=== PATIENT | male | born 1945 | race Asian ===

== ENCOUNTER 2020-03-22 05:52 | Emergency (ER) | payer OTHER ==
[~2020-03-22] VITALS: Ht 180.3 cm; Wt 88.5 kg
[2020-03-22 06:28] LABS: BASOPHILS % 0.4 % (0.0-1.0); EOSINOPHILS # (AUTO) 0.1 (0.0-0.4); EOSINOPHILS % 2.7 % (0.0-6.0); HEMATOCRIT 37.1 % (38.2-49.6); HEMOGLOBIN 12.1 g/dL (14.0-18.0); LYMPHOCYTES # (AUTO) 0.5 (1.0-3.2); LYMPHOCYTES % 9.8 % (18.0-39.1); MEAN CORPUSCULAR HEMOGLOBIN 32.5 pg (28-32); MEAN CORPUSCULAR HGB CONC 32.6 g/dL (31-35); MEAN CORPUSCULAR VOLUME 99.7 fL (81-99); MONOCYTES # (AUTO) 0.5 (0.2-0.8); MONOCYTES % 10.3 % (4.4-11.3); NEUTROPHILS % 76.6 % (38.7-80.0); PLATELET COUNT 114 x10e3/uL (140-360); RED BLOOD COUNT 3.72 x10e6/uL (4.3-5.7); RED CELL DISTRIBUTION WIDTH 14.1 % (11.7-14.4)
[2020-03-22 06:32] LABS: INR 0.85; PARTIAL THROMBOPLASTIN TIME 25.2 seconds (23.8-35.5)
[2020-03-22] MEDS ORDERED: MORPHINE SULFATE INJ 4 MG/ML INJ 1ML IV STA (06:37)
[2020-03-22] MEDS ORDERED: ONDANSETRON HCL INJ 2MG/ML 2ML 2 MG/ML VIAL IV STA (06:37)
[2020-03-22 06:42] LABS: ALANINE AMINOTRANSFERASE 38 IU/L (0-55); ALBUMIN 3.9 g/dL (3.5-5.0); ALBUMIN/GLOBULIN RATIO 1.1 (0.8-2.0); ALKALINE PHOSPHATASE 155 IU/L (40-150); AMYLASE 154 U/L (25-125); ANION GAP 13.2 mmol/L (8-16); BLOOD UREA NITROGEN 14 mg/dL (7-26); BUN/CREATININE RATIO 14 (6-25); CALCIUM 10.3 mg/dL (8.4-10.2); CARBON DIOXIDE 23 mmol/L (22-29); CHLORIDE 105 mmol/L (98-107); CREATINE KINASE 50 IU/L (30-200); CREATININE, SERUM 0.98 mg/dL (0.72-1.25); EST GLOMERULAR FILTRATION RATE > 60 ML/MIN (60-); GLUCOSE 120 mg/dL (74-118); LIPASE 77 U/L (8-78); MAGNESIUM 1.8 MG/DL (1.3-2.1); POTASSIUM 4.2 mmol/L (3.5-5.1); SODIUM 137 mmol/L (136-145)
--- NOTE | 2020-03-22 06:52 | NUR ---
BEDSIDE REPORT GIVEN TO ONCOMING NURSENina LVN.
[2020-03-22] MEDS ORDERED: IOPAMIDOL 370 MG/ML 200 ML INFUS..BTL INJ ONE (07:03)
[2020-03-22] MEDS ORDERED: SODIUM CHLORIDE 0.9% 50ML 50 ML ONE (07:03)
--- NOTE | 2020-03-22 07:12 | NUR ---
DR. RAMILA REID AT [facility] PAGED FOR ER ([phone]); SPOKE TO ANSWERING SERVICE
[2020-03-22] MEDS ORDERED: HYDROMORPHONE 1MG/1ML INJ IV STA (07:28)
--- NOTE | 2020-03-22 07:49 | Emergency Department Note ---
History of Present Illnes History of Present Illness Chief Complaint: Abdominal Complaints History of Present Illness This is a 75 year old male 75 Y/O MALE PT AAOX3 PRESENTS TO THE ER VIA EMS FROM HOME C/O RUQ ABD PAIN WITH NAUSEA AND DECREASED APPETITE ONSET AROUND 0300 THIS AM; PT ALSO REPORTS INTERMITTENT CHEST PRESSURE RADIATING TO BILATERAL SHOULDERS AND SOB; HX OF LIVER CA. 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 Arrival Mode: [id number] Sap Bw Consultant Required: No Onset (how long ago): hour(s) Location: RUQ ABDOMEN, SUBSTERNAL CHEST Quality: PAIN (RUQ ABD), PRESSURE (CHEST) Radiation: Reports non-radiation Severity: severe Onset quality: sudden Timing of current episode: constant Progression: waxing and waning Chronicity: recurrent Context: Denies recent illness Relieving factors: none Exacerbating factors: none Associated symptoms: Reports denies other symptoms, Reports chest pain; Denies shortness of breath Past Medical/Family History Physician Review I have reviewed the patient's past medical and family history. Any updates have been documented here. Past Medical History Recent Fever: No Clinical Suspicion of Infectio: No New/Unexplained Change in Ment: No Past Medical History: Hypertension, Diabetes, CHF, RI, Cancer Other Medical History: LIVER CA Past Surgical History: CABG, Pacer/AICD Other Surgery: UNKNOWN SX TO RT GROIN PER PT POOR HISTORIAN Social History Smoking Cessation: Never Smoker Counseling Performed: No Alcohol Use: None Any Illegal Drug Use: No TB Exposure/Symptoms: No Physically hurt or threatened: No Family History Family history of heart diseas: No Review of Systems Review of Systems Constitutional: Reports no symptoms EENTM: Reports no symptoms Cardiovascular: Reports as per HPI, Reports chest pain Respiratory: Reports no symptoms Gastrointestinal: Reports as per HPI, Reports abdominal pain Genitourinary: Reports no symptoms Musculoskeletal: Reports no symptoms Integumentary: Reports no symptoms Neurological: Reports no symptoms Psychological: Reports no symptoms Endocrine: Reports no symptoms Hematological/Lymphatic: Reports no symptoms Physical Exam Related Data Allergies: Coded Allergies: Penicillins (Verified Allergy, Unknown, 03/22/20) Triage Vital Signs Vital Signs Date Time Temp Pulse Resp B/P (MAP) Pulse Ox O2 Delivery O2 Flow Rate FiO2 03/22/20 05:52 99.2 88 25 107/67 98 Room Air Vital signs reviewed: Yes Physical Exam CONSTITUTIONAL Constitutional: Present well-developed, Present well-nourished HENT HENT: Present normocephalic, Present atraumatic, Present oropharynx clear/moist, Present nose normal HENT L/R: Present left ext ear normal, Present right ext ear normal EYES Eyes: Reports PERRL, Reports conjunctivae normal NECK Neck: Present ROM normal, Present supple PULMONARY Pulmonary: Present effort normal, Present breath sounds normal CARDIOVASCULAR Cardiovascular: Present regular rhythm, Present heart sounds normal, Present capillary refill normal, Present normal rate GASTROINTESTINAL Abdominal: Present soft, Present bowel sounds normal, Present tender (MOD TENDERNESS RUQ WITH GAURDING, NO REBOUND); Absent rebound GENITOURINARY Genitourinary: Present exam deferred SKIN Skin: Present warm, Present dry MUSCULOSKELETAL Musculoskeletal: Present ROM normal NEUROLOGICAL Neurological: Present alert, Present oriented x 3, Present no gross motor or sensory deficits PSYCHOLOGICAL Psychological: Present mood/affect normal, Present judgement normal Results Laboratory Result Diagram: 03/22/20 0608 03/22/20 0608 Laboratory Laboratory Tests Test 03/22/20 06:08 White Blood Count 5.23 x10e3/uL (4.8-10.8) Red Blood Count 3.72 x10e6/uL (4.3-5.7) Hemoglobin 12.1 g/dL (14.0-18.0) Hematocrit 37.1 % (38.2-49.6) Mean Corpuscular Volume 99.7 fL (81-99) Mean Corpuscular Hemoglobin 32.5 pg (28-32) Mean Corpuscular Hemoglobin Concent 32.6 g/dL (31-35) Red Cell Distribution Width 14.1 % (11.7-14.4) Platelet Count 114 x10e3/uL (140-360) Neutrophils (%) (Auto) 76.6 % (38.7-80.0) Lymphocytes (%) (Auto) 9.8 % (18.0-39.1) Monocytes (%) (Auto) 10.3 % (4.4-11.3) Eosinophils (%) (Auto) 2.7 % (0.0-6.0) Basophils (%) (Auto) 0.4 % (0.0-1.0) Neutrophils # (Auto) 4.0 (2.1-6.9) Lymphocytes # (Auto) 0.5 (1.0-3.2) Monocytes # (Auto) 0.5 (0.2-0.8) Eosinophils # (Auto) 0.1 (0.0-0.4) Basophils # (Auto) 0.0 (0.0-0.1) Absolute Immature Granulocyte (auto 0.01 x10e3/uL (0-0.1) Prothrombin Time 12.0 seconds (11.9-14.5) Prothromb Time International Ratio 0.85 Activated Partial Thromboplast Time 25.2 seconds (23.8-35.5) Sodium Level 137 mmol/L (136-145) Potassium Level 4.2 mmol/L (3.5-5.1) Chloride Level 105 mmol/L (98-107) Carbon Dioxide Level 23 mmol/L (22-29) Anion Gap 13.2 mmol/L (8-16) Blood Urea Nitrogen 14 mg/dL (7-26) Creatinine 0.98 mg/dL (0.72-1.25) Estimat Glomerular Filtration Rate > 60 ML/MIN (60-) BUN/Creatinine Ratio 14 (6-25) Glucose Level 120 mg/dL (74-118) Calcium Level 10.3 mg/dL (8.4-10.2) Magnesium Level 1.8 MG/DL (1.3-2.1) Total Bilirubin 0.6 mg/dL (0.2-1.2) Aspartate Amino Transf (AST/SGOT) 31 IU/L (5-34) Alanine Aminotransferase (ALT/SGPT) 38 IU/L (0-55) Alkaline Phosphatase 155 IU/L (40-150) Creatine Kinase 50 IU/L (30-200) Creatine Kinase MB 2.40 ng/mL (0-5.0) Troponin I 0.009 ng/mL (0-0.300) B-Type Natriuretic Peptide 54.7 pg/mL (0-100) Total Protein 7.3 g/dL (6.5-8.1) Albumin 3.9 g/dL (3.5-5.0) Globulin 3.4 g/dL (2.3-3.5) Albumin/Globulin Ratio 1.1 (0.8-2.0) Amylase Level 154 U/L (25-125) Lipase 77 U/L (8-78) Lab results reviewed: Yes Imaging Imaging results reviewed: Yes Procedures 12 Lead ECG Interpretation ECG Interpretation : ECG: ECG 1 Sap Bw Consultant: Interpreted by ED physician Date: Mar 22, 2020 Time: 06:05 Rhythm: sinus rhythm Rate: normal (87) QRS axis: normal Conduction: right bundle branch block ST segments normal: Yes T wave inversion: III, aVR, V1 T waves flattening: aVF Clinical Impression: abnormal ECG Assessment & Plan Medical Decision Making MDM PT WITH KNOWN H/O LIVER CA AND CAD PRESENTS WITH RUQ ABD PAIN AND CP - CHECK CBC, CHEM, AMYLASE/LIPASE, UA, ECG, CARDIACS, BNP, CXR, CT ABD/PELVIS - EVAL FOR WORSENING LIVER MASS, INTERNAL HEMORRHAGE, PANCREATITIS, STEMI/NSTEMI, CHF, PNEUMONIA Reassessment Reassessment PT ANGRY AT EMS FOR BRINGING HIM HERE INSTEAD OF [facility] WHERE ALL HIS DOCTORS ARE. ALSO OUR HOSPITAL IS FULL AND THE BEST WAY TO CARE FOR THIS PATIENT IS TO TRANSFER WHICH WAS INITIATED BY DIRECT OF REAL ESTATE. TRANSFER CENTER CALLED BACK WITH DR LOPEZ (HOSPITALIST) AND PT'S HIDE WORKER DR REID ON THE LINE - THEY ACCEPTED PT FOR TRANSFER @ 0805 Assessment & Plan Final Impression: (1) Abdominal pain (2) Chest pain Depart Disposition: TRANS TO OTHER [facility] FAC[facility] Last Vital Signs Date Time Temp Pulse Resp B/P (MAP) Pulse Ox O2 Delivery O2 Flow Rate FiO2 03/22/20 05:52 99.2 88 25 107/67 98 Room Air Medications in the ED Morphine Sulfate 4 mg ONCE STAT IV ; Start 03/22/20 at 06:37; Stop 03/22/20 at 07:30; Status DC Ondansetron HCl 4 mg ONCE STAT IV ; Start 03/22/20 at 06:37; Stop 03/22/20 at 06:43; Status DC Iopamidol 74,000 mg STK-MED ONCE INJ ; Start 03/22/20 at 07:03; Stop 03/22/20 at 06:56; Status DC Sodium Chloride 50 ml @ ud STK-MED ONCE .ROUTE ; Start 03/22/20 at 07:03; Stop 03/22/20 at 06:57; Status DC Hydromorphone HCl 1 mg NOW STAT IV ; Start 03/22/20 at 07:28; Stop 03/22/20 at 07:35; Status DC SHAHLA DUNLAP MD Mar 22, 2020 07:49
--- NOTE | 2020-03-22 07:51 | NUR ---
CALLED [facility] [place] PER PT REQUEST WANTING TRANSFER TO GO THERE FOR LIVER CANCER CARE AND "ALL" HIS DR'S THERE.
--- OUTSIDE RECORDS SUMMARY | 2020-03-22 07:55 | XMS REPORT | Continuity of Care Document ---
Author Author [facility] [place] [employer] [facility] [employer] Address Unknown Phone Unavailable Care Team Providers Care Waterfront Director Name Role Phone [employer] Information [employer] Unavailable Un available Problems Problem Status Onset Date Classification Date Reported Comments Source Escherichia coli (organism) Ac tive 05/11/2016 Problem 12/23/2018 05/11/2016 urine ESBL Problem added by Discern Expert. [facility] Acute urinary tract infection (disorder) Active Problem 12/23/2018 [facility] Chronic urinary tract infection (disorder) Resolved Problem 12/23/2018 [facility] Diabetes mellitus (disorder) R esolved Problem [facility] Heart disease (disorder) Resol alecia Problem [facility] Gastroesophageal reflux disease (disorder) Resolved Problem 12/23/2018 [facility] Disorder of liver (disorder) R esolved Problem [facility] Hypercholesterolemia (disorder) Resolved Problem [facility] Hypertensive disorder, systemic arterial (disorder) Resolved Problem 12/23/2018 [facility] Hypothyroidism (disorder) Reso lved Problem [facility] Dysuria (finding) Resolved Problem 12/23/2018 [facility] Disease of prostate (disorder) Resolved Problem [facility] Urinary incontinence (finding) Resolved Problem [facility] Viral hepatitis C (disorder) A ctive Problem [facility] Medications No Data Provided for This Section Allergies, Adverse Reactions, Alerts Substance Category Reaction Severity Reaction type Status Date Reported Comments Source penicillins Assertion Drug allergy Active [facility] Immunizations Immunization Date Given Site Status Last Updated Comments Source pneumococcal 13-valent vaccine 05/11/2016 Left deltoid completed Richi [facility] influenza virus vaccine, inactivated 05/11/2016 Left deltoid completed [facility] Results No Data Provided for This Section Pathology Reports No Data Provided for This Section Diagnostic Reports No Data Provided for This Section Consultation Notes No Data Provided for This Section Discharge Summaries No Data Provided for This Section History and Physicals No Data Provided for This Section Vital Signs No Data Provided for This Section Encounters Location Location Details Encounter Type Encounter Number Reason For Visit Attending Provider ADM Date DC Date Status Source Outpatient [id number] [facility] 07/30/2016 [facility] Outpatient [id number] [facility] 08/13/2016 [facility] PreReg [id number] Ovidio Rokcwell 06/03/2018 06/05/2018 [facility] Procedures Procedure Code Date Perfomer Comments Source CABG - Coronary artery bypass graft [id number] [facility] Gallbladder operation [id number] [facility] Assessment and Plan No Data Provided for This Section Plan of Care No Data Provided for This Section Social History Social History Date Source Social History TypeResponse Substance Abuse Use: None. Alcohol Never Smoking Status Unknown if ever smoked; Exposure to Tobacco Smoke Unable to obtain; Cigarette Smoking Last 365 Days No; Reg Smoking Cessation Counseling No entered on: 07/30/16 07/21/2016 [facility] Family History No Data Provided for This Section Advance Directives No Data Provided for This Section Functional Status No Data Provided for This Section
--- OUTSIDE RECORDS SUMMARY | 2020-03-22 07:55 | XMS REPORT | Clinical Summary ---
Author Author [employer] Address Unknown Phone Unavailable Care Team Providers Care Business Intelligence Developer Name Role Phone Asked, No Pcp PCP Unavailable Allergies Comments Active Allergy Reactions Severity Noted Date Patient states he cannot breathe Penicillins High 05/29/2018 Medications End Date Status Medication Sig Dispensed Refills Start Date Active clopidogrel (PLAVIX) 75 Take 75 mg by 9 mg tablet mouth every 8 morning. Active aspirin (ECOTRIN) 81 MG Take 81 mg by 0 enteric coated tablet mouth every 8 morning. Active finasteride (PROSCAR) 5 Take 5 mg by 8 mg tablet mouth 8 nightly. Active furosemide (LASIX) 20 mg Take 20 mg by 3 04/11 tablet mouth 2 (two) 8 times a day. Active glipiZIDE (GLUCOTROL) 10 Take 10 mg by 0 05/28 MG tablet mouth every 8 morning. Active glipiZIDE (GLUCOTROL) 5 Take 5 mg by 0 MG tablet mouth every 8 evening. Active levothyroxine (SYNTHROID, Take 50 mcg 3 04/07 LEVOXYL) 50 mcg tablet by mouth 8 daily with breakfast. Active magnesium oxide (MAG-OX) Take 400 mg 1 03/03 400 mg (241.3 mg by mouth 8 magnesium) tablet every morning. Active metFORMIN (GLUCOPHAGE) Take 1,000 mg 3 01 1,000 mg tablet by mouth 2 8 (two) times a day. Active pravastatin (PRAVACHOL) Take 40 mg by 9 40 MG tablet mouth 8 nightly. Active RANEXA 1,000 mg 12 hr Take 1,000 mg 3 04/16/20 1 tablet by mouth 2 8 (two) times a day. Active spironolactone Take 25 mg by 3 10/02/201 (ALDACTONE) 25 MG tablet mouth every 8 morning. Active tamsulosin (FLOMAX) 0.4 Take 0.8 mg 9 mg capsule by mouth 8 every evening. Active ranitidine (ZANTAC) 150 Take 150 mg 0 MG tablet by mouth 2 (two) times a day. Active ferrous sulfate 325 (65 Take 325 mg 0 FE) MG tablet by mouth 2 (two) times a day. Active Problems Problem Noted Date Chest pain 05/29/2018 Encounters Care Team Description Date Type Specialty Kailey Dumont MD Hyperparathyroidism, unspecified (HCC) ( Primary Dx) 06/18/2019 Transcribe Access Orders after 03/22/2019 Social History Date Tobacco Use Types Packs/Day Years Used Never Smoker Smokeless Tobacco: Never Used Drinks/Week oz/Week Comments Alcohol Use No Alcohol Habits Answer Date Recorded How often do you have a drink containing alcohol? Never 05/29/2018 How many drinks containing alcohol do you have on No t asked a typical day when you are drinking? How often do you have six or more drinks on one Not asked occasion? Sex Assigned at Date Recorded Not on file Industry Job Start Date Occupation Not on file Not on file Not on file Travel End Travel History Travel Start No recent travel history available. Last Filed Vital Signs Not on file Plan of Treatment Health Maintenance Due Date Last Done Comments DIABETIC RETINAL EYE EXAM 1945 DIABETIC FOOT EXAM 02/25/1956 COLONOSCOPY SCREENING 02/25/1996 SHINGLES VACCINES (#1) 02/25/1996 65+ PNEUMOCOCCAL VACCINE 2011 (1 of 2 - PCV13) INFLUENZA VACCINE 04/07/2020 Results Not on fileafter 03/22/2019 Insurance Type Payer Benefit Subscriber ID Effective Phone Address Plan / Dates Group 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
--- OUTSIDE RECORDS SUMMARY | 2020-03-22 07:55 | XMS REPORT | Clinical Summary ---
Author Author [facility] Organization [facility] Address Unknown Phone Unavailable Care Team Providers Care [employer] Dynamics Consultant Name Role Phone Sage Angel MD PCP [phone] Doug Bain 31 Unavailable Allergies Comments Active Allergy Reactions Severity Noted Date [employer] LEADLESS PACEMAKER DEVICE - Micra Transcatheter Pacemaker M# [id number] S# [id number] Other Other (See High 08/18/2019 Comments) STOPPED BREATHING Penicillins Anaphylaxis High 02/09/2017 Medications End Date Status Medication Sig Dispensed Refills Start Date Active nitroglycerin (NITROSTAT) Place 0.4 mg 0 10/06 0.4 MG SL tablet under the 7 tongue every 5 (five) minutes as needed for Chest pain. Active levothyroxine (SYNTHROID, Take 50 mcg 0 LEVOTHROID) 50 MCG tablet by mouth Every morning on an empty stomach. Active glipiZIDE (GLUCOTROL) 10 Take 5 mg by 0 MG tablet mouth 2 (two) times daily before meals . Active tamsulosin (FLOMAX) 0.4 Take 2 30 capsule 0 mg Cp24 24 hr capsule capsules (0.8 7 mg total) by mouth nightly. Active metFORMIN (GLUCOPHAGE) Take 1 tablet 0 11/09/2 01 1000 MG tablet (1,000 mg 8 total) by mouth 2 (two) times daily. Active ranolazine (RANEXA) 500 Take 1,000 mg 0 MG 12 hr tablet by mouth 2 (two) times daily . Active carvedilol (COREG) 3.125 Take 3.125 mg 0 MG tablet by mouth 2 (two) times daily with breakfast and dinner. Active ferrous sulfate 325 (65 Take 325 mg 0 FE) MG tablet by mouth daily with breakfast . Active sacubitril-valsartan Take 1 tablet 0 (ENTRESTO) 24-26 mg Tab by mouth daily. Active pravastatin (PRAVACHOL) Take 40 mg by 0 40 MG tablet mouth daily. Active spironolactone Take 25 mg by 0 (ALDACTONE) 25 MG tablet mouth daily. Active finasteride (PROSCAR) 5 Take 5 mg by 0 mg tablet mouth daily. Active clopidogrel (PLAVIX) 75 TK 1 T PO QD 0 mg tablet 9 Active cyclobenzaprine Take 10 mg by 0 (FLEXERIL) 10 MG tablet mouth 3 9 (three) times daily. Active gabapentin (NEURONTIN) Take 300 mg 0 01 300 MG capsule by mouth 3 9 (three) times daily. Active rifAXIMin 550 mg Tab Take 1 tablet 60 tablet 5 (550 mg 9 total) by mouth 2 (two) times daily. Active atorvastatin (LIPITOR) 40 Take 1 tablet 0 05/09 MG tablet by mouth 9 daily. 08/18/2020 Active aspirin 81 MG chewable Take 1 tablet 30 tablet 11 0 tablet (81 mg total) 0 by mouth daily. 09/07/2020 Active furosemide (LASIX) 20 MG Take 1 tablet 60 tablet 11 tablet (20 mg total) 0 by mouth 2 (two) times daily. Active ergocalciferol, vitamin Take 50 mcg 0 D2, (VITAMIN D2 ORAL) by mouth. Active RANITIDINE HCL ORAL Take by 0 mouth. Active HYDROcodone-acetaminophen Take 1 tablet 30 tablet 0 (NORCO 10-325) 10-325 mg by mouth 2 0 per tablet (two) times daily as needed for Pain. Max Daily Amount: 2 tablets Active ondansetron (ZOFRAN) 4 MG Take 1 tablet 60 tablet 3 tabletIndications: Nausea (4 mg total) 0 by mouth 2 (two) times daily as needed for Nausea. 09/08/2019 Discontinued ranitidine (ZANTAC) 150 Take 150 mg 0 MG tablet by mouth 2 (two) times daily. 08/03/2019 Discontinued aspirin 81 MG EC tablet Take 81 mg by 0 mouth daily. 02/04/2020 Discontinued magnesium oxide (MAG-OX) Take 400 mg 0 400 mg tablet by mouth daily. 09/08/2019 Discontinued furosemide (LASIX) 20 MG Take 1 tablet 30 tablet 1 tablet (20 mg total) 8 by mouth daily. 02/04/2020 Discontinued isosorbide dinitrate Take 15 mg by 0 (ISORDIL) 30 MG tablet mouth daily. 02/04/2020 Discontinued isoniazid (NYDRAZID) 300 TK 1 T PO D 3 10/26 MG tablet 9 05/27/2019 Discontinued HYDROcodone-acetaminophen Take 1 tablet 0 (NORCO 7.5-325) 7.5-325 by mouth mg per tablet every 6 (six) hours as needed for Pain. 08/03/2019 Discontinued HYDROcodone-acetaminophen Take 1 tablet 0 05/08 (NORCO 10-325) 10-325 mg by mouth 9 per tablet daily as needed. 09/08/2019 Discontinued losartan (COZAAR) 25 MG Take 1 tablet 0 tablet by mouth 9 daily. 09/08/2019 Discontinued morphine (MS CONTIN) 15 Take 1 tablet 28 tablet 0 MG 12 hr tablet (15 mg total) 0 by mouth every 12 (twelve) hours for 30 days. Max Daily Amount: 30 mg 08/28/2019 morphine (MSIR) 15 MG Take 1 tablet 30 tablet 0 tablet (15 mg total) 0 by mouth every 4 (four) hours as needed for up to 10 days. Max Daily Amount: 90 mg 08/21/2019 polyethylene glycol Take 17 g by 14 each 0 08/18 (GLYCOLAX) 17 gram packet mouth 3 0 (three) times daily for 3 days. 09/08/2019 Discontinued pantoprazole (PROTONIX) Take 1 tablet 30 tablet 0 40 MG tablet (40 mg total) 0 by mouth daily. 09/20/2019 tetracycline Take 1 48 capsule 0 (ACHROMYCIN,SUMYCIN) 500 capsule (500 0 MG capsule mg total) by mouth 4 (four) times daily for 12 days. 09/15/2019 ondansetron (ZOFRAN-ODT) Take 1 tablet 20 tablet 0 4 MG disintegrating (4 mg total) 0 tablet by mouth every 8 (eight) hours as needed for up to 7 days. 09/20/2019 metroNIDAZOLE (FLAGYL) Take 1 tablet 36 tablet 0 0 500 MG tablet (500 mg 0 total) by mouth every 8 (eight) hours for 12 days. 10/08/2019 lactulose (CHRONULAC) 20 Take 30 mLs 2700 mL 1 0 gram/30 mL solution (20 g total) 0 by mouth 3 (three) times daily for 30 days. 09/20/2019 bismuth subsalicylate Take 2 96 tablet 0 (PEPTO-BISMOL) 262 mg tablets (524 0 Chew chewable tablet mg total) by mouth 4 (four) times daily for 12 days. 10/08/2019 pantoprazole (PROTONIX) Take 1 tablet 60 tablet 1 40 MG tablet (40 mg total) 0 by mouth 2 (two) times daily before meals for 30 days. 10/08/2019 morphine (MS CONTIN) 15 Take 1 tablet 28 tablet 0 MG 12 hr tablet (15 mg total) 0 by mouth every 12 (twelve) hours for 30 days. Max Daily Amount: 30 mg 09/18/2019 morphine (MSIR) 15 MG Take 1 tablet 60 tablet 0 tablet (15 mg total) 0 by mouth every 4 (four) hours as needed for Pain for up to 10 days. Max Daily Amount: 90 mg 02/04/2020 Discontinued losartan (COZAAR) 25 MG Take 25 mg by 0 tablet mouth daily. 02/18/2020 Discontinued HYDROcodone-acetaminophen Take 1 tablet 0 (NORCO 10-325) 10-325 mg by mouth 2 per tablet (two) times daily as needed for Pain. 02/14/2020 traMADoL (ULTRAM) 50 mg Take 1 tablet 30 tablet 0 tablet (50 mg total) 0 by mouth every 6 (six) hours as needed for up to 10 days. Max Daily Amount: 200 mg Active Problems Problem Noted Date Nausea 02/17/2020 Abdominal pain 02/02/2020 Acute chest pain 09/02/2019 Other chest pain 08/13/2019 Hepatic encephalopathy 06/08/2019 Helicobacter pylori (H. pylori) infection 11/13/2018 Pain of left hip joint 11/13/2018 Colon polyps 11/13/2018 Metabolic syndrome 04/09/2018 History of hepatitis C 02/07/2018 Other cirrhosis of liver 02/07/2018 Hepatocellular carcinoma 11/22/2017 Complete heart block 11/09/2017 Overview: S/p MICRA NSTEMI (non-ST elevated myocardial infarction) 11/08 BPH (benign prostatic hyperplasia) 10/14/2017 Dyslipidemia 10/14/2017 Diabetes 10/14/2017 End stage liver disease 10/14/2017 Portal hypertension 08/29/2017 Secondary esophageal varices without bleeding 2017 Liver mass, right lobe 08/01/2017 Last Assessment & Plan: We recommend a liver resection. We will refer him to our hepatobiliary clinic to continue with his liver resec tion work up. 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 Encounters Care Team Description Date Type Specialty Michelle Valdez MA 03/04/2020 Abstract Hepatology Melara, Line Kastrup, MEDICAL INTERN 03/01/2020 Documentation Hepatology Melara, Line Kastrup, MEDICAL INTERN Nausea (Primary Dx) 2020 Orders Only Hepatology Dinh Acosta MD Goodnough, Robert Thomas, MD [place], Narendra, MD Athreya, Khannan Kameshvaran, MD Nausea (Primary Dx); Generalized weakness; Hypotension, unspecified hypotension type; Hepatocellular carcinoma (HCC); Ischemic cardiomyopathy 02/17/2020 Emergency Cardiology - 02/18/2020 02/17/2020 Travel Opal iFne MA confirm appt 02/16/2020 Telephone Hepatology Gennaro Toure PA Follow-up 02/11/2020 Telephone Hepatology Melara, Line Kastrup, MEDICAL INTERN 02/10/2020 Documentation Hepatology Melara, Line Kastrup, MEDICAL INTERN 02/08/2020 Documentation Hepatology Marc Jimenez MD Kemal, Nejmudin Reshad, MD Ibe, Caitlyn Gao MD Hepatocellular carcinoma (HCC) (Primary Dx); Hepatic encephalopathy (HCC); Liver mass, right lobe; Metabolic syndrome; Multi-vessel coronary artery stenosis; NSTEMI (non-ST elevated myocardial infarction) (HCC); Portal hypertension (HCC); Secondary esophageal varices without bleeding (HCC) 02/02/2020 Hospital Cardiology - Encounter 02/05/2020 Gennaro Toure PA Follow-up 02/02/2020 Telephone Hepatology Gennaro Toure PA Hepatocellular carcinoma (HCC) (Primary Dx) 01/29/2020 Orders Only Hepatology J Luis Dodson MD 01/27/2020 Office Visit Interventional Radi ology 01/27/2020 Travel Nallely Peacock Procedure (EGD/TIVA) 01/20/2020 Telephone Hepatology Elkin Chandler MD Hinojosa, Line Kastrup, FNP Hepatocellular carcinoma (HCC) (Primary Dx); Secondary esophageal varices without bleeding (HCC); Portal hypertension (HCC); Other cirrhosis of liver 01/13/2020 Office Visit Hepatology Opal Fine MA reschedule for next week for MRI results 01/12/2020 Telephone Hepatology Kenny Schafer NP 01/12/2020 Documentation Hepatology Marc Jiemnez MD Hepatocellular carcinoma (HCC) 01/06/2020 Hospital Radiology Encounter 01/06/2020 Travel Penyn Oliveira MA 12/22/2019 Abstract Hepatology Nallely Peacock Appointment (patient not ready) 12/18/2019 Telephone Hepatology Marc Jimenez MD Hepatocellular carcinoma (HCC) (Primary Dx); Other cirrhosis of liver; History of hepatitis C; Hepatic encephalopathy 12/16/2019 Office Visit Hepatology Isabel Morgan MA Appointment 12/01/2019 Telephone Hepatology Opal Fine MA plan of care 11/23/2019 Telephone Hepatology Nara Melara FNP 09/14/2019 Documentation Hepatology 09/08/2019 Orders Only General Internal Me dicine 09/07/2019 Orders Only General Internal Me dicine 09/06/2019 Orders Only General Internal Me dicine 09/05/2019 Orders Only General Internal Co dicine Nati Wolff MD L CATH & PCI 09/04/2019 Surgery Agustín Gannon MD Dixit, Santosh K., MD Henderson, MD Sukhi Downey Alok, MD Acute chest pain (Primary Dx); Acute abdominal pain in right upper quadrant; Non-intractable vomiting with nausea, unspecified vomiting type; Morbidly obese (HCC); Hepatic cirrhosis, unspecified hepatic cirrhosis type, unspecified whether ascites present (HCC); Essential hypertension; Chronic combined systolic (congestive) and diastolic (congestive) heart failure (HCC); Hepatocellular carcinoma (HCC); Type 2 diabetes mellitus with hyperglycemia, unspecified whether intermediate insulin use (HCC); NAFLD (nonalcoholic fatty liver disease); Other cirrhosis of liver (HCC); Dyslipidemia; Ischemic cardiomyopathy; Multi-vessel coronary artery stenosis; Unstable angina due to arteriosclerosis of coronary artery bypass graft (HCC); Helicobacter pylori gastritis; Polyp of colon, unspecified part of colon, unspecified type; Helicobacter pylori (H. pylori) infection; Hepatic encephalopathy (HCC); History of hepatitis C; Immunity status testing; Liver mass, right lobe; Metabolic syndrome; Other chest pain; Portal hypertension (HCC); Secondary esophageal varices without bleeding (HCC); Benign prostatic hyperplasia, unspecified whether lower urinary tract symptoms present; Complete heart block (HCC); Drug-induced long QT syndrome; Angina pectoris, unstable (HCC) 09/02/2019 Hospital Cardiology - Encounter 09/08/2019 Marc Jimenez MD Multi-vessel coronary artery stenosis (P rimary Dx); Essential hypertension; Hyperlipidemia, unspecified hyperlipidemia type; Type 2 diabetes mellitus with hyperglycemia, unspecified whether intermediate insulin use (HCC) 09/02/2019 Office Visit Hepatology 09/02/2019 Orders Only General Internal Co dicine 09/02/2019 Travel J Luis Sullivan II, MD 08/13/2019 Office Visit Interventional Radi J Luis Carty Jr., MD Adio, Titilola R., MD Athreya, Khannan Kameshvaran, MD Other chest pain (Primary Dx); Hepatocellular carcinoma (HCC); Other cirrhosis of liver; Type 2 diabetes mellitus without complication, without long-term current use of insulin (HCC); Essential hypertension; Chronic combined systolic (congestive) and diastolic (congestive) heart failure (HCC); End stage liver disease (HCC); Ischemic cardiomyopathy; Multi-vessel coronary artery stenosis; Portal hypertension (HCC); Liver mass, right lobe; RUQ pain; Constipation, unspecified constipation type; Hepatic encephalopathy (HCC); History of hepatitis C 08/13/2019 [facility] Internal Co dicine - Encounter 08/18/2019 08/13/2019 Orders Only General Internal Co dicine 08/13/2019 Travel Carmen Mi PA-C 08/11/2019 Telephone Radiology Gennaro Toure PA Abdominal Pain 08/11/2019 Telephone Hepatology Marc Jimenez MD Hepatocellular carcinoma (HCC) 08/03/2019 Hospital Encounter Turner Nicholas Hepatocellular carcinoma (HCC) 08/03/2019 Orders Only Radiology Phill Barajas NP Hepatocellular carcinoma (HCC) (Primary Dx) 08/03/2019 Orders Only Hepatology Alicia Jefferson FNP Hepatocellular carcinoma (HCC) (Primary Dx) 08/03/2019 Orders Only Hepatology Amina Mccoy PA Hepatocellular carcinoma (HCC) (Primary Dx) 08/03/2019 Orders Only Interventional Radi rachnay Phill Barajas NP Hepatocellular carcinoma (HCC) (Primary Dx) 07/24/2019 Orders Only Hepatology Marc Jimenez MD Liver cell carcinoma (HCC) 07/20/2019 Hospital Encounter Marc Jimenez MD Liver cell carcinoma (HCC) (Primary Dx) 07/04/2019 Outside Orders Central Scheduling Alicia Jefferson FNP Returning message 06/19/2019 Telephone HepatJanine Gamez RN 06/09/2019 Abstract Hepatology Phill Barajas NP Return call; Question about Y90 06/03/2019 Telephone Janine Salazar RN 06/03/2019 Documentation Hepatology Marc Jimenez MD Other cirrhosis of liver (Primary Dx); Portal hypertension (HCC); NAFLD (nonalcoholic fatty liver disease); History of hepatitis C; Polyp of colon, unspecified part of colon, unspecified type; Metabolic syndrome; Immunity status testing; Hepatocellular carcinoma (HCC); Multi-vessel coronary artery stenosis; Pain of left hip joint; Hepatic encephalopathy; Secondary esophageal varices without bleeding (HCC) 05/27/2019 Office Visit Hepatology Prashanth Azevedo DO 05/21/2019 Office Visit Interventional Radi Carmen Hou 05/13/2019 Abstract Hepatology Nallely Morrison PA-C 05/13/2019 Documentation Hepatology Alicia Jefferson FNP Returning pt's call 05/06/2019 Telephone Hepatology Nallely Morrison PA-C Follow-up 04/30/2019 Telephone Hepatology Nallely Morrison PA-C Hepatocellular carcinoma (HCC) (Primary Dx); Neoplasm of digestive system 04/30/2019 Orders Only Hepatology Nallely Morrison PA-C 04/27/2019 Documentation Hepatology Nallely Morrison PA-C Hepatocellular carcinoma (HCC) (Primary Dx); Prostate enlargement 04/27/2019 Orders Only Hepatology Nallely Morrison PA-C Follow-up 04/27/2019 Telephone Hepatology Marc Jimneez MD Portal hypertension (HCC); Hepatocellular carcinoma (HCC); Other cirrhosis of liver 04/16/2019 Hospital Radiology Encounter Marc Jimenez MD Portal hypertension (HCC); Hepatocellular carcinoma (HCC); Other cirrhosis of liver 04/16/2019 Hospital Radiology Encounter Marc Jimenez MD 04/16/2019 Hospital Radiology Encounter Marc Jimenez MD Portal hypertension (HCC); Hepatocellular carcinoma (HCC); Other cirrhosis of liver 04/16/2019 Hospital Radiology Encounter Marc Jimenez MD Portal hypertension (HCC); Hepatocellular carcinoma (HCC); Other cirrhosis of liver 04/16/2019 Hospital Radiology Encounter Sage Angel MD 04/15/2019 Outside Orders Nallely Morrison PA-C Follow-up 03/30/2019 Telephone Hepatology after 03/22/2019 Family History Medical History Relation Name Comments Diabetes Brother Heart disease Brother Diabetes Brother Heart disease Brother Diabetes Brother Relation Name Status Comments Brother Alive PROSTATE REMOVED Brother Alive Brother Social History Date Tobacco Use Types Packs/Day Years Used Quit: 2016 Former Smoker Smokeless Tobacco: Never Used Tobacco Cessation: Counseling Given: Yes Comments: heavy smoker Alcohol Use Drinks/Week oz/Week Comments No Sex Assigned at Date Recorded Not on file Industry Job Start Date Occupation Not on file Not on file Not on file Travel End Travel History Travel Start No recent travel history available. 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 Inhaled Oxygen 21% Concentration 02/18/2020 5:25 AM CDT Weight 86.6 kg (191 lb) 02/17/2020 9:00 PM CDT Height 180.3 cm (5' 11") 02/18/2020 5:25 AM CDT Body Mass Index 26.64 Plan of Treatment Care Team Description Date Type Specialty Nara Melara FNP [id number] [place] [address] [phone] 03/30/2020 Appointment Radiology Marc Jimenez MD [address] [address] [phone] 03/30/2020 Office Visit Hepatology Laci Puentes MD [address] [address] [phone] 03/31/2020 Hospital Gastroenterology Encounter Laci Puentes MD [address] [address] [phone] UPPER ENDOSCOPY 03/31/2020 Surgery Gastroenterology Health Maintenance Due Date Last Done Comments DIABETIC EYE EXAM 02/25/1955 DIABETIC FOOT EXAM 02/25/1955 URINE MICROALBUMIN 02/25/1956 PNEUMOCOCCAL 65+ 05/11/2017 05/11/2016 LOW/MEDIUM RISK (2 of 2 - PPSV23) INFLUENZA VACCINE (#1) 2020 HEMOGLOBIN A1C 08/20/2020 02/18/2020, 020, 08/14/2019, Additional history exists COLON CANCER SCREENING 12/28/2027 12/27/2017 COLONOSCOPY Implants Device Identifier Shelf Expiration Date Model / Serial / L ot Implanted Type Area Manufactur er 02/01/2019 [id number] / [id number] / Micra [id number] Pacemakers Heart [employer] Implanted: Qty: 1 on 11/09/2017 by Boy Felix MD 09/28/2018 [id number] / / [id number] Promus Premier Stents-Cor N/A: Coronary [place] Implanted: Qty: 1 on 11/06/2017 by Boy Phillips MD 01/26/2019 [id number] / / [id number] Promus Premier Stents-Cor N/A: Coronary [place] Implanted: Qty: 1 on 11/06/2017 by Boy Phillips MD Procedures Comments Procedure Name Priority Date/Time Associated Diag nosis REPORT OF PROCEDURE - 02/19/2020 ENDOSCOPY SCAN 4:42 PM CDT RHYTHM STRIP - SCAN 02/19/2020 10:50 AM CDT POCT-GLUCOSE METER Routine 02/18/2020 11:55 AM CDT POCT-GLUCOSE METER Routine 02/18/2020 7:23 AM CDT CBC W/PLT COUNT & AUTO Routine 02/18/2020 DIFFERENTIAL 4:33 AM CDT HEMOGLOBIN A1C Routine 02/18/2020 4:33 AM CDT COMPREHENSIVE METABOLIC Routine 02/18/2020 PANEL 4:33 AM CDT PTH, INTACT Routine 02/18/2020 4:33 AM CDT PHOSPHORUS Routine 02/18/2020 4:33 AM CDT MAGNESIUM Routine 02/18/2020 4:33 AM CDT HEPATIC FUNCTION PANEL Routine 02/18/2020 4:33 AM CDT CBC W/PLT COUNT & AUTO Routine 02/18/2020 DIFFERENTIAL 4:33 AM CDT ECG 12-LEAD STAT 02/17/2020 11:28 PM CDT POCT-GLUCOSE METER Routine 02/17/2020 9:57 PM CDT AMMONIA STAT 02/17/2020 6:[address] BRAIN WITHOUT IV STAT 02/17/2020 CONTRAST 5:02 PM CDT BLOOD GAS, VENOUS STAT 02/17/2020 4:[address] ABDOMEN/PELVIS WITH IV STAT 02/17/2020 CONTRAST 3:07 PM CDT URINALYSIS W/ REFLEX STAT 02/17/2020 URINE CULTURE 12:56 PM CDT PROCALCITONIN STAT 02/17/2020 11:57 AM CDT B-TYPE NATRIURETIC FACTOR STAT 02/17/2020 (BNP) 11:57 AM CDT TROPONIN I STAT 02/17/2020 11:57 AM CDT COMPREHENSIVE METABOLIC STAT 02/17/2020 PANEL 11:57 AM CDT LACTIC ACID, VENOUS STAT 02/17/2020 11:57 AM CDT TSH/FREE T4 IF INDICATED STAT 02/17/2020 11:57 AM CDT SARS-COV2/RT-PCR ([facility] & STAT 02/17/2020 REF LABS) 11:35 AM CDT BLOOD CULTURE STAT 02/17/2020 11:24 AM CDT ECG 12-LEAD Routine 02/17/2020 11:23 AM CDT CBC W/PLT COUNT & AUTO STAT 02/17/2020 DIFFERENTIAL 11:16 AM CDT APTT STAT 02/17/2020 11:16 AM CDT PROTHROMBIN TIME/INR STAT 02/17/2020 11:16 AM CDT CBC W/PLT COUNT & AUTO STAT 02/17/2020 DIFFERENTIAL 11:16 AM CDT BLOOD CULTURE STAT 02/17/2020 11:16 AM CDT XR CHEST 2 VIEWS STAT 02/17/2020 9:13 AM CDT ED ECG INTERPRETATION Routine 02/17/2020 8:30 AM CDT RHYTHM STRIP - SCAN 02/08/2020 3:10 PM CDT POCT-GLUCOSE METER Routine 02/05/2020 8:34 AM CDT MAGNESIUM Routine 02/05/2020 6:[address] BRAIN WITHOUT IV STAT 02/04/2020 CONTRAST 5:25 PM CDT POCT-GLUCOSE METER Routine 02/04/2020 5:02 PM CDT POCT-GLUCOSE METER Routine 02/04/2020 12:20 PM CDT POCT-GLUCOSE METER Routine 02/04/2020 7:46 AM CDT CBC W/PLT COUNT & AUTO Routine 02/04/2020 DIFFERENTIAL 5:05 AM CDT BASIC METABOLIC PANEL (7) Routine 02/04/2020 5:05 AM CDT CBC W/PLT COUNT & AUTO Routine 02/04/2020 DIFFERENTIAL 5:05 AM CDT MAGNESIUM Routine 02/04/2020 5:05 AM CDT HEPATIC FUNCTION PANEL Routine 02/04/2020 5:05 AM CDT POCT-GLUCOSE METER Routine 02/03/2020 9:45 PM CDT POCT-GLUCOSE METER Routine 02/03/2020 4:39 PM CDT POCT-GLUCOSE METER Routine 02/03/2020 11:39 AM CDT POCT-GLUCOSE METER Routine 02/03/2020 7:52 AM CDT CBC W/PLT COUNT & AUTO Routine 02/03/2020 DIFFERENTIAL 4:49 AM CDT BASIC METABOLIC PANEL (7) Routine 02/03/2020 4:49 AM CDT CBC W/PLT COUNT & AUTO Routine 02/03/2020 DIFFERENTIAL 4:49 AM CDT MAGNESIUM Routine 02/03/2020 4:49 AM CDT HEPATIC FUNCTION PANEL Routine 02/03/2020 4:49 AM CDT POCT-GLUCOSE METER Routine 02/02/2020 10:27 PM CDT ECG 12-LEAD Routine 02/02/2020 9:18 PM CDT Procedure Note - Interface, External Ris In - 02/02/2020 9:36 PM CDT Ventricula r Rate 62 BPM Atrial Rate 62 BPM P-R Interval 198 ms QRS Duration 166 ms Q-T Interval 504 ms QTC Calculatio n(Bazett) 511 ms P Sesser 24 degrees R Sesser 99 degrees T Sesser 96 degrees Normal sinus rhythm Right bundle branch block Inferior infarct (cited on or before 0) Abnormal ECG When compared with ECG of 0 05:27, Nonspecifi c T wave abnormalit y has replaced inverted T waves in Inferior leads Nonspecifi c T wave abnormalit y has replaced inverted T waves in Anterior leads Nonspecifi c T wave abnormalit y now evident in Lateral leads ECG 12-LEAD STAT 02/02/2020 9:18 PM CDT XR CHEST 1 VIEW EDDIE 02/02/2020 PORTABLE/BEDSIDE 6:50 PM CDT CBC W/PLT COUNT & AUTO Routine 02/02/2020 DIFFERENTIAL 6:32 PM CDT BASIC METABOLIC PANEL (7) Routine 02/02/2020 6:32 PM CDT CBC W/PLT COUNT & AUTO Routine 02/02/2020 DIFFERENTIAL 6:32 PM CDT HEPATIC FUNCTION PANEL Routine 02/02/2020 6:32 PM CDT IR EMBOLIZATION ARTERIAL Routine 02/02/2020 Hepat ocellular carcinoma 2:41 PM CDT (HCC) CBC W/PLT COUNT & AUTO Routine 02/02/2020 DIFFERENTIAL 10:13 AM CDT BILIRUBIN, DIRECT Routine 02/02/2020 10:13 AM CDT COMPREHENSIVE METABOLIC Routine 02/02/2020 PANEL 10:13 AM CDT CBC W/PLT COUNT & AUTO Routine 02/02/2020 DIFFERENTIAL 10:13 AM CDT APTT Routine 02/02/2020 10:13 AM CDT PROTHROMBIN TIME/INR Routine 02/02/2020 10:13 AM CDT ARRYTHMIA IMPLANT REPORT 01/11/2020 - SCAN 3:20 PM CDT CBC W/PLT COUNT & AUTO Routine 01/06/2020 Hepatoc ellular carcinoma DIFFERENTIAL 11:17 AM CDT (HCC) LIPID PANEL Routine 01/06/2020 11:17 AM CDT ALPHA FETOPROTEIN (AFP), Routine 01/06/2020 Hepat ocellular carcinoma TUMOR MARKER 11:17 AM CDT (HCC) PROTHROMBIN TIME/INR Routine 01/06/2020 Hepatocel lular carcinoma 11:17 AM CDT (HCC) CBC W/PLT COUNT & AUTO Routine 01/06/2020 Hepatoc ellular carcinoma DIFFERENTIAL 11:17 AM CDT (HCC) HEPATIC FUNCTION PANEL Routine 01/06/2020 Hepatoc ellular carcinoma 11:17 AM CDT (HCC) BASIC METABOLIC PANEL (7) Routine 01/06/2020 Hepa tocellular carcinoma 11:17 AM CDT (HCC) MR ABDOMEN WITH & WITHOUT Routine 01/06/2020 Hepa tocellular carcinoma IV CONTRAST 10:18 AM CDT (HCC) POCT-GLUCOSE METER Routine 01/06/2020 9:06 AM CDT POCT-CREATININE Routine 01/06/2020 8:59 AM CDT RHYTHM STRIP - SCAN 09/11/2019 2:40 PM IRRIGATING PUMP OPERATOR RHYTHM STRIP - SCAN 09/11/2019 2:40 PM IRRIGATING PUMP OPERATOR VASCULAR DIAGRAM -SCAN 09/11/2019 1:30 PM IRRIGATING PUMP OPERATOR RHYTHM STRIP - SCAN 09/10/2019 8:32 AM IRRIGATING PUMP OPERATOR REPORT OF PROCEDURE - 09/10/2019 ENDOSCOPY SCAN 8:32 AM IRRIGATING PUMP OPERATOR VASCULAR DIAGRAM -SCAN 09/10/2019 8:32 AM IRRIGATING PUMP OPERATOR CARDIAC CATH REPORT - 09/10/2019 SCAN 8:32 AM IRRIGATING PUMP OPERATOR POCT-GLUCOSE METER Routine 09/08/2019 8:08 AM IRRIGATING PUMP OPERATOR ECG 12-LEAD Routine 09/08/2019 5:27 AM IRRIGATING PUMP OPERATOR Procedure Note - Interface, External Ris In - 09/08/2019 5:34 AM IRRIGATING PUMP OPERATOR Ventricula r Rate 81 BPM Atrial Rate 81 BPM P-R Interval 216 ms QRS Duration 162 ms Q-T Interval 442 ms QTC Calculatio n(Bazett) 513 ms P Sesser 34 degrees R Sesser 137 degrees T Sesser 18 degrees Sinus rhythm with 1st degree A-V block Indetermin ate axis Right bundle branch block Inferior infarct (cited on or before 0) Abnormal ECG When compared with ECG of 0 06:12, Premature ventricula r complexes are no longer Present Inverted T waves have replaced nonspecifi c T wave abnormalit y in Anterior leads ECG 12-LEAD Routine 09/08/2019 5:27 AM IRRIGATING PUMP OPERATOR CBC W/PLT COUNT & AUTO Routine 09/08/2019 DIFFERENTIAL 4:09 AM IRRIGATING PUMP OPERATOR BASIC METABOLIC PANEL (7) Routine 09/08/2019 4:09 AM IRRIGATING PUMP OPERATOR CBC W/PLT COUNT & AUTO Routine 09/08/2019 DIFFERENTIAL 4:09 AM IRRIGATING PUMP OPERATOR POCT-GLUCOSE METER Routine 09/07/2019 9:06 PM IRRIGATING PUMP OPERATOR POCT-GLUCOSE METER Routine 09/07/2019 5:15 PM IRRIGATING PUMP OPERATOR POCT-GLUCOSE METER Routine 09/07/2019 11:20 AM IRRIGATING PUMP OPERATOR POCT-GLUCOSE METER Routine 09/07/2019 7:31 AM IRRIGATING PUMP OPERATOR ECG 12-LEAD Routine 09/07/2019 6:12 AM IRRIGATING PUMP OPERATOR Procedure Note - Interface, External Ris In - 09/07/2019 6:16 AM IRRIGATING PUMP OPERATOR Ventricula r Rate 64 BPM Atrial Rate 64 BPM P-R Interval 194 ms QRS Duration 162 ms Q-T Interval 492 ms QTC Calculatio n(Bazett) 507 ms P Sesser 32 degrees R Sesser 109 degrees T Sesser 67 degrees Sinus rhythm with occasional ventricula r-paced complexes and with occasional Premature ventricula r complexes Indetermin ate axis Right bundle branch block Inferior infarct , age undetermin ed Abnormal ECG When compared with ECG of 0 04:57, Electronic ventricula r pacemaker has replaced Sinus rhythm ECG 12-LEAD Routine 09/07/2019 6:12 AM IRRIGATING PUMP OPERATOR CBC W/PLT COUNT & AUTO Routine 09/07/2019 DIFFERENTIAL 12:51 AM IRRIGATING PUMP OPERATOR HEPATIC FUNCTION PANEL Add-On 09/07/2019 12:51 AM IRRIGATING PUMP OPERATOR BASIC METABOLIC PANEL (7) Routine 09/07/2019 12:51 AM IRRIGATING PUMP OPERATOR MAGNESIUM Routine 09/07/2019 12:51 AM IRRIGATING PUMP OPERATOR CBC W/PLT COUNT & AUTO Routine 09/07/2019 DIFFERENTIAL 12:51 AM IRRIGATING PUMP OPERATOR POCT-GLUCOSE METER Routine 09/06/2019 9:22 PM IRRIGATING PUMP OPERATOR POCT-GLUCOSE METER Routine 09/06/2019 6:18 PM IRRIGATING PUMP OPERATOR POCT-GLUCOSE METER Routine 09/06/2019 3:01 PM IRRIGATING PUMP OPERATOR POCT-GLUCOSE METER Routine 09/06/2019 11:49 AM IRRIGATING PUMP OPERATOR POCT-GLUCOSE METER Routine 09/06/2019 7:23 AM IRRIGATING PUMP OPERATOR ECG 12-LEAD Routine 09/06/2019 4:57 AM IRRIGATING PUMP OPERATOR Procedure Note - Interface, External Ris In - 09/06/2019 5:00 AM IRRIGATING PUMP OPERATOR Ventricula r Rate 65 BPM Atrial Rate 65 BPM P-R Interval 204 ms QRS Duration 168 ms Q-T Interval 504 ms QTC Calculatio n(Bazett) 524 ms P Sesser 32 degrees R Sesser 139 degrees T Sesser 33 degrees Normal sinus rhythm Right bundle branch block Abnormal ECG When compared with ECG of 0 10:58, QRS duration has increased ECG 12-LEAD Routine 09/06/2019 4:57 AM IRRIGATING PUMP OPERATOR CBC W/PLT COUNT & AUTO Routine 09/06/2019 DIFFERENTIAL 4:44 AM IRRIGATING PUMP OPERATOR COMPREHENSIVE METABOLIC Routine 09/06/2019 PANEL 4:44 AM IRRIGATING PUMP OPERATOR CBC W/PLT COUNT & AUTO Routine 09/06/2019 DIFFERENTIAL 4:44 AM IRRIGATING PUMP OPERATOR POCT-GLUCOSE METER Routine 09/05/2019 9:12 [address] PU[address]PER[address] CT ABDOMEN/PELVIS WITH & Routine 09/05/2019 WITHOUT IV CONTRAST 6:01 PM IRRIGATING PUMP OPERATOR POCT-GLUCOSE METER Routine 09/05/2019 1:00 PM IRRIGATING PUMP OPERATOR ECG 12-LEAD Routine 09/05/2019 10:58 AM IRRIGATING PUMP OPERATOR Procedure Note - Interface, External Ris In - 09/05/2019 11:00 AM IRRIGATING PUMP OPERATOR Ventricula r Rate 80 BPM Atrial Rate 80 BPM P-R Interval 200 ms QRS Duration 122 ms Q-T Interval 442 ms QTC Calculatio n(Bazett) 509 ms P Sesser 22 degrees R Sesser 198 degrees T Sesser 64 degrees Normal sinus rhythm Right bundle branch block Abnormal ECG When compared with ECG of 0 10:57, Fusion complexes are no longer Present ECG 12-LEAD STAT 09/05/2019 10:58 AM IRRIGATING PUMP OPERATOR ECG 12-LEAD Routine 09/05/2019 10:57 AM IRRIGATING PUMP OPERATOR Procedure Note - Interface, External Ris In - 09/05/2019 11:00 AM IRRIGATING PUMP OPERATOR Ventricula r Rate 78 BPM Atrial Rate 78 BPM P-R Interval 200 ms QRS Duration 124 ms Q-T Interval 448 ms QTC Calculatio n(Bazett) 510 ms P Sesser 36 degrees R Sesser 181 degrees T Sesser 68 degrees Sinus rhythm with Fusion complexes Right bundle branch block Inferior infarct , age undetermin ed Abnormal ECG When compared with ECG of 0 16:36, Fusion complexes are now Present QRS duration has decreased Inferior infarct is now Present T wave inversion now evident in Anterior leads Nonspecifi c T wave abnormalit y no longer evident in Lateral leads ECG 12-LEAD Routine 09/05/2019 10:57 AM IRRIGATING PUMP OPERATOR POCT-GLUCOSE METER Routine 09/05/2019 8:05 AM IRRIGATING PUMP OPERATOR CBC W/PLT COUNT & AUTO Routine 09/05/2019 DIFFERENTIAL 2:45 AM IRRIGATING PUMP OPERATOR CBC W/PLT COUNT & AUTO Routine 09/05/2019 DIFFERENTIAL 2:45 AM IRRIGATING PUMP OPERATOR MAGNESIUM Routine 09/05/2019 2:45 AM IRRIGATING PUMP OPERATOR PROTHROMBIN TIME/INR Routine 09/05/2019 2:45 AM IRRIGATING PUMP OPERATOR HEPATIC FUNCTION PANEL Routine 09/05/2019 2:45 AM IRRIGATING PUMP OPERATOR BASIC METABOLIC PANEL (7) Routine 09/05/2019 2:45 AM IRRIGATING PUMP OPERATOR ECHOCARDIOGRAM REPORT - 09/04/2019 SCAN 9:10 PM IRRIGATING PUMP OPERATOR POCT-GLUCOSE METER Routine 09/04/2019 9:01 PM IRRIGATING PUMP OPERATOR L CATH & PCI 09/04/2019 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, unspecified vessel or lesion type, unspecified whether ewiiaapaayp or transplanted heart (HCC) POCT-GLUCOSE METER Routine 09/04/2019 3:02 PM IRRIGATING PUMP OPERATOR POCT-GLUCOSE METER Routine 09/04/2019 11:15 AM IRRIGATING PUMP OPERATOR POCT-GLUCOSE METER Routine 09/04/2019 8:33 AM IRRIGATING PUMP OPERATOR CBC W/PLT COUNT & AUTO Routine 09/04/2019 DIFFERENTIAL 5:19 AM IRRIGATING PUMP OPERATOR CBC W/PLT COUNT & AUTO Routine 09/04/2019 DIFFERENTIAL 5:19 AM IRRIGATING PUMP OPERATOR MAGNESIUM Routine 09/04/2019 5:19 AM IRRIGATING PUMP OPERATOR PROTHROMBIN TIME/INR Routine 09/04/2019 5:19 AM IRRIGATING PUMP OPERATOR HEPATIC FUNCTION PANEL Routine 09/04/2019 5:19 AM IRRIGATING PUMP OPERATOR BASIC METABOLIC PANEL (7) Routine 09/04/2019 5:19 AM IRRIGATING PUMP OPERATOR POCT-GLUCOSE METER Routine 09/03/2019 8:49 PM IRRIGATING PUMP OPERATOR POCT-GLUCOSE METER Routine 09/03/2019 5:38 PM IRRIGATING PUMP OPERATOR 2D ECHO W/ DOPPLER Routine 09/03/2019 (CW/PW/COLOR) 4:52 PM IRRIGATING PUMP OPERATOR POCT-GLUCOSE METER Routine 09/03/2019 3:12 PM IRRIGATING PUMP OPERATOR POCT-GLUCOSE METER Routine 09/03/2019 8:08 AM IRRIGATING PUMP OPERATOR TROPONIN I Routine 09/03/2019 5:39 AM IRRIGATING PUMP OPERATOR CBC W/PLT COUNT & AUTO Routine 09/03/2019 DIFFERENTIAL 12:45 AM IRRIGATING PUMP OPERATOR CBC W/PLT COUNT & AUTO Routine 09/03/2019 DIFFERENTIAL 12:45 AM IRRIGATING PUMP OPERATOR MAGNESIUM Routine 09/03/2019 12:45 AM IRRIGATING PUMP OPERATOR PROTHROMBIN TIME/INR Routine 09/03/2019 12:45 AM IRRIGATING PUMP OPERATOR HEPATIC FUNCTION PANEL Routine 09/03/2019 12:45 AM IRRIGATING PUMP OPERATOR BASIC METABOLIC PANEL (7) Routine 09/03/2019 12:45 AM IRRIGATING PUMP OPERATOR TROPONIN I Routine 09/03/2019 12:45 AM IRRIGATING PUMP OPERATOR URINALYSIS W/ MICROSCOPIC STAT 09/02/2019 8:25 PM IRRIGATING PUMP OPERATOR XR CHEST 1 VIEW STAT 09/02/2019 PORTABLE/BEDSIDE 5:08 PM IRRIGATING PUMP OPERATOR CBC W/PLT COUNT & AUTO STAT 09/02/2019 DIFFERENTIAL 5:03 PM IRRIGATING PUMP OPERATOR HEPATIC FUNCTION PANEL STAT 09/02/2019 5:03 PM IRRIGATING PUMP OPERATOR TROPONIN I STAT 09/02/2019 5:03 PM IRRIGATING PUMP OPERATOR CBC W/PLT COUNT & AUTO STAT 09/02/2019 DIFFERENTIAL 5:03 PM IRRIGATING PUMP OPERATOR BASIC METABOLIC PANEL (7) STAT 09/02/2019 5:03 PM IRRIGATING PUMP OPERATOR ED ECG INTERPRETATION Routine 09/02/2019 4:39 PM IRRIGATING PUMP OPERATOR ECG 12-LEAD Routine 09/02/2019 4:36 PM IRRIGATING PUMP OPERATOR Procedure Note - Interface, External Ris In - 09/02/2019 9:53 PM IRRIGATING PUMP OPERATOR Ventricula r Rate 66 BPM Atrial Rate 66 BPM P-R Interval 188 ms QRS Duration 160 ms Q-T Interval 484 ms QTC Calculatio n(Bazett) 507 ms P Sesser 63 degrees R Sesser 134 degrees T Sesser 73 degrees Normal sinus rhythm Right bundle branch block Abnormal ECG When compared with ECG of 0 12:52, QRS duration has increased ECG 12-LEAD STAT 09/02/2019 4:36 PM IRRIGATING PUMP OPERATOR RHYTHM STRIP - SCAN 08/21/2019 1:11 PM IRRIGATING PUMP OPERATOR RHYTHM STRIP - SCAN 08/19/2019 1:30 PM IRRIGATING PUMP OPERATOR REPORT OF PROCEDURE - 08/18/2019 ENDOSCOPY SCAN 4:35 PM IRRIGATING PUMP OPERATOR POCT-GLUCOSE METER Routine 08/18/2019 12:24 PM IRRIGATING PUMP OPERATOR POCT-GLUCOSE METER Routine 08/18/2019 7:28 AM IRRIGATING PUMP OPERATOR MAGNESIUM Routine 08/18/2019 4:32 AM IRRIGATING PUMP OPERATOR BASIC METABOLIC PANEL (7) Routine 08/18/2019 4:32 AM IRRIGATING PUMP OPERATOR POCT-GLUCOSE METER Routine 08/17/2019 8:46 PM IRRIGATING PUMP OPERATOR POCT-GLUCOSE METER Routine 08/17/2019 6:02 PM IRRIGATING PUMP OPERATOR NM BONE SCAN WHOLE BODY Routine 08/17/2019 2:18 PM IRRIGATING PUMP OPERATOR POCT-GLUCOSE METER Routine 08/17/2019 1:00 PM IRRIGATING PUMP OPERATOR XR CHEST 1 VIEW Routine 08/17/2019 PORTABLE/BEDSIDE 11:12 AM IRRIGATING PUMP OPERATOR POCT-GLUCOSE METER Routine 08/17/2019 10:34 AM IRRIGATING PUMP OPERATOR POCT-GLUCOSE METER Routine 08/17/2019 8:34 AM IRRIGATING PUMP OPERATOR MAGNESIUM Routine 08/17/2019 4:42 AM IRRIGATING PUMP OPERATOR BASIC METABOLIC PANEL (7) Routine 08/17/2019 4:42 AM IRRIGATING PUMP OPERATOR POCT-GLUCOSE METER Routine 08/16/2019 11:36 PM IRRIGATING PUMP OPERATOR POCT-GLUCOSE METER Routine 08/16/2019 11:22 PM IRRIGATING PUMP OPERATOR POCT-GLUCOSE METER Routine 08/16/2019 5:21 PM IRRIGATING PUMP OPERATOR POCT-GLUCOSE METER Routine 08/16/2019 11:12 AM IRRIGATING PUMP OPERATOR POCT-GLUCOSE METER Routine 08/16/2019 8:39 AM IRRIGATING PUMP OPERATOR HEPATIC FUNCTION PANEL Routine 08/16/2019 3:11 AM IRRIGATING PUMP OPERATOR PROTHROMBIN TIME/INR Routine 08/16/2019 3:11 AM IRRIGATING PUMP OPERATOR PHOSPHORUS Routine 08/16/2019 3:11 AM IRRIGATING PUMP OPERATOR MAGNESIUM Routine 08/16/2019 3:11 AM IRRIGATING PUMP OPERATOR BASIC METABOLIC PANEL (7) Routine 08/16/2019 3:11 AM IRRIGATING PUMP OPERATOR POCT-GLUCOSE METER Routine 08/15/2019 10:38 PM IRRIGATING PUMP OPERATOR POCT-GLUCOSE METER Routine 08/15/2019 8:01 PM IRRIGATING PUMP OPERATOR POCT-GLUCOSE METER Routine 08/15/2019 5:53 PM IRRIGATING PUMP OPERATOR NM MYOCARDIAL PERFUSION STAT 08/15/2019 SPECT, PHARM(LEXISCAN) 4:21 PM IRRIGATING PUMP OPERATOR TREADMILL Routine 08/15/2019 TOLERANCE(NON-NUCLEAR 3:08 PM IRRIGATING PUMP OPERATOR TREADMILL) POCT-GLUCOSE METER Routine 08/15/2019 12:38 PM IRRIGATING PUMP OPERATOR POCT-GLUCOSE METER Routine 08/15/2019 7:22 AM IRRIGATING PUMP OPERATOR POCT-GLUCOSE METER Routine 08/15/2019 6:29 AM IRRIGATING PUMP OPERATOR HEPATIC FUNCTION PANEL Routine 08/15/2019 4:04 AM IRRIGATING PUMP OPERATOR PROTHROMBIN TIME/INR Routine 08/15/2019 4:04 AM IRRIGATING PUMP OPERATOR HEMOGLOBIN A1C Routine 08/15/2019 4:04 AM IRRIGATING PUMP OPERATOR PHOSPHORUS Routine 08/15/2019 4:04 AM IRRIGATING PUMP OPERATOR MAGNESIUM Routine 08/15/2019 4:04 AM IRRIGATING PUMP OPERATOR BASIC METABOLIC PANEL (7) Routine 08/15/2019 4:04 AM IRRIGATING PUMP OPERATOR POCT-GLUCOSE METER Routine 08/15/2019 12:19 AM IRRIGATING PUMP OPERATOR ECHOCARDIOGRAM REPORT - 08/14/2019 SCAN 9:12 PM IRRIGATING PUMP OPERATOR POCT-GLUCOSE METER Routine 08/14/2019 6:00 PM IRRIGATING PUMP OPERATOR POCT-GLUCOSE METER Routine 08/14/2019 11:21 AM IRRIGATING PUMP OPERATOR 2D ECHO W/ DOPPLER Routine 08/14/2019 (CW/PW/COLOR) 10:09 AM IRRIGATING PUMP OPERATOR POCT-GLUCOSE METER Routine 08/14/2019 8:08 AM IRRIGATING PUMP OPERATOR CBC W/PLT COUNT & AUTO Routine 08/14/2019 DIFFERENTIAL 3:55 AM IRRIGATING PUMP OPERATOR TROPONIN I Routine 08/14/2019 3:55 AM IRRIGATING PUMP OPERATOR CBC W/PLT COUNT & AUTO Routine 08/14/2019 DIFFERENTIAL 3:55 AM IRRIGATING PUMP OPERATOR HEPATIC FUNCTION PANEL Routine 08/14/2019 3:55 AM IRRIGATING PUMP OPERATOR PROTHROMBIN TIME/INR Routine 08/14/2019 3:55 AM IRRIGATING PUMP OPERATOR HEMOGLOBIN A1C Routine 08/14/2019 3:55 AM IRRIGATING PUMP OPERATOR PHOSPHORUS Routine 08/14/2019 3:55 AM IRRIGATING PUMP OPERATOR MAGNESIUM Routine 08/14/2019 3:55 AM IRRIGATING PUMP OPERATOR BASIC METABOLIC PANEL (7) Routine 08/14/2019 3:55 AM IRRIGATING PUMP OPERATOR TROPONIN I Routine 08/13/2019 11:23 PM IRRIGATING PUMP OPERATOR POCT-GLUCOSE METER Routine 08/13/2019 10:49 PM IRRIGATING PUMP OPERATOR TROPONIN I Routine 08/13/2019 4:26 PM IRRIGATING PUMP OPERATOR B-TYPE NATRIURETIC FACTOR Routine 08/13/2019 (BNP) 4:26 PM IRRIGATING PUMP OPERATOR TSH/FREE T4 IF INDICATED Routine 08/13/2019 4:26 PM IRRIGATING PUMP OPERATOR CT ABDOMEN/PELVIS WITH IV STAT 08/13/2019 CONTRAST 3:17 PM IRRIGATING PUMP OPERATOR ECG 12-LEAD Routine 08/13/2019 1:24 PM IRRIGATING PUMP OPERATOR Procedure Note - Interface, External Ris In - 08/13/2019 2:42 PM IRRIGATING PUMP OPERATOR Ventricula r Rate 0 BPM Atrial Rate 0 BPM QRS Duration 0 ms Q-T Interval 0 ms QTC Calculatio n(Bazett) 0 ms R Sesser 0 degrees T Sesser 0 degrees No QRS complexes found, no ECG analysis possible When compared with ECG of 0 12:52, Current undetermin ed rhythm precludes rhythm comparison , needs review XR CHEST 1 VIEW STAT 08/13/2019 PORTABLE/BEDSIDE 12:58 PM IRRIGATING PUMP OPERATOR ECG 12-LEAD Routine 08/13/2019 12:52 PM IRRIGATING PUMP OPERATOR Procedure Note - Interface, External Ris In - 08/13/2019 2:41 PM IRRIGATING PUMP OPERATOR Ventricula r Rate 62 BPM Atrial Rate 62 BPM P-R Interval 208 ms QRS Duration 128 ms Q-T Interval 496 ms QTC Calculatio n(Bazett) 503 ms P Sesser 41 degrees R Sesser 99 degrees T Sesser 97 degrees Normal sinus rhythm Indetermin ate axis Right bundle branch block Abnormal ECG When compared with ECG of 8 15:31, QRS duration has decreased Nonspecifi c T wave abnormalit y now evident in Lateral leads ECG 12-LEAD STAT 08/13/2019 12:52 PM IRRIGATING PUMP OPERATOR CBC W/PLT COUNT & AUTO STAT 08/13/2019 DIFFERENTIAL 10:29 AM IRRIGATING PUMP OPERATOR TROPONIN I STAT 08/13/2019 10:29 AM IRRIGATING PUMP OPERATOR URINALYSIS W/ REFLEX STAT 08/13/2019 URINE CULTURE 10:29 AM IRRIGATING PUMP OPERATOR PT/APTT STAT 08/13/2019 10:29 AM IRRIGATING PUMP OPERATOR LIPASE STAT 08/13/2019 10:29 AM IRRIGATING PUMP OPERATOR HEPATIC FUNCTION PANEL STAT 08/13/2019 10:29 AM IRRIGATING PUMP OPERATOR BASIC METABOLIC PANEL (7) STAT 08/13/2019 10:29 AM IRRIGATING PUMP OPERATOR CBC W/PLT COUNT & AUTO STAT 08/13/2019 DIFFERENTIAL 10:29 AM IRRIGATING PUMP OPERATOR NM TUMOR LOCALIZATION Routine 08/03/2019 SPECT 3:16 PM IRRIGATING PUMP OPERATOR NM Y90 MICROSPHERES Routine 08/03/2019 THERAPY 3:12 PM IRRIGATING PUMP OPERATOR IR VISCERAL ARTERIOGRAM Routine 08/03/2019 Hepato cellular carcinoma 1:00 PM IRRIGATING PUMP OPERATOR (HCC) CBC W/PLT COUNT & AUTO Routine 08/03/2019 DIFFERENTIAL 8:47 AM IRRIGATING PUMP OPERATOR BILIRUBIN, DIRECT Routine 08/03/2019 8:47 AM IRRIGATING PUMP OPERATOR COMPREHENSIVE METABOLIC Routine 08/03/2019 PANEL 8:47 AM IRRIGATING PUMP OPERATOR APTT Routine 08/03/2019 8:47 AM IRRIGATING PUMP OPERATOR PROTHROMBIN TIME/INR Routine 08/03/2019 8:47 AM IRRIGATING PUMP OPERATOR CBC W/PLT COUNT & AUTO Routine 08/03/2019 DIFFERENTIAL 8:47 AM IRRIGATING PUMP OPERATOR NM TUMOR LOCALIZATION Routine 07/20/2019 SPECT 3:59 PM IRRIGATING PUMP OPERATOR IR VISCERAL ARTERIOGRAM Routine 07/20/2019 1:10 PM IRRIGATING PUMP OPERATOR CBC W/PLT COUNT & AUTO Routine 07/20/2019 DIFFERENTIAL 9:25 AM IRRIGATING PUMP OPERATOR COMPREHENSIVE METABOLIC Routine 07/20/2019 PANEL 9:25 AM IRRIGATING PUMP OPERATOR CBC W/PLT COUNT & AUTO Routine 07/20/2019 DIFFERENTIAL 9:25 AM IRRIGATING PUMP OPERATOR APTT Routine 07/20/2019 9:25 AM IRRIGATING PUMP OPERATOR PROTHROMBIN TIME/INR Routine 07/20/2019 9:25 AM IRRIGATING PUMP OPERATOR ARRYTHMIA IMPLANT REPORT 06/23/2019 - SCAN 3:20 PM IRRIGATING PUMP OPERATOR ARRYTHMIA IMPLANT REPORT 06/23/2019 - SCAN 3:20 PM IRRIGATING PUMP OPERATOR ARRYTHMIA IMPLANT REPORT 06/07/2019 - SCAN 7:50 PM IRRIGATING PUMP OPERATOR CBC W/PLT COUNT & AUTO Routine 05/27/2019 Other c irrhosis of liver DIFFERENTIAL 1:27 PM IRRIGATING PUMP OPERATOR ALPHA FETOPROTEIN (AFP), Routine 05/27/2019 Other cirrhosis of liver TUMOR MARKER 1:27 PM IRRIGATING PUMP OPERATOR PROTHROMBIN TIME/INR Routine 05/27/2019 Other cir rhosis of liver 1:27 PM IRRIGATING PUMP OPERATOR CBC W/PLT COUNT & AUTO Routine 05/27/2019 Other c irrhosis of liver DIFFERENTIAL 1:27 PM IRRIGATING PUMP OPERATOR HEPATIC FUNCTION PANEL Routine 05/27/2019 Other c irrhosis of liver 1:27 PM IRRIGATING PUMP OPERATOR BASIC METABOLIC PANEL (7) Routine 05/27/2019 Othe r cirrhosis of liver 1:27 PM IRRIGATING PUMP OPERATOR ARRYTHMIA IMPLANT REPORT 04/27/2019 - SCAN 4:10 PM CDT US PROSTATE Routine 04/16/2019 4:[address] CHEST WITHOUT IV Routine 04/16/2019 Portal hyp ertension (HCC) CONTRAST 3:31 PM CDT Hepatocellular carc inoma (HCC) Other cirrhosis of liver NM BONE SCAN WHOLE BODY Routine 04/16/2019 Portal hypertension (HCC) 3:26 PM CDT Hepatocellular carcinoma (HCC) Other cirrhosis of liver MR ABDOMEN WITH & WITHOUT Routine 04/16/2019 Port al hypertension (HCC) IV CONTRAST 10:00 AM CDT Hepatocellular carc inoma (HCC) Other cirrhosis of liver POCT-CREATININE Routine 04/16/2019 8:09 AM CDT XR CHEST 2 VIEWS Routine 04/16/2019 7:57 AM CDT after 03/22/2019 Results * EKG-SCANNED (02/19/2020 4:42 PM CDT) Only the most recent of 3 results within the time period is included. Narrative Performed At This result has an attachment that is n ot available. * RHYTHM STRIP - SCAN (02/19/2020 10:50 AM CDT) Only the most recent of 7 results within the time period is included. Narrative Performed At This result has an attachment that is n ot available. * POC-Glucose meter (02/18/2020 11:55 AM CDT) Only the most recent of 57 results within the time period is included. POC-Glucose Meter 253 (H)Comment: : TESTED AT 70 - 110 mg/dL [facility] [address] [facility] [id number]: Supervisor Labor Gang/Fixed Income Trading Vice President ID = [id number] for GILBERT WALL Specimen Blood Performing Organization Address City/State/Zipcode Ph one Number [facility] [address] [place], [place] [address] [facility] * CBC with platelet count + automated diff (02/18/2020 4:33 AM CDT) Only the most recent of 19 results within the time period is included. WBC 6.5 3.5 - 10.5 K/L [facility] RBC 3.79 (L) 4.63 - 6.08 M/L [facility] Hemoglobin 12.3 (L) 13.7 - 17.5 GM/DL [facility] Hematocrit 37.2 (L) 40.1 - 51.0 % [facility] MCV 98.2 (H) 79.0 - 92.2 fL [facility] MCH 32.5 (H) 25.7 - 32.2 pg [facility] MCHC 33.1 32.3 - 36.5 GM/DL [facility] RDW 12.9 11.6 - 14.4 % [facility] Platelets 193 150 - 450 K/CU MM [facility] MPV 9.9 9.4 - 12.4 fL [facility] nRBC 0 0 - 0 /100 WBC [facility] % Neutros 80 % [facility] % Lymphs 8 % [facility] % Monos 8 % [facility] % Eos 3 % [facility] % Baso 1 % [facility] # Neutros 5.23 1.78 - 5.38 K/L [facility] # Lymphs 0.54 (L) 1.32 - 3.57 K/L [facility] # Monos 0.52 0.30 - 0.82 K/L [facility] # Eos 0.18 0.04 - 0.54 K/L [facility] # Baso 0.03 0.01 - 0.08 K/L [facility] Immature 0 0 - 1 % [facility] Granulocytes-Relative [facility] Specimen Blood Performing Organization Address City/[facility] Ph one Number [address] [facility] * Phosphorus (02/18/2020 4:33 AM CDT) Only the most recent of 4 results within the time period is included. Phosphorus 2.4 2.3 - 4.7 mg/dL [facility] Specimen Blood Narrative Performed At Supervisor Labor Gang ID - [facility] Performing Organization Address [facility] Ph one Number [address] [facility] * PTH, intact (02/18/2020 4:33 AM CDT) PTH 101.5 (H) 8.5 - 72.5 pg/mL [facility] Specimen Blood Narrative Performed At Supervisor Labor Gang ID - [facility] Performing Organization Address [facility] Ph one Number [address] [facility] * Magnesium (02/18/2020 4:33 AM CDT) Only the most recent of 13 results within the time period is included. Magnesium 1.6 1.6 - 2.6 mg/dL [facility] Specimen Blood Narrative Performed At Supervisor Labor Gang ID - [facility] Performing Organization Address City/[facility] Ph one Number [address] [facility] * Hemoglobin A1c (02/18/2020 4:33 AM CDT) Only the most recent of 3 results within the time period is included. Hemoglobin A1C 6.4 (H) 4.3 - 6.1 % [facility] Specimen Blood Performing Organization Address [facility] one Number [place] [phone] [facility] * Hepatic function panel (02/18/2020 4:33 AM CDT) Only the most recent of 15 results within the time period is included. Protein, Total 7.5 6.0 - 8.3 gm/dL [facility] Albumin 3.6 3.5 - 5.0 g/dL [facility] Total Bilirubin 0.7 0.2 - 1.2 mg/dL [facility] Bilirubin, Direct 0.4 0.1 - 0.5 mg/dL [facility] Alkaline Phosphatase 184 (H) 40 - 150 U/L [facility] AST 23 5 - 34 U/L [facility] ALT 33 6 - 55 U/L [facility] Specimen Blood Narrative Performed At Supervisor Labor Gang ID - [facility] Performing Organization Address City/[facility] one Number [address] [facility] * Comprehensive metabolic panel (02/18/2020 4:33 AM CDT) Only the most recent of 6 results within the time period is included. Protein, Total 7.5 6.0 - 8.3 gm/dL [facility] Albumin 3.6 3.5 - 5.0 g/dL [facility] Alkaline Phosphatase 184 (H) 40 - 150 U/L [facility] Total Bilirubin 0.7 0.2 - 1.2 mg/dL [facility] Sodium 134 (L) 136 - 145 meq/L [facility] Potassium 4.3 3.5 - 5.1 meq/L [facility] Chloride 105 98 - 107 meq/L [facility] CO2 23 22 - 29 meq/L [facility] BUN 13 7 - 21 mg/dL [facility] Creatinine 0.85 0.57 - 1.25 mg/dL [facility] Glucose 144 (H) 70 - 105 mg/dL [facility] Calcium 10.8 (H) 8.4 - 10.2 mg/dL [facility] AST 23 5 - 34 U/L [facility] ALT 33 6 - 55 U/L [facility] EGFR 88Comment: ESTIMATED GFR IS mL/min/1.73 sq m [facility] NOT ACCURATE CREATININE [facility] CLEARANCE IN PREDICTING GLOMERULAR FILTRATION RATE. ESTIMATED GFR IS NOT APPLICABLE FOR DIALYSIS PATIENTS. Specimen Blood Narrative Performed At [employer] - [facility] Performing Organization Address City/State/Zipcode Ph one Number [place] [phone] [place], [place] [facility] [facility] * ECG 12 lead (02/17/2020 11:28 PM CDT) Only the most recent of 10 results within the time period is included. Specimen Narrative Performed At Ventricular Rate 73 BPM GE MUSE Atrial Rate 73 BPM P-R Interval 196 ms QRS Duration 154 ms Q-T Interval 454 ms QTC Calculation(Bazett) 500 ms P Sesser 37 degrees R Sesser 144 degrees T Sesser 55 degrees Normal sinus rhythm Right bundle branch block Abnormal ECG When compared with ECG of 17-FEB-2020 1 1:23, No significant change was found Confirmed by MD Pryor Roberto ([id number]) on 02/18/2020 2:17:45 PM Procedure Note Interface, External Ris In - 02/18/2020 2:17 PM CDT Ventricular Rate 73 BPM Atrial Rate 73 BPM P-R Interval 196 ms QRS Duration 154 ms Q-T Interval 454 ms QTC Calculation(Bazett) 500 ms P Sesser 37 degrees R Sesser 144 degrees T Sesser 55 degrees Normal sinus rhythm Right bundle branch block Abnormal ECG When compared with ECG of 17-FEB-2020 11:23, No significant change was found Confirmed by MD Pryor Roberto ([id number]) on 02/18/2020 2:17:45 PM Performing Organization Address City/State/Zipcode Ph one Number GE MUSE * Ammonia (02/17/2020 6:54 PM CDT) Ammonia <5 (L)Comment: Specimen 18 - 72 mol/L [facility] moderately hemolyzed [facility] Specimen Blood Narrative Performed At Supervisor Labor Gang ID - SMITA Meyer [facility] Performing Organization Address City/[facility] Ph one Number [place] [address] [facility] * CT brain without IV contrast (02/17/2020 5:02 PM CDT) Only the most recent of 2 results within the time period is included. Specimen Narrative Performed At FINAL REPORT [facility] CT, BRAIN, WITHOUT CONTRAST INDICATION: Altered mental status hepatic encephalopathy/confusion, rule out edema/hemorrhage TECHNIQUE: Noncontrast axial imaging wa s obtained from the vertex to the skull base. Axial images were recon structed using a bone algorithm. DOSE REDUCTION: Dose modulation, iterat danny reconstruction, and/or weight-based adjustment of the mA/kV wa s utilized to reduce the radiation dose to as low as reasonably achievable. COMPARISON: CT 02/04/2020 FINDINGS: Intracranial: No intracranial hemorrhag e or abnormal extra-axial collection. No evidence of acute territ orial infarct. No mass effect. No hydrocephalus. Generalized cerebral atrophy with ex va cuo dilatation of the ventricular system proportionate to sul ci. Scattered foci of hypoattenuation within the periventricu lar and subcortical white matter are a nonspecific finding common ly attributed to chronic small vessel ischemic disease. Intracranial v ascular calcifications are present. Osseous structures: No fracture. No annie picious lesion. Paranasal sinuses and mastoid air cells : No evidence of sinusitis. Mastoids are clear. Orbital contents: Globes are intact. IMPRESSION: No acute intracranial hemorrhage or CT evidence of territorial infarct. If there is persistent clinical concern for intracranial pathology, MR examination is recommended for furth er characterization. Signed: Trisha Gonsalez MD Report Verified Date/Time: 0 17:06:58 Procedure Note Interface, External Ris In - 02/17/2020 5:09 PM CDT FINAL REPORT CT, BRAIN, WITHOUT CONTRAST INDICATION: Altered mental status hepatic encephalopathy/confusion, rule out edema/hemorrhage TECHNIQUE: Noncontrast axial imaging was obtained from the vertex to the skull base. Axial images were reconstructed using a bone algorithm. DOSE REDUCTION: Dose modulation, iterative reconstruction, and/or weight-based adjustment of the mA/kV was utilized to reduce the radiation dose to as low as reasonably achievable. COMPARISON: CT 02/04/2020 FINDINGS: Intracranial: No intracranial hemorrhage or abnormal extra-axial collection. No evidence of acute territorial infarct. No mass effect. No hydrocephalus. Generalized cerebral atrophy with ex vacuo dilatation of the ventricular system proportionate to sulci. Scattered foci of hypoattenuation within the periventricular and subcortical white matter are a nonspecific finding commonly attributed to chronic small vessel ischemic disease. Intracranial vascular calcifications are present. Osseous structures: No fracture. No suspicious lesion. Paranasal sinuses and mastoid air cells: No evidence of sinusitis. Mastoids are clear. Orbital contents: Globes are intact. IMPRESSION: No acute intracranial hemorrhage or CT evidence of territorial infarct. If there is persistent clinical concern for intracranial pathology, MR examination is recommended for further characterization. Signed: Trisha Gonsalez MD Report Verified Date/Time: 02/17/2020 17:06:58 Performing Organization Address City/State/Zipcode Ph one Number GE RIS * Blood gas, venous (02/17/2020 4:09 PM CDT) pH, Oliver 7.36 7.32 - 7.42 [facility] pCO2, Oliver 51 41 - 51 mmHg [facility] pO2, Oliver 19 (L) 25 - 40 mmHg [facility] O2 Sat, Oliver 28.0 (L) 40.0 - 70.0 % [facility] HCO3, Oliver 28 21 - 29 mmol/L [facility] Base Excess, Oliver 1.8 -2.0 - 3.0 mmol/L [facility] Patient Temperature 37.0 C [facility] FIO2 21.0 % [facility] Specimen Blood Performing Organization Address City/State/Zipcode Ph one Number [place] [phone] [place], [place] [address] [facility] * CT abdomen pelvis with IV contrast (02/17/2020 3:07 PM CDT) Only the most recent of 2 results within the time period is included. Specimen Narrative Performed At FINAL REPORT [facility] TECHNIQUE: CT of the abdomen and pelvis WITH intravenous contrast and WITHOUT oral contrast. Dose modulation, iterative reconstruction, and/or weight-based adjustment of the m A/kV was utilized to reduce the radiation dose to as low as reasona jose de jesus achievable. INDICATION: Abdominal pain nausea. COMPARISON: 09/05/2019., MRI 01/06/2020 FINDINGS: LOWER THORAX: Unremarkable. HEPATOBILIARY: Liver demonstrates mildl y nodular contour. Segment seven mass now demonstrates decreased d ensity and contains few foci of gas. The lesion measures 5 x 3.8 x 6cm.. There is a stable wedge-shaped focus of decreased enhance ment in the dome of the liver in segment eight, unchanged since 2019, may represent infarct from prior embolization procedu re.. No additional hepatic lesions. Status post cholecystectomy.. No biliary ductal dilatation. SPLEEN: No splenomegaly. PANCREAS: No focal masses or ductal dil atation. ADRENALS: No adrenal nodules. KIDNEYS/URETERS: Lobulated contour of t he bilateral kidneys consistent multifocal cortical scarring . Two nonobstructing calculi in the mid and lower pole of the right kidney are unchanged.. 3.2 cm exophytic cyst arising from the posteri or interpolar region of the right kidney. PELVIC ORGANS/BLADDER: Prostate is enla rged with hypertrophy of the median lobe indenting the base of the b ladder. PERITONEUM/RETROPERITONEUM: No free air or fluid. LYMPH NODES: No lymphadenopathy. VESSELS: Atherosclerotic calcifications of the abdominal aorta and branch vessels. No evidence of aneurysm al dilation.. GI TRACT: No distention or wall thicken ing. Appendix is normal. BONES AND SOFT TISSUES: Fat-containing. Local ventral hernia.. IMPRESSION: Interval decreased density and foci of gas within the segment seven mass suggesting necrosis related to rec ent chemoembolization.. Nonobstructing calculi in the right kid franc. No hydronephrosis. Signed: Zoltan Cordova MD Report Verified Date/Time: 0 16:01:07 Reading Location: [address] Body Reading Room Procedure Note Interface, External Ris In - 02/17/2020 4:03 PM CDT FINAL REPORT TECHNIQUE: CT of the abdomen and pelvis WITH intravenous contrast and WITHOUT oral contrast. Dose modulation, iterative reconstruction, and/or weight-based adjustment of the mA/kV was utilized to reduce the radiation dose to as low as reasonably achievable. INDICATION: Abdominal pain nausea. COMPARISON: 09/05/2019., MRI 01/06/2020 FINDINGS: LOWER THORAX: Unremarkable. HEPATOBILIARY: Liver demonstrates mildly nodular contour. Segment seven mass now demonstrates decreased density and contains few foci of gas. The lesion measures 5 x 3.8 x 6cm.. There is a stable wedge-shaped focus of decreased enhancement in the dome of the liver in segment eight, unchanged since August 2019, may represent infarct from prior embolization procedure.. No additional hepatic lesions. Status post cholecystectomy.. No biliary ductal dilatation. SPLEEN: No splenomegaly. PANCREAS: No focal masses or ductal dilatation. ADRENALS: No adrenal nodules. KIDNEYS/URETERS: Lobulated contour of the bilateral kidneys consistent multifocal cortical scarring. Two nonobstructing calculi in the mid and lower pole of the right kidney are unchanged.. 3.2 cm exophytic cyst arising from the posterior interpolar region of the right kidney. PELVIC ORGANS/BLADDER: Prostate is enlarged with hypertrophy of the median lobe indenting the base of the bladder. PERITONEUM/RETROPERITONEUM: No free air or fluid. LYMPH NODES: No lymphadenopathy. VESSELS: Atherosclerotic calcifications of the abdominal aorta and branch vessels. No evidence of aneurysmal dilation.. GI TRACT: No distention or wall thickening. Appendix is normal. BONES AND SOFT TISSUES: Fat-containing. Local ventral hernia.. IMPRESSION: Interval decreased density and foci of gas within the segment seven mass suggesting necrosis related to recent chemoembolization.. Nonobstructing calculi in the right kidney. No hydronephrosis. Signed: Zoltan Cordova MD Report Verified Date/Time: 02/17/2020 16:01:07 Reading Location: [facility] [id number] CT Body Reading Room Performing Organization Address City/State/Zipcode Ph one Number GE RIS * Urinalysis w/Microscopic + Reflex to Culture (02/17/2020 12:56 PM CDT) Only the most recent of 2 results within the time period is included. Color, UA Yellow [facility] Clarity, UA Clear [facility] Specific [place], UA 1.016 1.001 - 1.035 [facility] pH, UA 6.0 5.0 - 8.0 [facility] Protein, UA Negative Negative [facility] Glucose, UA Negative Negative [facility] Ketones, UA Negative Negative [facility] Bilirubin, UA Negative Negative [facility] Blood, UA Negative Negative [facility] Nitrite, UA Negative Negative [facility] Leukocytes, UA Negative Negative [facility] Urobilinogen, UA 0.2 0.2 - 1.0 mg/dL [facility] RBC, UA 3 /HPF [facility] WBC, UA 2 /HPF [facility] Bacteria, UA Few [facility] Squam Epithel, UA <1 /HPF [facility] Hyaline Casts, UA 4 /LPF [facility] Ca Oxalate [place], UA Occasional [facility] Specimen Source [facility] Specimen Urine Narrative Performed At Supervisor Labor Gang ID - [auto] [facility] Supervisor Labor Gang ID - [facility] Performing Organization Address City/[facility] Ph one Number [place] [address] [facility] * Procalcitonin (02/17/2020 11:57 AM CDT) Procalcitonin <0.05 <0.05 ng/mL [facility] Specimen Blood Narrative Performed At SEPSIS RISK (ng/mL) [facility] Low:0.05-0.50 [facility] Intermediate: 0.51-2.00 High: >=2.01 Performing Organization Address City/[facility] Ph one Number [place] [address] [facility] * TSH/Free T4 If Indicated (02/17/2020 11:57 AM CDT) Only the most recent of 2 results within the time period is included. TSH 1.199 0.350 - 4.940 uIU/mL [facility] Specimen Blood Narrative Performed At Supervisor Labor Gang ID - SMITA C [facility] Performing Organization Address City/[facility] Ph one Number [place] [address] [facility] * Troponin I (not available at [facility] [place]) (02/17/2020 11:57 AM CDT) Only the most recent of 8 results within the time period is included. Troponin I <0.01 0.00 - 0.03 ng/mL [facility] Specimen Blood Narrative Performed At Troponin I (TnI) levels must be interpreted in the co ntext of the presenting [facility] symptoms and the clinical findings. Elevated TnI leve ls indicate myocardial [facility] damage, but are not specific for ischem ic heart disease. Elevated TnI levels are seen in patients with other cardiac con ditions (including myocarditis and congestive heart failure), and slight T nI elevations occur in patients with other conditions, including sepsis, amarjit al failure, acidosis, acute neurological disease, and persistent tachyarrhythmia . Supervisor Labor Gang ID - SMITA Meyer Performing Organization Address [facility] one [place] [address] [phone] [place] [address] * Lactic acid, venous STAT (02/17/2020 11:57 AM CDT) Lactate, Venous 0.91 0.50 - 2.20 mmol/L [facility] Specimen Blood Narrative Performed At Supervisor Labor Gang ID - SMITA Meyer [facility] Performing Organization Address [facility] one [address] [facility] * B-type natriuretic peptide (02/17/2020 11:57 AM CDT) Only the most recent of 2 results within the time period is included. BNP 52 0 - 100 pg/mL [facility] Specimen Blood Narrative Performed At Supervisor Labor Gang ID - SMITA Meyer [facility] Performing Organization Address [facility] one [address] [facility] * SARS-CoV2/RT-PCR (Asymptomatic ONLY) (02/17/2020 11:35 AM CDT) SARS-COV2/RT-PCR Negative Not Detected, Negative, [facility] See external report for [facility] linked test SARS-COV-2 PERFORMING LAB [facility] D[facility]IN [facility] Specimen Other Narrative Performed At Negative result for this test determine s that SARS-CoV-2 RNA was not present in [facility] the specimen above the Limit of Detecti on (LOD).However, Negative results do [facility] not preclude SARS-CoV-2 infection and s hould not be used as the sole basis for treatment or patient management decisio ns. Negative results must be combined with clinical observations, patient his tory, and epidemiological information. A false negative result may occur if a sp ecimen is improperly collected, transported or handled.A false nega tive result should be considered if patient's recent exposures or clinical presentation indicate that COVID-19 (SARS-CoV-2) is likely and diagnostic t ests for other causes of illness are negative.Re-testing should be consi dered in cases of suspected false negatives. The limit of detection for this assay i s 800 copies/mL. This SARS CoV-2 test is a real-time RT- PCR test intended for the qualitative detection of nucleic acid from SARS-CoV -2 in a nasopharyngeal swab specimen collected from individuals suspected of COVID-19 by their healthcare provider. This test has not been Food and Drug Ad ministration (FDA) cleared or approved.This is a modified version of an approved Emergency Use Authorization (EUA) and is in the proce ss of review by the FDA. Once authorized by the FDA, the issued EUA w ill be effective until the declaration that circumstances exist justifying the authorization of the emergency use of in vitro diagnostic tests for detection an d/or diagnosis of COVID-19 is terminated under Section 564(b)(2) of the Act or t he EUA is revoked under Section 564(g) of the Act. Fact Sheet for Healthcare Providers: https://www.Pathful/sites/default/files/product/documents/Fact_Sheet_HC_Provi avwn_Dzct_PIEA-HtB-5.pdf Fact Sheet for Healthcare Patients: https://www.[employer]x.com.[employer]/sites/default/files/product/documents/Fact_Sheet_Patients _Cwpo_AEBN-OaL-8.pdf Performing Laboratory: [address] [place] [address] [address] [facility] Ph one Number [address] [phone] [place] [address] * Blood Culture #2 (02/17/2020 11:24 AM CDT) Only the most recent of 2 results within the time period is included. Result No growth in 5 days [facility] Specimen Blood Performing Organization Address [facility] one Number [place] [address] [address] [phone] [place] [address] * aPTT (02/17/2020 11:16 AM CDT) Only the most recent of 4 results within the time period is included. PTT 28.6 22.5 - 36.0 seconds [facility] Specimen Blood Performing Organization Address [facility] one Number [place] [address] [address] [phone] [place] [address] * Prothrombin time/INR (02/17/2020 11:16 AM CDT) Only the most recent of 12 results within the time period is included. Protime 14.3 (H) 11.9 - 14.2 seconds [facility] INR 1.14 <=5.90 [facility] Specimen Blood Narrative Performed At Effective 12/03/2018: PT Reference Range Change [facility] New: 11.9-14.2Previous: 11.7-14.7 [facility] MEDICAL CE NTER RECOMMENDED COUMADIN/WARFARIN INR THERA PY RANGES STANDARD DOSE: 2.0-3.0Includes: PRO PHYLAXIS for venous thrombosis, systemic embolization; TREATMENT for venous thro mbosis and/or pulmonary embolus. HIGH RISK: Target INR is 2.5-3.5 for pa tients wiht mechanical heart valves. Performing Organization Address [facility]/State/[facility] Ph one Number [facility] [address] [place], [place] [address] [facility] * XR chest 2 views (02/17/2020 9:13 AM CDT) Only the most recent of 2 results within the time period is included. Specimen Narrative Performed At FINAL REPORT [facility] INDICATION: GENERAL ILLNESS COMPARISON: February 02, 2020 TECHNIQUE: Frontal and lateral views of the chest. FINDINGS: Lungs and pleura: Clear lungs. No effus ion. Heart and mediastinum: Normal heart siz e. Unremarkable mediastinal contours. Osseous structures: No acute abnormalit y. Additional findings: None. IMPRESSION: No acute intrathoracic abnormality. Signed: Alla Alvarez MD Report Verified Date/Time: 0 09:48:35 Reading Location: [facility] Radiolo gy Reading Room Procedure Note Interface, External Ris In - 02/17/2020 9:50 AM CDT FINAL REPORT INDICATION: GENERAL ILLNESS COMPARISON: February 02, 2020 TECHNIQUE: Frontal and lateral views of the chest. FINDINGS: Lungs and pleura: Clear lungs. No effusion. Heart and mediastinum: Normal heart size. Unremarkable mediastinal contours. Osseous structures: No acute abnormality. Additional findings: None. IMPRESSION: No acute intrathoracic abnormality. Signed: Alla Alvarez MD Report Verified Date/Time: 02/17/2020 09:48:35 Reading Location: [facility] Radiology Reading Room Performing Organization Address City/State/[facility] Ph one Number GE RIS * ECG/EKG Interpretation (02/17/2020 8:30 AM CDT) Only the most recent of 2 results within the time period is included. Narrative Performed At Dinh Acosta MD 02/17/2020 1 2:03 PM ECG/EKG Interpretation Date/Time: 02/17/2020 12:01 PM Performed by: Dinh Acosta MD Authorized by: Dinh Acosta MD The ECG was interpreted by ED physician . This ECG was compared with previous ECG(s).Comments: Normal sinus rhythm, rate 73, VA 188, QRS 166, QTc 511, right bundle branch block no s ignificant ST elevations, mild ST depression V2, no T wave inversions (si milar to prior) * Basic metabolic panel (02/04/2020 5:05 AM CDT) Only the most recent of 17 results within the time period is included. Sodium 131 (L) 136 - 145 meq/L [facility] Potassium 4.2 3.5 - 5.1 meq/L [facility] Chloride 101 98 - 107 meq/L [facility] CO2 25 22 - 29 meq/L [facility] BUN 14 7 - 21 mg/dL [facility] Creatinine 0.83 0.57 - 1.25 mg/dL [facility] Glucose 228 (H) 70 - 105 mg/dL [facility] Calcium 10.6 (H) 8.4 - 10.2 mg/dL [facility] EGFR 91Comment: ESTIMATED GFR IS mL/min/1.73 sq m [facility] NOT ACCURATE CREATININE [facility] CLEARANCE IN PREDICTING GLOMERULAR FILTRATION RATE. ESTIMATED GFR IS NOT APPLICABLE FOR DIALYSIS PATIENTS. Specimen Blood Narrative Performed At Supervisor Labor Gang ID - EDASI [facility] Performing Organization Address City/State/Zipcode Ph one Number [address] [address] [facility] * XR chest 1 view portable / bedside (02/02/2020 6:50 PM CDT) Only the most recent of 4 results within the time period is included. Specimen Narrative Performed At FINAL REPORT [facility] TECHNIQUE: Frontal view of the chest. INDICATION: 74-year-old man with right shoulder pain. COMPARISON: Chest radiograph 09/02/2019. FINDINGS: LINES/TUBES/DEVICES: Unchanged implante d electronic device projects over the lower left chest. LUNGS: Lungs are well inflated. No cons olidation or pulmonary edema. PLEURA: No pneumothorax or significant pleural effusion. HEART AND MEDIASTINUM: Cardiomediastina l silhouette is within normal limits. Atherosclerotic calcifications in the thoracic aorta. BONES AND SOFT TISSUES: Unchanged media n sternotomy wires. Soft tissues are unremarkable. IMPRESSION: No acute cardiopulmonary abnormalities. Signed: Alban Grewal MD Report Verified Date/Time: 0 19:18:46 Reading Location: [address] Consult Reading Room Procedure Note Interface, External Ris In - 02/02/2020 7:21 PM CDT FINAL REPORT TECHNIQUE: Frontal view of the chest. INDICATION: 74-year-old man with right shoulder pain. COMPARISON: Chest radiograph 09/02/2019. FINDINGS: LINES/TUBES/DEVICES: Unchanged implanted electronic device projects over the lower left chest. LUNGS: Lungs are well inflated. No consolidation or pulmonary edema. PLEURA: No pneumothorax or significant pleural effusion. HEART AND MEDIASTINUM: Cardiomediastinal silhouette is within normal limits. Atherosclerotic calcifications in the thoracic aorta. BONES AND SOFT TISSUES: Unchanged median sternotomy wires. Soft tissues are unremarkable. IMPRESSION: No acute cardiopulmonary abnormalities. Signed: Alban Grewal MD Report Verified Date/Time: 02/02/2020 19:18:46 Reading Location: [address] Consult Reading Room Performing Organization Address City/State/Zipcode Ph one Number [facility] * IR Embolization (02/02/2020 2:41 PM CDT) Specimen Narrative Performed At FINAL REPORT [facility] History: Residual right-sided HCC. Modality: Ultrasound/fluoroscopy. Sedation: Moderate sedation was adminis tered. 2 mg of Versed [id number] mcg of fentanyl IV was used for moderat e sedation monitored under my direction. Total intra-service time of sedation [id number]. The patient's vital signs were monitored th roughout the procedure and recorded in the patient's medical recor d by the nurse. Anesthesia:Two percent Lidocaine wi thout epinephrine. Approach:Right common femoral arter y. Estimated blood loss:< 5 cc. Specimen: None. cmm operator: Mendoza Burger MD.. Store Planner: MD Lionel (Fellow). Fluoroscopy Time: 9.0 min. Reference Air Kerma (Ka, r): 744.6 mGy. Technique: Initial ultrasound images demonstrate p atent right common femoral artery. Using ultrasound guidance, foll owing acquisition of permanent images, the right common femoral artery was accessed using a 21-gauge micropuncture needle. A 0.018 inch wire was advanced into the abdominal aorta. The needle was exchang ed for a 4 Chilean micropuncture sheath. The micropuncture sheath was exchanged over a 0.035 Bentson wire for a 5 Chilean x 10 cm vascular sheath. A 5 Chilean Sos-2 reverse curve catheter was used to cannulate the right inferior phrenic artery arising o ff the aorta. A 2.8 Chilean microcatheter was advanced over 0.016 i nch microwire wire further into the right inferior phrenic artery. A DSA run was performed. The catheter was then manipulated into the branch arising off the right inferior phrenic artery supplying the h ypervascular lesion within the superior right hepatic lobe. From this location chemoembolization was performed using 75 mg of doxorubicin lo aded on LC beads. Given persistent flow on post chemotherapy em bolization angiography, additional embolization was performed u sing 100-300 um embospheres until there stagnant flow achieved. All catheters and wires were removed. C ontrast injected to the right femoral sheath demonstrating puncture a menable for closure device. The arteriotomy was closed using a 5 Fr ench Mynx closure device. A sterile dressing was applied. Findings: 1. Arteriography performed via the infe rior right phrenic artery demonstrates extrahepatic supply to the right liver with large hypervascular lesion noted within the s uperior right hepatic lobe compatible with the known residual HCC. 2. Successful chemoembolization an donovan tional bland embolization of the right hepatic lesion via the feedin g branch arising off the right inferior right artery until near stagna nt flow achieved. Postembolization angiography demonstrat es no further abnormal hypervascularity. 3. Right femoral sheath injection demon strate patent right common femoral artery puncture minimal for steff sure device. Impression: Technically successful transarterial ch emo/bland embolization of the residual right hepatic HCC via extrahep atic supply arising off the right inferior phrenic artery as detail ed above. Signed: Mendoza Burger MD Report Verified Date/Time: 0 17:29:39 Reading Location: [facility] B1 P048 Angio Bod y Reading Room Procedure Note Interface, External Ris In - 02/05/2020 5:31 PM CDT FINAL REPORT History: Residual right-sided HCC. Modality: Ultrasound/fluoroscopy. Sedation: Moderate sedation was administered. 2 mg of Versed and 100 mcg of fentanyl IV was used for moderate sedation monitored under my direction. Total intra-service time of sedation was 45 minutes. The patient's vital signs were monitored throughout the procedure and recorded in the patient's medical record by the nurse. Anesthesia: Two percent Lidocaine without epinephrine. Approach: Right common femoral artery. Estimated blood loss: < 5 cc. Specimen: None. cmm operator: Mendoza Burger MD.. Store Planner: MD Lionel (Fellow). Fluoroscopy Time: 9.0 min. Reference Air Kerma (Ka, r): 744.6 mGy. Technique: Initial ultrasound images demonstrate patent right common femoral artery. Using ultrasound guidance, following acquisition of permanent images, the right common femoral artery was accessed using a 21-gauge micropuncture needle. A 0.018 inch wire was advanced into the abdominal aorta. The needle was exchanged for a 4 Chilean micropuncture sheath. The micropuncture sheath was exchanged over a 0.035 Bentson wire for a 5 Chilean x 10 c m vascular sheath. A 5 Chilean Sos-2 reverse curve catheter was used to cannulate the right inferior phrenic artery arising off the aorta. A 2.8 Chilean microcatheter was advanced over 0.016 inch microwire wire further into the right inferior phrenic artery. A DSA run was performed. The catheter was then manipulated into the branch arising off the right inferior phrenic artery supplying the hypervascular lesion within the superior right hepatic lobe. From this location chemoembolization was performed using 75 mg of doxorubicin loaded on LC beads. Given persistent flow on post chemotherapy embolization angiography, additional embolization was performed using 100-300 um embospheres until there stagnant flow achieved. All catheters and wires were removed. Contrast injected to the right femoral sheath demonstrating puncture amenable for closure device. The arteriotomy was closed using a 5 Chilean Mynx closure device. A sterile dressing was applied. Findings: 1. Arteriography performed via the infer ior right phrenic artery demonstrates extrahepatic supply to the right liver with large hypervascular lesion noted within the superior right hepatic lobe compatible with the known residual HCC. 2. Successful chemoembolization an addit ional bland embolization of the right hepatic lesion via the feeding branch arising off the right inferior right artery until near stagnant flow achieved. Postembolization angiography demonstrates no further abnormal hypervascularity. 3. Right femoral sheath injection demons trate patent right common femoral artery puncture minimal for closure device. Impression: Technically successful transarterial chemo/bland embolization of the residual right hepatic HCC via extrahepatic supply arising off the right inferior phrenic artery as detailed above. Signed: Mendoza Burger MD Report Verified Date/Time: 02/05/2020 17:29:39 Reading Location: [place] [address] Angio Body Reading Room Performing Organization Address City/State[facility] Ph one Number [facility] * Bilirubin, direct (02/02/2020 10:13 AM CDT) Only the most recent of 2 results within the time period is included. Bilirubin, Direct 0.3 0.1 - 0.5 mg/dL [facility] Specimen Blood Narrative Performed At Supervisor Labor Gang ID - [facility] Performing Organization Address City/[facility] Ph one Number [place] [address] [facility] * ARRYTHMIA IMPLANT REPORT - SCAN (01/11/2020 3:20 PM CDT) Only the most recent of 5 results within the time period is included. Narrative Performed At This result has an attachment that is n ot available. * Alpha fetoprotein (AFP), tumor marker (01/06/2020 11:17 AM CDT) Only the most recent of 2 results within the time period is included. Alpha-Fetoprotein 18.4 (H) <10.0 ng/mL [facility] Specimen Blood Narrative Performed At Supervisor Labor Gang ID - [facility] Performing Organization Address City/[facility] Ph one Number [facility] [address] [place], [place] [address] [facility] * Lipid panel (01/06/2020 11:17 AM CDT) Triglycerides 123 mg/dL [facility] Cholesterol 181 mg/dL [facility] HDL 59 mg/dL [facility] LDL Calculated 97 mg/dL [facility] Specimen Blood Narrative Performed At Triglyceride Reference Range: [facility] Low Risk <150 [facility] [id number] High Risk 200-499 Very High Risk>=500 Cholesterol Reference Range: Low Risk <200 [id number] High Risk>240 HDL Cholesterol Reference Range: Low Risk >=60 High Risk <40 LDL Cholesterol Reference Range: Optimal<100 Near [id number] Very High >=190 Supervisor Labor Gang ID - BS Performing Organization Address City/State/[facility] one Number [facility] [address] [place], [place] [address] [facility] * MR abdomen with/without IV contrast (01/06/2020 10:18 AM CDT) Only the most recent of 2 results within the time period is included. Specimen Narrative Performed At FINAL REPORT [facility] TECHNIQUE: MRI of the abdomen WITHOUT a nd WITH intravenous contrast. INDICATION: HCC s/p Y90 07/2019 screen f or HCC. COMPARISON: MRIs dating back to 8 FINDINGS: LOWER THORAX: Unremarkable. LIVER: The liver is nodular and cirrhot ic. There are several scattered areas of arterial phase hyper enhancement throughout the right hepatic lobe, and some of these d o appear slightly nodular. However, there has been interval atroph y in these regions and this may be post radiation/post treatment ch sridhar in the right hepatic lobe. No washout or pseudocapsule forma tion. An area of arterial phase hyperenhancem ent with washout in segment VII measures 5.3 x 4.1 x 5 cm, previous ly 3.9 x 2.8 x 4.8 cm. BILIARY: Prior cholecystectomy. A branc natalia area of nonenhancement in segment VIII is most likely a dilated b iliary radical. Mild right intrahepatic ductal dilation. SPLEEN: 13.1 cm splenomegaly. PANCREAS: No focal masses or ductal dil atation. A pancreatic tail cystic lesion measures 1.1 cm and is un changed. ADRENALS: No adrenal nodules. KIDNEYS/URETERS: No hydronephrosis or s olid mass lesions. Simple renal cysts measure up to 3.4 cm in the right interpolar region. No routine follow-up imaging is recommende d. PERITONEUM/RETROPERITONEUM: No free flu id. LYMPH NODES: No lymphadenopathy. VESSELS: Conventional hepatic arterial anatomy. The main portal vein measures 1.4 cm in diameter and is rodrigez nt. GI TRACT: No distention or wall thicken ing. BONES AND SOFT TISSUES: An area of hype renhancement in the right chest wall measures 1 cm on axial venou s phase image 85. This is new from 10/20/2018. Bilateral gynecomastia. 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 2.An area of hyperenhancement in the ri ght chest wall measures 1 cm and is new from 10/20/2018. While this i s indeterminate, a bone metastasis is possible, and further richy luation with a chest CT is recommended. An intercostal peripheral nerve sheath tumor is in the differential. 3.The right intrahepatic ductal dilatio n and scattered areas of arterial phase hyperenhancement without washout are likely treatment related change. 4.Cirrhosis with mild splenomegaly. Signed: Leticia Cespedes MD Report Verified Date/Time: 0 13:21:41 Reading Location: [facility] B1 C013Y CT Body Reading Room Procedure Note Interface, External Ris In - 01/06/2020 1:23 PM CDT FINAL REPORT TECHNIQUE: MRI of the abdomen WITHOUT and WITH intravenous contrast. INDICATION: HCC s/p Y90 07/2019 screen for HCC. COMPARISON: MRIs dating back to 09/12/2017 FINDINGS: LOWER THORAX: Unremarkable. LIVER: The liver is nodular and cirrhotic. There are several scattered areas of arterial phase hyperenhancement throughout the right hepatic lobe, and some of these do appear slightly nodular. However, there has been interval atrophy in these regions and this may be post radiation/post treatment change in the right hepatic lobe. No washout or pseudocapsule formation. An area of arterial phase hyperenhancement with washout in segment VII measures 5.3 x 4.1 x 5 cm, previously 3.9 x 2.8 x 4.8 cm. BILIARY: Prior cholecystectomy. A branching area of nonenhancement in segment VIII is most likely a dilated biliary radical. Mild right intrahepatic ductal dilation. SPLEEN: 13.1 cm splenomegaly. PANCREAS: No focal masses or ductal dilatation. A pancreatic tail cystic lesion measures 1.1 cm and is unchanged. ADRENALS: No adrenal nodules. KIDNEYS/URETERS: No hydronephrosis or solid mass lesions. Simple renal cysts measure up to 3.4 cm in the right interpolar region. No routine follow-up imaging is recommended. PERITONEUM/RETROPERITONEUM: No free fluid. LYMPH NODES: No lymphadenopathy. VESSELS: Conventional hepatic arterial anatomy. The main portal vein measures 1.4 cm in diameter and is patent. GI TRACT: No distention or wall thickening. BONES AND SOFT TISSUES: An area of hyperenhancement in the right chest wall measures 1 cm on axial venous phase image 85. This is new from 10/20/2018. Bilateral gynecomastia. IMPRESSION: 1.The hepatocellular carcinoma in segmen t VII has increased in size and measures up to 5.3 cm. 2.An area of hyperenhancement in the rig ht chest wall measures 1 cm and is new from 10/20/2018. While this is indeterminate, a bone metastasis is possible, and further evaluation with a chest CT is recommended. An intercostal peripheral nerve sheath tumor is in the differential. 3.The right intrahepatic ductal dilation and scattered areas of arterial phase hyperenhancement without washout are likely treatment related change. 4.Cirrhosis with mild splenomegaly. Signed: Leticia Cespedes MD Report Verified Date/Time: 01/06/2020 13:21:41 Reading Location: [facility] B1 C013Y CT Body Reading Room Performing Organization Address City/State/Zipcode Ph one Number GE [facility] * POC-Creatinine (01/06/2020 8:59 AM CDT) Only the most recent of 2 results within the time period is included. POC-Creatinine 0.8Comment: : TESTED AT [facility] 0.6 - 1.3 mg/dL [address] [id number]: Supervisor Labor Gang/[employer] Vice President ID = [id number] for DWIGHT COOPER POC-EGFR 95 mL/min/1.73M2 [facility] Specimen Blood Performing Organization Address City/State/Zipcode Ph one Number [place] [phone] [place], [place] [address] [facility] * VASCULAR DIAGRAM -SCAN (09/11/2019 1:30 PM IRRIGATING PUMP OPERATOR) Only the most recent of 2 results within the time period is included. Narrative Performed At This result has an attachment that is n ot available. * CARDIAC CATH REPORT - SCAN (09/10/2019 8:32 AM IRRIGATING PUMP OPERATOR) Narrative Performed At This result has an attachment that is n ot available. * CT abdomen/pelvis without & with IV contrast (09/05/2019 6:01 PM IRRIGATING PUMP OPERATOR) Specimen Narrative Performed At FINAL REPORT [facility] CT, ABDOMEN \\T\\ PELVIS, WITHOUT \\T\\ WIT H IV CONTRAST INDICATION: Abdominal pain, acute, nonl ocalized COMPARISON: None TECHNIQUE: CT abdomen and pelvis without and with IV contrast Coronal and sagittal reformatted images obtained. DOSE REDUCTION: Dose modulation, iterat danny reconstruction, and/or weight-based adjustment of the mA/kV wa s utilized to reduce the radiation dose to as low as reasonably achievable. FINDINGS: Lower thorax: Bilateral lower lobe depe ndent atelectasis. No pleural effusion. The heart is globally enlarge d. No pericardial effusion. Dense atherosclerotic calcifications of the coronary arteries. Postsurgical changes of a median sterno morgan. Metallic device within the right ventricle, correlate clinical ly. Calcifications of the aortic valve. Liver: Unchanged heterogeneously hypode nse lesion in the posterior right hepatic lobe measuring approximat margaret 5.7 cm however incompletely characterized on this exam ination. Unchanged tubular hypodensity in the superior right hepat ic lobe may represent biliary ductal dilatation however incompletely evaluated on this examination. Unchanged. Nodular appearance of the li melonie suggests cirrhosis. Gallbladder and biliary tree: Postsurgi heber changes of a history of cholecystectomy. No intra or extrahepat ic biliary ductal dilatation. Pancreas: No acute findings. Spleen: No acute findings Adrenal Glands: No acute findings. Kidneys and ureters: Bilateral perineph geoff stranding. Scattered areas of cortical renal scarring, worse on th e right. 3.1 cm right interpole hypodensity is incompletely c haracterized on this examination remains indeterminate. Vasc ular calcifications. No hydronephrosis. Mild left hydroureter w ith a 1 mm nonobstructing calcification in the distal left ureter , possibly urolithiasis. Noncontrast phase demonstrates retained contrast material in the bilateral renal parenchyma correlate fo ur recent administration of contrast material as acute tubular necr osis can have this appearance. Bladder and reproductive organs: The bl adder is unremarkable. The prostate gland is enlarged. Stomach and Duodenum: No significant fi ndings. Small and large intestine: Normal calib ers. Appendix: Normal. Major vascular structures:Atheroscl erotic calcifications of the normal caliber abdominal aorta and bila teral iliac arteries. Peritoneum and retroperitoneum: No free air, fluid or adenopathy. Skeleton: No acute bony abnormality. Additional findings: Fat-containing umb ilical hernia. Post changes of the right inguinal subcutaneous soft ti ssues. IMPRESSION: No acute abnormality in the abdomen or pelvis. Grossly stable mass effect with posteri or right hepatic lobe however incompletely evaluated on this examinat ion. Nodular contour of the liver suggests c irrhosis. Postsurgical changes of cholecystectomy . Mild left hydroureter with a 1 mm nonob structing calcification in the distal left ureter, possibly urolithias is. Noncontrast phase demonstrates retained contrast material in the bilateral renal parenchyma correlate fo ur recent administration of contrast material as acute tubular necr osis can have this appearance. Prostatomegaly. Signed: Marleny Paul MD Report Verified Date/Time: 0 01:54:08 Procedure Note Interface, External Ris In - 09/06/2019 1:56 AM IRRIGATING PUMP OPERATOR FINAL REPORT CT, ABDOMEN \\T\\ PELVIS, WITHOUT \\T\\ WITH IV CONTRAST INDICATION: Abdominal pain, acute, nonlocalized COMPARISON: None TECHNIQUE: CT abdomen and pelvis without and with IV contrast Coronal and sagittal reformatted images obtained. DOSE REDUCTION: Dose modulation, iterative reconstruction, and/or weight-based adjustment of the mA/kV was utilized to reduce the radiation dose to as low as reasonably achievable. FINDINGS: Lower thorax: Bilateral lower lobe dependent atelectasis. No pleural effusion. The heart is globally enlarged. No pericardial effusion. Dense atherosclerotic calcifications of the coronary arteries. Postsurgical changes of a median sternotomy. Metallic device within the right ventricle, correlate clinically. Calcifications of the aortic valve. Liver: Unchanged heterogeneously hypodense lesion in the posterior right hepatic lobe measuring approximately 5.7 cm however incompletely characterized on this examination. Unchanged tubular hypodensity in the superior right hepatic lobe may represent biliary ductal dilatation however incompletely evaluated on this examination. Unchanged. Nodular appearance of the liver suggests cirrhosis. Gallbladder and biliary tree: Postsurgical changes of a history of cholecystectomy. No intra or extrahepatic biliary ductal dilatation. Pancreas: No acute findings. Spleen: No acute findings Adrenal Glands: No acute findings. Kidneys and ureters: Bilateral perinephric stranding. Scattered areas of cortical renal scarring, worse on the right. 3.1 cm right interpole hypodensity is incompletely characterized on this examination remains indeterminate. Vascular calcifications. No hydronephrosis. Mild left hydroureter with a 1 mm nonobstructing calcification in the distal left ureter, possibly urolithiasis. Noncontrast phase demonstrates retained contrast material in the bilateral renal parenchyma correlate four recent administration of contrast material as acute tubular necrosis can have this appearance. Bladder and reproductive organs: The bladder is unremarkable. The prostate gland is enlarged. Stomach and Duodenum: No significant findings. Small and large intestine: Normal calibers. Appendix: Normal. Major vascular structures: Atherosclerotic calcifications of the normal caliber abdominal aorta and bilateral iliac arteries. Peritoneum and retroperitoneum: No free air, fluid or adenopathy. Skeleton: No acute bony abnormality. Additional findings: Fat-containing umbilical hernia. Post changes of the right inguinal subcutaneous soft tissues. IMPRESSION: No acute abnormality in the abdomen or pelvis. Grossly stable mass effect with posterior right hepatic lobe however incompletely evaluated on this examination. Nodular contour of the liver suggests cirrhosis. Postsurgical changes of cholecystectomy. Mild left hydroureter with a 1 mm nonobstructing calcification in the distal left ureter, possibly urolithiasis. Noncontrast phase demonstrates retained contrast material in the bilateral renal parenchyma correlate four recent administration of contrast material as acute tubular necrosis can have this appearance. Prostatomegaly. Signed: Marleny Paul MD Report Verified Date/Time: 09/06/2019 01:54:08 Performing Organization Address City/State/Zipcode Ph one Number [facility] * ECHOCARDIOGRAM REPORT - SCAN (09/04/2019 9:10 PM IRRIGATING PUMP OPERATOR) Narrative Performed At This result has an attachment that is n ot available. * 2D Echo W/Doppler(CW/PW/Color) (09/03/2019 4:52 PM IRRIGATING PUMP OPERATOR) Ejection Fraction [facility] Specimen Narrative Performed At Transthoracic Echocardiography Report (TTE) [facility] Demographics [facility] Patient NameIVONE HARDY Date of Study09/03/2019 PATRICK Male Visit [id number] Race Unknown Room [id number] Number Date of 1945 [facility] Anne Fernandez MD Age 74 year(s)Dag Coater Shaylee Weber RDCS Interpreting Shakeel santana PhysicianMD FellowScot martel MD Procedure Type of Study TTE procedure:2DECHO W DO PPLER(CW/PW/COLOR) (Routine) Indications:Acute Chest Pain/ Suspected CAD. Clinical History Former smoker, ACB x4 1991, L cath , HLD, [place], Pacemaker 11/09/17, R/L cath 11/16/17, Liver cirrhosis, Hep C HT N, ICMP, Liver cancer HGB 11.8 HCT 36.0 % Contrast Medium: Definity. Height: 68 inches Weight: 92.08 kg (203 lbs) BSA: 2.06 m^2 BMI: 30.87 kg/m^2 HR: 54 bpm BP: 93/55 mmHg Summary LV endocardium is well visualized with IV ultrasound enhancing agent. The left ventricle is chamber size (by vol index) is mildly enlarged (male - LVED 75-89ml/m2). Normal LV wall thic kness. Discrete basal septal hypertrophy is present. There is modera te hypokinesis of the basal to mid inferoseptal, inferior, and infero-late ral segments of the LV. There is normal contractile function in the sarai ining LV segments. LVEF by Felix's method of disk assessment is mildly reduced (40-44%) . Grade 1 diastolic dysfunction (impaired relaxat ion and low-normal LA pressure). No significant valve disease detected. Signature Findings Technical Quality: Technically difficul t exam. Rhythm/BPRe gular sinus rhythm during the exam. Left Ventricle LV endoc ardium is well visualized with IV ultrasound enhancing agent. The left ventricle is chamber size (by vol index) is mildly enlarged (male - LVED 75-89ml/m2). Normal LV wall thickness. Discrete basal septal hypertrophy is present. There is moderate hypokinesis of the basal to mid inferoseptal, inferior, and infero-lateral segments of the LV. There is normal contractile function in the remaining LV segments. LVEF by Felix's method of disk assessment is mildly reduced (40-44%) . Grade 1 diastolic dysfunction (impaired relaxation and low-normal LA pressure). Left AtriumLA i s well visualized. LA size is normal (16-34 ml/m2) . Right VentricleThe righ t ventricular chamber size and systolic function are within normal limits. Pacemaker/AICD/catheter visualized in RV cavity. Right Atrium RA siz e is normal. Pacemaker/AICD/catheter was visualized in RA cavity. Atrial SeptumNormal interatrial septum by available views. Aortic Valve Mild A oV cusp thickening. There is mild aortic regurgitation. There is no aortic stenosis. Mitral Valve Mild M V leaflet thickening. Trace mitral regurgitation. Tricuspid ValveTV struc ture is normal. A trace of tricuspid regurgitation. Estimated peak systolic PA pressure is cannot be determined due to inadequate TR velocity signal . Pulmonic Valve Normal P V structure and function by limited views and Doppler. Aorta Aortic root size (Sinus of Valsalva diameter) is normal. 3.6 cm Proximal ascending aorta size is normal . 3.4 cm PericardiumNo s ignificant pericardial effusion is visualized. IVC/SVC/PA/PV/PleuralThe estimated RA pressure by IVC dynamics 0-5mmHg . Chambers/Structures Left Atrium LA Volume: 70.85 ml LA Area: 23.27 cm^2 LA Vol. Index: 34 ml/m^2 Left Ventricle LVIDd: 5.69 cmLVEDV:226. 82 ml LVIDs: 4.88 cm LV Septum Diastolic: 0.78 cm LV PW Diastolic: 0.79 cm LV FS: 14.2 % LVEDV Felix's:157.27 ml LVESV Felix's:90.82 ml LVEDVI: 76 ml/m^2 LVEF Felix's: 42.3 % LVESVI: 44 ml/m^2 LVOT Diameter: 2.48 cm Right Ventricle RV Diast Dim.: 4.01 cm TAPSE: 1.84 cm RVOT VTI: 16.22 cm Aorta Ao Root S of Devika.: 3.61 cm Ascending Aorta: 3.46 cm Doppler/Quantitative Measurements Mitral Valve MV Peak E-Wave: 0.57 m/s MV Peak A-Wave: 0.72 m/s E/A Ratio: 0.79 Peak Gradient: 1.3 mmHg Deceleration Time: 311.5 msec MV Rey. Peak: Tissue Doppler E' Lateral Velocity: 0.05 m/s E/E': 11.55 Aortic Valve Peak Velocity: 1.4 m/s Mean Velocity: 0.93 m/s Peak Gradient: 7.86 mmHg Mean Gradient: 3.92 mmHg AV Area (continuity): 3.21 cm^2 AV VTI: 26.9 cm AR P1/2t: 1563.2 msec AV DVI: 0.67 LVOT Peak Velocity: 0.8 m/s Peak Gradient: 2.54 mmHg Mean Velocity: 0.52 m/s Mean Gradient: 1.25 mmHg LVOT Diameter: 2.48 cm LVOT VTI: 17.9 cm LVOT Area: 4.83 cm^2 LVOT SV:86.42 ml LVOT CO: 4.67 l/min LVOT CI: 2.27 l/min/m^2 Tricuspid Valve TR Velocity: 1.45 m/s TR Gradient: 8.46 mmHg Procedure Note Interface, External Ris In - 09/04/2019 10:00 AM IRRIGATING PUMP OPERATOR Transthoracic Echocardiography Report (TTE) Demographics Patient Name IVONE HARDY Date of Study 09/03/2019 PATRICK Gender Male Visit Number [id number] Race Unknown Room Number 1009 Number Date of 1945 Referring Jamia Rodríguez Physician MD Van Age 74 year(s) Dag Coater Shaylee Weber [facility] Interpreting Shakeel Alanis, Physician Fellow Scot Saavedra MD Procedure Type of Study TTE procedure:2DECHO W DOPPLER(CW/PW/COLOR) (Routine) Indications:Acute Chest Pain/ Suspected CAD. Clinical History Former smoker, ACB x4 1991, L cath 02/09/17, HLD, AR, Pacemaker 11/09/17, R/L cath 11/16/17, Liver cirrhosis, Hep C HTN, ICMP, Liver cancer HGB 11.8 HCT 36.0 % Contrast Medium: Definity. Height: 68 inches Weight: 92.08 kg (203 lbs) BSA: 2.06 m^2 BMI: 30.87 kg/m^2 HR: 54 bpm BP: 93/55 mmHg Summary LV endocardium is well visualized with IV ultrasound enhancing agent. The left ventricle is chamber size (by vol index) is mildly enlarged (male - LVED 75-89ml/m2). Normal LV wall thickness. Discrete basal septal hypertrophy is present. There is moderate hypokinesis of the basal to mid inferoseptal, inferior, and infero-lateral segments of the LV. There is normal contractile function in the remaining LV segments. LVEF by Felix's method of disk assessment is mildly reduced (40-44%) . Grade 1 diastolic dysfunction (impaired relaxation and low-normal LA pressure). No significant valve disease detected. Signature Findings Technical Quality: Technically difficult exam. Rhythm/BP Regular sinus rhythm during the exam. Left Ventricle LV endocardium is well visualized with IV ultrasound enhancing agent. The left ventricle is chamber size (by vol index) is mildly enlarged (male - LVED 75-89ml/m2). Normal LV wall thickness. Discrete basal septal hypertrophy is present. There is moderate hypokinesis of the basal to mid inferoseptal, inferior, and infero-lateral segments of the LV. There is normal contractile function in the remaining LV segments. LVEF by Felix's method of disk assessment is mildly reduced (40-44%) . Grade 1 diastolic dysfunction (impaired relaxation and low-normal LA pressure). Left Atrium LA is well visualized. LA size is normal (16-34 ml/m2) . Right Ventricle The right ventricular chamber size and systolic function are within normal limits. Pacemaker/AICD/catheter visualized in RV cavity. Right Atrium RA size is normal. Pacemaker/AICD/catheter was visualized in RA cavity. Atrial Septum Normal interatrial septum by available views. Aortic Valve Mild AoV cusp thickening. There is mild aortic regurgitation. There is no aortic stenosis. Mitral Valve Mild MV leaflet thickening. Trace mitral regurgitation. Tricuspid Valve TV structure is normal. A trace of tricuspid regurgitation. Estimated peak systolic PA pressure is cannot be determined due to inadequate TR velocity signal . Pulmonic Valve Normal PV structure and function by limited views and Doppler. Aorta Aortic root size (Sinus of Valsalva diameter) is normal. 3.6 cm Proximal ascending aorta size is normal . 3.4 cm Pericardium No significant pericardial effusion is visualized. IVC/SVC/PA/PV/Pleural The estimated RA pressure by IVC dynamics 0-5mmHg . Chambers/Structures Left Atrium LA Volume: 70.85 ml LA Area: 23.27 cm^2 LA Vol. Index: 34 ml/m^2 Left Ventricle LVIDd: 5.69 cm LVEDV:226.82 ml LVIDs: 4.88 cm LV Septum Diastolic: 0.78 cm LV PW Diastolic: 0.79 cm LV FS: 14.2 % LVEDV Felix's:157.27 ml LVESV Felix's:90.82 ml LVEDVI: 76 ml/m^2 LVEF Felix's: 42.3 % LVESVI: 44 ml/m^2 LVOT Diameter: 2.48 cm Right Ventricle RV Diast Dim.: 4.01 cm TAPSE: 1.84 cm RVOT VTI: 16.22 cm Aorta Ao Root S of Devika.: 3.61 cm Ascending Aorta: 3.46 cm Doppler/Quantitative Measurements Mitral Valve MV Peak E-Wave: 0.57 m/s MV Peak A-Wave: 0.72 m/s E/A Ratio: 0.79 Peak Gradient: 1.3 mmHg Deceleration Time: 311.5 msec MV Rey. Peak: Tissue Doppler E' Lateral Velocity: 0.05 m/s E/E': 11.55 Aortic Valve Peak Velocity: 1.4 m/s Mean Velocity: 0.93 m/s Peak Gradient: 7.86 mmHg Mean Gradient: 3.92 mmHg AV Area (continuity): 3.21 cm^2 AV VTI: 26.9 cm AR P1/2t: 1563.2 msec AV DVI: 0.67 LVOT Peak Velocity: 0.8 m/s Peak Gradient: 2.54 mmHg Mean Velocity: 0.52 m/s Mean Gradient: 1.25 mmHg LVOT Diameter: 2.48 cm LVOT VTI: 17.9 cm LVOT Area: 4.83 cm^2 LVOT SV:86.42 ml LVOT CO: 4.67 l/min LVOT CI: 2.27 l/min/m^2 Tricuspid Valve TR Velocity: 1.45 m/s TR Gradient: 8.46 mmHg Performing Organization Address City/State/Zipcode Ph one Number [facility] * Urinalysis w/Microscopic (09/02/2019 8:25 PM IRRIGATING PUMP OPERATOR) Color, UA Yellow [facility] Clarity, UA Clear [facility] Specific [place], UA 1.007 1.001 - 1.035 [facility] pH, UA 7.5 5.0 - 8.0 [facility] Protein, UA Negative Negative [facility] Glucose, UA Negative Negative [facility] Ketones, UA Negative Negative [facility] Bilirubin, UA Negative Negative [facility] Blood, UA Negative Negative [facility] Nitrite, UA Negative Negative [facility] Leukocytes, UA Negative Negative [facility] Urobilinogen, UA 0.2 0.2 - 1.0 mg/dL [facility] RBC, UA 0 /HPF [facility] WBC, UA 1 /HPF [facility] Specimen Source Urine, Voided [facility] Specimen Urine Narrative Performed At Supervisor Labor Gang ID - [auto] [facility] Supervisor Labor Gang ID - [facility] Performing Organization Address City/State/[facility] Ph one Number [place] [phone] [place], [place] [facility] * NM bone scan whole body (08/17/2019 2:18 PM IRRIGATING PUMP OPERATOR) Only the most recent of 2 results within the time period is included. 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 Whole body and selected spot images were obta ined approximately 3 hours later. FINDINGS: There is mild ly increased activity in the maxilla and mandible, the shoulders and knees r ight ankle left midfoot and in the toes. IMPRESSION:Abnormal whole body bone scan. There is no typical metastatic pattern. The exam is suspicious for mild periodontal disease and degenerati ve changes. Images for comparison/correlation were compared to the study of April 16, 2019 there is no significan t interval change.. Signed: Harshil Gomez MD Report Verified Date/Time: 0 14:36:19 Reading Location: [address] Reading Room Procedure Note Interface, External Ris In - 08/17/2019 2:38 PM IRRIGATING PUMP OPERATOR FINAL REPORT PROCEDURE: BONE SCAN, WHOLE BODY CPT CODE: 70554 INDICATION: Musculoskeletal neoplasm, bone metastases suspected PROTOCOL: 20 mCi of Tc-99m MDP was injected intravenously. Whole body and selected spot images were obtained approximately 3 hours later. FINDINGS: There is mildly increased activity in the maxilla and mandible, the shoulders and knees right ankle left midfoot and in the toes. IMPRESSION: Abnormal whole body bone scan. There is no typical metastatic pattern. The exam is suspicious for mild periodontal disease and degenerative changes. Images for comparison/correlation were compared to the study of April 16, 2019 there is no significant interval change.. Signed: Harshil Gomez MD Report Verified Date/Time: 08/17/2019 14:36:19 Reading Location: [address] Reading Room Performing Organization Address City/State/[facility] Ph one Number [facility] * NM myocardial perfusion SPECT, pharm(Lexiscan) (08/15/2019 4:21 PM IRRIGATING PUMP OPERATOR) Specimen Narrative Performed At FINAL REPORT [facility] PROCEDURE: MYOCARDIAL PERFUSION SPECT I MAGING (Rest/Stress) CPT CODE: 36693 INDICATION: CAD CARDIOVASCULAR PROFILE: Symptoms: None CAD History: AR, cardiomyopathy, pacema ker Risk Factors: Lipid abnormality, smoker Medications: Atorvastatin, Coreg, Plavi x, Lasix STRESS PROTOCOL: Pharmacologic stress was achieved with a 10-second intravenous infusion of regadenoson 0.4 mg. IMAGING PROTOCOL: 10.7 mCi of Tc-99m sestamibi was inject ed intravenously at rest, and SPECT images were obtained. Then, 32.6 mCi of Tc-99m sestamibi was injected intravenously at peak stress, and SPECT images were obtained. REST FINDINGS: HR: 66 /min BP: 135/77 mmHg Prelim. EKG: Normal sinus rhythm. Perfusion: There is markedly decreased anterior, inferobasal and basal septal activity. LV Volume: Mildly increased. RV Volume: Normal. STRESS FINDINGS: HR: 86 /min (58% of MPHR) BP: 101/60 mmHg Prelim. EKG: No ischemic changes. Symptoms: Stomach discomfort (treatment not required). Perfusion: There is markedly decreased anterior, inferior and basal septal activity.. Wall Motion: Global hypokinesis (LVEF 2 3%). LV Volume: Unchanged from rest. IMPRESSION: 1. Normal study. 2. Abnormal myocardial perfusion there is a sufficient severe fixed defect involving the anterior, inferoba claudette and basal septum. There is reversibility of the mid and distal inf erior wall. 3. Abnormal global LV function. 4. Normal extracardiac tracer distribut ion. 5. Compared to the PET [facility], there is less reversibility now.. Signed: Harshil Gomez MD Report Verified Date/Time: 0 16:52:27 Procedure Note Interface, External Ris In - 08/15/2019 4:54 PM IRRIGATING PUMP OPERATOR FINAL REPORT PROCEDURE: MYOCARDIAL PERFUSION SPECT IMAGING (Rest/Stress) CPT CODE: [id number] INDICATION: CAD CARDIOVASCULAR PROFILE: Symptoms: None CAD History: AR, cardiomyopathy, pacemaker Risk Factors: Lipid abnormality, smoker Medications: Atorvastatin, Coreg, Plavix, Lasix STRESS PROTOCOL: Pharmacologic stress was achieved with a 10-second intravenous infusion of regadenoson 0.4 mg. IMAGING PROTOCOL: 10.7 mCi of Tc-99m sestamibi was injecte d intravenously at rest, and SPECT images were obtained. Then, 32.6 mCi of Tc-99m sestamibi was injected intravenously at peak stress, and SPECT images were obtained. REST FINDINGS: HR: 66 /min BP: 135/77 mmHg Prelim. EKG: Normal sinus rhythm. Perfusion: There is markedly decreased anterior, inferobasal and basal septal activity. LV Volume: Mildly increased. RV Volume: Normal. STRESS FINDINGS: HR: 86 /min (58% of MPHR) BP: 101/60 mmHg Prelim. EKG: No ischemic changes. Symptoms: Stomach discomfort (treatment not required). Perfusion: There is markedly decreased anterior, inferior and basal septal activity.. Wall Motion: Global hypokinesis (LVEF 23%). LV Volume: Unchanged from rest. IMPRESSION: 1. Normal study. 2. Abnormal myocardial perfusion there i s a sufficient severe fixed defect involving the anterior, inferobasal and basal septum. There is reversibility of the mid and distal inferior wall. 3. Abnormal global LV function. 4. Normal extracardiac tracer distributi on. 5. Compared to the PET scan of March 2018, there is less reversibility now.. Signed: Harshil Gomez MD Report Verified Date/Time: 08/15/2019 16:52:27 Performing Organization Address City/State/Zipcode Ph one Number [facility] * Treadmill tolerance(Non-Nuclear Treadmill) (08/15/2019 3:08 PM IRRIGATING PUMP OPERATOR) Specimen Narrative Performed At Protocol Name [employer] MUSE Time In Exercise Phase 00:01:00 Max. Systolic BP 101 mmHg Max Diastolic BP 60 mmHg Max Heart Rate 86 BPM Max Predicted Heart Rate 147 BPM Reason For Termination Predetermined en d point Reason for Test Screening for CAD Target HR Formula (220 - Age)*100% Arrhythmias none Resting ECG Normal sinus rhythm right bundle branch block ST Changes No Significant Changes Overall Impression Indeterminate due to pharmacological stress Chest Pain none HR Response To Exercise BP Response To Exercise ATORVASTATIN, COREG, PLAVIX, LASIX Confirmed by fellow Michelle Lopez ([id number]) on 08/17/2019 9:25:09 AM Confirmed by MD FREDY, [facility] ([id number] ) on 08/25/2019 4:39:16 PM Procedure Note Interface, External Ris In - 08/25/2019 4:39 PM IRRIGATING PUMP OPERATOR Protocol Name [facility]OSON Time In Exercise Phase 00:01:00 Max. Systolic BP 101 mmHg Max Diastolic BP 60 mmHg Max Heart Rate 86 BPM Max Predicted Heart Rate 147 BPM Reason For Termination Predetermined end point Reason for Test Screening for CAD Target HR Formula (220 - Age)*100% Arrhythmias none Resting ECG Normal sinus rhythm right bundle branch block ST Changes No Significant Changes Overall Impression Indeterminate due to pharmacological stress Chest Pain none HR Response To Exercise BP Response To Exercise ATORVASTATIN, COREG, PLAVIX, LASIX Confirmed by fellow Michelle Lopez ([id number]) on 08/17/2019 9:25:09 AM Confirmed by MD FREDY, NATALEE ([id number]) on 08/25/2019 4:39:16 PM Performing Organization Address City/State/Zipcode Ph one Number [facility] MUSE * ECHOCARDIOGRAM REPORT - SCAN (08/14/2019 9:12 PM IRRIGATING PUMP OPERATOR) Narrative Performed At This result has an attachment that is n ot available. * 2D Echo W/Doppler(CW/PW/Color) (08/14/2019 10:09 AM IRRIGATING PUMP OPERATOR) Ejection Fraction [facility] Specimen Narrative Performed At Transthoracic Echocardiography Report (TTE) [facility]ographics [facility] Patient Name IVONE HARDY Date of Study 08/14/2019 ANKUR CUENCA [id number] GenderMale Visit Number [id number] Dameon pate [id number] Room Number 714 Number Date of Birth1945 Referring Physician Age74 year(s) Dag Coater nAa alfaro RDCS AnalystAlex ZadeInterpretin Physician RADHA Fitzgerald Procedure Type of Study TTE procedure:2DECHO W DO PPLER(CW/PW/COLOR) (Routine) Indications:Acute Chest Pain/ Suspected CAD. Clinical History Pacemaker;cirrhosis;liver cancer;DM;HEP C;HLD;HTN;HYPOTHYROIDISM;AR;R&L CATH/PCI/CA 2017;LEADS(ATRIAL& VENT) Contrast Medium: Definity. Height: 71 inches Weight: 95.25 kg (210 lbs) BSA: 2.15 m^2 BMI: 29.29 kg/m^2 HR: 66 bpm BP: 117/68 mmHg Summary 1. Normal LV size. LV function is mildl y reduced. LVEF is 50-54% 2. Diastology: Grade 1 diastolic dysfun ction 3. Normal RV size and function 4. No significant valvular heart diseas e 5. Trace TR. Unable to estimate PASP 6. No pericardial effusion Signature Findings Left Ventricle LV endoc ardium is adequately visualized with IV ultrasound enhancing agent. The left ventricle is chamber size (by PSLAX dimension) is normal (male - LVIDd 4.2-5.8cm) . Normal LV wall thickness. The following segment(s) appear hypokinetic: basal to mid inferolateral, inferoseptal and inferior . Septal motion is abnormal, likely related to prior cardiac surgery .The other segments contract normally. Global LV systolic function lower limits of normal . Estimated LVEF by qualitative assessment is lower limits of normal (50-55%) . Grade 1 diastolic dysfunction (impaired relaxation and low-normal LA pressure). Left AtriumLA s ize is mildly enlarged . Right VentricleNormal r ight ventricle structure and function. Right Atrium Normal right atrium. Aortic Valve Mild A oV cusp thickening. Mild AoV cusp calcification. Mild aortic regurgitation. Mitral Valve Mild M V leaflet thickening. Mild mitral annular calcification. Tricuspid ValveA trace of tricuspid regurgitation. Unable to estimate peak systolic PA pressure; inadequate TR velocity signal. Pulmonic Valve Normal P V structure and function by limited views and Doppler. Aorta Aortic root size (SInus of Valsalva diameter) is normal . PericardiumNo e vidence of pericardial effusion. IVC/SVC/PA/PV/PleuralThe estimated RA pressure by IVC dynamics 5-10mmHg . Chambers/Structures Left Atrium LA Dimension: 4.28 cm LA Area: 23.63 cm^2 LA Volume: 78.85 ml LA Vol. Index: 37 ml/m^2 Left Ventricle LVIDd: 5.12 cm LVEDV:124.9 ml LVIDs: 4.53 cm LVESV:92.78 ml LV Septum Diastolic: 0.98 cm LVEF 2D Cube: 30.9 % LV PW Diastolic: 1.06 cm LVEDV Felix's:197.77 ml LV FS: 11.5 % LVESV Felix's:96.01 ml LVEF Felix's: 51.5 % LVEDVI: 92 ml/m^2 LVESVI: 45 ml/m^2 LVOT Diameter: 2.4 cm LVEF: 25.7 % Aorta Ao Root S of Devika.: 3.59 cm Doppler/Quantitative Measurements Mitral Valve MV Peak E-Wave: 0.36 m/s MV Peak A-Wave: 0.78 m/s E/A Ratio: 0.46 Peak Gradient: 0.52 mmHg Deceleration Time: 282.3 msec MV Rey. Peak: Tissue Doppler E' Lateral Velocity: 0.07 m/s A' Lateral Velocity: 0.1 m/s E/E': 5.09 Aortic Valve Peak Velocity: 1.36 m/s Mean Velocity: 0.96 m/s Peak Gradient: 7.41 mmHg Mean Gradient: 4.16 mmHg AV Area (continuity): 2.72 cm^2 AV VTI: 26.76 cm AV DVI: 0.6 LVOT Peak Velocity: 0.92 m/s Peak Gradient: 3.4 mmHg Mean Velocity: 0.57 m/s Mean Gradient: 1.6 mmHg LVOT Diameter: 2.4 cm LVOT VTI: 16.1 cm LVOT Area: 4.52 cm^2 LVOT SV:72.8 ml LVOT CO: 4.8 l/min LVOT CI: 2.23 l/min/m^2 Procedure Note Interface, External Ris In - 08/14/2019 3:10 PM IRRIGATING PUMP OPERATOR Transthoracic Echocardiography Report (TTE) Demographics Patient Name IVONE HARDY Date of Study 08/14/2019 PATRICK Gender Male Visit Number [id number] Race Unknown Room Number 714 Number Date of 1945 Referring Physician Age 74 year(s) Dag Coater Ana Amos RDCS Regulated Program Manager Manoj Pena Interpreting Nicholas Alvarenga Physician Procedure Type of Study TTE procedure:2DECHO W DOPPLER(CW/PW/COLOR) (Routine) Indications:Acute Chest Pain/ Suspected CAD. Clinical History Pacemaker;cirrhosis;liver cancer;DM;HEPC;HLD;HTN;HYPOTHYROIDISM;AR;R&L CATH/PCI/CA 2018;LEADS(ATRIAL& VENT) Contrast Medium: Definity. Height: 71 inches Weight: 95.25 kg (210 lbs) BSA: 2.15 m^2 BMI: 29.29 kg/m^2 HR: 66 bpm BP: 117/68 mmHg Summary 1. Normal LV size. LV function is mildly reduced. LVEF is 50-54% 2. Diastology: Grade 1 diastolic dysfunction 3. Normal RV size and function 4. No significant valvular heart disease 5. Trace TR. Unable to estimate PASP 6. No pericardial effusion Signature Findings Left Ventricle LV endocardium is adequately visualized with IV ultrasound enhancing agent. The left ventricle is chamber size (by PSLAX dimension) is normal (male - LVIDd 4.2-5.8cm) . Normal LV wall thickness. The following segment(s) appear hypokinetic: basal to mid inferolateral, inferoseptal and inferior . Septal motion is abnormal, likely related to prior cardiac surgery .The other segments contract normally. Global LV systolic function lower limits of normal . Estimated LVEF by qualitative assessment is lower limits of normal (50-55%) . Grade 1 diastolic dysfunction (impaired relaxation and low-normal LA pressure). Left Atrium LA size is mildly enlarged . Right Ventricle Normal right ventricle structure and function. Right Atrium Normal right atrium. Aortic Valve Mild AoV cusp thickening. Mild AoV cusp calcification. Mild aortic regurgitation. Mitral Valve Mild MV leaflet thickening. Mild mitral annular calcification. Tricuspid Valve A trace of tricuspid regurgitation. Unable to estimate peak systolic PA pressure; inadequate TR velocity signal. Pulmonic Valve Normal PV structure and function by limited views and Doppler. Aorta Aortic root size (SInus of Valsalva diameter) is normal . Pericardium No evidence of pericardial effusion. IVC/SVC/PA/PV/Pleural The estimated RA pressure by IVC dynamics 5-10mmHg . Chambers/Structures Left Atrium LA Dimension: 4.28 cm LA Area: 23.63 cm^2 LA Volume: 78.85 ml LA Vol. Index: 37 ml/m^2 Left Ventricle LVIDd: 5.12 cm LVEDV:124.9 ml LVIDs: 4.53 cm LVESV:92.78 ml LV Septum Diastolic: 0.98 cm LVEF 2D Cube: 30.9 % LV PW Diastolic: 1.06 cm LVEDV Felix's:197.77 ml LV FS: 11.5 % LVESV Felix's:96.01 ml LVEF Felix's: 51.5 % LVEDVI: 92 ml/m^2 LVESVI: 45 ml/m^2 LVOT Diameter: 2.4 cm LVEF: 25.7 % Aorta Ao Root S of Devika.: 3.59 cm Doppler/Quantitative Measurements Mitral Valve MV Peak E-Wave: 0.36 m/s MV Peak A-Wave: 0.78 m/s E/A Ratio: 0.46 Peak Gradient: 0.52 mmHg Deceleration Time: 282.3 msec MV Rey. Peak: Tissue Doppler E' Lateral Velocity: 0.07 m/s A' Lateral Velocity: 0.1 m/s E/E': 5.09 Aortic Valve Peak Velocity: 1.36 m/s Mean Velocity: 0.96 m/s Peak Gradient: 7.41 mmHg Mean Gradient: 4.16 mmHg AV Area (continuity): 2.72 cm^2 AV VTI: 26.76 cm AV DVI: 0.6 LVOT Peak Velocity: 0.92 m/s Peak Gradient: 3.4 mmHg Mean Velocity: 0.57 m/s Mean Gradient: 1.6 mmHg LVOT Diameter: 2.4 cm LVOT VTI: 16.1 cm LVOT Area: 4.52 cm^2 LVOT SV:72.8 ml LVOT CO: 4.8 l/min LVOT CI: 2.23 l/min/m^2 Performing Organization Address City/State/Zipcode Ph one Number [facility] * PT/aPTT (08/13/2019 10:29 AM IRRIGATING PUMP OPERATOR) Protime 12.7 11.9 - 14.2 seconds [facility] INR 1.0 <=5.9 [facility] PTT 27.7 22.5 - 36.0 seconds [facility] Specimen Blood Narrative Performed At Effective 12/03/2018: PT Reference Range Change [facility] New: 11.9-14.2Previous: 11.7-14.7 [facility] MEDICAL CE NTER RECOMMENDED COUMADIN/WARFARIN INR THERA PY RANGES STANDARD DOSE: 2.0-3.0Includes: PRO PHYLAXIS for venous thrombosis, systemic embolization; TREATMENT for venous thro mbosis and/or pulmonary embolus. HIGH RISK: Target INR is 2.5-3.5 for pa tients wiht mechanical heart valves. Performing Organization Address [facility] Ph one [place] [phone] [place] [address] * Lipase (08/13/2019 10:29 AM IRRIGATING PUMP OPERATOR) Lipase 48 8 - 78 U/L [facility] Specimen Blood Narrative Performed At Supervisor Labor Gang ID - [facility] Performing Organization Address [facility] Ph one [address] * NM tumor localization SPECT (08/03/2019 3:16 PM IRRIGATING PUMP OPERATOR) Only the most recent of 2 results within the time period is included. Specimen Narrative Performed At FINAL REPORT [facility] PROCEDURE: TRACER DISTRIBUTION STUDY - SPECT ([facility]) CPT CODE: [id number] CLINICAL INDICATION:Hepatoc ellular carcinoma PROTOCOL:32.9 mCi of Y-90 micro spheres (SIR-Spheres) had been previously administered. SPECT imaging of the liver and upper abdomen usingBremsstrahlung radiation was p erformed without additional injection of radiopharmaceutical. FINDINGS: Tracer distribution in the vi sualized portion of the liver is irregular. No significant activity i s noted outside of the liver. IMPRESSION:Appropriate tracer d istribution following right hepatic artery injection. Signed: Mook Cox MD Report Verified Date/Time: 0 15:56:53 Reading Location: [facility] 3rd Arr [id number] Nuc Med Reading Room Procedure Note Interface, External Ris In - 08/03/2019 3:59 PM IRRIGATING PUMP OPERATOR FINAL REPORT PROCEDURE: TRACER DISTRIBUTION STUDY - SPECT (Bremsstrahlung) CPT CODE: 99979 CLINICAL INDICATION: Hepatocellular carcinoma PROTOCOL: 32.9 mCi of Y-90 microspheres (SIR-Spheres) had been previously administered. SPECT imaging of the liver and upper abdomen using Bremsstrahlung radiation was performed without additional injection of radiopharmaceutical. FINDINGS: Tracer distribution in the visualized portion of the liver is irregular. No significant activity is noted outside of the liver. IMPRESSION: Appropriate tracer distribution following right hepatic artery injection. Signed: Mook Cox MD Report Verified Date/Time: 08/03/2019 15:56:53 Reading Location: [address] [facility] Nuc Med Reading Room Performing Organization Address City/State/[facility] one Number [facility] * NM Y90 MICROPSHERES THERAPY (08/03/2019 3:12 PM IRRIGATING PUMP OPERATOR) Specimen Narrative Performed At FINAL REPORT [facility] PROCEDURE: Y-90 microsphere therapy (SIR-Spheres) CPT CODE: 39531 CLINICAL INDICATION: Hepatocellular carcinoma PROTOCOL: 32.9 mCi of a planned 36 mCi dosage of Y-90 labeled microspheres (SIR-Spheres) was administ ered by the nuclear medicine physician to the right lobe of the live r via a hepatic artery catheter placed by the interventional r adiologist. IMPRESSION: Y-90 microsphere therap y Signed: Mook Cox MD Report Verified Date/Time: 0 15:55:37 Reading Location: [facility] 3rd Arr [id number] Nuc Med Reading Room Procedure Note Interface, External Ris In - 08/03/2019 3:57 PM IRRIGATING PUMP OPERATOR FINAL REPORT PROCEDURE: Y-90 microsphere therapy (SIR-Spheres) CPT CODE: 29641 CLINICAL INDICATION: Hepatocellular carcinoma PROTOCOL: 32.9 mCi of a planned 36 mCi dosage of Y-90 labeled microspheres (SIR-Spheres) was administered by the nuclear medicine physician to the right lobe of the liver via a hepatic artery catheter placed by the interventional radiologist. IMPRESSION: Y-90 microsphere therapy Signed: Mook Cox MD Report Verified Date/Time: 08/03/2019 15:55:37 Reading Location: [address] Reading Room Performing Organization Address City/State/Zipcode Ph one Number [place] RIS * IR Visceral Arteriogram (08/03/2019 1:00 PM IRRIGATING PUMP OPERATOR) Only the most recent of 2 results within the time period is included. Specimen Narrative Performed At FINAL REPORT [facility] Mesenteric angiogram, for hepatic radio embolization, 08/03/2019. History: Right hepatic HCC. Modality: Fluoroscopy. Sedation: Versed 1.5 mg and fentanyl 75 mcg was given intravenously for conscious sedation.Vital signs were monitored throughout the procedure by a nurse, and remained stab le. Physician intra-service time was 40 minutes. Anesthesia:Two percent Lidocaine wi thout epinephrine. Approach:Right common femoral arter y. Estimated blood loss:< 5 cc. Specimen: None. cmm operator: Bruna. Store Planner: Caitlin. Fluoroscopy Time: 5.7 min.Dose (Ka,r): 303.6 mGy. Technique: Informed written consent was obtained. Discussion of risks, benefits, and alternatives were made with the patient. The patient expressed understanding and agr eed to proceed.All elements maximal sterile barrier technique was u tilized for this procedure, including utilization of sterile scrub solution for skin prep, a large sterile sheet to cover the areas of the patient that were not prepped, and hand hygiene, mask, head c overing, and sterile gown for performing radiologist and scrub techno logist. The skin was anesthetized with lidocain e. The right common femoral artery was accessed using a stiffened m icropuncture set.A 0.035 inch Frances wire was placed through the needle into the distal aorta. The micropuncture sheath was removed an d a 5 Chilean sheath was placed. A 5 [place]an Barajas B catheter was used to select the celiac trunk for a DSA run. A microcatheter wa s advanced through the Barajas catheter for subselection of the distal righthepatic artery for a DSA run, with the catheter tip placed i n the same location as the previous diagnostic angiogram. Y 90 dalila rosphere (SIR spheres) administration was then performed by Dr Oskar Coxof the nuclear medicine department. The microcatheter was removed. Injection was performed through the she ath for a DSA run of the right femoral artery. The sheath was removed, the arteriotomy was closed, and hemostasis was obtained using a Myn x closure device. Vital signs were monitored throughout the procedure by a nurse, and remained stable.The patient tolerated the pr ocedure well and left the department in the same condition. FINDINGS: 1. Righthepatic injection: Ill-defi ann hypervascularity is noted throughout the rightlobe of the caitlin er. 2. Right femoral sheath injection: The right common femoral artery is patent with normal position of the rodolfo rial sheath. Impression: 1. Uncomplicated mesenteric angiogram. 2. Successful placement of righthep atic artery microcatheter for radioembolization of the righthepat ic lobe. 3. Arteriotomy hemostasis obtained with Mynx closure device. Signed: Montana Hart MD Report Verified Date/Time: 0 18:33:11 Reading Location: [facility] P048 Angio Bod y Reading Room Procedure Note Interface, External Ris In - 08/03/2019 6:35 PM IRRIGATING PUMP OPERATOR FINAL REPORT Mesenteric angiogram, for hepatic radioembolization, 08/03/2019. History: Right hepatic HCC. Modality: Fluoroscopy. Sedation: Versed 1.5 mg and fentanyl 75 mcg was given intravenously for conscious sedation. Vital signs were monitored throughout the procedure by a nurse, and remained stable. Physician intra-service time was 40 minutes. Anesthesia: Two percent Lidocaine without epinephrine. Approach: Right common femoral artery. Estimated blood loss: < 5 cc. Specimen: None. cmm operator: Bruna. Store Planner: Caitlin. Fluoroscopy Time: 5.7 min. Dose (Ka,r): 303.6 mGy. Technique: Informed written consent was obtained. Discussion of risks, benefits, and alternatives were made with the patient. The patient expressed understanding and agreed to proceed. All elements maximal sterile barrier technique was utilized for this procedure, including utilization of sterile scrub solution for skin prep, a large sterile sheet to cover the areas of the patient that were not prepped, and hand hygiene, mask, head covering, and sterile gown for performing radiologist and scrub technologist. The skin was anesthetized with lidocaine. The right common femoral artery was accessed using a stiffened micropuncture set. A 0.035 inch Frances wire was placed through the needle into the distal aorta. The micropuncture sheath was removed and a 5 Chilean sheath was placed. A 5 [place]an Barajas B catheter was used to select the celiac trunk for a DSA run. A microcatheter was advanced through the Barajas catheter for subselection of the distal right hepatic artery for a DSA run, with the catheter tip placed in the same location as the previous diagnostic angiogram. Y 90 microsphere (SIR Mobyko) administration was then performed by Dr. Cox of the nuclear medicine department. The microcatheter was removed. Injection was performed through the sheath for a DSA run of the right femoral artery. The sheath was removed, the arteriotomy was closed, and hemostasis was obtained using a Mynx closure device. Vital signs were monitored throughout the procedure by a nurse, and remained stable. The patient tolerated the procedure well and left the department in the same condition. FINDINGS: 1. Right hepatic injection: Ill-defined hypervascularity is noted throughout the right lobe of the liver. 2. Right femoral sheath injection: The r ight common femoral artery is patent with normal position of the arterial sheath. Impression: 1. Uncomplicated mesenteric angiogram. 2. Successful placement of right hepati c artery microcatheter for radioembolization of the right hepatic lobe. 3. Arteriotomy hemostasis obtained with Mynx closure device. Signed: Montana Hart MD Report Verified Date/Time: 08/03/2019 18:33:11 Reading Location: [facility] P048 Angio Body Reading Room Performing Organization Address City/State/Zipcode Ph one Number [facility] * US prostate (04/16/2019 4:11 PM CDT) Specimen Narrative Performed At FINAL REPORT [facility] TECHNIQUE: Grayscale ultrasound of the prostate INDICATION: enlarged prostate. COMPARISON: CT from 12/06/2018. FINDINGS: The prostate measures 5.6 x 3.3 x 5.1 c m, 49 mL in volume. Hypertrophy of the median lobe. There i s a focal calcification. Rounded areas of hyperechogenicity in t he transition zone measure 2.8 x 2.3 x 3.2 cm and 3 x 2.4 x 2 cm. Donovan tional at rounded area in the left peripheral zone measures 0.6 x 0.6 cm. The seminal vesicles appear normal. IMPRESSION: The prostate is enlarged at 49 mL with hypertrophy of the median lobe. There is a nodular area in the left per ipheral zone which measures 0.6 cm and is indeterminate. Consider a urology referral for further evaluation. The additional nodular areas in the pro state are nonspecific but likely in the transition zone. Signed: Leticia Cespedes MD Report Verified Date/Time: 9 16:35:28 Reading Location: [address] Radiolo gy Reading Room Procedure Note Interface, External Ris In - 04/18/2019 9:28 AM CDT FINAL REPORT TECHNIQUE: Grayscale ultrasound of the prostate INDICATION: enlarged prostate. COMPARISON: CT from 12/06/2018. FINDINGS: The prostate measures 5.6 x 3.3 x 5.1 cm, 49 mL in volume. Hypertrophy of the median lobe. There is a focal calcification. Rounded areas of hyperechogenicity in the transition zone measure 2.8 x 2.3 x 3.2 cm and 3 x 2.4 x 2 cm. Additional at rounded area in the left peripheral zone measures 0.6 x 0.6 cm. The seminal vesicles appear normal. IMPRESSION: The prostate is enlarged at 49 mL with hypertrophy of the median lobe. There is a nodular area in the left peripheral zone which measures 0.6 cm and is indeterminate. Consider a urology referral for further evaluation. The additional nodular areas in the prostate are nonspecific but likely in the transition zone. Signed: Leticia Cespedes MD Report Verified Date/Time: 04/16/2019 16:35:28 Reading Location: [address] Radiology Reading Room Performing Organization Address City/State/Zipcode Ph one Number [facility] * CT chest without IV contrast (04/16/2019 3:31 PM CDT) Specimen Narrative Performed At FINAL REPORT [facility] CT Chest without contrast History: Hepatocellular carcinoma Comparison: 11/09/2017 Technique: serial axial imaging was per formed without intravenous contrast as per departmental protocol. Multiplanar images are reconstructed and reviewed when indicat ed. This CT examination is performed using one or more of the following dose reduction techniques: Automated exposure control, adjustment of the mA and /or kV according to patient size, and/or use of iterativ e reconstruction technique. Findings: No mediastinal lymphadenopathy. No definite hilar enlargement. Normal size heart.No pericardial ef fusion.Postoperative changes of previous CABG surgery. No thoracic aortic aneurysm.Normal caliber of main pulmonary trunk. Patent central airways.No pleural e ffusion or pneumothorax.Clear lungs. There is an indeterminant solid mass in volving the posterior, superior aspect of the right hepatic lo be measuring 4.6 cm in size. This is incompletely characterized on t his study. The patient is status post cholecystectomy. No aggressive osseous lesion. Impression: 1. No evidence of metastatic disease in the chest. 2. 4.6 cm solid mass involving the post erior superior aspect of the right hepatic lobe. Please see report o f MRI abdomen from same date for further details. Signed: Franklin Vega MD Report Verified Date/Time: 9 16:19:26 Reading Location: [facility] Procedure Note Interface, External Ris In - 04/16/2019 4:21 PM CDT FINAL REPORT CT Chest without contrast History: Hepatocellular carcinoma Comparison: 11/09/2017 Technique: serial axial imaging was performed without intravenous contrast as per departmental protocol. Multiplanar images are reconstructed and reviewed when indicated. This CT examination is performed using one or more of the following dose reduction techniques: Automated exposure control, adjustment of the mA and /or kV according to patient size, and/or use of iterative reconstruction technique. Findings: No mediastinal lymphadenopathy. No definite hilar enlargement. Normal size heart. No pericardial effusion. Postoperative changes of previous CABG surgery. No thoracic aortic aneurysm. Normal caliber of main pulmonary trunk. Patent central airways. No pleural effusion or pneumothorax. Clear lungs. There is an indeterminant solid mass involving the posterior, superior aspect of the right hepatic lobe measuring 4.6 cm in size. This is incompletely characterized on this study. The patient is status post cholecystectomy. No aggressive osseous lesion. Impression: 1. No evidence of metastatic disease in the chest. 2. 4.6 cm solid mass involving the poste rior superior aspect of the right hepatic lobe. Please see report of MRI abdomen from same date for further details. Signed: Franklin Vega MD Report Verified Date/Time: 04/16/2019 16:19:26 Reading Location: [facility] Radiology Reading Room Performing Organization Address City/State/Zipcode Ph one Number [facility] RIS after 03/22/2019 Insurance Payer Benefit Subscriber ID Type Phone Address Plan / Group MEDICAID - MEDICAID [place] xxxxxxxxx Med[employer] id CARE COMM STAR Contracted PLAN MEDICAID - MEDICAID [place] xxxxxxxxx Medica id CARE COMM STAR Contracted PLAN CDC REVIEW CDC REVIEW xxxxxxxx [address] [place] [place] [address] Advance Directives For more information, please contact: [address] [address] Date Inactivated Comments Code Status Date Activated 02/18/2020 2:37 PM Full Code 02/17/2020 8:51 PM This code status was determined by: Patient 02/05/2020 12:06 PM Full Code 02/02/2020 1:55 PM This code status was determined by: Patient 09/08/2019 3:03 PM Full Code 09/02/2019 8:16 PM This code status was determined by: Patient 08/18/2019 4:51 PM Full Code 08/13/2019 6:41 PM This code status was determined by: Patient 08/03/2019 8:46 PM Full Code 08/03/2019 1:50 PM This code status was determined by: Patient
--- OUTSIDE RECORDS SUMMARY | 2020-03-22 07:58 | XMS REPORT | Continuity of Care Document ---
Author Author [facility] t Organization [facility] Address [address] [place] [address] Phone Unavailable Care Team Providers Care Vending Machine Refiller Name Role Phone Asked, Pcp No PCP Unavailable SYSTEM, NOT IN PROVIDER Attphys Unavailable Michelle Valdez MA Attphys Unavailable Kelton PEREZ, Herber Bains Attphys [phone] KYLAH ACOSTA Attphys Unavailable Dave GARCIA, Kylah Attphys Madie GARCIA, Graham Barrera Attphys Nicole GARCIA, Yvan Attphys [phone] Blane GARCIA, Jin Malik Attphys Babatunde WAGNER, Opal Attphys Unavailable Ramesh GARCIA, Elkin Attphys Mesfin JHAVERI, Cipriano Burdick Attphys Barbara GARCIA, Abby Tran Attphys Mat GARCIA, Nkechi Perry Attphys [phone] Patrice GARCIA, Sima Brady Attphys ABBY JIMENEZ Attphys Unavailable West GARCIA, Froylan Wall Attphys Judy Peacock Attphys Unavailable [place] , [facility] Attphys Tee WAGNER, Penny Attphys Unavailable Mariella GARCIA, Nati Attphys Shaikh JUHI, H Isabel Attphys Unavailable Bady DO, Amr Attphys Mina GARCIA, Alfonso Attphys SOLOMON HERNANDEZ Attphys Unavailable Teressa GARCIA, Solomon Agustín Attphys Jacinda GARCIA, Nina Valenzuela Attphys Van GARCIA, Anne Blandon Attphys [phone] Sukhi GACRIA, Sonya Attphys Mariella GARCIA, Nati Attphys KATHY GARDNER Attphys Unavailable Kendra GARCIA, Kathy Wall Attphys Herson GARCIA, Marianne Mchugh Attphys Nate GARCIA, Kilo Wall Attphys Hiwot BEVERLY, Kristen Morales Attphys [phone] Nicholas Turner Attphys Unavailable Karl HEAVY FORGING MACHINE OPERATOR, Jenniffer Pollock Attphys Karlene Kaye Attphys Nadine JHAVERI, Benji Huynh Attphys Tim GARCIA, Kailey Attphys Carmen ROCKWELL, Perla Mehta Attphys Unavailable Kelseawilfred , Kuldeep Alford Attphys [phone] Luis Irwin Attphys Unavailable Tamiko BEVERLY, Gian Browning Attphys [phone] Stanley GARCIA, Michael Cazares Attphys [phone] Doctor Unassigned, Name No Attphys Unavailable Rudolph SCHULZ Attphys Unavailable Ovidio Rockwell Attphys ALAMDOLLYBOOB Attphys Unavailable HOUSTON, J RISE Attphys Unavailable JOSE ROBLEDO Attphys Unavailable Nina RAYMOND Attphys Unavailable VERONIKA MEJIAS Attphys Unavailable MILTON CALVERT Attphys Unavailable ALEXANDRE PEÑA Attphys Unavailable SHEEBA ESTRADA Attphys Unavailable JIN GARCIA Admphys Unavailable ABBY JIMENEZ Admphys Unavailable Alfonso Enriquez MD Admphys SONYA ORDOÑEZ Admphys Unavailable Marianne ROLON Admphys Unavailable GADICHERLA, MURALINATH BRIDGER Admphys Unavailable NEHAL, MILTON Admphys Unavailable Nina ELY Admphys Unavailable Payers Payer Name Policy Type Policy Number Effective Date Expiration Date S [facility] [place] - [facility] dicaid Contracted xxxxxxxxx [facility] [place] [address] x xxxxxxx [facility] MEDICAIDUNITED COMM STAR+ [id number] xxxxxxxxx 2018 00:00:00 Tor Hernández Problems Condition Name Condition Details Condition Category Status Onset Date Resolution Date Last Treatment Date Treating Clinician Comments Source Nausea Nausea Disease Active 2020-02-17 00:00:00 [facility] Abdominal pain Abdominal pain Disease Active 2020-02-02 00:00:00 [facility] Acute chest pain Acute chest pain Disease Active 2019-09-02 00:00:00 [facility] Other chest pain Other chest pain Disease Active 2019-08-13 00:00:00 [facility] Hepatic encephalopathy Hepatic encephalopathy Disease Active 2019-06-08 00:00:00 [facility] Helicobacter pylori (H. pylori) infection Helicobacter pylori (H. pylori) infection Disease Active 2018-11-13 00:00:00 I [facility] Pain of left hip joint Pain of left hip joint Disease Active 2018-11-13 00:00:00 [facility] Colon polyps Colon polyps Disease Active 2018-11-13 00:00:00 [facility] Chest pain Chest pain Disease Active 2018-05-29 00:00:00 Tor Hernández Metabolic syndrome Metabolic syndrome Disease Active 2018-04-09 00:00:0 0 [facility] History of hepatitis C History of hepatitis C Disease Active 2018-02-07 00:00:00 [facility] Other cirrhosis of liver Other cirrhosis of liver Disease Acti ve 2018-02-07 00:00:00 [facility] Hepatocellular carcinoma Hepatocellular carcinoma Disease Acti ve 2017-11-22 00:00:00 [facility] Complete heart block Complete heart block Disease Active 00:00:00 Overview: S/p MICRA [facility] NSTEMI (non-ST elevated myocardial infarction) NSTEMI (non-ST elevated myocardial infarction) Disease Active 2017-11-08 00:00:00 [facility] BPH (benign prostatic hyperplasia) BPH (benign prostatic hyperpl shorty) Disease Active 2017-10-14 00:00:00 [facility] Dyslipidemia Dyslipidemia Disease Active 2017-10-14 00:00:00 [facility] Diabetes Diabetes Disease Active 2017-10-14 00:00:00 [facility] End stage liver disease End stage liver disease Disease Active 2017-10-14 00:00:00 [facility] Portal hypertension Portal hypertension Disease [facility] 2017-08-29 [facility] varices without bleeding Secondar y esophageal varices without bleeding Disease Active 2017-08-29 00:00:00 [facility] Liver mass, right lobe Liver mass, right lobe Disease Active 2017-08-01 00:00:00 Last Assessment & Plan: We recommend a liver resection. We will refer him to our hepatobiliary clinic to continue with his liver resection work up. [facility] NAFLD (nonalcoholic fatty liver disease) NAFLD (nonalc oholic fatty liver disease) Disease Active 2017-08-01 00:00:00 [facility] Immunity status testing Immunity status testing Disease Active 2017-08-01 00:00:00 [facility] Multi-vessel coronary artery stenosis Multi-vessel coronary artery stenosis Disease Active 2017-02-10 00:00:00 [facility] Hypertension Hypertension Disease Active 2017-02-10 00:00:00 [facility] Hyperlipidemia Hyperlipidemia Disease Active 2017-02-10 00:00:00 [facility] Hyperglycemia due to type 2 diabetes mellitus Hypergly cemia due to type 2 diabetes mellitus Disease Active 2017-02-10 00:00:00 [facility] Ischemic cardiomyopathy Ischemic cardiomyopathy Disease Active 2017-02-10 00:00:00 [facility] 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 [facility] Problem Active 2016-05-11 00:00:00 2018-12-23 13:56:4 [facility] Chronic urinary tract infection (disorder) Chronic urinary tract infection (disorder) Resolved Problem 12/23/2018 [facility] Problem Resolved 2018-12-23 13:56:45 [facility] Heart disease (disorder) Hear t disease (disorder) Resolved Problem 12/23/2018 [facility] Problem Resolved 2018-12-23 13: 56:45 [facility] Gastroesophageal reflux disease (disorder) Gastroesophageal reflux disease (disorder) Resolved Problem 12/23/2018 [facility] Problem Resolved 2018-12-23 13:56:45 M emoerontracy [place] Disorder of liver (disorder) D isorder of liver (disorder) Resolved Problem 12/23/2018 [facility] Problem Resolved 2018-12-23 13:56:45 [facility] Hypercholesterolemia (disorder) Hypercholesterolemia (disorder) Resolved Problem 12/23/2018 [facility] Problem Resolved 2018-12-23 13:56:45 [facility] Hypothyroidism (disorder) Hypo thyroidism (disorder) Resolved Problem 12/23/2018 [facility] Problem Resolved 2018-12-23 13:56:45 [facility] Dysuria (finding) Dysu topher (finding) Resolved Problem 12/23/2018 [facility] Problem Resolved 2018-12-23 13:56:45 [facility] Disease of prostate (disorder) Disease of prostate (disorder) Resolved Problem 12/23/2018 [facility] Problem Resolved 2018-12-23 13:56:45 [facility] Urinary incontinence (finding) Urinary incontinence (finding) Resolved Problem 12/23/2018 [facility] Problem Resolved 2018-12-23 13:56:45 [facility] Acute urinary tract infection (disorder) Acute urinary tract infection (disorder) Active Problem 12/23/2018 [facility] Problem Active 2018-12-23 13:56:45 [facility] Viral hepatitis C (disorder) V iral hepatitis C (disorder) Active Problem 12/23/2018 [facility] Problem Active 2018-12-23 13:56:45 [facility] Allergies, Adverse Reactions, Alerts Allergy Name Allergy Type Status Severity Reaction(s) Onset Date Inacti ve Date Treating Clinician Comments Source Other Propensity to adverse reactions Active Othe r (See Comments) 2019-08-18 00:00:00 [employer] LEADLESS P ACEMAKER DEVICE - Micra Transcatheter Pacemaker M# [id number] S# [id number] [facility] Penicillins DA Active 2018-12-19 00:00:00 [facility] Penicillins DA Active 2018-12-06 00:00:00 [facility] Penicillins Propensity to adverse reactions to drug Active Severe 2018-05-29 00:00:00 Patient states he cannot breathe Tor Hernández Penicillins DA Active SV 2017-10-27 00:00:00 [facility] Penicillins Drug Allergy Active Anaphylaxis 2017-02-09 00:00:00 STOPPED BREATHING [facility] penicillins penicillins Active [facility] Family History Family Member Diagnosis Comments Start Date Stop Date Source Natural brother Heart disease [facility] Natural brother Diabetes [facility] Social History Social Habit Start Date Stop Date Quantity Comments Source History SDOH Alcohol Std Drinks [place] [facility] History SDOH [facility] of tobacco use Current smoker [facility] Sex Assigned At [facility] Alcohol intake 2018-05-29 00:00:00 2018-05-29 00:00:00 Current non-drinker of alcohol (finding) [place] [facility] History SDOH Alcohol Frequency 2018-05-29 00:00:00 2018-05-29 00:00:0 0 1 [place] Tobacco Comment 2017-12-06 00:00:00 2017-12-06 00:00:00 heavy smoker [facility] Social History 2016-07-21 09:10:10 2016-07-21 09:10:10 [facility] Smoking Status Start Date Stop Date Source Former smoker 2020-02-17 00:00:00 2020-02-17 00:00:00 [facility] Never smoker [facility] Medications Ordered Medication Name Filled Medication Name Start Date Stop Da te Current Medication? Ordering Clinician Indication Dosage Frequency Signature (SIG) Comments Components Source ondansetron (ZOFRAN) 4 MG tablet 2020 00:00:00 Yes Nausea 4mg Take 1 tablet (4 mg total) by mouth 2 (two) times daily as needed for Nausea. [facility] HYDROcodone-acetaminophen (NORCO 10-325) 10-325 mg per table t 2020-02-18 09:47:26 2020-02-18 00:00:00 No 1{tbl} Take 1 tablet by mouth 2 (two) times daily as needed for Pain. [facility] HYDROcodone-acetaminophen (NORCO 10-325) 10-325 mg per table t 2020-02-18 00:00:00 Yes 1{tbl} Take 1 tab let by mouth 2 (two) times daily as needed for Pain. Max Daily Amount: 2 tablets [facility] magnesium oxide (MAG-OX) 400 mg tablet 2020-01-08 0 10:59:41 2020-02-04 00:00:00 No 400mg QD Take 400 mg by mouth daily. [facility] isosorbide dinitrate (ISORDIL) 30 MG tablet 2019 10:59:41 2020-02-04 00:00:00 No 15mg QD Take 15 mg by mouth daily. [facility] losartan (COZAAR) 25 MG tablet 2020-02-04 10:59:41 2020-02-04 00 :00:00 No 25mg QD Take 25 mg by mouth daily. [facility] traMADoL (ULTRAM) 50 mg tablet 2020-02-04 00:00:00 2020-02-14 23 :59:00 No 50mg Take 1 tablet (50 mg total) by mouth every 6 (six) hours as needed for up to 10 days. Max Daily Amount: 200 mg [facility] ergocalciferol, vitamin D2, (VITAMIN D2 ORAL) 2019-12-16 09:19:1 5 Yes 50ug Take 50 mcg by mouth. [facility] RANITIDINE HCL ORAL 2019-12-16 09:19:15 Yes Take by mouth. [facility] ranitidine (ZANTAC) 150 MG tablet 2019-09-08 10:12:54 2019 00:00:00 No 150mg Q.5D Take 150 mg by mouth 2 (two) times daily . [facility] furosemide (LASIX) 20 MG tablet 2019-09-08 00:00:00 23:59:00 No 20mg Q.5D Take 1 tablet (20 mg total) by mouth 2 (two) ti mes daily. [facility] lactulose (CHRONULAC) 20 gram/30 mL solution 00:00:00 2019-10-08 23:59:00 No 20g Q.[id number] Ta ke 30 mLs (20 g total) by mouth 3 (three) times daily for 30 days. [facility] pantoprazole (PROTONIX) 40 MG tablet 2019-09-08 00:00: 00 2019-10-08 23:59:00 No 40mg Take 1 tablet ( 40 mg total) by mouth 2 (two) times daily before meals for 30 days. [facility] morphine (MS CONTIN) 15 MG 12 hr tablet 00:00:00 2019-10-08 23:59:00 No 15mg Take 1 tablet (15 mg total) by mouth every 12 (twelve) hours for 30 days. Max Daily Amount: 30 mg [facility] tetracycline (ACHROMYCIN,SUMYCIN) 500 MG capsule 2019-09-08 00:00:00 2019-09-20 23:59:00 No 500mg Q.25D Take 1 capsule (500 mg total) by mouth 4 (four) times daily for 12 days. [facility] metroNIDAZOLE (FLAGYL) 500 MG tablet 2019-09-08 00:00: 00 2019-09-20 23:59:00 No 500mg Take 1 tablet ( 500 mg total) by mouth every 8 (eight) hours for 12 days. [facility] bismuth subsalicylate (PEPTO-BISMOL) 262 mg Chew chewable ta blet 2019-09-08 00:00:00 2019-09-20 23:59:00 No 524mg Q.25D Take 2 tablets (524 mg total) by mouth 4 (four) times daily for 12 days. [facility] morphine (MSIR) 15 MG tablet 2019-09-08 00:00:00 2019-09-18 23:5 9:00 No 15mg Take 1 tablet (15 mg total) by mouth every 4 (four) hours as needed for Pain for up to 10 days. Max Daily Amount: 90 mg [facility] ondansetron (ZOFRAN-ODT) 4 MG disintegrating tablet 2019-09-08 00:00:00 2019-09-15 23:59:00 No 4mg Take 1 tablet (4 mg total) by mouth every 8 (eight) hours as needed for up to 7 days. [facility] aspirin 81 MG chewable tablet 2019-08-19 00:00:00 2020-08-18 23: 59:00 No 81mg QD Take 1 tablet (81 mg total) by mouth daily. [facility] morphine (MS CONTIN) 15 MG 12 hr tablet 00:00:00 2019-09-08 00:00:00 No 15mg Take 1 tablet (15 mg total) by mouth every 12 (twelve) hours for 30 days. Max Daily Amount: 30 mg [facility] pantoprazole (PROTONIX) 40 MG tablet 2019-08-18 00:00: 00 2019-09-08 00:00:00 No 40mg QD Take 1 tablet (40 mg total) by mouth daryl ly. [facility] morphine (MSIR) 15 MG tablet 2019-08-18 00:00:00 2019-08-28 23:5 9:00 No 15mg Take 1 tablet (15 mg total) by mouth every 4 (four) hours as needed for up to 10 days. Max Daily Amount: 90 mg [facility] polyethylene glycol (GLYCOLAX) 17 gram packet 20 27-08-10 00:00:00 2019-08-21 23:59:00 No 17g Q.[id number] Ta ke 17 g by mouth 3 (three) times daily for 3 days. [facility] ferrous sulfate 325 (65 FE) MG tablet 2019-08-03 08:27:07 Y es 325mg Take 325 mg by mouth daily with breakfast . [facility] aspirin 81 MG EC tablet 2019-08-03 08:19:53 2019-08-03 00:00:00 No 81mg QD Take 81 mg by mouth daily. [facility] atorvastatin (LIPITOR) 40 MG tablet 2019-06-01 00:00:00 Yes 1{tbl} QD Take 1 tablet by mouth daily. [facility] losartan (COZAAR) 25 MG tablet 2019-06-01 00:00:00 2019-09-08 00 :00:00 No 1{tbl} QD Take 1 tablet by mouth daily. [facility] HYDROcodone-acetaminophen (NORCO 7.5-325) 7.5-325 mg per tab let 2019-05-27 12:54:54 2019-05-27 00:00:00 No 1{tbl} Take 1 tablet by mouth every 6 (six) hours as needed for Pain. [facility] rifAXIMin 550 mg Tab 2019-05-27 00:00:00 Yes 550mg Q.5D Take 1 tablet (550 mg total) by mouth 2 (two) times daily. [facility] HYDROcodone-acetaminophen (NORCO 10-325) 10-325 mg per table t 2019-05-19 00:00:00 2019-08-03 00:00:00 No 1{tbl} Take 1 tablet by mouth daily as needed. [facility] gabapentin (NEURONTIN) 300 MG capsule 2019-04-29 00:00:00 Yes 300mg Q.[id number] Take 300 mg by mouth 3 (three) times daily. [facility] cyclobenzaprine (FLEXERIL) 10 MG tablet 2018-11-27 00:00:00 Yes 10mg Q.[id number] Take 10 mg by mouth 3 (three) times daily. [facility] clopidogrel (PLAVIX) 75 mg tablet 2018-11-06 00:00:00 Yes TK 1 T PO QD [facility] isoniazid (NYDRAZID) 300 MG tablet 2018-10-26 00:00:00 202 00:00:00 No TK 1 T PO D [facility] glipiZIDE (GLUCOTROL) 10 MG tablet 2018-09-11 08:07:47 Yes 5mg Take 5 mg by mouth 2 (two) times daily before meals . [facility] ranolazine (RANEXA) 500 MG 12 hr tablet 2018-09-11 08:07:47 Yes 1000mg Q.5D Take 1,000 mg by mouth 2 (two) times daily . [facility] spironolactone (ALDACTONE) 25 MG tablet 2018-09-11 08:07:47 Yes 25mg QD Take 25 mg by mouth daily. [facility] finasteride (PROSCAR) 5 mg tablet 2018-09-11 08:07:47 Yes 5mg QD Take 5 mg by mouth daily. [facility] carvedilol (COREG) 3.125 MG tablet 2018-09-11 08:07:46 Yes 3.125mg Take 3.125 mg by mouth 2 (two) times daily with breakfast and dinner. [facility] sacubitril-valsartan (ENTRESTO) 24-26 mg Tab 2018-09-11 08:07:46 Yes 1{tbl} QD Take 1 tablet by mouth daily. [facility] pravastatin (PRAVACHOL) 40 MG tablet 2018-09-11 08:07:46 Ye s 40mg QD Take 40 mg by mouth daily. [facility] ranitidine (ZANTAC) 150 MG tablet 2018-06-01 12:45:45 Yes 150mg Q.5D Take 150 mg by mouth 2 (two) times a day. Tor Hernández ferrous sulfate 325 (65 FE) MG tablet 2018-06-01 12:45:45 Yes 325mg Q.5D Take 325 mg by mouth 2 (two) times a day. Tor Hernández glipiZIDE (GLUCOTROL) 10 MG tablet 2018-05-28 00:00:00 Yes 10mg QD Take 10 mg by mouth every morning. Tor lay clopidogrel (PLAVIX) 75 mg tablet 2018-05-25 00:00:00 Yes 75mg QD Take 75 mg by mouth every morning. Tor lay metFORMIN (GLUCOPHAGE) 1,000 mg tablet 2018-05-09 00:00:00 Yes 1000mg Q.5D Take 1,000 mg by mouth 2 (two) times a day. Tor Hernández pravastatin (PRAVACHOL) 40 MG tablet 2018-05-07 00:00:00 Ye s 40mg QD Take 40 mg by mouth nightly. Tor herbert tamsulosin (FLOMAX) 0.4 mg capsule 2018-05-07 00:00:00 Yes .8mg QD Take 0.8 mg by mouth every evening. Tor maria levothyroxine (SYNTHROID, LEVOXYL) 50 mcg tablet 2018-04-21 00:00:00 Yes 50ug QD Take 50 mcg by mouth daily with breakfast. Tor Hernández RANEXA 1,000 mg 12 hr tablet 2018-04-16 00:00:00 Yes 1000mg Q.5D Take 1,000 mg by mouth 2 (two) times a day. Gil Hernández finasteride (PROSCAR) 5 mg tablet 2018-04-11 00:00:00 Yes 5mg QD Take 5 mg by mouth nightly. [facility] furosemide (LASIX) 20 mg tablet 2018-04-11 00:00:00 Yes 20mg Q.5D Take 20 mg by mouth 2 (two) times a day. Clay [facility] spironolactone (ALDACTONE) 25 MG tablet 2018-04-08 00:00:00 Yes 25mg QD Take 25 mg by mouth every morning. Marcelo [facility] magnesium oxide (MAG-OX) 400 mg (241.3 mg magnesium) tablet 2018-03-03 00:00:00 Yes 400mg QD Take 400 mg by mouth every mo rning. [facility] glipiZIDE (GLUCOTROL) 5 MG tablet 2018-02-21 00:00:00 Yes 5mg QD Take 5 mg by mouth every evening. [facility] furosemide (LASIX) 20 MG tablet 2017-12-06 00:00:00 00:00:00 No 20mg QD Take 1 tablet (20 mg total) by mouth daily. [facility] metFORMIN (GLUCOPHAGE) 1000 MG tablet 2017-11-09 00:00:00 Yes 1000mg Q.5D Take 1 tablet (1,000 mg total) by mouth 2 (two) times daily. [facility] aspirin (ECOTRIN) 81 MG enteric coated tablet 2017-09-03 00:00:0 0 Yes 81mg QD Take 81 mg by mouth every morning. [place] [facility] tamsulosin (FLOMAX) 0.4 mg Cp24 24 hr capsule 2017-02-12 00:00:0 0 Yes .8mg QD Take 2 capsules (0.8 mg total) by mouth nightly. [facility] levothyroxine (SYNTHROID, LEVOTHROID) 50 MCG tablet 02-10 08:55:33 Yes 50ug Take 50 mcg by mouth Every morning on an empty stomach. [facility] nitroglycerin (NITROSTAT) 0.4 MG SL tablet 2016-10-20 00:00:[address] 0.4 mg under the tongue every 5 (five) minutes a s needed for Chest pain. [facility] Sylviae r Vital Signs Vital Name Observation Time Observation Value Comments Source Systolic blood pressure 2020-02-18 12:02:00 121 mm[Hg] [facility] Diastolic blood pressure 2020-02-18 12:02:00 71 mm[Hg] [facility] Heart rate 2020-02-18 12:02:00 80 /min [facility] Body temperature 2020-02-18 12:02:00 36.06 Yu [facility] Respiratory rate 2020-02-18 12:02:00 18 /min [facility] Oxygen saturation in Arterial blood by Pulse oximetry 02-17 12:02:00 98 /min [facility] r Body weight Measured 2020-02-18 05:25:00 86.637 kg [facility] BMI 2020-02-18 05:25:00 26.64 kg/m2 [facility] Body height 2020-02-17 21:00:00 180.3 cm [facility] Procedures Procedure Date / Time Performed Performing Clinician [facility] e REPORT OF PROCEDURE - ENDOSCOPY SCAN 2020-02-19 16:42:07 Pro vider, Default Scanning [facility] RHYTHM STRIP - SCAN 2020-02-19 10:50:43 Provider, Default Scanni ng [facility] POCT-GLUCOSE METER 2020-02-18 11:55:00 InderunYvan corea [facility] POCT-GLUCOSE METER 2020-02-18 07:23:00 [place] Yvan [facility] HEPATIC FUNCTION PANEL 2020-02-18 04:33:00 Carmen Sanderson [facility] MAGNESIUM 2020-02-18 04:33:00 Carmen Sanderson [facility] PHOSPHORUS 2020-02-18 04:33:00 Carmen Sanderson [facility] PTH, INTACT 2020-02-18 04:33:00 Sanderson, Carmen [facility] COMPREHENSIVE METABOLIC PANEL 2020-02-18 04:33:00 Carmen Sanderson [facility] HEMOGLOBIN A1C 2020-02-18 04:33:00 Kin [facility] CBC W/PLT COUNT & AUTO DIFFERENTIAL 2020-02-18 04:33:00 Kin [facility] ECG 12-LEAD 2020-02-17 23:28:54 Dave [facility] POCT-GLUCOSE METER 2020-02-17 21:57:00 Madie [facility] AMMONIA 2020-02-17 18:54:00 Madie [facility] CT BRAIN WITHOUT IV CONTRAST 2020-02-17 17:02:00 Stephen Ramachandran [facility] BLOOD GAS, VENOUS 2020-02-17 16:09:00 Trino Ramachandran [facility] CT ABDOMEN/PELVIS WITH IV CONTRAST 2020-02-17 15:07:00 Dave [facility] URINALYSIS W/ REFLEX URINE CULTURE 2020-02-17 12:56:00 Dave [facility] TSH/FREE T4 IF INDICATED 2020-02-17 11:57:00 Dave [facility] LACTIC ACID, VENOUS 2020-02-17 11:57:00 Dave [facility] COMPREHENSIVE METABOLIC PANEL 2020-02-17 11:57:00 Rk Acosta [facility] TROPONIN I 2020-02-17 11:57:00 Dave [facility] B-TYPE NATRIURETIC FACTOR (BNP) 2020-02-17 11:57:00 Dave [facility] PROCALCITONIN 2020-02-17 11:57:00 Dave [facility] SARS-COV2/RT-PCR ([facility] REF [facility]S) 2020-02-17 11:35:00 Dave [facility] BLOOD CULTURE 2020-02-17 11:24:00 Dave [facility] ECG 12-LEAD 2020-02-17 11:23:17 Carmen Sanderson [facility] BLOOD CULTURE 2020-02-17 11:16:00 Dave [facility] PROTHROMBIN TIME/INR 2020-02-17 11:16:00 Dave [facility] APTT 2020-02-17 11:16:00 Dave [facility] CBC W/PLT COUNT & AUTO DIFFERENTIAL 2020-02-17 11:16:00 Dave [facility] XR CHEST 2 VIEWS 2020-02-17 09:13:00 Dave [facility] ED ECG INTERPRETATION 2020-02-17 08:30:45 Dave [facility] RHYTHM STRIP - SCAN 2020-02-08 15:10:02 Provider, Colten Duvall [facility] POCT-GLUCOSE METER 2020-02-05 08:34:00 Patrice, [facility] MAGNESIUM 2020-02-05 06:02:00 Vicky Rivero [facility] CT BRAIN WITHOUT IV CONTRAST 2020-02-04 17:25:00 Patrice, Arishi Huyen beaver [facility] POCT-GLUCOSE METER 2020-02-04 17:02:00 Patrice, [facility] POCT-GLUCOSE METER 2020-02-04 12:20:00 Patrice, [facility] POCT-GLUCOSE METER 2020-02-04 07:46:00 Patrice, [facility] HEPATIC FUNCTION PANEL 2020-02-04 05:05:00 Vicky Rivero [facility] MAGNESIUM 2020-02-04 05:05:00 Vicky Rivero [facility] BASIC METABOLIC PANEL (7) 2020-02-04 05:05:00 Mat, Vicky kulkarni [facility] CBC W/PLT COUNT & AUTO DIFFERENTIAL 2020-02-04 05:05:00 Mat Huyen Arboleda [facility] POCT-GLUCOSE METER 2020-02-03 21:45:00 Patrice, [facility] POCT-GLUCOSE METER 2020-02-03 16:39:00 Patrice, [facility] POCT-GLUCOSE METER 2020-02-03 11:39:00 Patrice, [facility] POCT-GLUCOSE METER 2020-02-03 07:52:00 Patrice, [facility] HEPATIC FUNCTION PANEL 2020-02-03 04:49:00 MatVicky [facility] MAGNESIUM 2020-02-03 04:49:00 MatVicky [facility] BASIC METABOLIC PANEL (7) 2020-02-03 04:49:00 MatVicky [facility] CBC W/PLT COUNT & AUTO DIFFERENTIAL 2020-02-03 04:49:00 MatHuyen [facility] POCT-GLUCOSE METER 2020-02-02 22:27:00 MatVicky I [facility] ECG 12-LEAD 2020-02-02 21:18:42 Unknown, Hl7 Doctor [facility] XR CHEST 1 VIEW PORTABLE/BEDSIDE 2020-02-02 18:50:00 MatEmilee [facility] HEPATIC FUNCTION PANEL 2020-02-02 18:32:00 MatVicky [facility] BASIC METABOLIC PANEL (7) 2020-02-02 18:32:00 MatVicky [facility] CBC W/PLT COUNT & AUTO DIFFERENTIAL 2020-02-02 18:32:00 Huyen Rivero [facility] IR EMBOLIZATION ARTERIAL 2020-02-02 14:41:00 Marc Jimenez [facility] PROTHROMBIN TIME/INR 2020-02-02 10:13:00 Carmen Mi [facility] APTT 2020-02-02 10:13:00 Carmen Mi [facility] COMPREHENSIVE METABOLIC PANEL 2020-02-02 10:13:00 Connie Mi ra [facility] BILIRUBIN, DIRECT 2020-02-02 10:13:00 Carmen Mi CH, I [facility] CBC W/PLT COUNT & AUTO DIFFERENTIAL 2020-02-02 10:13:00 Carmen Monson i [facility] ARRYTHMIA IMPLANT REPORT - SCAN 2020-01-11 15:20:59 Provider, Mcdonald [facility] BASIC METABOLIC PANEL (7) 2020-01-06 11:17:00 Marc Jimenez [facility] HEPATIC FUNCTION PANEL 2020-01-06 11:17:00 Marc Jimenez [facility] PROTHROMBIN TIME/INR 2020-01-06 11:17:00 Marc Jimenez [facility] ALPHA FETOPROTEIN (AFP), TUMOR MARKER 2020-01-06 11:17:00 Marc Jimenez [facility] LIPID PANEL 2020-01-06 11:17:00 Nati Wolff [facility] CBC W/PLT COUNT & AUTO DIFFERENTIAL 2020-01-06 11:17:00 Fran Jimenez [facility] MR ABDOMEN WITH & WITHOUT IV CONTRAST 2020-01-06 10:18:00 Marc Jimenez [facility] POCT-GLUCOSE METER 2020-01-06 09:06:00 Marc Jimenez [facility] POCT-CREATININE 2020-01-06 08:59:00 Marc Jimenez [facility] RHYTHM STRIP - SCAN 2019-09-11 14:40:51 Provider, Colten pang [facility] RHYTHM STRIP - SCAN 2019-09-11 14:40:44 Provider, Default Scanni [facility] VASCULAR DIAGRAM -SCAN 2019-09-11 13:30:25 Provider, Default Sca [facility] RHYTHM STRIP - SCAN 2019-09-10 08:32:41 Provider, Default Scanni [facility] REPORT OF PROCEDURE - ENDOSCOPY SCAN 2019-09-10 08:32:39 Pro vider, Default Scanning [facility] VASCULAR DIAGRAM -SCAN 2019-09-10 08:32:34 Provider, Default Sca [facility] CARDIAC CATH REPORT - SCAN 2019-09-10 08:32:32 Provider, Default Scanning [facility] POCT-GLUCOSE METER 2019-09-08 08:08:00 Sukhi [facility] ECG 12-LEAD 2019-09-08 05:27:42 Unknown, Hl7 [facility] BASIC METABOLIC PANEL (7) 2019-09-08 04:09:00 Sukhi Sonya [facility] CBC W/PLT COUNT & AUTO DIFFERENTIAL 2019-09-08 04:09:00 Maurice osborn [facility] POCT-GLUCOSE METER 2019-09-07 21:06:00 Sukhi [facility] POCT-GLUCOSE METER 2019-09-07 17:15:00 Sukhi [facility] POCT-GLUCOSE METER 2019-09-07 11:20:00 Sukhi [facility] POCT-GLUCOSE METER 2019-09-07 07:31:00 Sukhi [facility] ECG 12-LEAD 2019-09-07 06:12:11 Unknown, Hl7 [facility] MAGNESIUM 2019-09-07 00:51:00 Sukhi [facility] BASIC METABOLIC PANEL (7) 2019-09-07 00:51:00 Sukhi [facility] HEPATIC FUNCTION PANEL 2019-09-07 00:51:00 Barb, [facility] CBC W/PLT COUNT & AUTO DIFFERENTIAL 2019-09-07 00:51:00 Maurice osborn [facility] POCT-GLUCOSE METER 2019-09-06 21:22:00 Sukhi [facility] POCT-GLUCOSE METER 2019-09-06 18:18:00 Sukhi [facility] POCT-GLUCOSE METER 2019-09-06 15:01:00 Sukhi [facility] POCT-GLUCOSE METER 2019-09-06 11:49:00 Sukhi [facility] POCT-GLUCOSE METER 2019-09-06 07:23:00 Sukhi [facility] ECG 12-LEAD 2019-09-06 04:57:50 Unknown, Hl7 [facility] COMPREHENSIVE METABOLIC PANEL 2019-09-06 04:44:00 Sukhi Alexis k [facility] CBC W/PLT COUNT & AUTO DIFFERENTIAL 2019-09-06 04:44:00 Maurice osborn [facility] POCT-GLUCOSE METER 2019-09-05 21:12:00 Sukhi [facility] CT ABDOMEN/PELVIS WITH & WITHOUT IV CONTRAST 2019-09-05 18:01:00 Maggi Duncan [facility] POCT-GLUCOSE METER 2019-09-05 13:00:00 Sukhi [facility] ECG 12-LEAD 2019-09-05 10:58:04 Unknown, Hl7 [facility] ECG 12-LEAD 2019-09-05 10:57:47 Unknown, Hl7 [facility] POCT-GLUCOSE METER 2019-09-05 08:05:00 Sukhi [facility] BASIC METABOLIC PANEL (7) 2019-09-05 02:45:00 Jamia Araujo [facility] HEPATIC FUNCTION PANEL 2019-09-05 02:45:00 Jamia Araujo ma [facility] PROTHROMBIN TIME/INR 2019-09-05 02:45:00 Van Jamia Rodríguez [facility] MAGNESIUM 2019-09-05 02:45:00 Van Jamia Rodríguez [facility] CBC W/PLT COUNT & AUTO DIFFERENTIAL 2019-09-05 02:45:00 Jamia Basurto Anne [facility] ECHOCARDIOGRAM REPORT - SCAN 2019-09-04 21:10:48 Martha Gordon lt [facility] POCT-GLUCOSE METER 2019-09-04 21:01:00 Sukhi [facility] L CATH & PCI 2019-09-04 18:05:00 Nati Wolff [facility] POCT-GLUCOSE METER 2019-09-04 15:02:00 Sukhi [facility] POCT-GLUCOSE METER 2019-09-04 11:15:00 Sukhi [facility] POCT-GLUCOSE METER 2019-09-04 08:33:00 Sukhi [facility] BASIC METABOLIC PANEL (7) 2019-09-04 05:19:00 Jamia Araujo Blane gonzales [facility] HEPATIC FUNCTION PANEL 2019-09-04 05:19:00 Jamia Araujo Kieran wagner [facility] PROTHROMBIN TIME/INR 2019-09-04 05:19:00 Jamia Araujo Anne [facility] MAGNESIUM 2019-09-04 05:19:00 Jamia Araujo Anne [facility] CBC W/PLT COUNT & AUTO DIFFERENTIAL 2019-09-04 05:19:00 Jamia Basurto Anne [facility] POCT-GLUCOSE METER 2019-09-03 20:49:00 Sukhi [facility] POCT-GLUCOSE METER 2019-09-03 17:38:00 Sukhi [facility] 2D ECHO W/ DOPPLER (CW/PW/COLOR) 2019-09-03 16:52:00 AraujoJamia [facility] POCT-GLUCOSE METER 2019-09-03 15:12:00 Sukhi [facility] POCT-GLUCOSE METER 2019-09-03 08:08:00 Sukhi [facility] TROPONIN I 2019-09-03 05:39:00 Van Jamia [facility] TROPONIN I 2019-09-03 00:45:00 [facility]OL[facility] (7) 2019-09-03 00:45:00 Van Jamia gonzales [facility] HEPATIC FUNCTION PANEL 2019-09-03 00:45:00 Carolina Araujojolly Alcaraz [facility] PROTHROMBIN TIME/INR 2019-09-03 00:45:00 Van Jamia [facility] MAGNESIUM 2019-09-03 00:45:00 Jamia Araujo [facility] CBC W/PLT COUNT & AUTO DIFFERENTIAL 2019-09-03 00:45:00 Brandt fernández Jamia [facility] URINALYSIS W/ MICROSCOPIC 2019-09-02 20:25:00 Jacinda Nicolas [facility] XR CHEST 1 VIEW PORTABLE/BEDSIDE 2019-09-02 17:08:00 Kassidy Raymond [facility] BASIC METABOLIC PANEL (7) 2019-09-02 17:03:00 Nicolas Raymond [facility] TROPONIN I 2019-09-02 17:03:00 Nicolas Raymond [facility] HEPATIC FUNCTION PANEL 2019-09-02 17:03:00 Jacinda [facility] CBC W/PLT COUNT & AUTO DIFFERENTIAL 2019-09-02 17:03:00 Linden Raymond Oskar [facility] ED ECG INTERPRETATION 2019-09-02 16:39:15 Jacinda Nicolas [facility] ECG 12-LEAD 2019-09-02 16:36:35 Unknown, Hl7 Doctor [facility] RHYTHM STRIP - SCAN 2019-08-21 13:11:18 Provider, Default Scanni ng [facility] RHYTHM STRIP - SCAN 2019-08-19 13:30:58 Provider, Default Scanni ng [facility] REPORT OF PROCEDURE - ENDOSCOPY SCAN 2019-08-18 16:35:32 Pro vider, Default Scanning [facility] POCT-GLUCOSE METER 2019-08-18 12:24:00 Helena Garcia ran [facility] POCT-GLUCOSE METER 2019-08-18 07:28:00 Helena Garcia [facility] BASIC METABOLIC PANEL (7) 2019-08-18 04:32:00 DzierzaaDni leal [facility] MAGNESIUM 2019-08-18 04:32:00 Mark Acharya [facility] POCT-GLUCOSE METER 2019-08-17 20:46:00 Helena Garcia ran [facility] POCT-GLUCOSE METER 2019-08-17 18:02:00 Helena Garcia [facility] NM BONE SCAN WHOLE BODY 2019-08-17 14:18:00 Maggi Duncan [facility] POCT-GLUCOSE METER 2019-08-17 13:00:00 Helena Garcia [facility] XR CHEST 1 VIEW PORTABLE/BEDSIDE 2019-08-17 11:12:00 Cristina Duncan [facility] POCT-GLUCOSE METER 2019-08-17 10:34:00 Helena Garcia [facility] POCT-GLUCOSE METER 2019-08-17 08:34:00 Helena Garcia [facility] BASIC METABOLIC PANEL (7) 2019-08-17 04:42:00 DzDani goldsmith [facility] MAGNESIUM 2019-08-17 04:42:00 Dzierzawiec, [facility] POCT-GLUCOSE METER 2019-08-16 23:36:00 Adio, Jeison Lopes [facility] POCT-GLUCOSE METER 2019-08-16 23:22:00 Adio, Jeison Lopes [facility] POCT-GLUCOSE METER 2019-08-16 17:21:00 Adio, Jeison Lopes [facility] POCT-GLUCOSE METER 2019-08-16 11:12:00 Adio, Jeison Lopes [facility] POCT-GLUCOSE METER 2019-08-16 08:39:00 Adio, Jeison Lopes [facility] BASIC METABOLIC PANEL (7) 2019-08-16 03:11:00 Dani Acharya [facility] MAGNESIUM 2019-08-16 03:11:00 Marck [facility] PHOSPHORUS 2019-08-16 03:11:00 Adio, Jeison Lopes [facility] PROTHROMBIN TIME/INR 2019-08-16 03:11:00 Adio, Jeison Lopes [facility] HEPATIC FUNCTION PANEL 2019-08-16 03:11:00 Adio, Jeison Lopes [facility] POCT-GLUCOSE METER 2019-08-15 22:38:00 Adio, Jeison Lopes [facility] POCT-GLUCOSE METER 2019-08-15 20:01:00 Adio, Jeison Lopes [facility] POCT-GLUCOSE METER 2019-08-15 17:53:00 Adio, Jeison Lopes [facility] NM MYOCARDIAL PERFUSION SPECT, PHARM(LEXISCAN) 2019-08-15 16 :21:00 Marck [facility] TREADMILL TOLERANCE(NON-NUCLEAR TREADMILL) 2019-08-15 15:08: 33 Unknown, Hl7 Doctor [facility] POCT-GLUCOSE METER 2019-08-15 12:38:00 Adio, Jeison Lopes [facility] POCT-GLUCOSE METER 2019-08-15 07:22:00 Adio, Jeison Lopes [facility] POCT-GLUCOSE METER 2019-08-15 06:29:00 Adio, Jeison Lopes [facility] BASIC METABOLIC PANEL (7) 2019-08-15 04:04:00 DzierzaDnai leal [facility] MAGNESIUM 2019-08-15 04:04:00 Dziertruong [facility] PHOSPHORUS 2019-08-15 04:04:00 Adio, Jeison Lopes [facility] HEMOGLOBIN A1C 2019-08-15 04:04:00 Adio, Jeison Lopes [facility] PROTHROMBIN TIME/INR 2019-08-15 04:04:00 Adio, Jeison Lopes [facility] HEPATIC FUNCTION PANEL 2019-08-15 04:04:00 Adio, Jeison Lopes [facility] POCT-GLUCOSE METER 2019-08-15 00:19:00 Adio, [facility] Marianne [facility] ECHOCARDIOGRAM REPORT - SCAN 2019-08-14 21:12:31 ProviderMartha lt [facility] POCT-GLUCOSE METER 2019-08-14 18:00:00 Adio, Jeison Lopes [facility] POCT-GLUCOSE METER 2019-08-14 11:21:00 [facility] W/ DOPPLER (CW/PW/COLOR) 2019-08-14 10:09:04 Marck [facility] POCT-GLUCOSE METER 2019-08-14 08:08:00 Adio, Jeison Lopes [facility] BASIC METABOLIC PANEL (7) 2019-08-14 03:55:00 DzierzaDani leal [facility] MAGNESIUM 2019-08-14 03:55:00 Dzierzaelvis [facility] PHOSPHORUS 2019-08-14 03:55:00 Adio, Jeison Lopes [facility] HEMOGLOBIN A1C 2019-08-14 03:55:00 [facility] 2019-08-14 03:55:00 Adio, [facility] HEPATIC FUNCTION PANEL 2019-08-14 03:55:00 Adio, [facility] TROPONIN I 2019-08-14 03:55:00 Adio, [facility] CBC W/PLT COUNT & AUTO DIFFERENTIAL 2019-08-14 03:55:00 [facility] 2019-08-13 23:23:00 [facility] POCT-[facility]SE [facility] 2019-08-13 22:49:00 Adio, [facility] TSH/FREE T4 IF INDICATED 2019-08-13 16:26:00 [facility] B-TYPE NATRIURETIC FACTOR (BNP) 2019-08-13 16:26:00 [facility] TROPONIN I 2019-08-13 16:26:[address] [facility] CT ABDOMEN/PELVIS WITH IV CONTRAST 2019-08-13 15:17:00 Jazmine Gardner [facility] ECG 12-LEAD 2019-08-13 13:24:04 Unknown, Hl7 [facility] XR CHEST 1 VIEW PORTABLE/BEDSIDE 2019-08-13 12:58:00 J Luis Gardner [facility] ECG 12-LEAD 2019-08-13 12:52:44 Unknown, Hl7 [facility] BASIC METABOLIC PANEL (7) 2019-08-13 10:29:00 J Luis Gardner [facility] HEPATIC FUNCTION PANEL 2019-08-13 10:29:00 J Luis Gardner [facility] LIPASE 2019-08-13 10:29:[address] [facility] PT/APTT 2019-08-13 10:29:[address] [facility] URINALYSIS W/ REFLEX URINE CULTURE 2019-08-13 10:29:00 Jazmine Gardner [facility] TROPONIN I 2019-08-13 10:29:[address] [facility] CBC W/PLT COUNT & AUTO DIFFERENTIAL 2019-08-13 10:29:00 Rg Gardner [facility] NM TUMOR LOCALIZATION SPECT 2019-08-03 15:16:00 Marc Jimenez [facility] NM Y90 MICROSPHERES THERAPY 2019-08-03 15:12:00 Marc Jimenez [facility] IR VISCERAL ARTERIOGRAM 2019-08-03 13:00:00 Amina Mccoy [facility] PROTHROMBIN TIME/INR 2019-08-03 08:47:00 Amina Mccoy [facility] APTT 2019-08-03 08:47:00 Amina Mccoy [facility] COMPREHENSIVE METABOLIC PANEL 2019-08-03 08:47:00 Chris Mccoy [facility] BILIRUBIN, DIRECT 2019-08-03 08:47:00 Amina Mccoy [facility] CBC W/PLT COUNT & AUTO DIFFERENTIAL 2019-08-03 08:47:00 Amina Mccoy [facility] NM TUMOR LOCALIZATION SPECT 2019-07-20 15:59:00 Marc Jimenez [facility] IR VISCERAL ARTERIOGRAM 2019-07-20 13:10:00 Gre Azevedo [facility] PROTHROMBIN TIME/INR 2019-07-20 09:25:00 Carmen Mi [facility] APTT 2019-07-20 09:25:00 Carmen Mi [facility] COMPREHENSIVE METABOLIC PANEL 2019-07-20 09:25:00 Connie Mi ra [facility] CBC W/PLT COUNT & AUTO DIFFERENTIAL 2019-07-20 09:25:00 Carmen Monson i [facility] ARRYTHMIA IMPLANT REPORT - SCAN 2019-06-23 15:20:04 Provider, De fault Scanning [facility] ARRYTHMIA IMPLANT REPORT - SCAN 2019-06-23 15:20:02 Provider, De fault Scanning [facility] IMPL[facility] REPORT - SCAN 2019-06-07 19:50:06 Provider, Fracisco fault Scanning [facility] BASIC METABOLIC PANEL (7) 2019-05-27 13:27:00 Marc Jimenez [facility] HEPATIC FUNCTION PANEL 2019-05-27 13:27:00 Marc Jimenez [facility] PROTHROMBIN TIME/INR 2019-05-27 13:27:00 Marc Jimenez [facility] ALPHA FETOPROTEIN (AFP), TUMOR MARKER 2019-05-27 13:27:00 Marc Jimenez [facility] CBC W/PLT COUNT & AUTO DIFFERENTIAL 2019-05-27 13:27:00 Fran Jimenez [facility] IMPLANT REPORT - SCAN 2019-04-27 16:10:10 Provider, Fracisco fault Scanning [facility] US PROSTATE 2019-04-16 16:11:00 Marc Jimenez [facility] CT CHEST WITHOUT IV CONTRAST 2019-04-16 15:31:00 Marc Jimenez [facility] NM BONE SCAN WHOLE BODY 2019-04-16 15:26:00 Marc Jimenez [facility] MR ABDOMEN WITH & WITHOUT IV CONTRAST 2019-04-16 10:00:00 Marc Jimenez [facility] POCT-CREATININE 2019-04-16 08:09:00 Marc Jimenez [facility] XR CHEST 2 VIEWS 2019-04-16 07:57:00 Kp Graf [facility] CABG - Coronary artery bypass graft [facility] Gallbladder operation [facility] Plan of Care Planned Activity Planned Date Details Comments Source Future Scheduled Test 2027-12-28 00:00:00 Screening for pricilla gnant neoplasm of colon (procedure) [code = 325432466] [facility] Future Scheduled Test 2020-08-20 00:00:00 Hemoglobin A1c carlos surement (procedure) [code = 84989944] [facility] r Future Scheduled Test 2020-04-07 00:00:00 INFLUENZA VACCINE [code = INFLUENZA VACCINE] [facility] Scheduled Test 2020-03-08 00:00:00 INFLUENZA VACCINE (#1) [code = INFLUENZA VACCINE (#1)] [facility] Future Scheduled Test 2017-05-11 00:00:00 PNEUMOCOCCAL 65+ L OW/MEDIUM RISK (2 of 2 - PPSV23) [code = PNEUMOCOCCAL 65+ LOW/MEDIUM RISK (2 of 2 - PPSV23)] [facility] Future Scheduled Test 2011 00:00:00 65+ PNEUMOCOCCAL V ACCINE (1 of 2 - PCV13) [code = 65+ PNEUMOCOCCAL VACCINE (1 of 2 - PCV13)] [facility] Scheduled Test 1996-02-25 00:00:00 COLONOSCOPY SCREEN ING [code = COLONOSCOPY SCREENING] [facility] Scheduled Test 1996-02-25 00:00:00 SHINGLES VACCINES (#1) [code = SHINGLES VACCINES (#1)] [facility] Scheduled Test 1956-02-25 00:00:00 DIABETIC FOOT EXAM [code = DIABETIC FOOT EXAM] [facility] Scheduled Test 1956-02-25 00:00:00 DIABETIC EYE EXAM [code = DIABETIC EYE EXAM] [facility] Future Scheduled Test 1956-02-25 00:00:00 Diabetic foot exam ination (regime/therapy) [code = 452754488] [facility] Future Scheduled Test 1956-02-25 00:00:00 Urine screening fo r protein (procedure) [code = 879164301] [facility] Future Scheduled Test 1946 00:00:00 DIABETIC RETINAL E YE EXAM [code = DIABETIC RETINAL EYE EXAM] [facility] Appointment 2020-03-31 09:30:00 Laci Puentes MD, [id number] [facility] [address], [place] [address] [facility] Encounters Start Date/Time End Date/Time Encounter Type Admission Type Attendi ng Clinicians Care Facility Care Department Encounter ID Source 2020-02-29 16:57:05 Outpatient SYSTEM, PROVIDER HIRAM GANDHI [id number] MD Kunz 2019-12-15 09:27:54 2019-12-15 13:50:59 Office Visit Nati Wolff [facility] [id number] 2019-09-12 14:50:08 2019-09-13 17:30:00 Emergency B Farzad dooley, [facility] ([facility]) [id number] 2019-03-17 00:00:00 2019-03-17 00:00:00 Orders Only D teaor Unassigned, [place] [facility] [id number] 2019-02-25 14:41:40 2019-02-25 16:02:24 Office Visit Nati Wolff [facility] [id number] 2018-06-03 08:25:00 2018-06-05 10:15:00 Outpatient Moiz Rickey is [facility] [id number] Results Test Description Test Time Test Comments Results Result Comments Source BLOOD CULTURE 2020-02-22 14:00:00 Test Item CULTURE (BEAKER) (test code = 1095) No growth in 5 days Blood Culture # 13:00:00* Test Item Value Reference Range Interpretation Comments Result (test code = 6463-4) No growth in 5 days [facility] [id number] 13:00:00* Test Item Value Reference Range Interpretation Comments CULTURE (BEAKER) (test code = 1095) No growth in 5 days ECG 12 [id number] 14:17:48Interface, External Ris In - 02/18/2020 2:17 PM CDTVentricular Rate 73 BPMAtrial Rate 73 BPMP-R Interval 196 msQRS Duration 154 msQ-T Interval 454 msQTC Calculation(Bazett) 500 msP [place] 37 degreesR [place] 144 degreesT [place] 55 degreesNormal sinus rhythmRight bundle branch blockAbnormal ECGWhen compared with ECG of 17-FEB-2020 11:23,No significant change was foundConfirmed by MD Pryor Roberto ([id number]) on 02/18/2020 2:17:45 [facility] [id number] 12:32:00* Test Item Value Reference Range Interpretation Comments POC-Glucose Meter (test code = 1538) 253 mg/dL 70-110 H : TESTED AT [address], [address]: [employer] ID = [id number] for GILBERT WALL Lab Interpretation (test code = 56942-9) Abnormal [facility] [id number] 12:32:00* Test Item Value Reference Range Interpretation Comments POC-GLUCOSE METER (BEAKER) (test code = 1538) 253 mg/dL 70-110 H : TESTED AT [address], [address]: [employer] ID = [id number] for GILBERT WALL Hemoglobin [id number] 09:52:00* Test Item Value Reference Range Interpretation Comments Hemoglobin A1C (test code = 4548-4) 6.4 % 4.3-6.1 H Lab Interpretation (test code = 08327-4) Abnormal [facility] [id number] 09:52:00* Test Item Value Reference Range Interpretation Comments HEMOGLOBIN A1C (BEAKER) (test code = 368) 6.4 % 4.3-6.1 H POCT-GLUCOSE [id number] 09:17:00* Test Item Value Reference Range Interpretation Comments POC-GLUCOSE METER (BEAKER) (test code = 1538) 160 mg/dL 70-110 H : TESTED AT [place] [id number] [facility], [address]: Commercial Mortgage Broker/Mounter Sousaphones ID = [id number] for GILBERT WALL PTH, [id number] 05:16:00* Test Item Value Reference Range Interpretation Comments PTH (test code = 2731-8) 101.5 pg/mL 8.5-72.5 H VY (test code = VY) Commercial Mortgage Broker ID - Lab Interpretation (test code = 75813-8) [facility] [id number] 05:16:00* Test Item Value Reference Range Interpretation Comments PARATHYROID HORMONE INTACT (BEAKER) (test code = 577) 101.5 pg/mL 8.5-72.5 H Commercial Mortgage Broker ID - ASComprehensive metabolic [id number] 05:08:00* Test Item Value Reference Range Interpretation Comments Protein, Total (test code = 2885-2) 7.5 6.0- 8.3 gm/dL Albumin (test code = 19205-9) 3.6 g/dL 3.5-5 Alkaline Phosphatase (test code = 6768-6) 184 U/L 40-150 H Total Bilirubin (test code = 1975-2) 0.7 mg/dL 0.2-1.2 Sodium (test code = 2951-2) 134 meq/L 136-145 L Potassium (test code = 2823-3) 4.3 meq/L 3.5-5.1 Chloride (test code = 2075-0) 105 meq/L 98-107 CO2 (test code = 2028-9) 23 meq/L 22-29 BUN (test code = 3094-0) 13 mg/dL 7-21 Creatinine (test code = 2160-0) 0.85 mg/dL 0.57-1.25 Glucose (test code = 2345-7) 144 mg/dL 70-105 H Calcium (test code = 03567-0) 10.8 mg/dL 8.4-10.2 H AST (test code = 1920-8) 23 U/L 5-34 ALT (test code = 1742-6) 33 U/L 6-55 EGFR (test code = 51979-0) 88 mL/min/1.73 sq m ESTIMATED GFR IS NOT ACCURATE CREATININE CLEARANCE IN PREDICTING GLOMERULAR FILTRATION RATE. ESTIMATED GFR IS NOT APPLICABLE FOR DIALYSIS PATIENTS. VY (test code = VY) Commercial Mortgage Broker ID - Lab Interpretation (test code = 31154-4) [facility]normal [facility] function [id number] 05:08:00* Test Item Value Reference Range Interpretation Comments Protein, Total (test code = 2885-2) 7.5 6.0- 8.3 gm/dL Albumin (test code = 36982-6) 3.6 g/dL 3.5-5 Total Bilirubin (test code = 1974-2) 0.7 mg/dL 0.2-1.2 Bilirubin, Direct (test code = 1967-7) 0.4 mg/dL 0.1-0.5 Alkaline Phosphatase (test code = 6768-6) 184 U/L 40-150 H AST (test code = 1920-8) 23 U/L 5-34 ALT (test code = 1742-6) 33 U/L 6-55 VY (test code = VY) Commercial Mortgage Broker ID - Lab Interpretation (test code = 33292-5) [facility]normal [facility]Magnesium2020-08-13 05:08:00* Test Item Value Reference Range Interpretation Comments Magnesium (test code = 76828-3) 1.6 mg/dL 1.6-2.6 VY (test code = VY) Commercial Mortgage Broker ID - Lab Interpretation (test code = 31951-2) Normal [facility]osphorus2020-08-13 05:08:00* Test Item Value Reference Range Interpretation Comments Phosphorus (test code = 2777-1) 2.4 mg/dL 2.3-4.7 VY (test code = VY) Commercial Mortgage Broker ID - Lab Interpretation (test code = 65186-1) Normal [facility] CenterPHOSPHORUS2020-08-13 05:08:00* Test Item Value Reference Range Interpretation Comments PHOSPHORUS (BEAKER) (test code = 604) 2.4 mg/dL 2.3-4.7 Commercial Mortgage Broker ID - [id number] 05:08:00* Test Item Value Reference Range Interpretation Comments MAGNESIUM (BEAKER) (test code = 627) 1.6 mg/dL 1.6-2.6 Commercial Mortgage Broker ID - ASHEPATIC FUNCTION [id number] 05:08:00* Test Item Value Reference Range Interpretation Comments TOTAL PROTEIN (BEAKER) (test code = 770) 7.5 gm/dL 6.0-8.3 ALBUMIN (BEAKER) (test code = 1145) 3.6 g/dL 3.5-5.0 BILIRUBIN TOTAL (BEAKER) (test code = 377) 0.7 mg/dL 0.2-1.2 BILIRUBIN DIRECT (BEAKER) (test code = 706) 0.4 mg/dL 0.1-0.5 ALKALINE PHOSPHATASE (BEAKER) (test code = 346) 184 U/L 40-150 H AST (SGOT) (BEAKER) (test code = 353) 23 U/L 5-34 ALT (SGPT) (BEAKER) (test code = 347) 33 U/L 6-55 Commercial Mortgage Broker ID - ASCOMPREHENSIVE METABOLIC [id number] 05:08:00* Test Item Value Reference Range Interpretation Comments TOTAL PROTEIN (BEAKER) (test code = 770) 7.5 gm/dL 6.0-8.3 ALBUMIN (BEAKER) (test code = 1145) 3.6 g/dL 3.5-5.0 ALKALINE PHOSPHATASE (BEAKER) (test code = 346) 184 U/L 40-150 H BILIRUBIN TOTAL (BEAKER) (test code = 377) 0.7 mg/dL 0.2-1.2 SODIUM (BEAKER) (test code = 381) 134 meq/L 136-145 L POTASSIUM (BEAKER) (test code = 379) 4.3 meq/L 3.5-5.1 CHLORIDE (BEAKER) (test code = 382) 105 meq/L 98-107 CO2 (BEAKER) (test code = 355) 23 meq/L 22-29 BLOOD UREA NITROGEN (BEAKER) (test code = 354) 13 mg/dL 7-21 CREATININE (BEAKER) (test code = 358) 0.85 mg/dL 0.57-1.25 GLUCOSE RANDOM (BEAKER) (test code = 652) 144 mg/dL 70-105 H CALCIUM (BEAKER) (test code = 697) 10.8 mg/dL 8.4-10.2 H AST (SGOT) (BEAKER) (test code = 353) 23 U/L 5-34 ALT (SGPT) (BEAKER) (test code = 347) 33 U/L 6-55 EGFR (BEAKER) (test code = 1092) 88 mL/min/1.73 sq m ESTIMATED GFR IS NOT ACCURATE CREATININE CLEARANCE IN PREDICTING GLOMERULAR FILTRATION RATE. ESTIMATED GFR IS NOT APPLICABLE FOR DIALYSIS PATIENTS. Commercial Mortgage Broker ID - ASCBC with platelet count + automated [id number] 04:51:00* Test Item Value Reference Range Interpretation Comments WBC (test code = 6690-2) 6.5 3.5- 10.5 K/L RBC (test code = 789-8) 3.79 4.63- 6.08 M/L L MCHC (test code = 786-4) 33.1 32.3- 36.5 GM/DL L Hematocrit (test code = 4544-3) 37.2 % 40.1-51 L MCV (test code = 787-2) 98.2 fL 79-92.2 H MCH (test code = 785-6) 32.5 pg 25.7-32.2 H RDW (test code = 788-0) 12.9 % 11.6-14.4 Platelets (test code = 777-3) 193 150- 450 K/CU MM MPV (test code = 21252-9) 9.9 fL 9.4-12.4 nRBC (test code = 413) 0 0- 0 /100 WBC % Neutros (test code = 429) 80 % % Lymphs (test code = 430) 8 % % Monos (test code = 431) 8 % % Eos (test code = 432) 3 % % Baso (test code = 437) 1 % # Neutros (test code = 670) 5.23 1.78- 5.38 K/L # Lymphs (test code = 414) 0.54 1.32- 3.57 K/L L # Monos (test code = 415) 0.52 0.30- 0.82 K/L # Eos (test code = 416) 0.18 0.04- 0.54 K/L # Baso (test code = 417) 0.03 0.01- 0.08 K/L Immature Granulocytes-Relative (test code = 2801) 0 % 0-1 Lab Interpretation (test code = 34722-8) Abnormal [facility]T [facility] & AUTO [id number] 04:51:00* Test Item Value Reference Range Interpretation Comments WHITE BLOOD CELL COUNT (BEAKER) (test code = 775) 6.5 K/ L 3.5- 10.5 RED BLOOD CELL COUNT (BEAKER) (test code = 761) 3.79 M/ L 4.63-6 .08 L HEMOGLOBIN (BEAKER) (test code = 410) 12.3 GM/DL 13.7-17.5 L HEMATOCRIT (BEAKER) (test code = 411) 37.2 % 40.1-51.0 L MEAN CORPUSCULAR VOLUME (BEAKER) (test code = 753) 98.2 fL 79. 0-92.2 H MEAN CORPUSCULAR HEMOGLOBIN (BEAKER) (test code = 751) 32.5 pg 25.7-32.2 H MEAN CORPUSCULAR HEMOGLOBIN CONC (BEAKER) (test code = 752) 33.1 GM/DL 32.3-36.5 RED CELL DISTRIBUTION WIDTH (BEAKER) (test code = 412) 12.9 % 11.6-14.4 PLATELET COUNT (BEAKER) (test code = 756) 193 K/CU MM 150-450 MEAN PLATELET VOLUME (BEAKER) (test code = 754) 9.9 fL 9.4-12 .4 NUCLEATED RED BLOOD CELLS (BEAKER) (test code = 413) 0 /100 WBC 0 -0 NEUTROPHILS RELATIVE PERCENT (BEAKER) (test code = 429) 80 % LYMPHOCYTES RELATIVE PERCENT (BEAKER) (test code = 430) 8 % MONOCYTES RELATIVE PERCENT (BEAKER) (test code = 431) 8 % EOSINOPHILS RELATIVE PERCENT (BEAKER) (test code = 432) 3 % BASOPHILS RELATIVE PERCENT (BEAKER) (test code = 437) 1 % NEUTROPHILS ABSOLUTE COUNT (BEAKER) (test code = 670) 5.23 K/ L 1.78-5.38 LYMPHOCYTES ABSOLUTE COUNT (BEAKER) (test code = 414) 0.54 K/ L 1.32-3.57 L MONOCYTES ABSOLUTE COUNT (BEAKER) (test code = 415) 0.52 K/ L 0. 30-0.82 EOSINOPHILS ABSOLUTE COUNT (BEAKER) (test code = 416) 0.18 K/ L 0.04-0.54 BASOPHILS ABSOLUTE COUNT (BEAKER) (test code = 417) 0.03 K/ L 0. 01-0.08 IMMATURE GRANULOCYTES-RELATIVE PERCENT (BEAKER) (test code = 2801) 0 % 0-1 POCT-GLUCOSE [id number] 22:08:00* Test Item Value Reference Range Interpretation Comments POC-GLUCOSE METER (BEAKER) (test code = 1538) 125 mg/dL 70-110 H : TESTED AT [facility] [address] [place], [address]: Commercial Mortgage Broker/Mounter Sousaphones ID = [id number] for ALBERTA COX [id number] 19:10:00* Test Item Value Reference Range Interpretation Comments Ammonia (test code = 12425-6) <5 18- 72 mol/L L Specimen moderately hemolyzed VY (test code = VY) Commercial Mortgage Broker ID - SMITA C Lab Interpretation (test code = 11643-8) Abnormal [facility]AMMON[facility]2020-08-12 19:10:00* Test Item Value Reference Range Interpretation Comments AMMONIA (BEAKER) (test code = 348) < mol/L 18-72 L Specimen moderately hemolyzed Commercial Mortgage Broker ID - SMITA CSARS-CoV2/RT-PCR (Asymptomatic ONLY)2020-02-17 17:58:00* Test Item Value Reference Range Interpretation Comments SARS-COV2/RT-PCR (test code = 12931-3) Negative N ot Detected, Negative, See external report for linked test SARS-COV-2 PERFORMING LAB (test code = 01710-5) [facility] DUSTIN VY (test code = VY) Negative result for this pattie t determines that SARS-CoV-2 RNA was not present in the specimen above the Limit of Detection (LOD). However, Negative results do not preclude SARS-CoV-2 infection and should not be used as the sole basis for treatment or patient management decisions. Negative results must be combined with clinical observations, patient history, and epidemiological information. A false negative result may occur if a specimen is improperly collected, transported or handled. A false negative result should be considered if patient's recent exposures or clinical presentation indicate that COVID-19 (SARS-CoV-2) is likely and diagnostic tests for other causes of illness are negative. Re-testing should be considered in cases of suspected false negatives. The limit of detection for this assay is 800 copies/mL. This SARS CoV-2 test is a real-time RT-PCR test intended for the qualitative detection of nucleic acid from SARS-CoV-2 in a nasopharyngeal swab specimen collected from individuals suspected of COVID-19 by their healthcare provider. This test has not been Food and Drug Administration (FDA) cleared or approved. This is a modified version of an approved Emergency Use Authorization (EUA) and is in the process of review by the FDA. Once authorized by the FDA, the issued EUA will be effective until the declaration that circumstances exist justifying the authorization of the emergency use of in vitro diagnostic tests for detection and/or diagnosis of COVID-19 is terminated under Section 564(b)(2) of the Act or the EUA is revoked under Section 564(g) of the Act. Fact Sheet for Healthcare Providers:https://www.[employer]/sites/default/files/product/documents/Fact_Shee b_WW_Teactqyhh_Ulgn_NDDE-RmB-1.pdf Fact Sheet for Healthcare Patients:https://www.[employer]/sites/default/files/pro duct/documents/Xmxp_Tkbul_Mppjuplh_Qndm_BVSZ-TeU-8.pdf Performing Laboratory:[facility], [place] [address] [place], [place] [address]ARS-COV2/RT-PCR ([facility])2020-02-17 17:58:00* Test Item Value Reference Range Interpretation Comments SARS-COV2/RT-PCR (test code = 5584132) Negative N ot Detected, Negative, See external report for linked test SARS-COV-2 PERFORMING LAB (test code = 4438728) [facility] DUST[facility] Negative result for this test determines that SARS-CoV-2 RNA was not present in the specimen above the Limit of Detection (LOD). However, Negative results do n ot preclude SARS-CoV-2 infection and should not be used as the sole basis for tr eatment or patient management decisions. Negative results must be combined with clinical observations, patient history, and epidemiological information. A false negative result may occur if a specimen is improperly collected, transported or handled. A false negative result should be considered if patient's recent expo sures or clinical presentation indicate that COVID-19 (SARS-CoV-2) is likely and diagnostic tests for other causes of illness are negative. Re-testing should be considered in cases of suspected false negatives.The limit of detection for this assay is 800 copies/mL.This SARS CoV-2 test is a real-time RT-PCR test intended for the qualitative detection of nucleic acid from SARS-CoV-2 in a nasopharyn geal swab specimen collected from individuals suspected of COVID-19 by their [facility] provider.This test has not been Food and Drug Administration (FDA) clear ed or approved. This is a modified version of an approved Emergency Use Authori zation (EUA) and is in the process of review by the FDA. Once authorized by [facility] FDA, the issued EUA will be effective until the declaration that circumstances exist justifying the authorization of the emergency use of in vitro diagnostic tests for detection and/or diagnosis of COVID-19 is terminated under Section 564 (b)(2) of the Act or the EUA is revoked under Section 564(g) of the Act.Fact She et for Healthcare Providers:https://www.[employer]/sites/default/files/product/d ocuments/Lffb_Lnuyv_PU_Wlqqtnbnh_Fctv_EJHK-HiR-6.pdfFact Sheet for Healthcare Pa pios:https://www.[employer]/sites/default/files/product/documents/Fact_Sheet_P osyeaek_Esyj_WUWL-QsC-7.pdfPerforming Laboratory:[facility] r[address] [facility], [place] [address]FN, BRAIN, WITHOUT [id number] 17:06:00Referring: Dr. Hugo Christopher / DR PAZTRONIC LEADLESS PACEMAKER DEVICE - Micra Transcatheter Pacemaker M# [id number] S# [id number] for exam:-> hepatic encephalopathy/confusion, rule out edema/hemorrhageWhat is the patient's sedation requirement?->No SedationFINAL REPORT CT, BRAIN, WITHOUT CONTRAST INDICATION: Altered mental statushepatic encephalopathy/confusion, rule out edema/hemorrhage TECHNIQUE: Noncontrast axial imaging was obtained from the vertex to the skull base. Axial images were reconstructed using a bone algorithm. DOSE REDUCTION: Dose modulation, iterative reconstruction, and/or weight-based adjustment of the mA/kV was utilized to reduce the radiation dose to as low as reasonably achievable. COMPARISON: CT 02/04/2020 FINDINGS: Intracranial: No intracranial hemorrhage or abnormal extra- axial collection. No evidence of acute territorial infarct. No mass effect. No hydrocephalus. Generalized cerebral atrophy with ex vacuo dilatation of the ventricular system proportionate to sulci. Scattered foci of hypoattenuation within the periventricular and subcortical white matter are a nonspecific finding commonly attributed to chronic small vessel ischemic disease. Intracrani al vascular calcifications are present. Osseous structures: No fracture. No susp icious lesion. Paranasal sinuses and mastoid air cells: No evidence of sinusitis . Mastoids are clear. Orbital contents: Globes are intact. IMPRESSION: No acute intracranial hemorrhage or CT evidence of territorial infarct. If there is persi stent clinical concern for intracranial pathology, MR examination is recommended for further characterization. Signed: Cipriano Gonsalez Verified Date/Brandon e: 02/17/2020 17:06:58 brain without IV [id number] 17:06:00Interface, External Ris In - 02/17/2020 5:[address], BRAIN, WITHOUT CONTRAST INDICATION: Altered mental statushepatic enc ephalopathy/confusion, rule out edema/hemorrhage TECHNIQUE: Noncontrast axial im aging was obtained from the vertex to the skull base. Axial images were reconstr ucted using a bone algorithm. DOSE REDUCTION: Dose modulation, iterative reconst ruction, and/or weight-based adjustment of the mA/kV was utilized to reduce the radiation dose to as low as reasonably achievable. COMPARISON: CT 02/04/2020 FIND INGS: Intracranial: No intracranial hemorrhage or abnormal extra-axial collectio n. No evidence of acute territorial infarct. No mass effect. No hydrocephalus. Generalized cerebral atrophy with ex vacuo dilatation of the ventricular system proportionate to sulci. Scattered foci of hypoattenuation within the periventric ular and subcortical white matter are a nonspecific finding commonly attributed to chronic small vessel ischemic disease. Intracranial vascular calcifications a re present. Osseous structures: No fracture. No suspicious lesion. Paranasal sin uses and mastoid air cells: No evidence of sinusitis. Mastoids are clear. Orbita l contents: Globes are intact. IMPRESSION: No acute intracranial hemorrhage or C T evidence of territorial infarct. If there is persistent clinical concern for i ntracranial pathology, MR examination is recommended for further characterizatio n. Signed: Cipriano Gonsalez Verified Date/Time: 02/17/2020 17:06:58 El ectronically signed by: CIPRIANO GONSALEZ MD on 02/17/2020 05:06 PM [facility]Blood [facility], [id number] 16:23:00* Test Item Value Reference Range Interpretation Comments pH, Oliver (test code = 2746-6) 7.36 7.32-7.42 pCO2, Oliver (test code = 755) 51 41- 51 mmHg pO2, Oliver (test code = 2705-2) 19 25- 40 mmHg L O2 Sat, Oliver (test code = 2711-0) 28.0 % 40-70 L HCO3, Oliver (test code = 89853-2) 28 mmol/L 21-29 Base Excess, Oliver (test code = 1927-3) 1.8 mmol/L -2-3 Patient Temperature (test code = 8310-5) 37.0 C FIO2 (test code = 1819) 21 % Lab Interpretation (test code = 08810-4) Abnormal [facility] CenterBLOOD GAS, [id number] 16:23:00* Test Item Value Reference Range Interpretation Comments PH VENOUS (BEAKER) (test code = 701) 7.36 7.32-7.42 PCO2 VENOUS (BEAKER) (test code = 755) 51 mmHg 41-51 PO2 VENOUS (BEAKER) (test code = 702) 19 mmHg 25-40 L O2 SATURATION VENOUS (BEAKER) (test code = 703) 28.0 % 40.0-7 0.0 L HCO3 VENOUS (BEAKER) (test code = 705) 28 mmol/L 21-29 BASE EXCESS VENOUS (BEAKER) (test code = 704) 1.8 mmol/L -2.0-3.0 PATIENT TEMPERATURE (BEAKER) (test code = 1818) 37.0 C FIO2 (BEAKER) (test code = 1819) 21.0 % CT, [id number] 16:01:00Referring: Dr. Hugo Christopher / DR DICKSON LEADLESS PACEMAKER DEVICE - Micra Transcatheter Pacemaker M# [id number] S# [id number] for exam:->abdominal pain, nausea, HCCWhat is the patient's sedation requirement?->No SedationFINAL REPORT TECHNIQUE: CT of the abdomen and [...] lesions. Status post cholecystectomy.. No biliary ductal dilatation.SPLEEN: No s plenomegaly.PANCREAS: No focal masses or ductal dilatation. ADRENALS: No adrenal nodules.KIDNEYS/URETERS: Lobulated contour of the bilateral kidneys consistent multifocal cortical scarring. Two nonobstructing calculi in the mid and lower po le of the right kidney are unchanged.. 3.2 cm exophytic cyst arising from the po sterior interpolar region of the right kidney.PELVIC ORGANS/BLADDER: Prostate is enlarged with hypertrophy of the median lobe indenting the base of the bladder. PERITONEUM/RETROPERITONEUM: No free air or fluid.LYMPH NODES: No lymphadenopath y.VESSELS: Atherosclerotic calcifications of the abdominal aorta and branch vess els. No evidence of aneurysmal dilation.. GI TRACT: No distention or wall thicke eliana. Appendix is normal. BONES AND SOFT TISSUES: Fat-containing. Local ventral hernia.. IMPRESSION:Interval decreased density and foci of gas within the segme nt seven mass suggesting necrosis related to recent chemoembolization.. Nonobstr ucting calculi in the right kidney. No hydronephrosis. Signed: Hemant Cordova Verified Date/Time: 02/17/2020 16:01:07 Reading Location: [facility] B1 C013Y CT Body Reading Room abdomen pelvis with IV [id number] 16:01:00 Interface, External Ris In - 02/17/2020 4:03 PM CDTFINAL REPORT PATIENT ID: [id number] TECHNIQUE: CT of the abdomen and pelvis WITH intravenous contrast and WI THOUT oral contrast. Dose modulation, iterative reconstruction, and/or weight-ba sed adjustment of the mA/kV was utilized to reduce the radiation dose to as low as reasonably achievable. INDICATION: Abdominal pain nausea. COMPARISON: 09/05/19 20., MRI 01/06/2020 FINDINGS: LOWER THORAX: Unremarkable. HEPATOBILIARY: Liver de monstrates mildly nodular contour. Segment seven mass now demonstrates decreased density and contains few foci of gas. The lesion measures 5 x 3.8 x 6cm.. There is a stable wedge-shaped focus of decreased enhancement in the dome of the liver in segment eight, unchanged since August 2019, may represent infarct from p rior embolization procedure.. No additional hepatic lesions. Status post cholecy stectomy.. No biliary ductal dilatation.SPLEEN: No splenomegaly.PANCREAS: No foc al masses or ductal dilatation. ADRENALS: No adrenal nodules.KIDNEYS/URETERS: Lo bulated contour of the bilateral kidneys consistent multifocal cortical scarring . Two nonobstructing calculi in the mid and lower pole of the right kidney are u nchanged.. 3.2 cm exophytic cyst arising from the posterior interpolar region of the right kidney.PELVIC ORGANS/BLADDER: Prostate is enlarged with hypertrophy of the median lobe indenting the base of the bladder. PERITONEUM/RETROPERITONEUM: No free air or fluid.LYMPH NODES: No lymphadenopathy.VESSELS: Atherosclerotic c alcifications of the abdominal aorta and branch vessels. No evidence of aneurysm al dilation.. GI TRACT: No distention or wall thickening. Appendix is normal. LYNN JENNY AND SOFT TISSUES: Fat-containing. Local ventral hernia.. IMPRESSION:Interva l decreased density and foci of gas within the segment seven mass suggesting nec rosis related to recent chemoembolization.. Nonobstructing calculi in the right kidney. No hydronephrosis. Signed: Zoltan Cordova Verified Date /Time: 02/17/2020 16:01:07 Reading Location: [facility] C013Y CT Body Reading Room [facility] CenterUrinalysis w/Microscopic + Reflex to [id number] 13:37:00* Test Item Value Reference Range Interpretation Comments Color, UA (test code = 5778-6) Yellow Clarity, UA (test code = 5767-9) Clear Specific Artie, UA (test code = 5811-5) 1.016 1.001-1.035 pH, UA (test code = 5803-2) 6.0 5.0-8.0 Protein, UA (test code = 90465-3) Negative Negative Glucose, UA (test code = 365) Negative Negative Ketones, UA (test code = 2514-8) Negative Negative Bilirubin, UA (test code = 31912-9) Negative Negative Blood, UA (test code = 12273-8) Negative Negative Nitrite, UA (test code = 5802-4) Negative Negative Leukocytes, UA (test code = 5799-2) Negative Negative Urobilinogen, UA (test code = 85876-9) 0.2 mg/dL 0.2-1 RBC, UA (test code = 13107-6) 3 /HPF WBC, UA (test code = 5821-4) 2 /HPF Bacteria, UA (test code = 17802-9) Few Squam Epithel, UA (test code = 78204-2) <1 /HPF Hyaline Casts, UA (test code = 83453-4) 4 /LPF Ca Oxalate Irma, UA (test code = 99315-7) Occasional Specimen Source (test code = 2795) VY (test code = VY) Commercial Mortgage Broker ID - [auto]Commercial Mortgage Broker ID - tech [facility]URIN[facility]IS [facility]/ REFLEX URINE [id number] 13:37:00* Test Item Value Reference Range Interpretation Comments COLOR (BEAKER) (test code = 470) Yellow CLARITY (BEAKER) (test code = 469) Clear SPECIFIC GRAVITY UA (BEAKER) (test code = 468) 1.016 1.001-1 .035 PH UA (BEAKER) (test code = 467) 6.0 5.0-8.0 PROTEIN UA (BEAKER) (test code = 464) Negative Negative GLUCOSE UA (BEAKER) (test code = 365) Negative Negative KETONES UA (BEAKER) (test code = 371) Negative Negative BILIRUBIN UA (BEAKER) (test code = 462) Negative Negative BLOOD UA (BEAKER) (test code = 461) Negative Negative NITRITE UA (BEAKER) (test code = 465) Negative Negative LEUKOCYTE ESTERASE UA (BEAKER) (test code = 466) Negative Negat danny UROBILINOGEN UA (BEAKER) (test code = 463) 0.2 mg/dL 0.2-1.0 RBC UA (BEAKER) (test code = 519) 3 /HPF WBC UA (BEAKER) (test code = 520) 2 /HPF BACTERIA (BEAKER) (test code = 517) Few SQUAMOUS EPITHELIAL (BEAKER) (test code = 516) < /HPF HYALINE CASTS (BEAKER) (test code = 514) 4 /LPF CALCIUM OXALATE CRYSTALS (BEAKER) (test code = 518) Occasional SOURCE(BEAKER) (test code = 2795) Commercial Mortgage Broker ID - [auto]Commercial Mortgage Broker ID - [id number] 12:54:00* Test Item Value Reference Range Interpretation Comments Procalcitonin (test code = 16785-1) <0.05 <0.05 ng/mL VY (test code = VY) SEPSIS RISK (ng/mL)Low: 0.05-0.50Intermediate: 0.51-2.00High: >=2.01 Lab Interpretation (test code = 22285-4) Normal [facility] CenterPROCALCITONIN2020-08-12 12:54:00* Test Item Value Reference Range Interpretation Comments PROCALCITONIN (BEAKER) (test code = 3036) < ng/mL <0.05 SEPSIS RISK (ng/mL)Low: 0.05-0.50Intermediate: 0.51-2.00High: > =2.01TSH/Free T4 If [id number] 12:48:00* Test Item Value Reference Range Interpretation Comments TSH (test code = 12543-4) 1.199 0.350- 4.940 uIU/mL VY (test code = VY) Commercial Mortgage Broker ID - SMITA C Lab Interpretation (test code = 48166-2) [facility] [id number] 12:48:00* Test Item Value Reference Range Interpretation Comments THYROID STIMULATING HORMONE (BEAKER) (test code = 772) 1.199 uIU /mL 0.350-4.940 Commercial Mortgage Broker ID - SMITA CCOMPREHENSIVE METABOLIC [id number] 12:42:00* Test Item Value Reference Range Interpretation Comments TOTAL PROTEIN (BEAKER) (test code = 770) 7.5 gm/dL 6.0-8.3 ALBUMIN (BEAKER) (test code = 1145) 3.6 g/dL 3.5-5.0 ALKALINE PHOSPHATASE (BEAKER) (test code = 346) 197 U/L 40-150 H BILIRUBIN TOTAL (BEAKER) (test code = 377) 0.6 mg/dL 0.2-1.2 SODIUM (BEAKER) (test code = 381) 133 meq/L 136-145 L POTASSIUM (BEAKER) (test code = 379) 4.9 meq/L 3.5-5.1 CHLORIDE (BEAKER) (test code = 382) 102 meq/L 98-107 CO2 (BEAKER) (test code = 355) 21 meq/L 22-29 L BLOOD UREA NITROGEN (BEAKER) (test code = 354) 16 mg/dL 7-21 CREATININE (BEAKER) (test code = 358) 1.01 mg/dL 0.57-1.25 GLUCOSE RANDOM (BEAKER) (test code = 652) 161 mg/dL 70-105 H CALCIUM (BEAKER) (test code = 697) 11.6 mg/dL 8.4-10.2 H AST (SGOT) (BEAKER) (test code = 353) 29 U/L 5-34 ALT (SGPT) (BEAKER) (test code = 347) 42 U/L 6-55 EGFR (BEAKER) (test code = 1092) 72 mL/min/1.73 sq m ESTIMATED GFR IS NOT ACCURATE CREATININE CLEARANCE IN PREDICTING GLOMERULAR FILTRATION RATE. ESTIMATED GFR IS NOT APPLICABLE FOR DIALYSIS PATIENTS. Commercial Mortgage Broker ID - SMITA CB-type natriuretic [id number] 12:33:00* Test Item Value Reference Range Interpretation Comments BNP (test code = 43100-1) 52 pg/mL 0-100 VY (test code = YV) Commercial Mortgage Broker ID - SMITA C Lab Interpretation (test code = 76386-7) [facility] (not available at [facility] [place]) 2020-02-17 12:33:00* Test Item Value Reference Range Interpretation Comments Troponin I (test code = 36830-2) <0.01 0-0.03 VY (test code = VY) Troponin I (TnI) levels must be interpreted in the context of the presenting symptoms and the clinical findings. Elevated TnI levels indicate myocardial damage, but are not specific for ischemic heart disease. Elevated TnI levels are seen in patients with other cardiac conditions (including myocarditis and congestive heart failure), and slight TnI elevations occur in patients with other conditions, including sepsis, renal failure, acidosis, acute neurological disease, and persistent tachyarrhythmia.Commercial Mortgage Broker ID - SMITA C Lab Interpretation (test code = 16786-9) Normal [facility] NATRIURETIC FACTOR (BNP)2020-02-17 12:33:00 * Test Item Value Reference Range Interpretation Comments B-TYPE NATRIURETIC PEPTIDE (BEAKER) (test code = 700) 52 pg/mL 0-100 Commercial Mortgage Broker ID - SMITA CTROPONIN [id number] 12:33:00* Test Item Value Reference Range Interpretation Comments TROPONIN I (BEAKER) (test code = 397) < ng/mL 0.00-0.03 Troponin I (TnI) levels must be interpreted in the context of the presenting sym ptoms and the clinical findings. Elevated TnI levels indicate myocardial damage, but are not specific for ischemic heart disease. Elevated TnI levels are seen i n patients with other cardiac conditions (including myocarditis and congestive h eart failure), and slight TnI elevations occur in patients with other conditions , including sepsis, renal failure, acidosis, acute neurological disease, and per sistent tachyarrhythmia.Commercial Mortgage Broker ID - SMITA CLactic acid, venous [id number] 12:21:00* Test Item Value Reference Range Interpretation Comments Lactate, Venous (test code = 2872) 0.91 mmol/L 0.5-2.2 VY (test code = VY) Commercial Mortgage Broker ID - SMITA C Lab Interpretation (test code = 79280-3) Normal [facility] CenterLACT[facility] ACID, [id number] 12:21:00* Test Item Value Reference Range Interpretation Comments LACTATE BLOOD VENOUS (2) (BEAKER) (test code = 2872) 0.91 mmol/L 0 .50-2.20 Commercial Mortgage Broker ID - SMITA CProthrombin time/[id number] 11:39:00* Test Item Value Reference Range Interpretation Comments Protime (test code = 5902-2) 14.3 11.9- 14.2 seconds H INR (test code = 6301-6) 1.14 <=5.90 VY (test code = VY) Effective 12/03/2018: PT Refe rence Range ChangeNew: 11.9- 14.2 Previous: 11.7-14.7 RECOMMENDED COUMADIN/WARFARIN INR THERAPY RANGESSTANDARD DOSE: 2.0-3.0 Includes: PROPHYLAXIS for venous thrombosis, sys temic embolization; TREATMENT for venous thrombosis and/or pulmonary embolus.HIGH RISK: Target INR is 2.5-3.5 for patients wiht mechanical heart valves. Lab Interpretation (test code = 70959-7) Abnormal [facility]eraPTT2020-[facility]-12 11:39:00* Test Item Value Reference Range Interpretation Comments PTT (test code = 58574-1) 28.6 22.5- 36.0 seconds Lab Interpretation (test code = 38245-0) Normal [facility] CenterPROTHROMBIN TIME/[id number] 11:39:00* Test Item Value Reference Range Interpretation Comments PROTIME (BEAKER) (test code = 759) 14.3 seconds 11.9-14.2 H INR (BEAKER) (test code = 370) 1.14 <=5.90 Effective 12/03/2018: PT Reference Range ChangeNew: 11.9-14.2 Previous: 11.7-14. 7RECOMMENDED COUMADIN/WARFARIN INR THERAPY RANGESSTANDARD DOSE: 2.0-3.0 Include s: PROPHYLAXIS for venous thrombosis, systemic embolization; TREATMENT for venou s thrombosis and/or pulmonary embolus.HIGH RISK: Target INR is 2.5-3.5 for patie nts wiht mechanical heart valves.[id number] 11:39:00* Test Item Value Reference Range Interpretation Comments PARTIAL THROMBOPLASTIN TIME (BEAKER) (test code = 760) 28.6 seconds 22.5-36.0 CBC W/PLT COUNT & AUTO [id number] 11:33:00* Test Item Value Reference Range Interpretation Comments WHITE BLOOD CELL COUNT (BEAKER) (test code = 775) 7.3 K/ L 3.5- 10.5 RED BLOOD CELL COUNT (BEAKER) (test code = 761) 4.05 M/ L 4.63-6 .08 L HEMOGLOBIN (BEAKER) (test code = 410) 13.2 GM/DL 13.7-17.5 L HEMATOCRIT (BEAKER) (test code = 411) 40.1 % 40.1-51.0 MEAN CORPUSCULAR VOLUME (BEAKER) (test code = 753) 99.0 fL 79. 0-92.2 H MEAN CORPUSCULAR HEMOGLOBIN (BEAKER) (test code = 751) 32.6 pg 25.7-32.2 H MEAN CORPUSCULAR HEMOGLOBIN CONC (BEAKER) (test code = 752) 32.9 GM/DL 32.3-36.5 RED CELL DISTRIBUTION WIDTH (BEAKER) (test code = 412) 12.9 % 11.6-14.4 PLATELET COUNT (BEAKER) (test code = 756) 234 K/CU MM 150-450 MEAN PLATELET VOLUME (BEAKER) (test code = 754) 10.3 fL 9.4-12 .4 NUCLEATED RED BLOOD CELLS (BEAKER) (test code = 413) 0 /100 WBC 0 -0 NEUTROPHILS RELATIVE PERCENT (BEAKER) (test code = 429) 81 % LYMPHOCYTES RELATIVE PERCENT (BEAKER) (test code = 430) 9 % MONOCYTES RELATIVE PERCENT (BEAKER) (test code = 431) 7 % EOSINOPHILS RELATIVE PERCENT (BEAKER) (test code = 432) 3 % BASOPHILS RELATIVE PERCENT (BEAKER) (test code = 437) 0 % NEUTROPHILS ABSOLUTE COUNT (BEAKER) (test code = 670) 5.92 K/ L 1.78-5.38 H LYMPHOCYTES ABSOLUTE COUNT (BEAKER) (test code = 414) 0.62 K/ L 1.32-3.57 L MONOCYTES ABSOLUTE COUNT (BEAKER) (test code = 415) 0.53 K/ L 0. 30-0.82 EOSINOPHILS ABSOLUTE COUNT (BEAKER) (test code = 416) 0.18 K/ L 0.04-0.54 BASOPHILS ABSOLUTE COUNT (BEAKER) (test code = 417) 0.03 K/ L 0. 01-0.08 IMMATURE GRANULOCYTES-RELATIVE PERCENT (BEAKER) (test code = 2801) 0 % 0-1 RAD, CHEST, 2 [id number] 09:48:00Referring: Dr. Hugo Christopher / DR DICKSON LEADLESS PACEMAKER DEVICE - Micra Transcatheter Pacemaker M# [id number] S# [id number] for exam:->GENERAL ILLNESSFINAL REPORT INDICATION: GENERAL ILLNESS COMPARISON: February 02, 2020 TECHNIQUE: Frontal and lateral views of the chest. FINDINGS: Lungs and pleura: Clear lungs. No effusion.Heart and mediastinum: Normal heart size. Unremarkable mediastinal contours.Osseous structures: No acute abnormality.Additional findings: None. IMPRESSION: No acute intrathoracic abnormality. Signed: Max Alvarez Verified Date/Time: 02/17/2020 09:48:35 Reading Location: [facility] Reading Room chest 2 [id number] 09:48:00Interface, External Ris In - 02/17/2020 9:50 AM CDTFINAL REPORT INDICATION: GENERAL ILLNESS COMPARISON: February 02, 2020 TECHNIQUE: Frontal and lateral views of the chest. FINDINGS: Lungs and pleura: Clear lungs. No effusion.Heart and mediastinum: Normal heart size. Unremarkable mediastinal contours.Osseous structures: No acute abnormality.Additional findings: None. IMPRESSION: No acute intrathoracic abnormality. Signed: Max Alvarez Verified Date/Time: 02/17/2020 09:48:35 Reading Location: [facility] Radiology Readi ng Room 09 :48 AM [facility]KG [id number] 08:30:45 Kylah Acosta MD 02/17/2020 12:03 PMECG/EKG InterpretationDate/Time: 2019 12:01 PMPerformed by: Kylah Acosta MDAuthorized by: Kylah Acosta MD The ECG was interpreted by ED physician. This ECG was compared with previous EC G(s).Comments: Normal sinus rhythm, rate 73, SD 188, QRS 166, QTc 511, right bun dle branch block no significant ST elevations, mild ST depression V2, no T wave inversions (similar to prior) [facility] CenterANG, EMBOLIZATION, EXTENSIVE - [id number] 17:29:00Referring: Dr. Hugo Christopher / DR DICKSON LEADLESS PACEMAKER DEVICE - Micra Transcatheter Pacemaker M# [id number] S# [id number] for Exam:->HCCFINAL REPORT History: Residual right-sided HCC. Modality: Ultrasound/fluoroscopy. [...] blood loss: < 5 cc. Specimen: None. tanning wheel operator: Mendoza Burger MD.. Commercial Property Manager: MD Lionel (Fellow). Fluoroscopy Time: 9.0 min.Reference Air Kerma (Ka, r): 744.6 mGy. Technique:Initial ultrasound images demonstrate patent right common femoral art [place]. Using ultrasound guidance, following acquisition of permanent images, the r ight common femoral artery was accessed using a 21-gauge micropuncture needle. A 0.018 inch wire was advanced into the abdominal aorta. The needle was exchanged for a 4 Cymraes micropuncture sheath. The micropuncture sheath was exchanged ove r a 0.035 Bentson wire for a 5 Cymraes x 10 cm vascular sheath. A 5 Cymraes Sos-2 reverse curve catheter was used to cannulate the right inferior phrenic artery a rising off the aorta. A 2.8 Cymraes microcatheter was advanced over 0.016 inch mi crowire wire further into the right inferior phrenic artery. A DSA run was perfo rmed. The catheter was then manipulated into the branch arising off the right in ferior phrenic artery supplying the hypervascular lesion within the superior rig ht hepatic lobe. From this location chemoembolization was performed using 75 mg of doxorubicin loaded on LC beads. Given persistent flow on post chemotherapy em bolization angiography, additional embolization was performed using 100-300 um e mbospheres until there stagnant flow achieved. All catheters and wires were kelechi alecia. Contrast injected to the right femoral sheath demonstrating puncture amenab le for closure device. The arteriotomy was closed using a 5 Cymraes Mynx closure device. A sterile dressing was applied. Findings: 1. Arteriography performed via the inferior right phrenic artery demonstrates extrahepatic supply to the right liver with large hypervascular lesion noted within the superior right hepatic l obe compatible with the known residual HCC. 2. Successful chemoembolization an a dditional bland embolization of the right hepatic lesion via the feeding branch arising off the right inferior right artery until near stagnant flow achieved. P ostembolization angiography demonstrates no further abnormal hypervascularity. 3 . Right femoral sheath injection demonstrate patent right common femoral artery puncture minimal for closure device. Impression: Technically successful transar terial chemo/bland embolization of the residual right hepatic HCC via extrahepat ic supply arising off the right inferior phrenic artery as detailed above. Norma d: Mendoza Burger MDReport Verified Date/Time: 02/05/2020 17:29:39 Reading Locat ion: [facility] B1 P048 Angio Body Reading Room [id number] 17:29:00Interface, External Ris In - 02/05/2020 5:31 PM CDTFINAL REPORT History: Residual right-sided HCC. Modality: Ultrasound/fluoroscopy. Sedation: Moderate sedation was administered. 2 mg of Versed and 100 mcg of fentanyl IV was used for moderate sedation monitore d under my direction. Total intra-service time of sedation was 45 minutes. The patient's vital signs were monitored throughout the procedure and recorded in t he patient's medical record by the nurse. Anesthesia: Two percent Lidocaine with out epinephrine. Approach: Righ t common femoral artery. Estimated blood loss: < 5 cc. Specimen: None. tanning wheel operator: Mendoza Burger MD.. Commercial Property Manager: MD Lionel (Fellow). Fluoroscopy Time: 9.0 min.Reference Air Kerma (Ka, r): 744.6 mGy. Technique:Initial ultrasound images demonstrate patent right common femoral art [place]. Using ultrasound guidance, following acquisition of permanent images, the r ight common femoral artery was accessed using a 21-gauge micropuncture needle. A 0.018 inch wire was advanced into the abdominal aorta. The needle was exchanged for a 4 Cymraes micropuncture sheath. The micropuncture sheath was exchanged ove r a 0.035 Bentson wire for a 5 Cymraes x 10 cm vascular sheath. A 5 Cymraes Sos-2 reverse curve catheter was used to cannulate the right inferior phrenic artery a rising off the aorta. A 2.8 Cymraes microcatheter was advanced over 0.016 inch mi crowire wire further into the right inferior phrenic artery. A DSA run was perfo rmed. The catheter was then manipulated into the branch arising off the right in ferior phrenic artery supplying the hypervascular lesion within the superior rig ht hepatic lobe. From this location chemoembolization was performed using 75 mg of doxorubicin loaded on LC beads. Given persistent flow on post chemotherapy em bolization angiography, additional embolization was performed using 100-300 um e mbospheres until there stagnant flow achieved. All catheters and wires were kelechi alecia. Contrast injected to the right femoral sheath demonstrating puncture amenab le for closure device. The arteriotomy was closed using a 5 Cymraes Mynx closure device. A sterile dressing was applied. Findings: 1. Arteriography performed via the inferior right phrenic artery demonstrates extrahepatic supply to the right liver with large hypervascular lesion noted within the superior right hepatic l obe compatible with the known residual HCC. 2. Successful chemoembolization an a dditional bland embolization of the right hepatic lesion via the feeding branch arising off the right inferior right artery until near stagnant flow achieved. P ostembolization angiography demonstrates no further abnormal hypervascularity. 3 . Right femoral sheath injection demonstrate patent right common femoral artery puncture minimal for closure device. Impression: Technically successful transar terial chemo/bland embolization of the residual right hepatic HCC via extrahepat ic supply arising off the right inferior phrenic artery as detailed above. Norma d: Mendoza Burger MDReport Verified Date/Time: 02/05/2020 17:29:39 Reading Locat ion: [facility] B1 P048 Angio Body Reading Room [facility] [id number] 08:46:00* Test Item Value Reference Range Interpretation Comments POC-GLUCOSE METER (BEAKER) (test code = 1538) 234 mg/dL 70-110 H : TESTED AT [address], [address]: Commercial Mortgage Broker/Mounter Sousaphones ID = [id number] for CHANTELLE PETER [id number] 07:13:00* Test Item Value Reference Range Interpretation Comments MAGNESIUM (BEAKER) (test code = 627) 1.6 mg/dL 1.6-2.6 Commercial Mortgage Broker ID - NTPCT, BRAIN, WITHOUT [id number] 17:28:00Referring: Dr. Hugo Christopher / DR PAZTRONIC LEADLESS PACEMAKER DEVICE - Micra Transcatheter Pacemaker M# [id number] S# [id number] REPORT CT, BRAIN, WITHOUT CONTRAST CLINICAL INDICATION: Head trauma, mod-severe COMPARISON: None TECHNIQUE: Noncontrast axial CT imaging of the brain and skull. DOSE REDUCTION: Dose modulation, iterative reconstruction, and/or weight-based adjustment of the mA/kV was utilized to reduce the radiation dose to as low as reasonably achievable. FINDINGS:No intracranial hemorrhage, midline shift or mass effect. Midline structures are normally developed. Mild chronic microvascular ischemic changes of the periventricular and subcortical white matter are present. No hydrocephalus. Orbits are within normal limits. No obstructive paranasal sinus disease. IMPRESSION: No acute intracranial findings If there is persistent clinical concern for intracranial pathology, MR e xamination is recommended for further characterization. Signed: Max Alvarez Verified Date/Time: 02/04/2020 17:28:39 Reading Location: [address] Neuro Reading Room Electronically signed by: MAX ALVAREZ MD on 0 02/04/2020 05:28 PM POCT-GLUCOSE [id number] 17:12:00* Test Item Value Reference Range Interpretation Comments POC-GLUCOSE METER (BEAKER) (test code = 1538) 156 mg/dL 70-110 H : TESTED AT [address], [address]: Commercial Mortgage Broker/Mounter Sousaphones ID = [id number] for GILBERT WALL POCT-GLUCOSE [id number] 12:32:00* Test Item Value Reference Range Interpretation Comments POC-GLUCOSE METER (BEAKER) (test code = 1538) 234 mg/dL 70-110 H : TESTED AT [address], [address]: Commercial Mortgage Broker/Mounter Sousaphones ID = [id number] for GILBERT WALL POCT-GLUCOSE [id number] 07:57:00* Test Item Value Reference Range Interpretation Comments POC-GLUCOSE METER (BEAKER) (test code = 1538) 132 mg/dL 70-110 H : TESTED AT [facility] [address] [facility], [address]: Commercial Mortgage Broker/Mounter Sousaphones ID = [id number] for GILBERT WALL CBC W/PLT COUNT & AUTO [id number] 06:21:00* Test Item Value Reference Range Interpretation Comments WHITE BLOOD CELL COUNT (BEAKER) (test code = 775) 7.3 K/ L 3.5- 10.5 RED BLOOD CELL COUNT (BEAKER) (test code = 761) 4.18 M/ L 4.63-6 .08 L HEMOGLOBIN (BEAKER) (test code = 410) 13.9 GM/DL 13.7-17.5 HEMATOCRIT (BEAKER) (test code = 411) 40.5 % 40.1-51.0 MEAN CORPUSCULAR VOLUME (BEAKER) (test code = 753) 96.9 fL 79. 0-92.2 H MEAN CORPUSCULAR HEMOGLOBIN (BEAKER) (test code = 751) 33.3 pg 25.7-32.2 H MEAN CORPUSCULAR HEMOGLOBIN CONC (BEAKER) (test code = 752) 34.3 GM/DL 32.3-36.5 RED CELL DISTRIBUTION WIDTH (BEAKER) (test code = 412) 13.2 % 11.6-14.4 PLATELET COUNT (BEAKER) (test code = 756) 89 K/CU MM 150-450 L MEAN PLATELET VOLUME (BEAKER) (test code = 754) 11.1 fL 9.4-12 .4 NUCLEATED RED BLOOD CELLS (BEAKER) (test code = 413) 0 /100 WBC 0 -0 NEUTROPHILS RELATIVE PERCENT (BEAKER) (test code = 429) 81 % LYMPHOCYTES RELATIVE PERCENT (BEAKER) (test code = 430) 9 % MONOCYTES RELATIVE PERCENT (BEAKER) (test code = 431) 9 % EOSINOPHILS RELATIVE PERCENT (BEAKER) (test code = 432) 1 % BASOPHILS RELATIVE PERCENT (BEAKER) (test code = 437) 0 % NEUTROPHILS ABSOLUTE COUNT (BEAKER) (test code = 670) 5.89 K/ L 1.78-5.38 H LYMPHOCYTES ABSOLUTE COUNT (BEAKER) (test code = 414) 0.66 K/ L 1.32-3.57 L MONOCYTES ABSOLUTE COUNT (BEAKER) (test code = 415) 0.62 K/ L 0. 30-0.82 EOSINOPHILS ABSOLUTE COUNT (BEAKER) (test code = 416) 0.07 K/ L 0.04-0.54 BASOPHILS ABSOLUTE COUNT (BEAKER) (test code = 417) 0.02 K/ L 0. 01-0.08 IMMATURE GRANULOCYTES-RELATIVE PERCENT (BEAKER) (test code = 2801) 0 % 0-1 Basic metabolic [id number] 06:06:00* Test Item Value Reference Range Interpretation Comments Sodium (test code = 2951-2) 131 meq/L 136-145 L Potassium (test code = 2823-3) 4.2 meq/L 3.5-5.1 Chloride (test code = 2075-0) 101 meq/L 98-107 CO2 (test code = 8-9) 25 meq/L 22-29 BUN (test code = 3094-0) 14 mg/dL 7-21 Creatinine (test code = 2160-0) 0.83 mg/dL 0.57-1.25 Glucose (test code = 2345-7) 228 mg/dL 70-105 H Calcium (test code = 37197-3) 10.6 mg/dL 8.4-10.2 H EGFR (test code = 92488-4) 91 mL/min/1.73 sq m ESTIMATED GFR IS NOT ACCURATE CREATININE CLEARANCE IN PREDICTING GLOMERULAR FILTRATION RATE. ESTIMATED GFR IS NOT APPLICABLE FOR DIALYSIS PATIENTS. VY (test code = VY) Commercial Mortgage Broker ID - EDASI Lab Interpretation (test code = 75333-3) Abnormal [facility] CampusMAGNESIUM2020-07-30 06:06:00* Test Item Value Reference Range Interpretation Comments MAGNESIUM (BEAKER) (test code = 627) 1.7 mg/dL 1.6-2.6 Commercial Mortgage Broker ID - EDASIBASIC METABOLIC [id number] 06:06:00* Test Item Value Reference Range Interpretation Comments SODIUM (BEAKER) (test code = 381) 131 meq/L 136-145 L POTASSIUM (BEAKER) (test code = 379) 4.2 meq/L 3.5-5.1 CHLORIDE (BEAKER) (test code = 382) 101 meq/L 98-107 CO2 (BEAKER) (test code = 355) 25 meq/L 22-29 BLOOD UREA NITROGEN (BEAKER) (test code = 354) 14 mg/dL 7-21 CREATININE (BEAKER) (test code = 358) 0.83 mg/dL 0.57-1.25 GLUCOSE RANDOM (BEAKER) (test code = 652) 228 mg/dL 70-105 H CALCIUM (BEAKER) (test code = 697) 10.6 mg/dL 8.4-10.2 H EGFR (BEAKER) (test code = 1092) 91 mL/min/1.73 sq m ESTIMATED GFR IS NOT ACCURATE CREATININE CLEARANCE IN PREDICTING GLOMERULAR FILTRATION RATE. ESTIMATED GFR IS NOT APPLICABLE FOR DIALYSIS PATIENTS. Commercial Mortgage Broker ID - EDASIHEPATIC FUNCTION [id number] 06:06:00* Test Item Value Reference Range Interpretation Comments TOTAL PROTEIN (BEAKER) (test code = 770) 7.1 gm/dL 6.0-8.3 ALBUMIN (BEAKER) (test code = 1145) 3.6 g/dL 3.5-5.0 BILIRUBIN TOTAL (BEAKER) (test code = 377) 1.2 mg/dL 0.2-1.2 BILIRUBIN DIRECT (BEAKER) (test code = 706) 0.7 mg/dL 0.1-0.5 H ALKALINE PHOSPHATASE (BEAKER) (test code = 346) 139 U/L 40-150 AST (SGOT) (BEAKER) (test code = 353) 201 U/L 5-34 H ALT (SGPT) (BEAKER) (test code = 347) 105 U/L 6-55 H Commercial Mortgage Broker ID - EDASIPOCT-GLUCOSE [id number] 21:56:00* Test Item Value Reference Range Interpretation Comments POC-GLUCOSE METER (BEAKER) (test code = 1538) 176 mg/dL 70-110 H : TESTED AT [address], [address]: Commercial Mortgage Broker/Mounter Sousaphones ID = [id number] for RAIN CLEMENS POCT-GLUCOSE [id number] 16:49:00* Test Item Value Reference Range Interpretation Comments POC-GLUCOSE METER (BEAKER) (test code = 1538) 187 mg/dL 70-110 H : TESTED AT [facility] [address] [facility], [address]: Commercial Mortgage Broker/Mounter Sousaphones ID = [id number] for NIKITA SIDDIQUI POCT-GLUCOSE [id number] 11:50:00* Test Item Value Reference Range Interpretation Comments POC-GLUCOSE METER (BEAKER) (test code = 1538) 200 mg/dL 70-110 H : TESTED AT [facility] [address] [facility], [address]: Commercial Mortgage Broker/Mounter Sousaphones ID = [id number] for NIKITA SIDDIQUI POCT-GLUCOSE [id number] 08:11:00* Test Item Value Reference Range Interpretation Comments POC-GLUCOSE METER (BEAKER) (test code = 1538) 174 mg/dL 70-110 H : TESTED AT [facility] [address] [facility], [address]: Commercial Mortgage Broker/Mounter Sousaphones ID = [id number] for NIKITA SIDDIQUI CBC W/PLT COUNT & AUTO [id number] 06:33:00* Test Item Value Reference Range Interpretation Comments WHITE BLOOD CELL COUNT (BEAKER) (test code = 775) 7.0 K/ L 3.5- 10.5 RED BLOOD CELL COUNT (BEAKER) (test code = 761) 4.76 M/ L 4.63-6 .08 HEMOGLOBIN (BEAKER) (test code = 410) 15.4 GM/DL 13.7-17.5 HEMATOCRIT (BEAKER) (test code = 411) 46.9 % 40.1-51.0 MEAN CORPUSCULAR VOLUME (BEAKER) (test code = 753) 98.5 fL 79. 0-92.2 H MEAN CORPUSCULAR HEMOGLOBIN (BEAKER) (test code = 751) 32.4 pg 25.7-32.2 H MEAN CORPUSCULAR HEMOGLOBIN CONC (BEAKER) (test code = 752) 32.8 GM/DL 32.3-36.5 RED CELL DISTRIBUTION WIDTH (BEAKER) (test code = 412) 13.2 % 11.6-14.4 PLATELET COUNT (BEAKER) (test code = 756) 98 K/CU MM 150-450 L MEAN PLATELET VOLUME (BEAKER) (test code = 754) 11.0 fL 9.4-12 .4 NUCLEATED RED BLOOD CELLS (BEAKER) (test code = 413) 0 /100 WBC 0 -0 NEUTROPHILS RELATIVE PERCENT (BEAKER) (test code = 429) 84 % LYMPHOCYTES RELATIVE PERCENT (BEAKER) (test code = 430) 7 % MONOCYTES RELATIVE PERCENT (BEAKER) (test code = 431) 7 % EOSINOPHILS RELATIVE PERCENT (BEAKER) (test code = 432) 1 % BASOPHILS RELATIVE PERCENT (BEAKER) (test code = 437) 0 % NEUTROPHILS ABSOLUTE COUNT (BEAKER) (test code = 670) 5.88 K/ L 1.78-5.38 H LYMPHOCYTES ABSOLUTE COUNT (BEAKER) (test code = 414) 0.52 K/ L 1.32-3.57 L MONOCYTES ABSOLUTE COUNT (BEAKER) (test code = 415) 0.51 K/ L 0. 30-0.82 EOSINOPHILS ABSOLUTE COUNT (BEAKER) (test code = 416) 0.04 K/ L 0.04-0.54 BASOPHILS ABSOLUTE COUNT (BEAKER) (test code = 417) 0.01 K/ L 0. 01-0.08 IMMATURE GRANULOCYTES-RELATIVE PERCENT (BEAKER) (test code = 2801) 0 % 0-1 [id number] 06:19:00* Test Item Value Reference Range Interpretation Comments MAGNESIUM (BEAKER) (test code = 627) 1.8 mg/dL 1.6-2.6 Specimen slightly hemolyzed Commercial Mortgage Broker ID - PIAYA LBASIC METABOLIC [id number] 06:19:00* Test Item Value Reference Range Interpretation Comments SODIUM (BEAKER) (test code = 381) 133 meq/L 136-145 L POTASSIUM (BEAKER) (test code = 379) 4.3 meq/L 3.5-5.1 Specimen slightly hemolyzed CHLORIDE (BEAKER) (test code = 382) 101 meq/L 98-107 CO2 (BEAKER) (test code = 355) 24 meq/L 22-29 BLOOD UREA NITROGEN (BEAKER) (test code = 354) 13 mg/dL 7-21 CREATININE (BEAKER) (test code = 358) 0.87 mg/dL 0.57-1.25 Specimen slightly hemolyzed GLUCOSE RANDOM (BEAKER) (test code = 652) 216 mg/dL 70-105 H CALCIUM (BEAKER) (test code = 697) 10.8 mg/dL 8.4-10.2 H EGFR (BEAKER) (test code = 1092) 86 mL/min/1.73 sq m ESTIMATED GFR IS NOT ACCURATE CREATININE CLEARANCE IN PREDICTING GLOMERULAR FILTRATION RATE. ESTIMATED GFR IS NOT APPLICABLE FOR DIALYSIS PATIENTS. Commercial Mortgage Broker ID - CHELLE LHEPATIC FUNCTION [id number] 06:19:00* Test Item Value Reference Range Interpretation Comments TOTAL PROTEIN (BEAKER) (test code = 770) 8.4 gm/dL 6.0-8.3 H Specimen slightly hemolyzed ALBUMIN (BEAKER) (test code = 1145) 4.3 g/dL 3.5-5.0 Specimen slightly hemolyzed BILIRUBIN TOTAL (BEAKER) (test code = 377) 0.6 mg/dL 0.2-1.2 Specimen slightly hemolyzed BILIRUBIN DIRECT (BEAKER) (test code = 706) 0.3 mg/dL 0.1-0.5 Specimen slightly hemolyzed ALKALINE PHOSPHATASE (BEAKER) (test code = 346) 146 U/L 40-150 AST (SGOT) (BEAKER) (test code = 353) 99 U/L 5-34 H Specimen slightly hemolyzed ALT (SGPT) (BEAKER) (test code = 347) 37 U/L 6-55 Specimen slightly hemolyzed Commercial Mortgage Broker ID - CHELLE LPOCT-GLUCOSE [id number] 22:39:00* Test Item Value Reference Range Interpretation Comments POC-GLUCOSE METER (BEAKER) (test code = 1538) 256 mg/dL 70-110 H : TESTED AT [facility] [address] [facility], [address]: Commercial Mortgage Broker/Mounter Sousaphones ID = [id number] for DARRIAN COOLEY, CHEST, 1 VIEW, NON [id number] 19:18:00Referring: Dr. Hugo Christopher / DR DICKSON LEADLESS PACEMAKER DEVICE - Micra Transcatheter Pacemaker M# [id number] S# [id number] for exam:->right shoulder painFINAL REPORT TECHNIQUE: Frontal view of the chest. INDICATION: 74-year-old man with right shoulder pain. COMPARISON: Chest radiograph 08/09. FINDINGS: LINES/TUBES/DEVICES: Unchanged implanted electronic device pr ojects over the lower left chest. LUNGS: Lungs are well inflated. No consolidati on or pulmonary edema. PLEURA: No pneumothorax or significant pleural effusion. HEART AND MEDIASTINUM: Cardiomediastinal silhouette is within normal limits. Ath erosclerotic calcifications in the thoracic aorta. BONES AND SOFT TISSUES: Uncha nged median sternotomy wires. Soft tissues are unremarkable. IMPRESSION:No acut e cardiopulmonary abnormalities. Signed: Alban Grewal MDReport Verified Date/ Time: 02/02/2020 19:18:46 Reading Location: [address] Consult Reading Room chest 1 view portable / [id number] 19:18:00Interface, External Ris In - 02/02/2020 7:21 PM CDTFINAL REPORT TECHNIQUE: Frontal view of the chest. INDICATION: 74-year-old man with right shoulder pain. COMPARISON: Chest radiograph 09/02/2019. FINDINGS: LINES/TUBES/DEVICES: Unchanged implanted electronic device projects over the lower left chest. LUNGS: Lungs are well inflated. No consolidation or pulmonary edema. PLEURA: No pneumothorax or significant pleural effusion. HEART AND MEDIASTINUM: Cardi omediastinal silhouette is within normal limits. Atherosclerotic calcifications in the thoracic aorta. BONES AND SOFT TISSUES: Unchanged median sternotomy wires . Soft tissues are unremarkable. IMPRESSION:No acute cardiopulmonary abnormalit ies. Signed: Alban Grewal MDReport Verified Date/Time: 02/02/2020 19:18:46 R eading Location: [address] Consult Reading Room [facility] HEPATIC FUNCTION [id number] 18:57:00* Test Item Value Reference Range Interpretation Comments TOTAL PROTEIN (BEAKER) (test code = 770) 7.4 gm/dL 6.0-8.3 ALBUMIN (BEAKER) (test code = 1145) 3.9 g/dL 3.5-5.0 BILIRUBIN TOTAL (BEAKER) (test code = 377) 0.5 mg/dL 0.2-1.2 BILIRUBIN DIRECT (BEAKER) (test code = 706) 0.3 mg/dL 0.1-0.5 ALKALINE PHOSPHATASE (BEAKER) (test code = 346) 131 U/L 40-150 AST (SGOT) (BEAKER) (test code = 353) 31 U/L 5-34 ALT (SGPT) (BEAKER) (test code = 347) 26 U/L 6-55 Commercial Mortgage Broker ID - BSBASIC METABOLIC [id number] 18:57:00* Test Item Value Reference Range Interpretation Comments SODIUM (BEAKER) (test code = 381) 135 meq/L 136-145 L POTASSIUM (BEAKER) (test code = 379) 3.9 meq/L 3.5-5.1 CHLORIDE (BEAKER) (test code = 382) 105 meq/L 98-107 CO2 (BEAKER) (test code = 355) 26 meq/L 22-29 BLOOD UREA NITROGEN (BEAKER) (test code = 354) 14 mg/dL 7-21 CREATININE (BEAKER) (test code = 358) 0.95 mg/dL 0.57-1.25 GLUCOSE RANDOM (BEAKER) (test code = 652) 276 mg/dL 70-105 H CALCIUM (BEAKER) (test code = 697) 10.2 mg/dL 8.4-10.2 EGFR (BEAKER) (test code = 1092) 78 mL/min/1.73 sq m ESTIMATED GFR IS NOT ACCURATE CREATININE CLEARANCE IN PREDICTING GLOMERULAR FILTRATION RATE. ESTIMATED GFR IS NOT APPLICABLE FOR DIALYSIS PATIENTS. Commercial Mortgage Broker ID - BSCBC W/PLT COUNT & AUTO [id number] 18:43:00* Test Item Value Reference Range Interpretation Comments WHITE BLOOD CELL COUNT (BEAKER) (test code = 775) 4.6 K/ L 3.5- 10.5 RED BLOOD CELL COUNT (BEAKER) (test code = 761) 4.00 M/ L 4.63-6 .08 L HEMOGLOBIN (BEAKER) (test code = 410) 13.3 GM/DL 13.7-17.5 L HEMATOCRIT (BEAKER) (test code = 411) 39.3 % 40.1-51.0 L MEAN CORPUSCULAR VOLUME (BEAKER) (test code = 753) 98.3 fL 79. 0-92.2 H MEAN CORPUSCULAR HEMOGLOBIN (BEAKER) (test code = 751) 33.3 pg 25.7-32.2 H MEAN CORPUSCULAR HEMOGLOBIN CONC (BEAKER) (test code = 752) 33.8 GM/DL 32.3-36.5 RED CELL DISTRIBUTION WIDTH (BEAKER) (test code = 412) 13.2 % 11.6-14.4 PLATELET COUNT (BEAKER) (test code = 756) 94 K/CU MM 150-450 L MEAN PLATELET VOLUME (BEAKER) (test code = 754) 10.9 fL 9.4-12 .4 NUCLEATED RED BLOOD CELLS (BEAKER) (test code = 413) 0 /100 WBC 0 -0 NEUTROPHILS RELATIVE PERCENT (BEAKER) (test code = 429) 79 % LYMPHOCYTES RELATIVE PERCENT (BEAKER) (test code = 430) 9 % MONOCYTES RELATIVE PERCENT (BEAKER) (test code = 431) 9 % EOSINOPHILS RELATIVE PERCENT (BEAKER) (test code = 432) 3 % BASOPHILS RELATIVE PERCENT (BEAKER) (test code = 437) 0 % NEUTROPHILS ABSOLUTE COUNT (BEAKER) (test code = 670) 3.64 K/ L 1.78-5.38 LYMPHOCYTES ABSOLUTE COUNT (BEAKER) (test code = 414) 0.39 K/ L 1.32-3.57 L MONOCYTES ABSOLUTE COUNT (BEAKER) (test code = 415) 0.41 K/ L 0. 30-0.82 EOSINOPHILS ABSOLUTE COUNT (BEAKER) (test code = 416) 0.14 K/ L 0.04-0.54 BASOPHILS ABSOLUTE COUNT (BEAKER) (test code = 417) 0.02 K/ L 0. 01-0.08 IMMATURE GRANULOCYTES-RELATIVE PERCENT (BEAKER) (test code = 2801) 0 % 0-1 COMPREHENSIVE METABOLIC [id number] 10:58:00* Test Item Value Reference Range Interpretation Comments TOTAL PROTEIN (BEAKER) (test code = 770) 8.4 gm/dL 6.0-8.3 H ALBUMIN (BEAKER) (test code = 1145) 4.5 g/dL 3.5-5.0 ALKALINE PHOSPHATASE (BEAKER) (test code = 346) 152 U/L 40-150 H BILIRUBIN TOTAL (BEAKER) (test code = 377) 0.6 mg/dL 0.2-1.2 SODIUM (BEAKER) (test code = 381) 137 meq/L 136-145 POTASSIUM (BEAKER) (test code = 379) 4.9 meq/L 3.5-5.1 CHLORIDE (BEAKER) (test code = 382) 107 meq/L 98-107 CO2 (BEAKER) (test code = 355) 25 meq/L 22-29 BLOOD UREA NITROGEN (BEAKER) (test code = 354) 17 mg/dL 7-21 CREATININE (BEAKER) (test code = 358) 1.04 mg/dL 0.57-1.25 GLUCOSE RANDOM (BEAKER) (test code = 652) 174 mg/dL 70-105 H CALCIUM (BEAKER) (test code = 697) 11.3 mg/dL 8.4-10.2 H AST (SGOT) (BEAKER) (test code = 353) 32 U/L 5-34 ALT (SGPT) (BEAKER) (test code = 347) 29 U/L 6-55 EGFR (BEAKER) (test code = 1092) 70 mL/min/1.73 sq m ESTIMATED GFR IS NOT ACCURATE CREATININE CLEARANCE IN PREDICTING GLOMERULAR FILTRATION RATE. ESTIMATED GFR IS NOT APPLICABLE FOR DIALYSIS PATIENTS. Commercial Mortgage Broker ID - HALIMAGBilirubin, [id number] 10:55:00* Test Item Value Reference Range Interpretation Comments Bilirubin, Direct (test code = 1968-7) 0.3 mg/dL 0.1-0.5 VY (test code = VY) Commercial Mortgage Broker ID - CHUCK Lab Interpretation (test code = 70811-7) [facility]IL[facility], [id number] 10:55:00* Test Item Value Reference Range Interpretation Comments BILIRUBIN DIRECT (BEAKER) (test code = 706) 0.3 mg/dL 0.1-0.5 Commercial Mortgage Broker ID - [id number] 10:30:00* Test Item Value Reference Range Interpretation Comments PARTIAL THROMBOPLASTIN TIME (BEAKER) (test code = 760) 25.3 seconds 22.5-36.0 PROTHROMBIN TIME/[id number] 10:29:00* Test Item Value Reference Range Interpretation Comments PROTIME (BEAKER) (test code = 759) 13.0 seconds 11.9-14.2 INR (BEAKER) (test code = 370) 1.0 <=5.9 Effective 12/03/2018: PT Reference Range ChangeNew: 11.9-14.2 Previous: 11.7-14. 7RECOMMENDED COUMADIN/WARFARIN INR THERAPY RANGESSTANDARD DOSE: 2.0-3.0 Include s: PROPHYLAXIS for venous thrombosis, systemic embolization; TREATMENT for venou s thrombosis and/or pulmonary embolus.HIGH RISK: Target INR is 2.5-3.5 for patie nts wiht mechanical heart valves.CBC W/PLT COUNT & AUTO [id number] 10:23:00* Test Item Value Reference Range Interpretation Comments WHITE BLOOD CELL COUNT (BEAKER) (test code = 775) 4.2 K/ L 3.5- 10.5 RED BLOOD CELL COUNT (BEAKER) (test code = 761) 4.26 M/ L 4.63-6 .08 L HEMOGLOBIN (BEAKER) (test code = 410) 14.1 GM/DL 13.7-17.5 HEMATOCRIT (BEAKER) (test code = 411) 42.8 % 40.1-51.0 MEAN CORPUSCULAR VOLUME (BEAKER) (test code = 753) 100.5 fL 79. 0-92.2 H MEAN CORPUSCULAR HEMOGLOBIN (BEAKER) (test code = 751) 33.1 pg 25.7-32.2 H MEAN CORPUSCULAR HEMOGLOBIN CONC (BEAKER) (test code = 752) 32.9 GM/DL 32.3-36.5 RED CELL DISTRIBUTION WIDTH (BEAKER) (test code = 412) 13.4 % 11.6-14.4 PLATELET COUNT (BEAKER) (test code = 756) 111 K/CU MM 150-450 L MEAN PLATELET VOLUME (BEAKER) (test code = 754) 10.3 fL 9.4-12 .4 NUCLEATED RED BLOOD CELLS (BEAKER) (test code = 413) 0 /100 WBC 0 -0 NEUTROPHILS RELATIVE PERCENT (BEAKER) (test code = 429) 69 % LYMPHOCYTES RELATIVE PERCENT (BEAKER) (test code = 430) 15 % MONOCYTES RELATIVE PERCENT (BEAKER) (test code = 431) 10 % EOSINOPHILS RELATIVE PERCENT (BEAKER) (test code = 432) 5 % BASOPHILS RELATIVE PERCENT (BEAKER) (test code = 437) 1 % NEUTROPHILS ABSOLUTE COUNT (BEAKER) (test code = 670) 2.88 K/ L 1.78-5.38 LYMPHOCYTES ABSOLUTE COUNT (BEAKER) (test code = 414) 0.64 K/ L 1.32-3.57 L MONOCYTES ABSOLUTE COUNT (BEAKER) (test code = 415) 0.40 K/ L 0. 30-0.82 EOSINOPHILS ABSOLUTE COUNT (BEAKER) (test code = 416) 0.19 K/ L 0.04-0.54 BASOPHILS ABSOLUTE COUNT (BEAKER) (test code = 417) 0.02 K/ L 0. 01-0.08 IMMATURE GRANULOCYTES-RELATIVE PERCENT (BEAKER) (test code = 2801) 1 % 0-1 Lipid [id number] 15:29:00* Test Item Value Reference Range Interpretation Comments Triglycerides (test code = 2571-8) 123 mg/dL Cholesterol (test code = 2093-3) 181 mg/dL HDL (test code = 2085-9) 59 mg/dL LDL Calculated (test code = 04865-4) 97 mg/dL VY (test code = VY) Triglyceride Reference Range : Low Risk <150 Borderline 150-199 High Risk 200-499 Very High Risk >=500 Cholesterol Reference Range: Low Risk <200 Borderline 200-239 High Risk >240 HDL Cholesterol Reference Range: Low Risk >=60 High Risk <40 LDL Cholesterol Reference Range: Optimal <100 Near Optimal 100-129 Borderline 130-159 High 160-189 Very High >=190 Commercial Mortgage Broker ID - BS [facility] [id number] 15:29:00* Test Item Value Reference Range Interpretation Comments TRIGLYCERIDES (BEAKER) (test code = 540) 123 mg/dL CHOLESTEROL (BEAKER) (test code = 631) 181 mg/dL HDL CHOLESTEROL (BEAKER) (test code = 976) 59 mg/dL LDL CHOLESTEROL CALCULATED (BEAKER) (test code = 633) 97 mg/dL Triglyceride Reference Range: Low Risk <150 Borderline 150-199 High Risk 200-499 Very High Risk >=500Cholesterol Reference Range: Low Risk <200 Borderline 200-239 High Risk >240HDL Cholesterol Reference Range: Low Risk >=60 High Risk <40LDL Cholesterol Reference Range: Optimal <100 Near Optimal 100-129 Borderline 130-159 High 160-189 Very High >=190 Commercial Mortgage Broker ID - BSMR, ABDOMEN, [id number] 13:21:00Referring: Dr. Hugo SimonsTurning Point Mature Adult Care UnitTRONIC LEADLESS PACEMAKER DEVICE - Micra Transcatheter Pacemaker M# [id number] S# [id number] REPORT TECHNIQUE: MRI of the abdomen WITHOUT [...] dilated biliary radical. Mild right intrahepatic ductal dilation.SPLEEN: 13.1 cm splenomegaly.PANCREAS: No focal masses or ductal dilatation. A pancreatic tail cystic lesion measures 1.1 cm and is unchanged. ADRENALS: No adrenal nodules.KIDNEYS/URETERS: No hydronephrosis or solid mass lesions. Simple renal cysts measure up to 3.4 cm in the right interpolar region. No routine follow-up imaging is recommended. PERITONEUM/RETROPERITONEUM: No free fluid.LYMPH NODES: No lymphadenopathy.VESSELS: Conventional hepatic arterial anatomy. The main portal vein measures 1.4 cm in diameter and is patent. GI TRACT: No distention or wall thickening. BONES AND SOFT TISSUES: An area of hyperenhancement in the right chest wall measures 1 cm on axial venous phase image 85. This is new from 10/20/2018. Bilateral gynecomastia. 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 2.An area of hyperenhancement in the right chest wall measures 1 cm and is new from . While this is indeterminate, a bone metastasis is possible, and furthe r evaluation with a chest CT is recommended. An intercostal peripheral nerve she ath tumor is in the differential. 3.The right intrahepatic ductal dilation and s cattered areas of arterial phase hyperenhancement without washout are likely tez atment related change. 4.Cirrhosis with mild splenomegaly. Signed: Matthew Cespedes MD Report Verified Date/Time: 01/06/2020 13:21:41 Reading Location: [facility] C013Y C T Body Reading Room Electronically signed by: MATTHEW CESPEDES MD on 2019 01:21 PM MR abdomen with/without IV [id number] 13:21:00Interface, External Ris In - 01/06/2020 1:23 PM CDTFINAL REPORT TECHNIQUE: MRI of the abdomen WITHOUT [...] these regions and this may be post radi ation/post treatment change in the right hepatic lobe. No washout or pseudocapsu le formation. An area of arterial phase hyperenhancement with washout in segment VII measures 5.3 x 4.1 x 5 cm, previously 3.9 x 2.8 x 4.8 cm. BILIARY: Prior ch olecystectomy. A branching area of nonenhancement in segment VIII is most likely a dilated biliary radical. Mild right intrahepatic ductal dilation.SPLEEN: 13.1 cm splenomegaly.PANCREAS: No focal masses or ductal dilatation. A pancreatic ta il cystic lesion measures 1.1 cm and is unchanged. ADRENALS: No adrenal nodules. KIDNEYS/URETERS: No hydronephrosis or solid mass lesions. Simple renal cysts carlos sure up to 3.4 cm in the right interpolar region. No routine follow-up imaging i s recommended. PERITONEUM/RETROPERITONEUM: No free fluid.LYMPH NODES: No lymphad enopathy.VESSELS: Conventional hepatic arterial anatomy. The main portal vein me asures 1.4 cm in diameter and is patent. GI TRACT: No distention or wall thicken ing. BONES AND SOFT TISSUES: An area of hyperenhancement in the right chest wall measures 1 cm on axial venous phase image 85. This is new from 10/20/2018. Bilat eral gynecomastia. IMPRESSION: 1.The hepatocellular carcinoma in segment VII sibley s increased in size and measures up to 5.3 cm. 2.An area of hyperenhancement in the right chest wall measures 1 cm and is new from 10/20/2018. While this is inde terminate, a bone metastasis is possible, and further evaluation with a chest CT is recommended. An intercostal peripheral nerve sheath tumor is in the differen tial. 3.The right intrahepatic ductal dilation and scattered areas of arterial p hase hyperenhancement without washout are likely treatment related change. 4.Cir rhosis with mild splenomegaly. Signed: Matthew Cespedes MDReport Verified Date/Time: 01/06/2020 13:21:41 Reading Location: [facility] B1 C013Y CT Body Reading Room Gianna ctronically signed by: MATTHEW CESPEDES MD on 01/06/2020 01:21 PM [facility] tumor [id number] 12:07:00* Test Item Value Reference Range Interpretation Comments Alpha-Fetoprotein (test code = 1834-1) 18.4 ng/mL <10.0 H VY (test code = VY) Commercial Mortgage Broker ID Shakira MARION F Lab Interpretation (test code = 94552-3) Abnormal [facility] CenterALPHA FETOPROTEIN (AFP), TUMOR [id number] 12:07:00* Test Item Value Reference Range Interpretation Comments ALPHA-FETOPROTEIN (BEAKER) (test code = 1094) 18.4 ng/mL <10.0 H Commercial Mortgage Broker LISET MARION FHEPATIC FUNCTION [id number] 11:52:00* Test Item Value Reference Range Interpretation Comments TOTAL PROTEIN (BEAKER) (test code = 770) 8.0 gm/dL 6.0-8.3 ALBUMIN (BEAKER) (test code = 1145) 4.2 g/dL 3.5-5.0 BILIRUBIN TOTAL (BEAKER) (test code = 377) 0.6 mg/dL 0.2-1.2 BILIRUBIN DIRECT (BEAKER) (test code = 706) 0.3 mg/dL 0.1-0.5 ALKALINE PHOSPHATASE (BEAKER) (test code = 346) 150 U/L 40-150 AST (SGOT) (BEAKER) (test code = 353) 31 U/L 5-34 ALT (SGPT) (BEAKER) (test code = 347) 27 U/L 6-55 Commercial Mortgage Broker ID Shakira MARION FBASIC METABOLIC [id number] 11:52:00* Test Item Value Reference Range Interpretation Comments SODIUM (BEAKER) (test code = 381) 137 meq/L 136-145 POTASSIUM (BEAKER) (test code = 379) 4.7 meq/L 3.5-5.1 CHLORIDE (BEAKER) (test code = 382) 106 meq/L 98-107 CO2 (BEAKER) (test code = 355) 26 meq/L 22-29 BLOOD UREA NITROGEN (BEAKER) (test code = 354) 12 mg/dL 7-21 CREATININE (BEAKER) (test code = 358) 0.84 mg/dL 0.57-1.25 GLUCOSE RANDOM (BEAKER) (test code = 652) 143 mg/dL 70-105 H CALCIUM (BEAKER) (test code = 697) 10.8 mg/dL 8.4-10.2 H EGFR (BEAKER) (test code = 1092) 90 mL/min/1.73 sq m ESTIMATED GFR IS NOT ACCURATE CREATININE CLEARANCE IN PREDICTING GLOMERULAR FILTRATION RATE. ESTIMATED GFR IS NOT APPLICABLE FOR DIALYSIS PATIENTS. Commercial Mortgage Broker LISET MARION FPROTHROMBIN TIME/[id number] 11:36:00* Test Item Value Reference Range Interpretation Comments PROTIME (BEAKER) (test code = 759) 12.9 seconds 11.9-14.2 INR (BEAKER) (test code = 370) 1.0 <=5.9 Effective 12/03/2018: PT Reference Range ChangeNew: 11.9-14.2 Previous: 11.7-14. 7RECOMMENDED COUMADIN/WARFARIN INR THERAPY RANGESSTANDARD DOSE: 2.0-3.0 Include s: PROPHYLAXIS for venous thrombosis, systemic embolization; TREATMENT for venou s thrombosis and/or pulmonary embolus.HIGH RISK: Target INR is 2.5-3.5 for patie nts wiht mechanical heart valves.CBC W/PLT COUNT & AUTO [id number] 11:30:00* Test Item Value Reference Range Interpretation Comments WHITE BLOOD CELL COUNT (BEAKER) (test code = 775) 3.8 K/ L 3.5- 10.5 RED BLOOD CELL COUNT (BEAKER) (test code = 761) 4.17 M/ L 4.63-6 .08 L HEMOGLOBIN (BEAKER) (test code = 410) 13.4 GM/DL 13.7-17.5 L HEMATOCRIT (BEAKER) (test code = 411) 41.8 % 40.1-51.0 MEAN CORPUSCULAR VOLUME (BEAKER) (test code = 753) 100.2 fL 79. 0-92.2 H MEAN CORPUSCULAR HEMOGLOBIN (BEAKER) (test code = 751) 32.1 pg 25.7-32.2 MEAN CORPUSCULAR HEMOGLOBIN CONC (BEAKER) (test code = 752) 32.1 GM/DL 32.3-36.5 L RED CELL DISTRIBUTION WIDTH (BEAKER) (test code = 412) 13.9 % 11.6-14.4 PLATELET COUNT (BEAKER) (test code = 756) 108 K/CU MM 150-450 L MEAN PLATELET VOLUME (BEAKER) (test code = 754) 9.8 fL 9.4-12 .4 NUCLEATED RED BLOOD CELLS (BEAKER) (test code = 413) 0 /100 WBC 0 -0 NEUTROPHILS RELATIVE PERCENT (BEAKER) (test code = 429) 69 % LYMPHOCYTES RELATIVE PERCENT (BEAKER) (test code = 430) 14 % MONOCYTES RELATIVE PERCENT (BEAKER) (test code = 431) 10 % EOSINOPHILS RELATIVE PERCENT (BEAKER) (test code = 432) 6 % BASOPHILS RELATIVE PERCENT (BEAKER) (test code = 437) 1 % NEUTROPHILS ABSOLUTE COUNT (BEAKER) (test code = 670) 2.65 K/ L 1.78-5.38 LYMPHOCYTES ABSOLUTE COUNT (BEAKER) (test code = 414) 0.53 K/ L 1.32-3.57 L MONOCYTES ABSOLUTE COUNT (BEAKER) (test code = 415) 0.37 K/ L 0. 30-0.82 EOSINOPHILS ABSOLUTE COUNT (BEAKER) (test code = 416) 0.24 K/ L 0.04-0.54 BASOPHILS ABSOLUTE COUNT (BEAKER) (test code = 417) 0.02 K/ L 0. 01-0.08 IMMATURE GRANULOCYTES-RELATIVE PERCENT (BEAKER) (test code = 2801) 1 % 0-1 [id number] 09:19:00* Test Item Value Reference Range Interpretation Comments POC-Creatinine (test code = 1859) 0.8 mg/dL 0.6-1.3 : TESTED AT [facility] [address], [address]: Commercial Mortgage Broker/Mounter Sousaphones ID = [id number] for YAMBA, GLYNA POC-EGFR (test code = 1860) 95 mL/min/1.73M2 [facility] CenterPOCT-[id number] 09:19:00* Test Item Value Reference Range Interpretation Comments POC-CREATININE (BEAKER) (test code = 1859) 0.8 mg/dL 0.6-1.3 : TESTED AT [address], [address]: Commercial Mortgage Broker/Mounter Sousaphones ID = [id number] for YAMBA, GLYNA POC-EGFR (BEAKER) (test code = 1860) 95 mL/min/1.73M2 POCT-GLUCOSE [id number] 09:17:00* Test Item Value Reference Range Interpretation Comments POC-GLUCOSE METER (BEAKER) (test code = 1538) 126 mg/dL 70-110 H : TESTED AT [facility] [id number] [place] [id number]: Commercial Mortgage Broker/Mounter Sousaphones ID = [id number] for YAMNOREEN, GLYNA POCT-GLUCOSE [id number] 13:55:00* Test Item Value Reference Range Interpretation Comments POC-GLUCOSE METER (BEAKER) (test code = 1538) 214 mg/dL 70-110 H : TESTED AT [address], [address]: Commercial Mortgage Broker/Mounter Sousaphones ID = [id number] for CIPRIANO DORANTES POCT-GLUCOSE [id number] 08:21:00* Test Item Value Reference Range Interpretation Comments POC-GLUCOSE METER (BEAKER) (test code = 1538) 227 mg/dL 70-110 H : TESTED AT [address], [address]: Commercial Mortgage Broker/Mounter Sousaphones ID = [id number] for BRIAN ZHAO BASIC METABOLIC [id number] 06:17:00* Test Item Value Reference Range Interpretation Comments SODIUM (BEAKER) (test code = 381) 139 meq/L 136-145 POTASSIUM (BEAKER) (test code = 379) 3.6 meq/L 3.5-5.1 CHLORIDE (BEAKER) (test code = 382) 108 meq/L 98-107 H CO2 (BEAKER) (test code = 355) 24 meq/L 22-29 BLOOD UREA NITROGEN (BEAKER) (test code = 354) 8 mg/dL 7-21 CREATININE (BEAKER) (test code = 358) 0.82 mg/dL 0.57-1.25 GLUCOSE RANDOM (BEAKER) (test code = 652) 187 mg/dL 70-105 H CALCIUM (BEAKER) (test code = 697) 9.8 mg/dL 8.4-10.2 EGFR (BEAKER) (test code = 1092) 92 mL/min/1.73 sq m ESTIMATED GFR IS NOT ACCURATE CREATININE CLEARANCE IN PREDICTING GLOMERULAR FILTRATION RATE. ESTIMATED GFR IS NOT APPLICABLE FOR DIALYSIS PATIENTS. Commercial Mortgage Broker ID - JESSY WCBC W/PLT COUNT & AUTO [id number] 05:14:00* Test Item Value Reference Range Interpretation Comments WHITE BLOOD CELL COUNT (BEAKER) (test code = 775) 4.2 K/ L 3.5- 10.5 RED BLOOD CELL COUNT (BEAKER) (test code = 761) 3.52 M/ L 4.63-6 .08 L HEMOGLOBIN (BEAKER) (test code = 410) 11.6 GM/DL 13.7-17.5 L HEMATOCRIT (BEAKER) (test code = 411) 34.2 % 40.1-51.0 L MEAN CORPUSCULAR VOLUME (BEAKER) (test code = 753) 97.2 fL 79. 0-92.2 H MEAN CORPUSCULAR HEMOGLOBIN (BEAKER) (test code = 751) 33.0 pg 25.7-32.2 H MEAN CORPUSCULAR HEMOGLOBIN CONC (BEAKER) (test code = 752) 33.9 GM/DL 32.3-36.5 RED CELL DISTRIBUTION WIDTH (BEAKER) (test code = 412) 15.0 % 11.6-14.4 H PLATELET COUNT (BEAKER) (test code = 756) 98 K/CU MM 150-450 L MEAN PLATELET VOLUME (BEAKER) (test code = 754) 10.8 fL 9.4-12 .4 NUCLEATED RED BLOOD CELLS (BEAKER) (test code = 413) 0 /100 WBC 0 -0 NEUTROPHILS RELATIVE PERCENT (BEAKER) (test code = 429) 67 % LYMPHOCYTES RELATIVE PERCENT (BEAKER) (test code = 430) 8 % MONOCYTES RELATIVE PERCENT (BEAKER) (test code = 431) 11 % EOSINOPHILS RELATIVE PERCENT (BEAKER) (test code = 432) 12 % BASOPHILS RELATIVE PERCENT (BEAKER) (test code = 437) 1 % NEUTROPHILS ABSOLUTE COUNT (BEAKER) (test code = 670) 2.83 K/ L 1.78-5.38 LYMPHOCYTES ABSOLUTE COUNT (BEAKER) (test code = 414) 0.35 K/ L 1.32-3.57 L MONOCYTES ABSOLUTE COUNT (BEAKER) (test code = 415) 0.47 K/ L 0. 30-0.82 EOSINOPHILS ABSOLUTE COUNT (BEAKER) (test code = 416) 0.51 K/ L 0.04-0.54 BASOPHILS ABSOLUTE COUNT (BEAKER) (test code = 417) 0.02 K/ L 0. 01-0.08 IMMATURE GRANULOCYTES-RELATIVE PERCENT (BEAKER) (test code = 2801) 1 % 0-1 POCT-GLUCOSE [id number] 21:18:00* Test Item Value Reference Range Interpretation Comments POC-GLUCOSE METER (BEAKER) (test code = 1538) 267 mg/dL 70-110 H : TESTED AT [place] [id number] [facility], [address]: Commercial Mortgage Broker/Mounter Sousaphones ID = [id number] for Eneida Alvarez POCT-GLUCOSE [id number] 17:28:00* Test Item Value Reference Range Interpretation Comments POC-GLUCOSE METER (BEAKER) (test code = 1538) 260 mg/dL 70-110 H : TESTED AT [place] [id number] [facility], [address]: Commercial Mortgage Broker/Mounter Sousaphones ID = [id number] for John Barron POCT-GLUCOSE [id number] 11:32:00* Test Item Value Reference Range Interpretation Comments POC-GLUCOSE METER (BEAKER) (test code = 1538) 314 mg/dL 70-110 H : TESTED AT [place] [id number] [facility], [address]: Commercial Mortgage Broker/Mounter Sousaphones ID = [id number] for Jhon Barron HEPATIC FUNCTION [id number] 08:40:00* Test Item Value Reference Range Interpretation Comments TOTAL PROTEIN (BEAKER) (test code = 770) 6.7 gm/dL 6.0-8.3 ALBUMIN (BEAKER) (test code = 1145) 3.6 g/dL 3.5-5.0 BILIRUBIN TOTAL (BEAKER) (test code = 377) 0.4 mg/dL 0.2-1.2 BILIRUBIN DIRECT (BEAKER) (test code = 706) 0.2 mg/dL 0.1-0.5 ALKALINE PHOSPHATASE (BEAKER) (test code = 346) 118 U/L 40-150 AST (SGOT) (BEAKER) (test code = 353) 27 U/L 5-34 ALT (SGPT) (BEAKER) (test code = 347) 24 U/L 6-55 Commercial Mortgage Broker ID - AMAYA MPOCT-GLUCOSE [id number] 07:43:00* Test Item Value Reference Range Interpretation Comments POC-GLUCOSE METER (BEAKER) (test code = 1538) 238 mg/dL 70-110 H : TESTED AT [address], [address]: Commercial Mortgage Broker/Mounter Sousaphones ID = [id number] for John Barron CBC W/PLT COUNT & AUTO [id number] 01:59:00* Test Item Value Reference Range Interpretation Comments WHITE BLOOD CELL COUNT (BEAKER) (test code = 775) 4.5 K/ L 3.5- 10.5 RED BLOOD CELL COUNT (BEAKER) (test code = 761) 3.60 M/ L 4.63-6 .08 L HEMOGLOBIN (BEAKER) (test code = 410) 11.6 GM/DL 13.7-17.5 L HEMATOCRIT (BEAKER) (test code = 411) 34.5 % 40.1-51.0 L MEAN CORPUSCULAR VOLUME (BEAKER) (test code = 753) 95.8 fL 79. 0-92.2 H MEAN CORPUSCULAR HEMOGLOBIN (BEAKER) (test code = 751) 32.2 pg 25.7-32.2 MEAN CORPUSCULAR HEMOGLOBIN CONC (BEAKER) (test code = 752) 33.6 GM/DL 32.3-36.5 RED CELL DISTRIBUTION WIDTH (BEAKER) (test code = 412) 14.9 % 11.6-14.4 H PLATELET COUNT (BEAKER) (test code = 756) 102 K/CU MM 150-450 L MEAN PLATELET VOLUME (BEAKER) (test code = 754) 10.4 fL 9.4-12 .4 NUCLEATED RED BLOOD CELLS (BEAKER) (test code = 413) 0 /100 WBC 0 -0 NEUTROPHILS RELATIVE PERCENT (BEAKER) (test code = 429) 72 % LYMPHOCYTES RELATIVE PERCENT (BEAKER) (test code = 430) 8 % MONOCYTES RELATIVE PERCENT (BEAKER) (test code = 431) 9 % EOSINOPHILS RELATIVE PERCENT (BEAKER) (test code = 432) 9 % BASOPHILS RELATIVE PERCENT (BEAKER) (test code = 437) 0 % NEUTROPHILS ABSOLUTE COUNT (BEAKER) (test code = 670) 3.23 K/ L 1.78-5.38 LYMPHOCYTES ABSOLUTE COUNT (BEAKER) (test code = 414) 0.35 K/ L 1.32-3.57 L MONOCYTES ABSOLUTE COUNT (BEAKER) (test code = 415) 0.42 K/ L 0. 30-0.82 EOSINOPHILS ABSOLUTE COUNT (BEAKER) (test code = 416) 0.42 K/ L 0.04-0.54 BASOPHILS ABSOLUTE COUNT (BEAKER) (test code = 417) 0.02 K/ L 0. 01-0.08 IMMATURE GRANULOCYTES-RELATIVE PERCENT (BEAKER) (test code = 2801) 1 % 0-1 [id number] 01:30:00* Test Item Value Reference Range Interpretation Comments MAGNESIUM (BEAKER) (test code = 627) 1.4 mg/dL 1.6-2.6 L Commercial Mortgage Broker ID - AMAYA MBASIC METABOLIC [id number] 01:30:00* Test Item Value Reference Range Interpretation Comments SODIUM (BEAKER) (test code = 381) 137 meq/L 136-145 POTASSIUM (BEAKER) (test code = 379) 3.7 meq/L 3.5-5.1 CHLORIDE (BEAKER) (test code = 382) 106 meq/L 98-107 CO2 (BEAKER) (test code = 355) 25 meq/L 22-29 BLOOD UREA NITROGEN (BEAKER) (test code = 354) 10 mg/dL 7-21 CREATININE (BEAKER) (test code = 358) 0.91 mg/dL 0.57-1.25 GLUCOSE RANDOM (BEAKER) (test code = 652) 260 mg/dL 70-105 H CALCIUM (BEAKER) (test code = 697) 10.0 mg/dL 8.4-10.2 EGFR (BEAKER) (test code = 1092) 82 mL/min/1.73 sq m ESTIMATED GFR IS NOT ACCURATE CREATININE CLEARANCE IN PREDICTING GLOMERULAR FILTRATION RATE. ESTIMATED GFR IS NOT APPLICABLE FOR DIALYSIS PATIENTS. Commercial Mortgage Broker ID - AMAYA MPOCT-GLUCOSE [id number] 21:34:00* Test Item Value Reference Range Interpretation Comments POC-GLUCOSE METER (BEAKER) (test code = 1538) 278 mg/dL 70-110 H : TESTED AT [place] [id number] [facility], [address]: Commercial Mortgage Broker/Mounter Sousaphones ID = [id number] for FRAN JULIEN POCT-GLUCOSE [id number] 15:25:00* Test Item Value Reference Range Interpretation Comments POC-GLUCOSE METER (BEAKER) (test code = 1538) 264 mg/dL 70-110 H : TESTED AT [address], [address]: Commercial Mortgage Broker/Mounter Sousaphones ID = [id number] for CIPRIANO DORANTES POCT-GLUCOSE [id number] 12:01:00* Test Item Value Reference Range Interpretation Comments POC-GLUCOSE METER (BEAKER) (test code = 1538) 301 mg/dL 70-110 H : TESTED AT [address], [address]: Commercial Mortgage Broker/Mounter Sousaphones ID = [id number] for JACINDA MCDERMOTT POCT-GLUCOSE [id number] 07:35:00* Test Item Value Reference Range Interpretation Comments POC-GLUCOSE METER (BEAKER) (test code = 1538) 213 mg/dL 70-110 H : TESTED AT [place] [id number] [facility], [address]: Commercial Mortgage Broker/Mounter Sousaphones ID = [id number] for FRANNIKUNJJULIEN COMPREHENSIVE METABOLIC [id number] 05:39:00* Test Item Value Reference Range Interpretation Comments TOTAL PROTEIN (BEAKER) (test code = 770) 6.7 gm/dL 6.0-8.3 ALBUMIN (BEAKER) (test code = 1145) 3.5 g/dL 3.5-5.0 ALKALINE PHOSPHATASE (BEAKER) (test code = 346) 102 U/L 40-150 BILIRUBIN TOTAL (BEAKER) (test code = 377) 0.6 mg/dL 0.2-1.2 SODIUM (BEAKER) (test code = 381) 137 meq/L 136-145 POTASSIUM (BEAKER) (test code = 379) 3.5 meq/L 3.5-5.1 CHLORIDE (BEAKER) (test code = 382) 107 meq/L 98-107 CO2 (BEAKER) (test code = 355) 23 meq/L 22-29 BLOOD UREA NITROGEN (BEAKER) (test code = 354) 7 mg/dL 7-21 CREATININE (BEAKER) (test code = 358) 0.87 mg/dL 0.57-1.25 GLUCOSE RANDOM (BEAKER) (test code = 652) 169 mg/dL 70-105 H CALCIUM (BEAKER) (test code = 697) 10.1 mg/dL 8.4-10.2 AST (SGOT) (BEAKER) (test code = 353) 21 U/L 5-34 ALT (SGPT) (BEAKER) (test code = 347) 22 U/L 6-55 EGFR (BEAKER) (test code = 1092) 86 mL/min/1.73 sq m ESTIMATED GFR IS NOT ACCURATE CREATININE CLEARANCE IN PREDICTING GLOMERULAR FILTRATION RATE. ESTIMATED GFR IS NOT APPLICABLE FOR DIALYSIS PATIENTS. Commercial Mortgage Broker ID - AMAYA MCBC W/PLT COUNT & AUTO [id number] 05:15:00* Test Item Value Reference Range Interpretation Comments WHITE BLOOD CELL COUNT (BEAKER) (test code = 775) 4.3 K/ L 3.5- 10.5 RED BLOOD CELL COUNT (BEAKER) (test code = 761) 3.76 M/ L 4.63-6 .08 L HEMOGLOBIN (BEAKER) (test code = 410) 12.2 GM/DL 13.7-17.5 L HEMATOCRIT (BEAKER) (test code = 411) 36.4 % 40.1-51.0 L MEAN CORPUSCULAR VOLUME (BEAKER) (test code = 753) 96.8 fL 79. 0-92.2 H MEAN CORPUSCULAR HEMOGLOBIN (BEAKER) (test code = 751) 32.4 pg 25.7-32.2 H MEAN CORPUSCULAR HEMOGLOBIN CONC (BEAKER) (test code = 752) 33.5 GM/DL 32.3-36.5 RED CELL DISTRIBUTION WIDTH (BEAKER) (test code = 412) 15.1 % 11.6-14.4 H PLATELET COUNT (BEAKER) (test code = 756) 113 K/CU MM 150-450 L MEAN PLATELET VOLUME (BEAKER) (test code = 754) 10.4 fL 9.4-12 .4 NUCLEATED RED BLOOD CELLS (BEAKER) (test code = 413) 0 /100 WBC 0 -0 NEUTROPHILS RELATIVE PERCENT (BEAKER) (test code = 429) 74 % LYMPHOCYTES RELATIVE PERCENT (BEAKER) (test code = 430) 8 % MONOCYTES RELATIVE PERCENT (BEAKER) (test code = 431) 10 % EOSINOPHILS RELATIVE PERCENT (BEAKER) (test code = 432) 8 % BASOPHILS RELATIVE PERCENT (BEAKER) (test code = 437) 1 % NEUTROPHILS ABSOLUTE COUNT (BEAKER) (test code = 670) 3.19 K/ L 1.78-5.38 LYMPHOCYTES ABSOLUTE COUNT (BEAKER) (test code = 414) 0.34 K/ L 1.32-3.57 L MONOCYTES ABSOLUTE COUNT (BEAKER) (test code = 415) 0.45 K/ L 0. 30-0.82 EOSINOPHILS ABSOLUTE COUNT (BEAKER) (test code = 416) 0.33 K/ L 0.04-0.54 BASOPHILS ABSOLUTE COUNT (BEAKER) (test code = 417) 0.02 K/ L 0. 01-0.08 IMMATURE GRANULOCYTES-RELATIVE PERCENT (BEAKER) (test code = 2801) 0 % 0-1 CT, [id number] 01:54:00Referring: Dr. Hugo Castillo oral contrastFINAL REPORT CT, ABDOMEN \\T\\ PELVIS, WITHOUT \\T\\ WITH IV CONTRAST INDICATION: Abdominal pain, acute, nonlocalized COMPARISON: None TECHNI QUE:CT abdomen and pelvis without and with IV contrast Coronal and sagittal refo rmatted images obtained. DOSE REDUCTION: Dose modulation, iterative reconstruct ion, and/or weight-based adjustment of the mA/kV was utilized to reduce the radi ation dose to as low as reasonably achievable. FINDINGS: Lower thorax: Bilateral lower lobe dependent atelectasis. No pleural effusion. The heart is globally en larged. No pericardial effusion. Dense atherosclerotic calcifications of the cor onary arteries. Postsurgical changes of a median sternotomy. Metallic device wit hin the right ventricle, correlate clinically. Calcifications of the aortic valv e. Liver: Unchanged heterogeneously hypodense lesion in the posterior right hepa tic lobe measuring approximately 5.7 cm however incompletely characterized on th is examination. Unchanged tubular hypodensity in the superior right hepatic lobe may represent biliary ductal dilatation however incompletely evaluated on this examination. Unchanged. Nodular appearance of the liver suggests cirrhosis.Gallb ladder and biliary tree: Postsurgical changes of a history of cholecystectomy. N o intra or extrahepatic biliary ductal dilatation.Pancreas: No acute findings.Sp eli: No acute findingsAdrenal Glands: No acute findings.Kidneys and ureters: Bi lateral perinephric stranding. Scattered areas of cortical renal scarring, worse on the right. 3.1 cm right interpole hypodensity is incompletely characterized on this examination remains indeterminate. Vascular calcifications. No hydroneph rosis. Mild left hydroureter with a 1 mm nonobstructing calcification in the dis mildred left ureter, possibly urolithiasis. Noncontrast phase demonstrates retained contrast material in the bilateral renal parenchyma correlate four recent admini stration of contrast material as acute tubular necrosis can have this appearance .Bladder and reproductive organs: The bladder is unremarkable. The prostate glan d is enlarged. Stomach and Duodenum: No significant findings.Small and large int estine: Normal calibers.Appendix: Normal. Major vascular structures: Atheroscle rotic calcifications of the normal caliber abdominal aorta and bilateral iliac a rteries.Peritoneum and retroperitoneum: No free air, fluid or adenopathy. [place]: No acute bony abnormality.Additional findings: Fat-containing umbilical hernia. Post changes of the right inguinal subcutaneous soft tissues. IMPRESSIO N: No acute abnormality in the abdomen or pelvis. Grossly stable mass effect wit h posterior right hepatic lobe however incompletely evaluated on this examinatio n. Nodular contour of the liver suggests cirrhosis. Postsurgical changes of cho lecystectomy. Mild left hydroureter with a 1 mm nonobstructing calcification in the distal left ureter, possibly urolithiasis. Noncontrast phase demonstrates re tained contrast material in the bilateral renal parenchyma correlate four recent administration of contrast material as acute tubular necrosis can have this kaylah earance. Prostatomegaly. Signed: Karen Paul MDReport Verified Date/Time : 09/06/2019 01:54:08 Electronically signed by: KAREN PAUL MD o n 09/06/2019 01:[address] abdomen/pelvis without & with IV [id number] 01:54:00Interface, External Ris In - 09/06/2019 1:[address], ABDOMEN \\T\\ PELVIS, WITHOUT \\T\\ WITH IV CONTRAST INDICATION: Abdominal pain, acute, nonlocalized COMPARISON: None TECHNIQUE:CT abdomen and pelvis without and with IV [...] Unchanged. Nodular appearance of the liver suggests cirrhosis.Gallbladder and biliary tree: Postsurgical changes of a history of cholecystectomy. No intra or extrahepatic biliary ductal dilatation.Pancreas: No acute findings.Spleen: No acute findingsAdrenal Glands: No acute findings.Kidneys and ureters: Bilateral perinephric stranding. Scattered areas of cortical renal scarring, worse on the right. 3.1 cm right interpole hypodensity is incompletely characterized on this examination remains indeterminate. Vascular calcifications. No hydronephrosis. Mild left hydroureter with a 1 mm nonobstructing calcification in the distal left ureter, possibly ur olithiasis. Noncontrast phase demonstrates retained contrast material in the dilcia ateral renal parenchyma correlate four recent administration of contrast materia l as acute tubular necrosis can have this appearance.Bladder and reproductive or pako: The bladder is unremarkable. The prostate gland is enlarged. Stomach and D uodenum: No significant findings.Small and large intestine: Normal calibers.Appe ndix: Normal. Major vascular structures: Atherosclerotic calcifications of the normal caliber abdominal aorta and bilateral iliac arteries.Peritoneum and retro peritoneum: No free air, fluid or adenopathy. Skeleton: No acute bony abnorm ality.Additional findings: Fat-containing umbilical hernia. Post changes of the right inguinal subcutaneous soft tissues. IMPRESSION: No acute abnormality in t he abdomen or pelvis. Grossly stable mass effect with posterior right hepatic lo be however incompletely evaluated on this examination. Nodular contour of the li melonie suggests cirrhosis. Postsurgical changes of cholecystectomy. Mild left hydr oureter with a 1 mm nonobstructing calcification in the distal left ureter, poss ibly urolithiasis. Noncontrast phase demonstrates retained contrast material in the bilateral renal parenchyma correlate four recent administration of contrast material as acute tubular necrosis can have this appearance. Prostatomegaly. Sig ann: Karen Paul MDReport Verified Date/Time: 09/06/2019 01:54:08 Gianna ctronically signed by: KAREN PAUL MD on 09/06/2019 01:54 [facility] [id number] 21:24:00* Test Item Value Reference Range Interpretation Comments POC-GLUCOSE METER (BEAKER) (test code = 1538) 256 mg/dL 70-110 H : TESTED AT [place] [id number] [facility], [address]: Commercial Mortgage Broker/Mounter Sousaphones ID = [id number] for JULIEN WEBER POCT-GLUCOSE [id number] 13:13:00* Test Item Value Reference Range Interpretation Comments POC-GLUCOSE METER (BEAKER) (test code = 1538) 250 mg/dL 70-110 H : TESTED AT [place] [address] [facility], [address]: Commercial Mortgage Broker/Mounter Sousaphones ID = [id number] for JACINDA MCDERMOTT POCT-GLUCOSE [id number] 08:17:00* Test Item Value Reference Range Interpretation Comments POC-GLUCOSE METER (BEAKER) (test code = 1538) 159 mg/dL 70-110 H : TESTED AT [address], [address]: Commercial Mortgage Broker/Mounter Sousaphones ID = [id number] for SARAH ALVAREZ [id number] 03:34:00* Test Item Value Reference Range Interpretation Comments MAGNESIUM (BEAKER) (test code = 627) 1.5 mg/dL 1.6-2.6 L Commercial Mortgage Broker ID - AMAYA MBASIC METABOLIC [id number] 03:34:00* Test Item Value Reference Range Interpretation Comments SODIUM (BEAKER) (test code = 381) 140 meq/L 136-145 POTASSIUM (BEAKER) (test code = 379) 3.5 meq/L 3.5-5.1 CHLORIDE (BEAKER) (test code = 382) 111 meq/L 98-107 H CO2 (BEAKER) (test code = 355) 21 meq/L 22-29 L BLOOD UREA NITROGEN (BEAKER) (test code = 354) 8 mg/dL 7-21 CREATININE (BEAKER) (test code = 358) 0.90 mg/dL 0.57-1.25 GLUCOSE RANDOM (BEAKER) (test code = 652) 193 mg/dL 70-105 H CALCIUM (BEAKER) (test code = 697) 10.3 mg/dL 8.4-10.2 H EGFR (BEAKER) (test code = 1092) 83 mL/min/1.73 sq m ESTIMATED GFR IS NOT ACCURATE CREATININE CLEARANCE IN PREDICTING GLOMERULAR FILTRATION RATE. ESTIMATED GFR IS NOT APPLICABLE FOR DIALYSIS PATIENTS. Commercial Mortgage Broker ID - AMAYA MHEPATIC FUNCTION [id number] 03:34:00* Test Item Value Reference Range Interpretation Comments TOTAL PROTEIN (BEAKER) (test code = 770) 7.2 gm/dL 6.0-8.3 ALBUMIN (BEAKER) (test code = 1145) 3.8 g/dL 3.5-5.0 BILIRUBIN TOTAL (BEAKER) (test code = 377) 0.6 mg/dL 0.2-1.2 BILIRUBIN DIRECT (BEAKER) (test code = 706) 0.3 mg/dL 0.1-0.5 ALKALINE PHOSPHATASE (BEAKER) (test code = 346) 104 U/L 40-150 AST (SGOT) (BEAKER) (test code = 353) 22 U/L 5-34 ALT (SGPT) (BEAKER) (test code = 347) 24 U/L 6-55 Commercial Mortgage Broker ID - AMAYA MPROTHROMBIN [id number] 03:16:00* Test Item Value Reference Range Interpretation Comments PROTIME (BEAKER) (test code = 759) 14.0 seconds 11.9-14.2 INR (BEAKER) (test code = 370) 1.1 <=5.9 Effective 12/03/2018: PT Reference Range ChangeNew: 11.9-14.2 Previous: 11.7-14. 7RECOMMENDED COUMADIN/WARFARIN INR THERAPY RANGESSTANDARD DOSE: 2.0-3.0 Include s: PROPHYLAXIS for venous thrombosis, systemic embolization; TREATMENT for venou s thrombosis and/or pulmonary embolus.HIGH RISK: Target INR is 2.5-3.5 for patie nts wiht mechanical heart valves.CBC W/PLT COUNT & AUTO [id number] 03:12:00* Test Item Value Reference Range Interpretation Comments WHITE BLOOD CELL COUNT (BEAKER) (test code = 775) 4.9 K/ L 3.5- 10.5 RED BLOOD CELL COUNT (BEAKER) (test code = 761) 3.98 M/ L 4.63-6 .08 L HEMOGLOBIN (BEAKER) (test code = 410) 12.5 GM/DL 13.7-17.5 L HEMATOCRIT (BEAKER) (test code = 411) 38.9 % 40.1-51.0 L MEAN CORPUSCULAR VOLUME (BEAKER) (test code = 753) 97.7 fL 79. 0-92.2 H MEAN CORPUSCULAR HEMOGLOBIN (BEAKER) (test code = 751) 31.4 pg 25.7-32.2 MEAN CORPUSCULAR HEMOGLOBIN CONC (BEAKER) (test code = 752) 32.1 GM/DL 32.3-36.5 L RED CELL DISTRIBUTION WIDTH (BEAKER) (test code = 412) 15.3 % 11.6-14.4 H PLATELET COUNT (BEAKER) (test code = 756) 122 K/CU MM 150-450 L MEAN PLATELET VOLUME (BEAKER) (test code = 754) 9.9 fL 9.4-12 .4 NUCLEATED RED BLOOD CELLS (BEAKER) (test code = 413) 0 /100 WBC 0 -0 NEUTROPHILS RELATIVE PERCENT (BEAKER) (test code = 429) 75 % LYMPHOCYTES RELATIVE PERCENT (BEAKER) (test code = 430) 8 % MONOCYTES RELATIVE PERCENT (BEAKER) (test code = 431) 11 % EOSINOPHILS RELATIVE PERCENT (BEAKER) (test code = 432) 7 % BASOPHILS RELATIVE PERCENT (BEAKER) (test code = 437) 0 % NEUTROPHILS ABSOLUTE COUNT (BEAKER) (test code = 670) 3.65 K/ L 1.78-5.38 LYMPHOCYTES ABSOLUTE COUNT (BEAKER) (test code = 414) 0.37 K/ L 1.32-3.57 L MONOCYTES ABSOLUTE COUNT (BEAKER) (test code = 415) 0.53 K/ L 0. 30-0.82 EOSINOPHILS ABSOLUTE COUNT (BEAKER) (test code = 416) 0.32 K/ L 0.04-0.54 BASOPHILS ABSOLUTE COUNT (BEAKER) (test code = 417) 0.02 K/ L 0. 01-0.08 IMMATURE GRANULOCYTES-RELATIVE PERCENT (BEAKER) (test code = 2801) 0 % 0-1 POCT-GLUCOSE [id number] 21:13:00* Test Item Value Reference Range Interpretation Comments POC-GLUCOSE METER (BEAKER) (test code = 1538) 150 mg/dL 70-110 H : TESTED AT [facility] [address] [facility], [address]: Commercial Mortgage Broker/Mounter Sousaphones ID = [id number] for BRIGETTE BARBER III POCT-GLUCOSE [id number] 15:14:00* Test Item Value Reference Range Interpretation Comments POC-GLUCOSE METER (BEAKER) (test code = 1538) 161 mg/dL 70-110 H : TESTED AT [place] [id number] [facility], [address]: Commercial Mortgage Broker/Mounter Sousaphones ID = [id number] for Barron, John POCT-GLUCOSE [id number] 11:27:00* Test Item Value Reference Range Interpretation Comments POC-GLUCOSE METER (BEAKER) (test code = 1538) 182 mg/dL 70-110 H : TESTED AT [place] [id number] [facility], [address]: Commercial Mortgage Broker/Mounter Sousaphones ID = [id number] for Anna Barronlon 2D Echo W/Doppler(CW/PW/Color)2019-09-04 09:59:55Ejection FractionSLE ECHO HEARTLAB MKCKESSON CPACSInterface, External Ris In - 09/04/2019 10:00 AM CSTTransthoracic Echocardiography Report (TTE) Demographics Patient Name IVONE HARDY Date of Study 09/03/2019 PATRICK Gender Male Visit Number [id number] Race Unknown Room Number 1009 Number Date of 1945 Referring Jamia Rodríguez Physician MD Van Age 74 year(s) Surfboard Maker Shaylee Weber SEAN Interpreting Shakeel Alanis, Physician Fellow Scot Saavedra MD Procedure Type of Study TTE procedure:2DECHO W DOPPLER(CW/PW/COLOR) (Routine) Indications:Acute Chest Pain/ Suspected CAD.Clin ical HistoryFormer smoker, ACB x4 1991, L cath 02/09/17, [place], [place], Pacemaker 11/09/17 , R/Lcath 11/16/17, Liver cirrhosis, Hep C HTN, ICMP, Liver cancerHGB 11.8HCT 36. 0 %Contrast Medium: Definity.Height: 68 inches Weight: 92.08 kg (203 lbs) BSA: 2 .06 m^2 BMI: 30.87 kg/m^2HR: 54 bpm BP: 93/55 mmHg Summary LV endocardium is wel l visualized with IV ultrasound enhancing agent. The left ventricle is chamber s ize (by vol index) is mildly enlarged (male - LVED 75-89ml/m2). Normal LV wall t hickness. Discrete basal septal hypertrophy is present. There is moderate hypoki nesis of the basal to mid inferoseptal, inferior, and infero-lateral segments of the LV. There is normal contractile function in the remaining LV segments. LVEF by Calvert's method of disk assessment is mildly reduced (40-44%) . Grade 1 eliane stolic dysfunction (impaired relaxation and low-normal LA pressure). No signific ant valve disease detected. Signature Findings Technical Quality: Technically difficult ex am. Rhythm/BP Regular sinus rhythm during the exam. Left Ventricle LV endocardium is well visualized with IV ultras ound enhancing agent. The left ventricle is chamber size (by vol index) is mildly enlarged (male - LVED 75-89ml/m2 ). Normal LV wall thickness. Discrete basal septal hypertrophy is present. There is moderate hypokinesis of the basal to mid inferoseptal, inferior, and infero-lateral segments of the LV. There is normal c ontractile function in the remaining LV segments. LVEF by Calvert's method of disk assessment is mildly reduced (4 0-44%) . Grade 1 diastolic dysfunction (impaired relaxati on and low-normal LA pressure). Left Atrium L A is well visualized. LA size is normal (16-34 ml/m2) . Right Ventricle The right ventricular chamber size and systolic function are within normal limits. Pacemake r/AICD/catheter visualized in RV cavity. Right Atrium RA size is norm al. Pacemaker/AICD/catheter was visualized in RA cavity. Atrial Septum Normal interatrial septum by available views. Aortic Va lve Mild AoV cusp thickening. There is mild aor tic regurgitation. There is no aortic stenosis. Mitral V alve Mild MV leaflet thickening. Trace mitral r egurgitation. Tricuspid Valve TV structure is normal. A trace of tricuspid regurgitation. Estimated peak s ystolic PA pressure is cannot be determined due to inadeq uate TR velocity signal . Pulmonic Valve Normal PV structure and functi on by limited views and Doppler. Aorta Aortic root size (Sinus of Valsalva diameter) is normal. 3.6 cm Proximal ascending aorta size is normal . 3.4 cm Pericardium No significant pericardial effusion is visualized. IVC/S VC/PA/PV/Pleural The estimated RA pressure by IVC dynamics 0-5mmHg . Chambers/S tructures Left Atrium LA Volume: 70.85 ml LA Area: 23.27 cm ^2 LA Vol. Index: 34 ml/m^2 Left Ventricle LVIDd: 5.69 cm LVEDV:226.82 ml LVIDs: 4.88 cm LV Septum Diastolic: 0.78 cm LV PW D iastolic: 0.79 cm LV FS: 14.2 % LVEDV Calvert's:157.27 ml LVESV Calvert's:90.82 ml LVEDVI: 76 ml/m^2 LVEF Calvert' s: 42.3 % LVESVI: 44 ml/m^2 LVOT Diameter: 2.48 cm Ri ght Ventricle RV Diast Dim.: 4.01 cm TAPSE: 1.84 cm RVOT VTI: 16.22 cm Aorta Ao Root S of Devika.: 3.61 cm Ascending Aorta: 3.46 cm Doppler/Quantitative Measurements Mitral Valve M V Peak E-Wave: 0.57 m/s MV Peak A-Wave: 0.72 m/s E/A Ratio: 0.79 Peak G radient: 1.3 mmHg Deceleration Time: 311.5 msec MV Rey. Peak: Tissue Doppler E' Lateral Velocity: 0.05 m/s E/E' : 11.55 Aortic Valve Peak Velocity: 1.4 m/s Mean Velocity: 0 .93 m/s Peak Gradient: 7.86 mmHg Mean Gradient: 3.92 mmHg AV Are a (continuity): 3.21 cm^2 AV VTI: 26.9 cm AR P1/2t: 1563.2 msec AV DVI: 0.67 L VOT Peak Velocity: 0.8 m/s Peak Gradient: 2.54 mmHg Mean Velocity: 0.52 m/s Mean Gradient: 1.25 mmHg LVOT Diameter: 2.48 cm LVOT VTI: 17.9 cm LVOT Area: 4.83 cm^2 LVOT SV:86.42 ml LVOT C O: 4.67 l/min LVOT CI: 2.27 l/min/m^2 Tricuspid Valve TR Veloc ity: 1.45 m/s TR Gradient: 8.46 [facility] [id number] 08:44:00* Test Item Value Reference Range Interpretation Comments POC-GLUCOSE METER (BEAKER) (test code = 1538) 188 mg/dL 70-110 H : TESTED AT [facility] [address] [facility], [address]: Commercial Mortgage Broker/Mounter Sousaphones ID = [id number] for John Barron [id number] 06:35:00* Test Item Value Reference Range Interpretation Comments MAGNESIUM (BEAKER) (test code = 627) 1.6 mg/dL 1.6-2.6 Commercial Mortgage Broker ID - PIAYA LBASIC METABOLIC [id number] 06:35:00* Test Item Value Reference Range Interpretation Comments SODIUM (BEAKER) (test code = 381) 140 meq/L 136-145 POTASSIUM (BEAKER) (test code = 379) 3.7 meq/L 3.5-5.1 CHLORIDE (BEAKER) (test code = 382) 109 meq/L 98-107 H CO2 (BEAKER) (test code = 355) 25 meq/L 22-29 BLOOD UREA NITROGEN (BEAKER) (test code = 354) 8 mg/dL 7-21 CREATININE (BEAKER) (test code = 358) 0.89 mg/dL 0.57-1.25 GLUCOSE RANDOM (BEAKER) (test code = 652) 215 mg/dL 70-105 H CALCIUM (BEAKER) (test code = 697) 10.4 mg/dL 8.4-10.2 H EGFR (BEAKER) (test code = 1092) 84 mL/min/1.73 sq m ESTIMATED GFR IS NOT ACCURATE CREATININE CLEARANCE IN PREDICTING GLOMERULAR FILTRATION RATE. ESTIMATED GFR IS NOT APPLICABLE FOR DIALYSIS PATIENTS. Commercial Mortgage Broker ID - PIAYA LHEPATIC FUNCTION [id number] 06:35:00* Test Item Value Reference Range Interpretation Comments TOTAL PROTEIN (BEAKER) (test code = 770) 6.9 gm/dL 6.0-8.3 ALBUMIN (BEAKER) (test code = 1145) 3.6 g/dL 3.5-5.0 BILIRUBIN TOTAL (BEAKER) (test code = 377) 0.4 mg/dL 0.2-1.2 BILIRUBIN DIRECT (BEAKER) (test code = 706) 0.2 mg/dL 0.1-0.5 ALKALINE PHOSPHATASE (BEAKER) (test code = 346) 98 U/L 40-150 AST (SGOT) (BEAKER) (test code = 353) 27 U/L 5-34 ALT (SGPT) (BEAKER) (test code = 347) 24 U/L 6-55 Commercial Mortgage Broker ID - PIAYA LPROTHROMBIN TIME/[id number] 06:22:00* Test Item Value Reference Range Interpretation Comments PROTIME (BEAKER) (test code = 759) 13.9 seconds 11.9-14.2 INR (BEAKER) (test code = 370) 1.1 <=5.9 Effective 12/03/2018: PT Reference Range ChangeNew: 11.9-14.2 Previous: 11.7-14. 7RECOMMENDED COUMADIN/WARFARIN INR THERAPY RANGESSTANDARD DOSE: 2.0-3.0 Include s: PROPHYLAXIS for venous thrombosis, systemic embolization; TREATMENT for venou s thrombosis and/or pulmonary embolus.HIGH RISK: Target INR is 2.5-3.5 for patie nts wiht mechanical heart valves.CBC W/PLT COUNT & AUTO [id number] 06:02:00* Test Item Value Reference Range Interpretation Comments WHITE BLOOD CELL COUNT (BEAKER) (test code = 775) 4.9 K/ L 3.5- 10.5 RED BLOOD CELL COUNT (BEAKER) (test code = 761) 3.77 M/ L 4.63-6 .08 L HEMOGLOBIN (BEAKER) (test code = 410) 12.4 GM/DL 13.7-17.5 L HEMATOCRIT (BEAKER) (test code = 411) 36.4 % 40.1-51.0 L MEAN CORPUSCULAR VOLUME (BEAKER) (test code = 753) 96.6 fL 79. 0-92.2 H MEAN CORPUSCULAR HEMOGLOBIN (BEAKER) (test code = 751) 32.9 pg 25.7-32.2 H MEAN CORPUSCULAR HEMOGLOBIN CONC (BEAKER) (test code = 752) 34.1 GM/DL 32.3-36.5 RED CELL DISTRIBUTION WIDTH (BEAKER) (test code = 412) 15.1 % 11.6-14.4 H PLATELET COUNT (BEAKER) (test code = 756) 120 K/CU MM 150-450 L MEAN PLATELET VOLUME (BEAKER) (test code = 754) 10.7 fL 9.4-12 .4 NUCLEATED RED BLOOD CELLS (BEAKER) (test code = 413) 0 /100 WBC 0 -0 NEUTROPHILS RELATIVE PERCENT (BEAKER) (test code = 429) 76 % LYMPHOCYTES RELATIVE PERCENT (BEAKER) (test code = 430) 7 % MONOCYTES RELATIVE PERCENT (BEAKER) (test code = 431) 10 % EOSINOPHILS RELATIVE PERCENT (BEAKER) (test code = 432) 7 % BASOPHILS RELATIVE PERCENT (BEAKER) (test code = 437) 0 % NEUTROPHILS ABSOLUTE COUNT (BEAKER) (test code = 670) 3.68 K/ L 1.78-5.38 LYMPHOCYTES ABSOLUTE COUNT (BEAKER) (test code = 414) 0.35 K/ L 1.32-3.57 L MONOCYTES ABSOLUTE COUNT (BEAKER) (test code = 415) 0.47 K/ L 0. 30-0.82 EOSINOPHILS ABSOLUTE COUNT (BEAKER) (test code = 416) 0.34 K/ L 0.04-0.54 BASOPHILS ABSOLUTE COUNT (BEAKER) (test code = 417) 0.02 K/ L 0. 01-0.08 IMMATURE GRANULOCYTES-RELATIVE PERCENT (BEAKER) (test code = 2801) 0 % 0-1 POCT-GLUCOSE [id number] 21:01:00* Test Item Value Reference Range Interpretation Comments POC-GLUCOSE METER (BEAKER) (test code = 1538) 227 mg/dL 70-110 H : TESTED AT [place] [id number] [facility], [address]: Commercial Mortgage Broker/Mounter Sousaphones ID = [id number] for BRIGETTE BARBER III POCT-GLUCOSE [id number] 17:50:00* Test Item Value Reference Range Interpretation Comments POC-GLUCOSE METER (BEAKER) (test code = 1538) 139 mg/dL 70-110 H : TESTED AT [address], [address]: Commercial Mortgage Broker/Mounter Sousaphones ID = [id number] for SARAH ALVAREZ POCT-GLUCOSE [id number] 15:24:00* Test Item Value Reference Range Interpretation Comments POC-GLUCOSE METER (BEAKER) (test code = 1538) 175 mg/dL 70-110 H : TESTED AT [address], [address]: Commercial Mortgage Broker/Mounter Sousaphones ID = [id number] for SARAH ALVAREZ POCT-GLUCOSE [id number] 09:34:00* Test Item Value Reference Range Interpretation Comments POC-GLUCOSE METER (BEAKER) (test code = 1538) 219 mg/dL 70-110 H : TESTED AT [address], [address]: Commercial Mortgage Broker/Mounter Sousaphones ID = [id number] for SARAH ALVAREZ TROPONIN [id number] 06:42:00* Test Item Value Reference Range Interpretation Comments TROPONIN I (BEAKER) (test code = 397) 0.01 ng/mL 0.00-0.03 Troponin I (TnI) levels must be interpreted in the context of the presenting sym ptoms and the clinical findings. Elevated TnI levels indicate myocardial damage, but are not specific for ischemic heart disease. Elevated TnI levels are seen i n patients with other cardiac conditions (including myocarditis and congestive h eart failure), and slight TnI elevations occur in patients with other conditions , including sepsis, renal failure, acidosis, acute neurological disease, and per sistent tachyarrhythmia.Commercial Mortgage Broker ID - PIAYA LCBC W/PLT COUNT & AUTO DIFFERENTIAL 2019-09-03 02:19:00* Test Item Value Reference Range Interpretation Comments WHITE BLOOD CELL COUNT (BEAKER) (test code = 775) 4.4 K/ L 3.5- 10.5 RED BLOOD CELL COUNT (BEAKER) (test code = 761) 3.76 M/ L 4.63-6 .08 L HEMOGLOBIN (BEAKER) (test code = 410) 11.8 GM/DL 13.7-17.5 L HEMATOCRIT (BEAKER) (test code = 411) 36.0 % 40.1-51.0 L MEAN CORPUSCULAR VOLUME (BEAKER) (test code = 753) 95.7 fL 79. 0-92.2 H MEAN CORPUSCULAR HEMOGLOBIN (BEAKER) (test code = 751) 31.4 pg 25.7-32.2 MEAN CORPUSCULAR HEMOGLOBIN CONC (BEAKER) (test code = 752) 32.8 GM/DL 32.3-36.5 RED CELL DISTRIBUTION WIDTH (BEAKER) (test code = 412) 14.9 % 11.6-14.4 H PLATELET COUNT (BEAKER) (test code = 756) 122 K/CU MM 150-450 L MEAN PLATELET VOLUME (BEAKER) (test code = 754) 11.3 fL 9.4-12 .4 NUCLEATED RED BLOOD CELLS (BEAKER) (test code = 413) 0 /100 WBC 0 -0 NEUTROPHILS RELATIVE PERCENT (BEAKER) (test code = 429) 69 % LYMPHOCYTES RELATIVE PERCENT (BEAKER) (test code = 430) 10 % MONOCYTES RELATIVE PERCENT (BEAKER) (test code = 431) 11 % EOSINOPHILS RELATIVE PERCENT (BEAKER) (test code = 432) 9 % BASOPHILS RELATIVE PERCENT (BEAKER) (test code = 437) 1 % NEUTROPHILS ABSOLUTE COUNT (BEAKER) (test code = 670) 3.05 K/ L 1.78-5.38 LYMPHOCYTES ABSOLUTE COUNT (BEAKER) (test code = 414) 0.43 K/ L 1.32-3.57 L MONOCYTES ABSOLUTE COUNT (BEAKER) (test code = 415) 0.47 K/ L 0. 30-0.82 EOSINOPHILS ABSOLUTE COUNT (BEAKER) (test code = 416) 0.40 K/ L 0.04-0.54 BASOPHILS ABSOLUTE COUNT (BEAKER) (test code = 417) 0.02 K/ L 0. 01-0.08 IMMATURE GRANULOCYTES-RELATIVE PERCENT (BEAKER) (test code = 2801) 1 % 0-1 TROPONIN [id number] 01:41:00* Test Item Value Reference Range Interpretation Comments TROPONIN I (BEAKER) (test code = 397) < ng/mL 0.00-0.03 Troponin I (TnI) levels must be interpreted in the context of the presenting sym ptoms and the clinical findings. Elevated TnI levels indicate myocardial damage, but are not specific for ischemic heart disease. Elevated TnI levels are seen i n patients with other cardiac conditions (including myocarditis and congestive h eart failure), and slight TnI elevations occur in patients with other conditions , including sepsis, renal failure, acidosis, acute neurological disease, and per sistent tachyarrhythmia.Commercial Mortgage Broker ID - PIAYA [id number] 01:34:00* Test Item Value Reference Range Interpretation Comments MAGNESIUM (BEAKER) (test code = 627) 1.3 mg/dL 1.6-2.6 L Commercial Mortgage Broker ID - PIAYA LBASIC METABOLIC [id number] 01:34:00* Test Item Value Reference Range Interpretation Comments SODIUM (BEAKER) (test code = 381) 133 meq/L 136-145 L POTASSIUM (BEAKER) (test code = 379) 3.9 meq/L 3.5-5.1 CHLORIDE (BEAKER) (test code = 382) 102 meq/L 98-107 CO2 (BEAKER) (test code = 355) 23 meq/L 22-29 BLOOD UREA NITROGEN (BEAKER) (test code = 354) 11 mg/dL 7-21 CREATININE (BEAKER) (test code = 358) 0.87 mg/dL 0.57-1.25 GLUCOSE RANDOM (BEAKER) (test code = 652) 194 mg/dL 70-105 H CALCIUM (BEAKER) (test code = 697) 10.2 mg/dL 8.4-10.2 EGFR (BEAKER) (test code = 1092) 86 mL/min/1.73 sq m ESTIMATED GFR IS NOT ACCURATE CREATININE CLEARANCE IN PREDICTING GLOMERULAR FILTRATION RATE. ESTIMATED GFR IS NOT APPLICABLE FOR DIALYSIS PATIENTS. Commercial Mortgage Broker ID - PIAYA LHEPATIC FUNCTION [id number] 01:34:00* Test Item Value Reference Range Interpretation Comments TOTAL PROTEIN (BEAKER) (test code = 770) 7.0 gm/dL 6.0-8.3 ALBUMIN (BEAKER) (test code = 1145) 3.8 g/dL 3.5-5.0 BILIRUBIN TOTAL (BEAKER) (test code = 377) 0.5 mg/dL 0.2-1.2 BILIRUBIN DIRECT (BEAKER) (test code = 706) 0.3 mg/dL 0.1-0.5 ALKALINE PHOSPHATASE (BEAKER) (test code = 346) 100 U/L 40-150 AST (SGOT) (BEAKER) (test code = 353) 24 U/L 5-34 ALT (SGPT) (BEAKER) (test code = 347) 26 U/L 6-55 Commercial Mortgage Broker LISET CORBETT LPROTHROMBIN TIME/[id number] 01:11:00* Test Item Value Reference Range Interpretation Comments PROTIME (BEAKER) (test code = 759) 13.3 seconds 11.9-14.2 INR (BEAKER) (test code = 370) 1.0 <=5.9 Effective 12/03/2018: PT Reference Range ChangeNew: 11.9-14.2 Previous: 11.7-14. 7RECOMMENDED COUMADIN/WARFARIN INR THERAPY RANGESSTANDARD DOSE: 2.0-3.0 Include s: PROPHYLAXIS for venous thrombosis, systemic embolization; TREATMENT for venou s thrombosis and/or pulmonary embolus.HIGH RISK: Target INR is 2.5-3.5 for patie nts wiht mechanical heart valves.Urinalysis w/[id number] 20:40:00* Test Item Value Reference Range Interpretation Comments Color, UA (test code = 5778-6) Yellow Clarity, UA (test code = 5767-9) Clear Specific Artie, UA (test code = 5811-5) 1.007 1.001-1.035 pH, UA (test code = 5803-2) 7.5 5.0-8.0 Protein, UA (test code = 86019-9) Negative Negative Glucose, UA (test code = 365) Negative Negative Ketones, UA (test code = 6894-8) Negative Negative Bilirubin, UA (test code = 12161-6) Negative Negative Blood, UA (test code = 24092-6) Negative Negative Nitrite, UA (test code = 5802-4) Negative Negative Leukocytes, UA (test code = 5799-2) Negative Negative Urobilinogen, UA (test code = 49220-1) 0.2 mg/dL 0.2-1 RBC, UA (test code = 45129-3) 0 /HPF WBC, UA (test code = 5821-4) 1 /HPF Specimen Source (test code = 2795) Urine, Voided VY (test code = VY) Commercial Mortgage Broker ID - [auto]Commercial Mortgage Broker ID - tech [facility]/ [id number] 20:40:00* Test Item Value Reference Range Interpretation Comments COLOR (BEAKER) (test code = 470) Yellow CLARITY (BEAKER) (test code = 469) Clear SPECIFIC GRAVITY UA (BEAKER) (test code = 468) 1.007 1.001-1 .035 PH UA (BEAKER) (test code = 467) 7.5 5.0-8.0 PROTEIN UA (BEAKER) (test code = 464) Negative Negative GLUCOSE UA (BEAKER) (test code = 365) Negative Negative KETONES UA (BEAKER) (test code = 371) Negative Negative BILIRUBIN UA (BEAKER) (test code = 462) Negative Negative BLOOD UA (BEAKER) (test code = 461) Negative Negative NITRITE UA (BEAKER) (test code = 465) Negative Negative LEUKOCYTE ESTERASE UA (BEAKER) (test code = 466) Negative Negat danny UROBILINOGEN UA (BEAKER) (test code = 463) 0.2 mg/dL 0.2-1.0 RBC UA (BEAKER) (test code = 519) 0 /HPF WBC UA (BEAKER) (test code = 520) 1 /HPF SOURCE(BEAKER) (test code = 2795) Urine, Voided Commercial Mortgage Broker ID - [auto]Commercial Mortgage Broker ID - techTROPOWILFREDN [id number] 18:21:00* Test Item Value Reference Range Interpretation Comments TROPONIN I (BEAKER) (test code = 397) < ng/mL 0.00-0.03 Troponin I (TnI) levels must be interpreted in the context of the presenting sym ptoms and the clinical findings. Elevated TnI levels indicate myocardial damage, but are not specific for ischemic heart disease. Elevated TnI levels are seen i n patients with other cardiac conditions (including myocarditis and congestive h eart failure), and slight TnI elevations occur in patients with other conditions , including sepsis, renal failure, acidosis, acute neurological disease, and per sistent tachyarrhythmia.Commercial Mortgage Broker ID - BSHEPATIC FUNCTION [id number] 18:14:00* Test Item Value Reference Range Interpretation Comments TOTAL PROTEIN (BEAKER) (test code = 770) 7.5 gm/dL 6.0-8.3 ALBUMIN (BEAKER) (test code = 1145) 4.0 g/dL 3.5-5.0 BILIRUBIN TOTAL (BEAKER) (test code = 377) 0.5 mg/dL 0.2-1.2 BILIRUBIN DIRECT (BEAKER) (test code = 706) 0.3 mg/dL 0.1-0.5 ALKALINE PHOSPHATASE (BEAKER) (test code = 346) 109 U/L 40-150 AST (SGOT) (BEAKER) (test code = 353) 28 U/L 5-34 ALT (SGPT) (BEAKER) (test code = 347) 28 U/L 6-55 Commercial Mortgage Broker ID - BSBASIC METABOLIC [id number] 18:14:00* Test Item Value Reference Range Interpretation Comments SODIUM (BEAKER) (test code = 381) 131 meq/L 136-145 L POTASSIUM (BEAKER) (test code = 379) 4.4 meq/L 3.5-5.1 CHLORIDE (BEAKER) (test code = 382) 99 meq/L 98-107 CO2 (BEAKER) (test code = 355) 23 meq/L 22-29 BLOOD UREA NITROGEN (BEAKER) (test code = 354) 15 mg/dL 7-21 CREATININE (BEAKER) (test code = 358) 0.92 mg/dL 0.57-1.25 GLUCOSE RANDOM (BEAKER) (test code = 652) 130 mg/dL 70-105 H CALCIUM (BEAKER) (test code = 697) 10.5 mg/dL 8.4-10.2 H EGFR (BEAKER) (test code = 1092) 81 mL/min/1.73 sq m ESTIMATED GFR IS NOT ACCURATE CREATININE CLEARANCE IN PREDICTING GLOMERULAR FILTRATION RATE. ESTIMATED GFR IS NOT APPLICABLE FOR DIALYSIS PATIENTS. Commercial Mortgage Broker ID - BSRAD, CHEST, 1 VIEW, NON [id number] 17:34:00Referring: Dr. Hugo Hall for exam:->CHEST PAINReason for exam:->ABDOMINAL PAINReason for exam:->EMESISShould this be performed at the bedside?->YesFINAL REPORT RAD, CHEST, 1 VIEW, NON DEPT INDICATION: CHEST PAINABDOMINAL PAINEMESIS COMPARISON: August 17, 2019 FINDINGS: Portable frontal view of the chest. IMPRESSION: Support Lines: Sternotomy wires Lungs and pleura: Trace left effusion and minimal basilar atelectasis No pneumothorax.Heart and mediastinum: Unremarkable contours. Additional findings: None. Signed: Max Alvarez MDReport Verified Date/Time: 09/02/2019 17:34:07 Reading Location: [address] Neuro Reading Room W/PLT COUNT & AUTO [id number] 17:13:00* Test Item Value Reference Range Interpretation Comments WHITE BLOOD CELL COUNT (BEAKER) (test code = 775) 6.8 K/ L 3.5- 10.5 RED BLOOD CELL COUNT (BEAKER) (test code = 761) 3.76 M/ L 4.63-6 .08 L HEMOGLOBIN (BEAKER) (test code = 410) 12.2 GM/DL 13.7-17.5 L HEMATOCRIT (BEAKER) (test code = 411) 36.3 % 40.1-51.0 L MEAN CORPUSCULAR VOLUME (BEAKER) (test code = 753) 96.5 fL 79. 0-92.2 H MEAN CORPUSCULAR HEMOGLOBIN (BEAKER) (test code = 751) 32.4 pg 25.7-32.2 H MEAN CORPUSCULAR HEMOGLOBIN CONC (BEAKER) (test code = 752) 33.6 GM/DL 32.3-36.5 RED CELL DISTRIBUTION WIDTH (BEAKER) (test code = 412) 15.0 % 11.6-14.4 H PLATELET COUNT (BEAKER) (test code = 756) 132 K/CU MM 150-450 L MEAN PLATELET VOLUME (BEAKER) (test code = 754) 10.3 fL 9.4-12 .4 NUCLEATED RED BLOOD CELLS (BEAKER) (test code = 413) 0 /100 WBC 0 -0 NEUTROPHILS RELATIVE PERCENT (BEAKER) (test code = 429) 75 % LYMPHOCYTES RELATIVE PERCENT (BEAKER) (test code = 430) 6 % MONOCYTES RELATIVE PERCENT (BEAKER) (test code = 431) 10 % EOSINOPHILS RELATIVE PERCENT (BEAKER) (test code = 432) 8 % BASOPHILS RELATIVE PERCENT (BEAKER) (test code = 437) 0 % NEUTROPHILS ABSOLUTE COUNT (BEAKER) (test code = 670) 5.12 K/ L 1.78-5.38 LYMPHOCYTES ABSOLUTE COUNT (BEAKER) (test code = 414) 0.43 K/ L 1.32-3.57 L MONOCYTES ABSOLUTE COUNT (BEAKER) (test code = 415) 0.67 K/ L 0. 30-0.82 EOSINOPHILS ABSOLUTE COUNT (BEAKER) (test code = 416) 0.52 K/ L 0.04-0.54 BASOPHILS ABSOLUTE COUNT (BEAKER) (test code = 417) 0.03 K/ L 0. 01-0.08 IMMATURE GRANULOCYTES-RELATIVE PERCENT (BEAKER) (test code = 2801) 0 % 0-1 Treadmill tolerance(Non-Nuclear Treadmill)2019-08-25 16:39:42Interface, External Ris In - 08/25/2019 4:39 PM CSTProtocol Name REGADENOSON Time In Exercise Phase 00:01:00 Max. Systolic BP 101 mmHgMax Diastolic BP 60 mmHgMax Heart Rate 86 BPMMax Predicted Heart Rate 147 BPMReason For Termination Predetermined end point Reason for Test Screening for CAD Target HR Formula (220 - Age)*100% Arrhythmias none Resting ECG Normal sinus rhythm right bundle branch blockST Changes No Significant Changes Overall Impression Indeterminate due to phar macological stress Chest Pain none HR Response To Exercise BP Response To Exerc ise ATORVASTATIN, COREG, PLAVIX, LASIXConfirmed by fellow Michelle Lopez ([id number]) on 08/17/2019 9:25:09 AMConfirmed by MD FREDY, NATALEE ([id number]) on 0 4:39:16 [facility]2020-02-12 14:02:00* Test Item Value Reference Range Interpretation Comments MAGNESIUM (BEAKER) (test code = 627) 2.0 mg/dL 1.6-2.6 Commercial Mortgage Broker ID - SMITA [facility] METABOLIC [id number] 14:02:00* Test Item Value Reference Range Interpretation Comments SODIUM (BEAKER) (test code = 381) 135 meq/L 136-145 L POTASSIUM (BEAKER) (test code = 379) 4.2 meq/L 3.5-5.1 CHLORIDE (BEAKER) (test code = 382) 102 meq/L 98-107 CO2 (BEAKER) (test code = 355) 22 meq/L 22-29 BLOOD UREA NITROGEN (BEAKER) (test code = 354) 10 mg/dL 7-21 CREATININE (BEAKER) (test code = 358) 0.88 mg/dL 0.57-1.25 GLUCOSE RANDOM (BEAKER) (test code = 652) 238 mg/dL 70-105 H CALCIUM (BEAKER) (test code = 697) 10.2 mg/dL 8.4-10.2 EGFR (BEAKER) (test code = 1092) 85 mL/min/1.73 sq m ESTIMATED GFR IS NOT ACCURATE CREATININE CLEARANCE IN PREDICTING GLOMERULAR FILTRATION RATE. ESTIMATED GFR IS NOT APPLICABLE FOR DIALYSIS PATIENTS. Commercial Mortgage Broker ID - SMITA CPOCT-GLUCOSE [id number] 12:44:00* Test Item Value Reference Range Interpretation Comments POC-GLUCOSE METER (BEAKER) (test code = 1538) 320 mg/dL 70-110 H : TESTED AT [place] [id number] [facility], [address]: Commercial Mortgage Broker/Mounter Sousaphones ID = [id number] for MICHELET YANEZ POCT-GLUCOSE [id number] 07:40:00* Test Item Value Reference Range Interpretation Comments POC-GLUCOSE METER (BEAKER) (test code = 1538) 304 mg/dL 70-110 H : TESTED AT [place] [id number] [facility], [address]: Commercial Mortgage Broker/Mounter Sousaphones ID = [id number] for PENNY SELBY POCT-GLUCOSE [id number] 20:57:00* Test Item Value Reference Range Interpretation Comments POC-GLUCOSE METER (BEAKER) (test code = 1538) 227 mg/dL 70-110 H : TESTED AT [address], [address]: Commercial Mortgage Broker/Mounter Sousaphones ID = [id number] for JEZ CROSS POCT-GLUCOSE [id number] 18:13:00* Test Item Value Reference Range Interpretation Comments POC-GLUCOSE METER (ELENA) (test code = 1538) 182 mg/dL 70-110 H : TESTED AT [facility] [address] [facility], [address]: Commercial Mortgage Broker/Mounter Sousaphones ID = [id number] for MICHELET YANEZ BONE AND/OR JOINT IMAGING, WHOLE [id number] 14:36:00Referring: Dr. 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 Signed: Harshil Gomez Verified Date/Time: 08/17/2019 14:36:19 Reading Location: [address] [address] Reading Room [facility] [id number] 13:12:00* Test Item Value Reference Range Interpretation Comments POC-GLUCOSE METER (BEAKER) (test code = 1538) 305 mg/dL 70-110 H : TESTED AT [address], [address]: Commercial Mortgage Broker/Mounter Sousaphones ID = [id number] for PENNY SELBY RAD, CHEST, 1 VIEW, NON [id number] 11:37:00Referring: Dr. Hugo James to view pacemaker for MRIReason for exam:->view pacemakerShould this be performed at the bedside?->YesFINAL REPORT RAD, CHEST, 1 VIEW, NON DEPT INDICATION: view pacemaker COMPARISON: August 13, 2019 FINDINGS: Portable frontal view of the chest. IMPRESSION: Support Lines: Stable positioning of the leadless cardiac device. Lungs and pleura: Unchanged appearance of the air spaces. No new consolidation. No pneumothorax.Heart and mediastinum: Stable contours. Stable surgical changes.Additional findings: None. Signed: JR Mancini Robert MDReport Verified Date/Time: 08/17/2019 11:37:23 Reading Location: [facility] Reading Room -GLUCOSE [id number] 10:47:00* Test Item Value Reference Range Interpretation Comments POC-GLUCOSE METER (BEAKER) (test code = 1538) 389 mg/dL 70-110 H : TESTED AT [address], [address]: [employer] ID = [id number] for BEAU MICHELET POCT-GLUCOSE [id number] 08:46:00* Test Item Value Reference Range Interpretation Comments POC-GLUCOSE METER (BEAKER) (test code = 1538) 318 mg/dL 70-110 H : TESTED AT [address], [address]: [employer] ID = [id number] for PENNY SELBY [id number] 06:03:00* Test Item Value Reference Range Interpretation Comments MAGNESIUM (BEAKER) (test code = 627) 1.6 mg/dL 1.6-2.6 [employer] ID Shakira JIMÉNEZ WBASIC METABOLIC [id number] 06:03:00* Test Item Value Reference Range Interpretation Comments SODIUM (BEAKER) (test code = 381) 133 meq/L 136-145 L POTASSIUM (BEAKER) (test code = 379) 4.0 meq/L 3.5-5.1 CHLORIDE (BEAKER) (test code = 382) 103 meq/L 98-107 CO2 (BEAKER) (test code = 355) 22 meq/L 22-29 BLOOD UREA NITROGEN (BEAKER) (test code = 354) 9 mg/dL 7-21 CREATININE (BEAKER) (test code = 358) 0.82 mg/dL 0.57-1.25 GLUCOSE RANDOM (BEAKER) (test code = 652) 259 mg/dL 70-105 H CALCIUM (BEAKER) (test code = 697) 10.1 mg/dL 8.4-10.2 EGFR (BEAKER) (test code = 1092) 92 mL/min/1.73 sq m ESTIMATED GFR IS NOT ACCURATE CREATININE CLEARANCE IN PREDICTING GLOMERULAR FILTRATION RATE. ESTIMATED GFR IS NOT APPLICABLE FOR DIALYSIS PATIENTS. [employer] ID Shakira JIMÉNEZ WPOCT-GLUCOSE [id number] 23:49:00* Test Item Value Reference Range Interpretation Comments POC-GLUCOSE METER (BEAKER) (test code = 1538) 304 mg/dL 70-110 H : TESTED AT [place] [id number] [facility], [address]: [employer] ID = [id number] for SISI MARTÍNEZ POCT-GLUCOSE [id number] 23:35:00* Test Item Value Reference Range Interpretation Comments POC-GLUCOSE METER (BEAKER) (test code = 1538) 283 mg/dL 70-110 H : TESTED AT [place] [id number] [facility], [address]: Commercial Mortgage Broker/Mounter Sousaphones ID = [id number] for ABDI MACARIO POCT-GLUCOSE [id number] 17:34:00* Test Item Value Reference Range Interpretation Comments POC-GLUCOSE METER (BEAKER) (test code = 1538) 295 mg/dL 70-110 H : TESTED AT [facility] [address] [facility], [address]: Commercial Mortgage Broker/Mounter Sousaphones ID = [id number] for PIPER SIMPSON POCT-GLUCOSE [id number] 11:27:00* Test Item Value Reference Range Interpretation Comments POC-GLUCOSE METER (BEAKER) (test code = 1538) 286 mg/dL 70-110 H : TESTED AT [place] [id number] [facility], [address]: Commercial Mortgage Broker/Mounter Sousaphones ID = [id number] for PIPER SIMPSON POCT-GLUCOSE [id number] 08:53:00* Test Item Value Reference Range Interpretation Comments POC-GLUCOSE METER (BEAKER) (test code = 1538) 232 mg/dL 70-110 H : TESTED AT [place] [id number] [facility], [address]: Commercial Mortgage Broker/Mounter Sousaphones ID = [id number] for PIPER SIMPSON [id number] 04:59:00* Test Item Value Reference Range Interpretation Comments PHOSPHORUS (BEAKER) (test code = 604) 2.6 mg/dL 2.3-4.7 Commercial Mortgage Broker ID - JESSY [id number] 04:59:00* Test Item Value Reference Range Interpretation Comments MAGNESIUM (BEAKER) (test code = 627) 1.7 mg/dL 1.6-2.6 Commercial Mortgage Broker ID - JESSY WBASIC METABOLIC [id number] 04:59:00* Test Item Value Reference Range Interpretation Comments SODIUM (BEAKER) (test code = 381) 134 meq/L 136-145 L POTASSIUM (BEAKER) (test code = 379) 4.1 meq/L 3.5-5.1 CHLORIDE (BEAKER) (test code = 382) 103 meq/L 98-107 CO2 (BEAKER) (test code = 355) 24 meq/L 22-29 BLOOD UREA NITROGEN (BEAKER) (test code = 354) 10 mg/dL 7-21 CREATININE (BEAKER) (test code = 358) 0.87 mg/dL 0.57-1.25 GLUCOSE RANDOM (BEAKER) (test code = 652) 268 mg/dL 70-105 H CALCIUM (BEAKER) (test code = 697) 10.6 mg/dL 8.4-10.2 H EGFR (BEAKER) (test code = 1092) 86 mL/min/1.73 sq m ESTIMATED GFR IS NOT ACCURATE CREATININE CLEARANCE IN PREDICTING GLOMERULAR FILTRATION RATE. ESTIMATED GFR IS NOT APPLICABLE FOR DIALYSIS PATIENTS. Commercial Mortgage Broker ID Shakira LAIC FUNCTION [id number] 04:59:00* Test Item Value Reference Range Interpretation Comments TOTAL PROTEIN (BEAKER) (test code = 770) 7.2 gm/dL 6.0-8.3 ALBUMIN (BEAKER) (test code = 1145) 3.7 g/dL 3.5-5.0 BILIRUBIN TOTAL (BEAKER) (test code = 377) 0.3 mg/dL 0.2-1.2 BILIRUBIN DIRECT (BEAKER) (test code = 706) 0.2 mg/dL 0.1-0.5 ALKALINE PHOSPHATASE (BEAKER) (test code = 346) 122 U/L 40-150 AST (SGOT) (BEAKER) (test code = 353) 20 U/L 5-34 ALT (SGPT) (BEAKER) (test code = 347) 31 U/L 6-55 Commercial Mortgage Broker ID Shakira JIMÉNEZ WPROTHROMBIN TIME/[id number] 04:32:00* Test Item Value Reference Range Interpretation Comments PROTIME (BEAKER) (test code = 759) 12.7 seconds 11.9-14.2 INR (BEAKER) (test code = 370) 1.0 <=5.9 Effective 12/03/2018: PT Reference Range ChangeNew: 11.9-14.2 Previous: 11.7-14. 7RECOMMENDED COUMADIN/WARFARIN INR THERAPY RANGESSTANDARD DOSE: 2.0-3.0 Include s: PROPHYLAXIS for venous thrombosis, systemic embolization; TREATMENT for venou s thrombosis and/or pulmonary embolus.HIGH RISK: Target INR is 2.5-3.5 for patie nts wiht mechanical heart valves.POCT-GLUCOSE [id number] 22:55:00* Test Item Value Reference Range Interpretation Comments POC-GLUCOSE METER (BEAKER) (test code = 1538) 281 mg/dL 70-110 H : TESTED AT [facility] [address] [facility], [address]: Commercial Mortgage Broker/Mounter Sousaphones ID = [id number] for RUBÉN ZHAO POCT-GLUCOSE [id number] 20:16:00* Test Item Value Reference Range Interpretation Comments POC-GLUCOSE METER (BEAKER) (test code = 1538) 323 mg/dL 70-110 H : TESTED AT [facility] [address] [facility], [address]: Commercial Mortgage Broker/Mounter Sousaphones ID = [id number] for SISI MARTÍNEZ POCT-GLUCOSE [id number] 18:04:00* Test Item Value Reference Range Interpretation Comments POC-GLUCOSE METER (BEAKER) (test code = 1538) 198 mg/dL 70-110 H : TESTED AT [facility] [address] [facility], [address]: Commercial Mortgage Broker/Mounter Sousaphones ID = [id number] for DOBBINS PIPER MYOCARD IMAGING, MULTI, PHARM, [id number] 16:52:00Referring: Dr. Hugo Christopher FINAL REPORT PROCEDURE: MYOCARDIAL PERFUSION SPECT IMAGIN G (Rest/Stress)CPT CODE: 51856 INDICATION: CAD CARDIOVASCULAR PROFILE:Symptoms: NoneCAD History: [place], cardiomyopathy, pacemakerRisk Factors: Lipid abnormality, s mokerMedications: Atorvastatin, Coreg, Plavix, Lasix STRESS PROTOCOL:Pharmacolog ic stress was achieved with a 10-second intravenous infusion of regadenoson 0.4 mg. IMAGING PROTOCOL:10.7 mCi of Tc-99m sestamibi was injected intravenously at rest, and SPECT images were obtained. Then, 32.6 mCi of Tc-99m sestamibi was inj ected intravenously at peak stress, and SPECT images were obtained. REST FINDING S:HR: 66 /minBP: 135/77 mmHgPrelim. EKG: Normal sinus rhythm.Perfusion: There is markedly decreased anterior, inferobasal and basal septal activity.LV Volume: M ildly increased.RV Volume: Normal. STRESS FINDINGS:HR: 86 /min (58% of MPHR)BP: 101/60 mmHgPrelim. EKG: No ischemic changes.Symptoms: Stomach discomfort (treatm ent not required).Perfusion: There is markedly decreased anterior, inferior and basal septal activity..Wall Motion: Global hypokinesis (LVEF 23%).LV Volume: Unc hanged from rest. IMPRESSION:1. Normal study.2. Abnormal myocardial perfusion th ere is a sufficient severe fixed defect involving the anterior, inferobasal and basal septum. There is reversibility of the mid and distal inferior wall.3. Abno rmal global LV function.4. Normal extracardiac tracer distribution.5. Compared t o the PET scan of March 2018, there is less reversibility now.. Signed: Harshil Gomez MDReport Verified Date/Time: 08/15/2019 16:52:27 Electronically s igned by: HARSHIL GOMEZ MD on 08/15/2019 04:52 PM NM myocardial perfusion SPECT, pharm(Lexiscan)2019-08-15 16:52:00Interface, External Ris In - 08/15/2019 4:54 PM CSTFINAL REPORT PROCEDURE: MYOCARDIAL PERFUSION SPECT IMAGING (Rest/Stress)CPT CODE: 61116 INDICATION: CAD CARDIOVASCULAR PROFILE:Symptoms: NoneCAD History: [place], cardiomyopathy, pacemakerRisk Factors: Lipid abnormality, smokerMedications: Atorvastatin, Coreg, Plavix, Lasix STRESS PROTOCOL:Pharmacologic stress was achieved with a 10-second intravenous infusion of regadenoson 0.4 mg. IMAGING PROTOCOL:10.7 mCi of Tc-99m sestamibi was injected intravenously at rest, and SPECT images were obtained. Then, 32.6 mCi of Tc-99m sestamibi was injected intravenously at peak stress, and SPECT images were obtained. REST FINDINGS:HR: 66 /minBP: 135/77 mmHg Prelim. EKG: Normal sinus rhythm.Perfusion: There is markedly decreased anterior , inferobasal and basal septal activity.LV Volume: Mildly increased.RV Volume: N ormal. STRESS FINDINGS:HR: 86 /min (58% of MPHR)BP: 101/60 mmHgPrelim. EKG: No i schemic changes.Symptoms: Stomach discomfort (treatment not required).Perfusion: There is markedly decreased anterior, inferior and basal septal activity..Wall Motion: Global hypokinesis (LVEF 23%).LV Volume: Unchanged from rest. IMPRESSION :1. Normal study.2. Abnormal myocardial perfusion there is a sufficient severe f ixed defect involving the anterior, inferobasal and basal septum. There is rever sibility of the mid and distal inferior wall.3. Abnormal global LV function.4. N ormal extracardiac tracer distribution.5. Compared to the PET scan of March 2018, there is less reversibility now.. Signed: Harshil Gomez MDReport Verified Date/Time: 08/15/2019 16:52:27 [facility] 2019-[facility] 12:53:00* Test Item Value Reference Range Interpretation Comments POC-GLUCOSE METER (BEAKER) (test code = 1538) 222 mg/dL 70-110 H : TESTED AT [place] [id number] [facility], [address]: Commercial Mortgage Broker/Mounter Sousaphones ID = [id number] for PIPER SIMPSON POCT-GLUCOSE [id number] 08:57:00* Test Item Value Reference Range Interpretation Comments POC-GLUCOSE METER (BEAKER) (test code = 1538) 240 mg/dL 70-110 H : TESTED AT [address], [address]: Commercial Mortgage Broker/Mounter Sousaphones ID = [id number] for PIPER SIMPSON HEMOGLOBIN [id number] 07:53:00* Test Item Value Reference Range Interpretation Comments HEMOGLOBIN A1C (BEAKER) (test code = 368) 6.3 % 4.3-6.1 H POCT-GLUCOSE [id number] 06:41:00* Test Item Value Reference Range Interpretation Comments POC-GLUCOSE METER (BEAKER) (test code = 1538) 252 mg/dL 70-110 H : TESTED AT [address], [address]: Commercial Mortgage Broker/Mounter Sousaphones ID = [id number] for RUBÉN ZHAO [id number] 06:36:00* Test Item Value Reference Range Interpretation Comments PHOSPHORUS (BEAKER) (test code = 604) 2.4 mg/dL 2.3-4.7 Commercial Mortgage Broker ID - AMAYA [id number] 06:36:00* Test Item Value Reference Range Interpretation Comments MAGNESIUM (BEAKER) (test code = 627) 1.6 mg/dL 1.6-2.6 Commercial Mortgage Broker ID - AMAYA MBASIC METABOLIC [id number] 06:36:00* Test Item Value Reference Range Interpretation Comments SODIUM (BEAKER) (test code = 381) 133 meq/L 136-145 L POTASSIUM (BEAKER) (test code = 379) 4.6 meq/L 3.5-5.1 CHLORIDE (BEAKER) (test code = 382) 102 meq/L 98-107 CO2 (BEAKER) (test code = 355) 24 meq/L 22-29 BLOOD UREA NITROGEN (BEAKER) (test code = 354) 13 mg/dL 7-21 CREATININE (BEAKER) (test code = 358) 1.04 mg/dL 0.57-1.25 GLUCOSE RANDOM (BEAKER) (test code = 652) 300 mg/dL 70-105 H CALCIUM (BEAKER) (test code = 697) 10.4 mg/dL 8.4-10.2 H EGFR (BEAKER) (test code = 1092) 70 mL/min/1.73 sq m ESTIMATED GFR IS NOT ACCURATE CREATININE CLEARANCE IN PREDICTING GLOMERULAR FILTRATION RATE. ESTIMATED GFR IS NOT APPLICABLE FOR DIALYSIS PATIENTS. Commercial Mortgage Broker ID - AMAYA EPATIC FUNCTION [id number] 06:36:00* Test Item Value Reference Range Interpretation Comments TOTAL PROTEIN (BEAKER) (test code = 770) 7.0 gm/dL 6.0-8.3 ALBUMIN (BEAKER) (test code = 1145) 3.6 g/dL 3.5-5.0 BILIRUBIN TOTAL (BEAKER) (test code = 377) 0.3 mg/dL 0.2-1.2 BILIRUBIN DIRECT (BEAKER) (test code = 706) 0.2 mg/dL 0.1-0.5 ALKALINE PHOSPHATASE (BEAKER) (test code = 346) 126 U/L 40-150 AST (SGOT) (BEAKER) (test code = 353) 23 U/L 5-34 ALT (SGPT) (BEAKER) (test code = 347) 33 U/L 6-55 Commercial Mortgage Broker LISET - AMAYA MPROTHROMBIN TIME/[id number] 05:22:00* Test Item Value Reference Range Interpretation Comments PROTIME (BEAKER) (test code = 759) 12.7 seconds 11.9-14.2 INR (BEAKER) (test code = 370) 1.0 <=5.9 Effective 12/03/2018: PT Reference Range ChangeNew: 11.9-14.2 Previous: 11.7-14. 7RECOMMENDED COUMADIN/WARFARIN INR THERAPY RANGESSTANDARD DOSE: 2.0-3.0 Include s: PROPHYLAXIS for venous thrombosis, systemic embolization; TREATMENT for venou s thrombosis and/or pulmonary embolus.HIGH RISK: Target INR is 2.5-3.5 for patie nts wiht mechanical heart valves.POCT-GLUCOSE [id number] 00:31:00* Test Item Value Reference Range Interpretation Comments POC-GLUCOSE METER (BEAKER) (test code = 1538) 303 mg/dL 70-110 H : TESTED AT [facility] [address] [facility], [address]: Commercial Mortgage Broker/Mounter Sousaphones ID = [id number] for RUBÉN ZHAO POCT-GLUCOSE [id number] 18:18:00* Test Item Value Reference Range Interpretation Comments POC-GLUCOSE METER (BEAKER) (test code = 1538) 197 mg/dL 70-110 H : TESTED AT [facility] [address] [facility], [address]: Commercial Mortgage Broker/Mounter Sousaphones ID = [id number] for KENY PUCKETT 2D Echo W/Doppler(CW/PW/Color)2019-08-14 15:09:52Ejection FractionSLEH ECHO HEARTLAB MKCKESSON CPACSInterface, External Ris In - 08/14/2019 3:10 PM CSTTransthoracic Echocardiography Report (TTE) Demographics Patient Name IVONE HARDY Date of Study 08/14/2019 PATRICK Gender Male Visit Number [id number] Race Unknown Room Number 714 Number Date of 1945 Referring Physician Age 74 year(s) Surfboard Maker Ana Amos RDCS Clerical Specialist Manoj Pena Interpreting Nicholas Alvarenga, Physician MD Opal ness Type of Study TTE procedure:2DECHO W DOPPLER(CW/PW/COLOR) (Routine) Ind ications:Acute Chest Pain/ Suspected CAD.Clinical HistoryPacemaker;cirrhosis;caitlin er cancer;DM;HEPC;HLD;HTN;HYPOTHYROIDISM;[place];R&LCATH/PCI/CA 2018;LEADS(ATRIAL& VENT)Contrast Medium: Definity.Height: 71 inches Weight: 95.25 kg (210 lbs) BSA: 2.15 m^2 BMI: 29.29 kg/m^2HR: 66 bpm BP: 117/68 mmHg Summary 1. Normal LV size. LV function is mildly reduced. LVEF is 50-54% 2. Diastology: Grade 1 diastolic dysfunction 3. Normal RV size and function 4. No significant valvular heart dis ease 5. Trace TR. Unable to estimate PASP 6. No pericardial effusion Signature - Findings Left Ventricle LV endocardium is adequately visualized with IV ultrasound enhancing agent. The left ventricle is chamber size (by PSLAX dimension) is normal (male - LVI Dd 4.2-5.8cm) . Normal LV wall thickness. The following s egment(s) appear hypokinetic: basal to mid inferolateral, inferoseptal and inferior . Septal motion is abnormal, l ikely related to prior cardiac surgery .The other segment s contract normally. Global LV systolic function lower li mits of normal . Estimated LVEF by qualitative assessment is lower limits of normal (50-55%) . Grade 1 diastolic dysfunction (impaired relaxation an d low-normal LA pressure). Left Atrium LA size is mildly enlarged . Right Ventricle Normal right ventricle structure and function. Right At rium Normal right atrium. Aortic Valve Mild AoV cusp thicke eliana. Mild AoV cusp calcification. Mild aortic regurgitation. Mitral Valve Mild MV leaflet thickening. Mild mitral annular calcification. Tricuspid Valve A trace of tricuspid regurgitation. Unable to estimate peak systolic PA pressure; inadequate TR velocity signal. Pulmonic Valve Normal PV structure and function by limited views and Doppler. Aorta Aortic root size (SInus o f Valsalva diameter) is normal . Pericardium No evidence of pericardial effusion. IVC/SVC/PA/PV/Pleural The estimated RA pr essure by IVC dynamics 5-10mmHg . Chambers/Structures Lef t Atrium LA Dimension: 4.28 cm LA Area: 23.63 cm^2 LA Volume: 78.85 ml LA Vol. Index: 37 ml/m^2 Left Ventricle LVIDd: 5.12 cm LVEDV:124.9 ml LVIDs: 4.53 cm LVESV:92 .78 ml LV Septum Diastolic: 0.98 cm LVEF 2D Cube: 30.9 % LV PW Eliane stolic: 1.06 cm LVEDV Calvert's:197.77 ml LV FS: 11.5 % LVESV S impson's:96.01 ml LVEF Calvert's: 51.5 % LVEDVI: 92 ml/m^2 LVESVI: 45 ml/m^2 LVOT Diameter: 2.4 c m LVEF: 25.7 % Aorta Ao Root S of Devika.: 3.59 cm Doppler/Quantitative Measureme nts Mitral Valve MV Peak E-Wave: 0.36 m/s MV Peak A-Wave: 0.78 m/s E/A Ratio: 0.46 Peak Gradient: 0.52 mmHg Dece leration Time: 282.3 msec MV Rey. Peak: Tissue Doppler E' Lateral Velocity: 0 .07 m/s A' Lateral Velocity: 0.1 m/s E/E': 5.09 Aortic Valve Peak Velocity: 1.36 m/s Mean Veloc ity: 0.96 m/s Peak Gradient: 7.41 mmHg Mean Gradient: 4.16 mmHg AV Area (continuity): 2.72 cm^2 AV VTI: 26.76 cm AV DVI: 0.6 LVOT Peak Veloci ty: 0.92 m/s Peak Gradient: 3.4 mmHg Mean Velocity: 0.57 m/s Mean Gradient: 1.6 mmHg LVOT Diameter: 2.4 cm LVOT VTI: 16 .1 cm LVOT Area: 4.52 cm^2 LVOT SV:72.8 ml LVOT CO: 4.8 l/min LVOT CI: 2.23 l/min/m^2 [facility] [id number] 11:42:00* Test Item Value Reference Range Interpretation Comments POC-GLUCOSE METER (ELENA) (test code = 1538) 354 mg/dL 70-110 H : TESTED AT [facility] [address] [facility], [address]: Commercial Mortgage Broker/Mounter Sousaphones ID = [id number] for PIPER SIMPSON HEMOGLOBIN [id number] 09:46:00* Test Item Value Reference Range Interpretation Comments HEMOGLOBIN A1C (BEAKER) (test code = 368) 6.4 % 4.3-6.1 H POCT-GLUCOSE [id number] 08:23:00* Test Item Value Reference Range Interpretation Comments POC-GLUCOSE METER (BEAKER) (test code = 1538) 207 mg/dL 70-110 H : TESTED AT [facility] [address] [facility], [address]: Commercial Mortgage Broker/Mounter Sousaphones ID = [id number] for PIPER SIMPSON CBC W/PLT COUNT & AUTO [id number] 06:23:00* Test Item Value Reference Range Interpretation Comments WHITE BLOOD CELL COUNT (BEAKER) (test code = 775) 4.3 K/ L 3.5- 10.5 RED BLOOD CELL COUNT (BEAKER) (test code = 761) 3.78 M/ L 4.63-6 .08 L HEMOGLOBIN (BEAKER) (test code = 410) 11.9 GM/DL 13.7-17.5 L HEMATOCRIT (BEAKER) (test code = 411) 36.2 % 40.1-51.0 L MEAN CORPUSCULAR VOLUME (BEAKER) (test code = 753) 95.8 fL 79. 0-92.2 H MEAN CORPUSCULAR HEMOGLOBIN (BEAKER) (test code = 751) 31.5 pg 25.7-32.2 MEAN CORPUSCULAR HEMOGLOBIN CONC (BEAKER) (test code = 752) 32.9 GM/DL 32.3-36.5 RED CELL DISTRIBUTION WIDTH (BEAKER) (test code = 412) 14.1 % 11.6-14.4 PLATELET COUNT (BEAKER) (test code = 756) 136 K/CU MM 150-450 L MEAN PLATELET VOLUME (BEAKER) (test code = 754) 11.1 fL 9.4-12 .4 NUCLEATED RED BLOOD CELLS (BEAKER) (test code = 413) 0 /100 WBC 0 -0 NEUTROPHILS RELATIVE PERCENT (BEAKER) (test code = 429) 77 % LYMPHOCYTES RELATIVE PERCENT (BEAKER) (test code = 430) 8 % MONOCYTES RELATIVE PERCENT (BEAKER) (test code = 431) 11 % EOSINOPHILS RELATIVE PERCENT (BEAKER) (test code = 432) 4 % BASOPHILS RELATIVE PERCENT (BEAKER) (test code = 437) 1 % NEUTROPHILS ABSOLUTE COUNT (BEAKER) (test code = 670) 3.25 K/ L 1.78-5.38 LYMPHOCYTES ABSOLUTE COUNT (BEAKER) (test code = 414) 0.32 K/ L 1.32-3.57 L MONOCYTES ABSOLUTE COUNT (BEAKER) (test code = 415) 0.46 K/ L 0. 30-0.82 EOSINOPHILS ABSOLUTE COUNT (BEAKER) (test code = 416) 0.17 K/ L 0.04-0.54 BASOPHILS ABSOLUTE COUNT (BEAKER) (test code = 417) 0.02 K/ L 0. 01-0.08 IMMATURE GRANULOCYTES-RELATIVE PERCENT (BEAKER) (test code = 2801) 1 % 0-1 TROPONIN [id number] 05:15:00* Test Item Value Reference Range Interpretation Comments TROPONIN I (BEAKER) (test code = 397) < ng/mL 0.00-0.03 Troponin I (TnI) levels must be interpreted in the context of the presenting sym ptoms and the clinical findings. Elevated TnI levels indicate myocardial damage, but are not specific for ischemic heart disease. Elevated TnI levels are seen i n patients with other cardiac conditions (including myocarditis and congestive h eart failure), and slight TnI elevations occur in patients with other conditions , including sepsis, renal failure, acidosis, acute neurological disease, and per sistent tachyarrhythmia.Commercial Mortgage Broker ID - AMAYA [id number] 05:06:00* Test Item Value Reference Range Interpretation Comments PHOSPHORUS (BEAKER) (test code = 604) 2.6 mg/dL 2.3-4.7 Commercial Mortgage Broker ID - AMAYA [id number] 05:06:00* Test Item Value Reference Range Interpretation Comments MAGNESIUM (BEAKER) (test code = 627) 1.7 mg/dL 1.6-2.6 Commercial Mortgage Broker ID - AMAYA MBASIC METABOLIC [id number] 05:06:00* Test Item Value Reference Range Interpretation Comments SODIUM (BEAKER) (test code = 381) 133 meq/L 136-145 L POTASSIUM (BEAKER) (test code = 379) 4.7 meq/L 3.5-5.1 CHLORIDE (BEAKER) (test code = 382) 105 meq/L 98-107 CO2 (BEAKER) (test code = 355) 23 meq/L 22-29 BLOOD UREA NITROGEN (BEAKER) (test code = 354) 13 mg/dL 7-21 CREATININE (BEAKER) (test code = 358) 0.90 mg/dL 0.57-1.25 GLUCOSE RANDOM (BEAKER) (test code = 652) 211 mg/dL 70-105 H CALCIUM (BEAKER) (test code = 697) 10.2 mg/dL 8.4-10.2 EGFR (BEAKER) (test code = 1092) 83 mL/min/1.73 sq m ESTIMATED GFR IS NOT ACCURATE CREATININE CLEARANCE IN PREDICTING GLOMERULAR FILTRATION RATE. ESTIMATED GFR IS NOT APPLICABLE FOR DIALYSIS PATIENTS. Commercial Mortgage Broker ID - AMAYA MHEPATIC FUNCTION [id number] 05:06:00* Test Item Value Reference Range Interpretation Comments TOTAL PROTEIN (BEAKER) (test code = 770) 6.9 gm/dL 6.0-8.3 ALBUMIN (BEAKER) (test code = 1145) 3.6 g/dL 3.5-5.0 BILIRUBIN TOTAL (BEAKER) (test code = 377) 0.5 mg/dL 0.2-1.2 BILIRUBIN DIRECT (BEAKER) (test code = 706) 0.2 mg/dL 0.1-0.5 ALKALINE PHOSPHATASE (BEAKER) (test code = 346) 112 U/L 40-150 AST (SGOT) (BEAKER) (test code = 353) 20 U/L 5-34 ALT (SGPT) (BEAKER) (test code = 347) 34 U/L 6-55 Commercial Mortgage Broker ID - AMAYA MPROTHROMBIN TIME/[id number] 04:47:00* Test Item Value Reference Range Interpretation Comments PROTIME (BEAKER) (test code = 759) 13.0 seconds 11.9-14.2 INR (BEAKER) (test code = 370) 1.0 <=5.9 Effective 12/03/2018: PT Reference Range ChangeNew: 11.9-14.2 Previous: 11.7-14. 7RECOMMENDED COUMADIN/WARFARIN INR THERAPY RANGESSTANDARD DOSE: 2.0-3.0 Include s: PROPHYLAXIS for venous thrombosis, systemic embolization; TREATMENT for venou s thrombosis and/or pulmonary embolus.HIGH RISK: Target INR is 2.5-3.5 for patie nts wiht mechanical heart valves.TROPONIN [id number] 00:11:00* Test Item Value Reference Range Interpretation Comments TROPONIN I (ELENA) (test code = 397) < ng/mL 0.00-0.03 Troponin I (TnI) levels must be interpreted in the context of the presenting sym ptoms and the clinical findings. Elevated TnI levels indicate myocardial damage, but are not specific for ischemic heart disease. Elevated TnI levels are seen i n patients with other cardiac conditions (including myocarditis and congestive h eart failure), and slight TnI elevations occur in patients with other conditions , including sepsis, renal failure, acidosis, acute neurological disease, and per sistent tachyarrhythmia.Commercial Mortgage Broker ID - KENIA EPOCT-GLUCOSE [id number] 23:52:00* Test Item Value Reference Range Interpretation Comments POC-GLUCOSE METER (ELENA) (test code = 1538) 294 mg/dL 70-110 H : TESTED AT [facility] [address] [facility], [address]: Commercial Mortgage Broker/Mounter Sousaphones ID = [id number] for CHARIS ARELLANO TSH/FREE T4 IF [id number] 17:20:00* Test Item Value Reference Range Interpretation Comments THYROID STIMULATING HORMONE (ELENA) (test code = 772) 3.22 uIU/mL 0.35-4.94 Commercial Mortgage Broker ID - BSB-TYPE NATRIURETIC FACTOR (BNP)2019-08-13 17:04:00* Test Item Value Reference Range Interpretation Comments B-TYPE NATRIURETIC PEPTIDE (ELENA) (test code = 700) 38 pg/mL 0-100 Commercial Mortgage Broker ID - BSTROPONIN [id number] 17:03:00* Test Item Value Reference Range Interpretation Comments TROPONIN I (ELENA) (test code = 397) < ng/mL 0.00-0.03 Troponin I (TnI) levels must be interpreted in the context of the presenting sym ptoms and the clinical findings. Elevated TnI levels indicate myocardial damage, but are not specific for ischemic heart disease. Elevated TnI levels are seen i n patients with other cardiac conditions (including myocarditis and congestive h eart failure), and slight TnI elevations occur in patients with other conditions , including sepsis, renal failure, acidosis, acute neurological disease, and per sistent tachyarrhythmia.Commercial Mortgage Broker ID - BSCT, [id number] 15:43:00Referring: Dr. Hugo Hall for exam:->ABDOMINAL PAINReason for exam:->HEPATIC CANCERWhat is the patient's sedation requirement?->No SedationFINAL REPORT CT of the abdomen and pelvis, with contrast Clinical History: ABDOMINAL PAINHEPATIC CANCER Technique: CT of the abdomen and pelvis is performed with intravenous contrast administration. This exam was performed according to our departmental dose optimization program which includes automated exposure control, adjustment of the mA and/or kV according to patient's size and/or use of iterative reconstructive technique. Comparison Film: MRI dated April 16, 2019 Discussion: Visualized lower thorax is unremarkable. In the posterior right hepatic lobe, there is a exophytic, slightly hypoenhancing mass measuring approximately 4.6 cm. Allowing for differences in imaging technique, it is likely not significantly changed in size. No biliary ductal dilatation. G allbladder is absent. The spleen, pancreas, adrenal glands are unremarkable. Kid neys demonstrate no hydronephrosis or radiopaque stone. There is a right renal c yst measuring 3.6 cm. No evidence of bowel obstruction, or abnormal bowel wall t hickening. No pericecal inflammatory change. In the pelvis, bladder is unremarka ble. Prostate gland is enlarged with hypertrophy of the median lobe. There is ad vanced vascular calcification. No ascites, or free air. A few marginally promine nt kari hepatis lymph nodes are unchanged. There is a fat-containing umbilical hernia is moderate sized, measuring 7.7 cm. Osseous structures demonstrate degen erative changes. No suspicious bony lesion is identified. Impression: No acute p rocess identified in the abdomen or pelvis Grossly stable mass in the posterior right hepatic lobe. Status post cholecystectomy. Enlarged prostate gland. Signed : Toma Mckeon MDReport Verified Date/Time: 08/13/2019 15:43:31 Reading Location: [place] [address] [id number] Ortho Consult Reading Room ONIN [id number] 14:05:00* Test Item Value Reference Range Interpretation Comments TROPONIN I (BEAKER) (test code = 397) 0.01 ng/mL 0.00-0.03 Troponin I (TnI) levels must be interpreted in the context of the presenting sym ptoms and the clinical findings. Elevated TnI levels indicate myocardial damage, but are not specific for ischemic heart disease. Elevated TnI levels are seen i n patients with other cardiac conditions (including myocarditis and congestive h eart failure), and slight TnI elevations occur in patients with other conditions , including sepsis, renal failure, acidosis, acute neurological disease, and per sistent tachyarrhythmia.Commercial Mortgage Broker ID - LMRAD, CHEST, 1 VIEW, NON [id number] 13:13:00Referring: Dr. Hugo Hall for exam:->chest painShould this be performed at the bedside?->YesFINAL REPORT INDICATION: chest pain COMPARISON: April 16, 2019 TECHNIQUE: Single frontal view of the chest. FINDINGS: Lungs and pleura: Clear lungs. No effusion.Heart and mediastinum: Normal heart size. Unremarkable mediastinal contours.Osseous structures: No acute abnormality.Other: Sternotomy wires. IMPRESSION: No acute intrathoracic abnormality. Signed: Max Alvarez MDReport Verified Date/Time: 08/13/2019 13:13:18 Reading Location: [facility] Radiology Reading Room ALYSIS W/ REFLEX URINE [id number] 11:29:00* Test Item Value Reference Range Interpretation Comments COLOR (BEAKER) (test code = 470) Yellow CLARITY (BEAKER) (test code = 469) Clear SPECIFIC GRAVITY UA (BEAKER) (test code = 468) 1.008 1.001-1 .035 PH UA (BEAKER) (test code = 467) 5.5 5.0-8.0 PROTEIN UA (BEAKER) (test code = 464) Negative Negative GLUCOSE UA (BEAKER) (test code = 365) Negative Negative KETONES UA (BEAKER) (test code = 371) Negative Negative BILIRUBIN UA (BEAKER) (test code = 462) Negative Negative BLOOD UA (BEAKER) (test code = 461) Negative Negative NITRITE UA (BEAKER) (test code = 465) Negative Negative LEUKOCYTE ESTERASE UA (BEAKER) (test code = 466) Negative Negat danny UROBILINOGEN UA (BEAKER) (test code = 463) 0.2 mg/dL 0.2-1.0 RBC UA (BEAKER) (test code = 519) < /HPF WBC UA (BEAKER) (test code = 520) 0 /HPF HYALINE CASTS (BEAKER) (test code = 514) 1 /LPF SOURCE(BEAKER) (test code = 2795) Commercial Mortgage Broker ID - [auto]Commercial Mortgage Broker ID - techBASIC METABOLIC [id number] 11:02:00* Test Item Value Reference Range Interpretation Comments SODIUM (BEAKER) (test code = 381) 133 meq/L 136-145 L POTASSIUM (BEAKER) (test code = 379) 4.7 meq/L 3.5-5.1 Specimen slightly hemolyzed CHLORIDE (BEAKER) (test code = 382) 101 meq/L 98-107 CO2 (BEAKER) (test code = 355) 22 meq/L 22-29 BLOOD UREA NITROGEN (BEAKER) (test code = 354) 13 mg/dL 7-21 CREATININE (BEAKER) (test code = 358) 0.97 mg/dL 0.57-1.25 Specimen slightly hemolyzed GLUCOSE RANDOM (BEAKER) (test code = 652) 145 mg/dL 70-105 H CALCIUM (BEAKER) (test code = 697) 11.2 mg/dL 8.4-10.2 H EGFR (BEAKER) (test code = 1092) 76 mL/min/1.73 sq m ESTIMATED GFR IS NOT ACCURATE CREATININE CLEARANCE IN PREDICTING GLOMERULAR FILTRATION RATE. ESTIMATED GFR IS NOT APPLICABLE FOR DIALYSIS PATIENTS. Commercial Mortgage Broker ID - [id number] 11:00:00* Test Item Value Reference Range Interpretation Comments Lipase (test code = 3040-3) 48 U/L 8-78 VY (test code = VY) Commercial Mortgage Broker ID - LM Lab Interpretation (test code = 39041-3) [id number] 11:00:00* Test Item Value Reference Range Interpretation Comments LIPASE (BEAKER) (test code = 749) 48 U/L 8-78 Commercial Mortgage Broker ID - LMHEPATIC FUNCTION [id number] 11:00:00* Test Item Value Reference Range Interpretation Comments TOTAL PROTEIN (BEAKER) (test code = 770) 8.0 gm/dL 6.0-8.3 Specimen slightly hemolyzed ALBUMIN (BEAKER) (test code = 1145) 4.1 g/dL 3.5-5.0 Specimen slightly hemolyzed BILIRUBIN TOTAL (BEAKER) (test code = 377) 0.4 mg/dL 0.2-1.2 Specimen slightly hemolyzed BILIRUBIN DIRECT (BEAKER) (test code = 706) 0.2 mg/dL 0.1-0.5 Specimen slightly hemolyzed ALKALINE PHOSPHATASE (BEAKER) (test code = 346) 133 U/L 40-150 AST (SGOT) (BEAKER) (test code = 353) 27 U/L 5-34 Specimen slightly hemolyzed ALT (SGPT) (BEAKER) (test code = 347) 45 U/L 6-55 Specimen slightly hemolyzed Commercial Mortgage Broker ID - LMPT/[id number] 10:46:00* Test Item Value Reference Range Interpretation Comments Protime (test code = 5902-2) 12.7 11.9- 14.2 seconds INR (test code = 6301-6) 1.0 <=5.9 PTT (test code = 19175-8) 27.7 22.5- 36.0 seconds VY (test code = VY) Effective 12/03/2018: PT Refe rence Range ChangeNew: 11.9- 14.2 Previous: 11.7-14.7 RECOMMENDED COUMADIN/WARFARIN INR THERAPY RANGESSTANDARD DOSE: 2.0-3.0 Includes: PROPHYLAXIS for venous thrombosis, sys temic embolization; TREATMENT for venous thrombosis and/or pulmonary embolus.HIGH RISK: Target INR is 2.5-3.5 for patients wiht mechanical heart valves. Lab Interpretation (test code = 87986-7) Normal [facility]PT/[id number] 10:46:00* Test Item Value Reference Range Interpretation Comments PROTIME (BEAKER) (test code = 759) 12.7 seconds 11.9-14.2 INR (BEAKER) (test code = 370) 1.0 <=5.9 PARTIAL THROMBOPLASTIN TIME (BEAKER) (test code = 760) 27.7 seconds 22.5-36.0 Effective 12/03/2018: PT Reference Range ChangeNew: 11.9-14.2 Previous: 11.7-14. 7RECOMMENDED COUMADIN/WARFARIN INR THERAPY RANGESSTANDARD DOSE: 2.0-3.0 Include s: PROPHYLAXIS for venous thrombosis, systemic embolization; TREATMENT for venou s thrombosis and/or pulmonary embolus.HIGH RISK: Target INR is 2.5-3.5 for patie nts wiht mechanical heart valves.CBC W/PLT COUNT & AUTO [id number] 10:46:00* Test Item Value Reference Range Interpretation Comments WHITE BLOOD CELL COUNT (BEAKER) (test code = 775) 5.7 K/ L 3.5- 10.5 RED BLOOD CELL COUNT (BEAKER) (test code = 761) 4.13 M/ L 4.63-6 .08 L HEMOGLOBIN (BEAKER) (test code = 410) 13.2 GM/DL 13.7-17.5 L HEMATOCRIT (BEAKER) (test code = 411) 39.8 % 40.1-51.0 L MEAN CORPUSCULAR VOLUME (BEAKER) (test code = 753) 96.4 fL 79. 0-92.2 H MEAN CORPUSCULAR HEMOGLOBIN (BEAKER) (test code = 751) 32.0 pg 25.7-32.2 MEAN CORPUSCULAR HEMOGLOBIN CONC (BEAKER) (test code = 752) 33.2 GM/DL 32.3-36.5 RED CELL DISTRIBUTION WIDTH (BEAKER) (test code = 412) 14.0 % 11.6-14.4 PLATELET COUNT (BEAKER) (test code = 756) 147 K/CU MM 150-450 L MEAN PLATELET VOLUME (BEAKER) (test code = 754) 10.6 fL 9.4-12 .4 NUCLEATED RED BLOOD CELLS (BEAKER) (test code = 413) 0 /100 WBC 0 -0 NEUTROPHILS RELATIVE PERCENT (BEAKER) (test code = 429) 82 % LYMPHOCYTES RELATIVE PERCENT (BEAKER) (test code = 430) 6 % MONOCYTES RELATIVE PERCENT (BEAKER) (test code = 431) 8 % EOSINOPHILS RELATIVE PERCENT (BEAKER) (test code = 432) 3 % BASOPHILS RELATIVE PERCENT (BEAKER) (test code = 437) 1 % NEUTROPHILS ABSOLUTE COUNT (BEAKER) (test code = 670) 4.65 K/ L 1.78-5.38 LYMPHOCYTES ABSOLUTE COUNT (BEAKER) (test code = 414) 0.34 K/ L 1.32-3.57 L MONOCYTES ABSOLUTE COUNT (BEAKER) (test code = 415) 0.45 K/ L 0. 30-0.82 EOSINOPHILS ABSOLUTE COUNT (BEAKER) (test code = 416) 0.18 K/ L 0.04-0.54 BASOPHILS ABSOLUTE COUNT (BEAKER) (test code = 417) 0.03 K/ L 0. 01-0.08 IMMATURE GRANULOCYTES-RELATIVE PERCENT (BEAKER) (test code = 2801) 0 % 0-1 ANG, VISCERAL [id number] 18:33:00Referring: Dr. Hugo Hall for Exam:->HCC FINAL REPORT Mesenteric angiogram, for hepatic radioembo lization, 08/03/2019. History: Right hepatic H CC. Modality: Fluoroscopy. Sedation: Versed 1 .5 mg and fentanyl 75 mcg was given intravenously for conscious sedation. Vital signs were monitored throughout the procedure by a nurse, and remained stable. Physician intra-service time was 40 minutes. Anesthesia: Two percent Lidocai ne without epinephrine. Approach : Right common femoral artery. Estimated blood loss: < 5 cc. Specimen: None. tanning wheel operator: Bruna. Commercial Property Manager: Caitlin. Fluoroscopy Time: 5.7 min. Dose (Ka,r): [...] micropuncture sheath was removed and a 5 Cymraes sheath was placed. A 5 Cymraes [place] B catheter was used to select the celiac trunk for a DSA run. A microcatheter was advanced through the [place] cat heter for subselection of the distal right hepatic artery for a DSA run, with t he catheter tip placed in the same location as the previous diagnostic angiogram . Y 90 microsphere (SIR Moneero) administration was then performed by Dr. Cox of the nuclear medicine department. The microcatheter was removed. Injection wa s performed through the sheath for a DSA run of the right femoral artery. The sh eath was removed, the arteriotomy was closed, and hemostasis was obtained using a Mynx closure device. Vital signs were monitored throughout the procedure by a nurse, and remained stable. The patient tolerated the procedure well and left t he department in the same condition. FINDINGS: 1. Right hepatic injection: Ill-defined hypervascularity is noted throughout the right lobe of the liver. 2. Right femoral sheath injection: The right common femoral artery is patent wi th normal position of the arterial sheath. Impression: 1. Uncomplicated mesenteric angiogram.2. Successful plac ement of right hepatic artery microcatheter for radioembolization of the right hepatic lobe.3. Arteriotomy hemostasis obtained with Mynx closure device. Norma d: Walter Hart MDReport Verified Date/Time: 08/03/2019 18:33:11 Reading Loca tion: [facility] B1 P048 Angio Body Reading Room Visceral [id number] 18:33:00 Interface, External Ris In - 08/03/2019 6:35 PM CSTFINAL REPORT PATIENT ID: [id number] Mesenteric angiogram, for hepatic radioembolization, 08/03/2019. History: Right hepatic HCC. Modality: Fluoroscopy. Sedation: Versed 1.5 mg and fentanyl 75 mcg wa s given intravenously for conscious sedation. Vital signs were monitored throug hout the procedure by a nurse, and remained stable. Physician intra-service time was 40 minutes. Anesthesia: Two percent Lidocaine without epinephrine. Approach: Right common femoral rodolfo ry. Estimated blood loss: < 5 cc. Specimen: None. tanning wheel operator: Bruna. Commercial Property Manager: Caitlin. Fluoroscopy Time: 5.7 min. Dose (Ka,r): [...] micropuncture sheath was removed and a 5 Cymraes sheath was placed. A 5 Cymraes [place] B catheter was used to select the celiac trunk for a DSA run. A microcatheter was advanced through the [place] cat heter for subselection of the distal right hepatic artery for a DSA run, with t he catheter tip placed in the same location as the previous diagnostic angiogram . Y 90 microsphere (SIR spheres) administration was then performed by Dr. Cox of the nuclear medicine department. The microcatheter was removed. Injection wa s performed through the sheath for a DSA run of the right femoral artery. The sh eath was removed, the arteriotomy was closed, and hemostasis was obtained using a Mynx closure device. Vital signs were monitored throughout the procedure by a nurse, and remained stable. The patient tolerated the procedure well and left t department in the same condition. FINDINGS: 1. Right hepatic injection: Ill-defined hypervascularity is noted throughout the right lobe of the liver. 2. Right femoral sheath injection: The right common femoral artery is patent wi th normal position of the arterial sheath. Impression: 1. Uncomplicated mesenteric angiogram.2. Successful plac ement of right hepatic artery microcatheter for radioembolization of the right hepatic lobe.3. Arteriotomy hemostasis obtained with Mynx closure device. Norma d: Walter Hart MDReport Verified Date/Time: 08/03/2019 18:33:11 Reading Loca tion: [facility] B1 P048 Angio Body Reading [facility], [id number] 15:56:00Referring: Dr. Hugo Christopher For [id number] REPORT PROCEDURE: TRACER DISTRIBUTION STUDY - SPECT (Bremsstrahlung) CPT CODE: 11528 C LINICAL INDICATION: Hepatocellular carcinoma PROTOCOL: 32.9 mCi of Y-90 microspheres (SIR-Spheres) had been previously administered. SPECT imaging of th e liver and upper abdomen using Bremsstrahlung radiation was performed without additional injection of radiopharmaceutical. FINDINGS: Tracer distribution in th e visualized portion of the liver is irregular. No significant activity is noted outside of the liver. IMPRESSION: Appropriate tracer distribution following right hepatic artery injection. Signed: Mook Cox Verified Date/Brandon e: 08/03/2019 15:56:53 Reading Location: [address] Nuc Med Reading Room tumor localization [id number] 15:56:00Interface, External Ris In - 08/03/2019 3:59 PM CSTFINAL REPORT PROCEDURE: TRACER DISTRIBUTION STUDY - SPECT (Bremsstrahlung) CPT CODE: 72635 CLINICAL INDICATION: Hepatocellular carcinoma PROTOCOL: 32.9 mCi [...] right hepatic artery injection. Signed: Mook Cox Verified Date/Time: 08/03/2019 15:56:53 Reading Location: [address] Nuc Med Reading Room [facility] RADIO'TX, INTRA-ARTERIAL PARTIC [id number] 15:55:00Referring: Dr. Hugo Christopher For [id number] REPORT PROCEDURE: Y-90 microsphere therapy (SIR-Spheres) CPT CODE: 52220 CLINICAL INDICATION: Hepatocellular carcinoma PROTOCOL: 32.9 mCi of a planned 36 mCi dosage of Y-90 labeled microspheres (SIR-Spheres) was administered by the nuclear medicine physician to the right lobe of the liver via a hepatic artery catheter placed by the interventional radiologist. IMPRESSION: Y-90 microsphere therapy Signed: Mook Cox Verified Date/Time: 08/03/2019 15:55:37 Reading Location: [address] P327B Nuc Med Reading Room Y90 MICROPSHERES [id number] 15:55:00Interface, External Ris In - 08/03/2019 3:57 PM CSTFINAL REPORT PROCEDURE: Y-90 microsphere therapy (SIR-Spheres) CPT CODE: 14212 CLINICAL INDICATION: Hepatocellular carcinoma PROTOCOL: 32.9 mCi of a planned 36 mCi dosage of Y-90 labeled microspheres (SIR-Spheres) was administered by the nuclear medicine physician to the right lobe of the liver via a hepatic artery catheter placed by the interventional radiologist. IMPRESSION: Y-90 microsphere therapy Signed: Mook Cox MDReport Verified Date/Time: 08/03/2019 15:55:37 Reading Location: [address] Reading Room [facility] 09:21:00* Test Item Value Reference Range Interpretation Comments PARTIAL THROMBOPLASTIN TIME (BEAKER) (test code = 760) 26.9 seconds 22.5-36.0 PROTHROMBIN TIME/[id number] 09:20:00* Test Item Value Reference Range Interpretation Comments PROTIME (BEAKER) (test code = 759) 13.4 seconds 11.9-14.2 INR (BEAKER) (test code = 370) 1.1 <=5.9 Effective 12/03/2018: PT Reference Range ChangeNew: 11.9-14.2 Previous: 11.7-14. 7RECOMMENDED COUMADIN/WARFARIN INR THERAPY RANGESSTANDARD DOSE: 2.0-3.0 Include s: PROPHYLAXIS for venous thrombosis, systemic embolization; TREATMENT for venou s thrombosis and/or pulmonary embolus.HIGH RISK: Target INR is 2.5-3.5 for patie nts wiht mechanical heart valves.COMPREHENSIVE METABOLIC [id number] 09:12:00* Test Item Value Reference Range Interpretation Comments TOTAL PROTEIN (BEAKER) (test code = 770) 7.5 gm/dL 6.0-8.3 ALBUMIN (BEAKER) (test code = 1145) 4.1 g/dL 3.5-5.0 ALKALINE PHOSPHATASE (BEAKER) (test code = 346) 85 U/L 40-150 BILIRUBIN TOTAL (BEAKER) (test code = 377) 0.4 mg/dL 0.2-1.2 SODIUM (BEAKER) (test code = 381) 139 meq/L 136-145 POTASSIUM (BEAKER) (test code = 379) 4.0 meq/L 3.5-5.1 CHLORIDE (BEAKER) (test code = 382) 108 meq/L 98-107 H CO2 (BEAKER) (test code = 355) 26 meq/L 22-29 BLOOD UREA NITROGEN (BEAKER) (test code = 354) 17 mg/dL 7-21 CREATININE (BEAKER) (test code = 358) 0.95 mg/dL 0.57-1.25 GLUCOSE RANDOM (BEAKER) (test code = 652) 86 mg/dL 70-105 CALCIUM (BEAKER) (test code = 697) 11.0 mg/dL 8.4-10.2 H AST (SGOT) (BEAKER) (test code = 353) 14 U/L 5-34 ALT (SGPT) (BEAKER) (test code = 347) 16 U/L 6-55 EGFR (BEAKER) (test code = 1092) 78 mL/min/1.73 sq m ESTIMATED GFR IS NOT ACCURATE CREATININE CLEARANCE IN PREDICTING GLOMERULAR FILTRATION RATE. ESTIMATED GFR IS NOT APPLICABLE FOR DIALYSIS PATIENTS. Commercial Mortgage Broker LISET MARION FBILIRUBIN, [id number] 09:12:00* Test Item Value Reference Range Interpretation Comments BILIRUBIN DIRECT (BEAKER) (test code = 706) 0.2 mg/dL 0.1-0.5 Commercial Mortgage Broker LISET MARION FCBC W/PLT COUNT & AUTO [id number] 08:57:00* Test Item Value Reference Range Interpretation Comments WHITE BLOOD CELL COUNT (BEAKER) (test code = 775) 6.2 K/ L 3.5- 10.5 RED BLOOD CELL COUNT (BEAKER) (test code = 761) 3.98 M/ L 4.63-6 .08 L HEMOGLOBIN (BEAKER) (test code = 410) 12.4 GM/DL 13.7-17.5 L HEMATOCRIT (BEAKER) (test code = 411) 39.0 % 40.1-51.0 L MEAN CORPUSCULAR VOLUME (BEAKER) (test code = 753) 98.0 fL 79. 0-92.2 H MEAN CORPUSCULAR HEMOGLOBIN (BEAKER) (test code = 751) 31.2 pg 25.7-32.2 MEAN CORPUSCULAR HEMOGLOBIN CONC (BEAKER) (test code = 752) 31.8 GM/DL 32.3-36.5 L RED CELL DISTRIBUTION WIDTH (BEAKER) (test code = 412) 13.7 % 11.6-14.4 PLATELET COUNT (BEAKER) (test code = 756) 157 K/CU MM 150-450 MEAN PLATELET VOLUME (BEAKER) (test code = 754) 9.5 fL 9.4-12 .4 NUCLEATED RED BLOOD CELLS (BEAKER) (test code = 413) 0 /100 WBC 0 -0 NEUTROPHILS RELATIVE PERCENT (BEAKER) (test code = 429) 62 % LYMPHOCYTES RELATIVE PERCENT (BEAKER) (test code = 430) 26 % MONOCYTES RELATIVE PERCENT (BEAKER) (test code = 431) 8 % EOSINOPHILS RELATIVE PERCENT (BEAKER) (test code = 432) 4 % BASOPHILS RELATIVE PERCENT (BEAKER) (test code = 437) 1 % NEUTROPHILS ABSOLUTE COUNT (BEAKER) (test code = 670) 3.84 K/ L 1.78-5.38 LYMPHOCYTES ABSOLUTE COUNT (BEAKER) (test code = 414) 1.59 K/ L 1.32-3.57 MONOCYTES ABSOLUTE COUNT (BEAKER) (test code = 415) 0.46 K/ L 0. 30-0.82 EOSINOPHILS ABSOLUTE COUNT (BEAKER) (test code = 416) 0.23 K/ L 0.04-0.54 BASOPHILS ABSOLUTE COUNT (BEAKER) (test code = 417) 0.03 K/ L 0. 01-0.08 IMMATURE GRANULOCYTES-RELATIVE PERCENT (BEAKER) (test code = 2801) 0 % 0-1 TUMOR LOCALIZATION, [id number] 08:49:00Referring: Dr. Hugo AlarconINAL REPORT PROCEDURE: TRACER DISTRIBUTION STUDY, Planar WHOLE BODY with SPECT/CT CLINICAL INDICATION: C22 hepatocellular carcinoma PROTOCOL: A total of 2.4 mCi of Tc-99m MAA was injected by the nuclear medic ine physician via an arterial catheter placed by the interventional radiologist in the right hepatic artery. Planar whole body and spot images of the chest and upper abdomen, as well as tomographic images of the liver and upper abdomen wit h limited CT correlation were obtained. Hepatopulmonary shunting was calculated by the geometric mean method. FINDINGS: There is irregular tracer distribution within the right lobe of the liver. There is mild tracer accumulation in the sa livary glands and the kidneys/urinary system, consistent with expected free pert echnetate activity. Otherwise, there is no tracer distribution outside of the li melonie in the abdomen. Quantitative analysis indicates 2.3% shunting of tracer to the lungs. IMPRESSION: 1. Tracer uptake in the liver is consistent with hepatic parenchymal disease and/or focal space occupying disease. 2. There is no abn ormal extrahepatic activity . The patient is an acceptable candidate for injecti on of therapeutic microspheres by this criterion. 3. Shunting to the lungs is i n an acceptable range for therapy. Signed: Mook Cox MDReport Verified Date/ Time: 07/21/2019 08:49:53 Reading Location: [address] Reading Room A M ANG, VISCERAL [id number] 13:55:00Referring: Dr. Hugo Hall for exam:-> Y90 MAPPINGFINAL REPORT PROCEDURE: Hepatic selective angiography and MAA embolization CLINICAL HISTORY: Y90 MAPPING MARSHMALLOW MACHINE OPERATOR: Ger Azevedo DO, JD HARVEST CREW SUPERVISOR: Portions of this procedure were assisted by the resident/fellow/PA under the direct supervision of Ger Azevedo DO, JD. ANESTHESIA: Conscious sedation was provided by radiology nursing using constant hemodynamic monitoring for 45 Minutes. Versed IV 1 mg, Fentanyl IV 50 mcg. DOSE INFORMATION - Ka,r: 514 mGy Estimated Blood Loss: < 5cc Samples: None. RADIATION THERAPY MATERIAL: Please see dedicated nuclear medicine note. PROCEDURE: The risks, benefits, and alternatives to the procedure were discussed with the patient. All questions were answered and written informed consent was obtained. A universal timeout was performed prior to starting the procedure. All elements of maximal sterile barrier technique, hand hygiene, skin preparation and sterile techniques were followed. Ultrasound of the right common femoral artery demonstrated a patent and compressible vessel. An ultrasound esther ge of the vessel was obtained. Lidocaine was used for cutaneous anesthesia. Unde r ultrasound and fluoroscopic guidance the vessel was accessed with a micropunct ure set upsized to a sheath in the usual fashion. A 5 Cymraes catheter was then u sed to select the celiac trunk, confirmed by angiography. A microcatheter was na vigated to the right hepatic artery. Selective hepatic arteriography was perform ed to confirm position of the microcatheter. In conjunction with the authorize d user, Dr. Cox/Jason, the radioactive particles were delivered via the microca theter. Following administration of the particles, the catheters were removed an d all contaminated material was safely discarded according to protocol. A fter angiographically confirming a right common femoral artery puncture, the she ath was removed over a wire and the arteriotomy was closed with a closure device . A sterile dressing was placed. The patient tolerated the procedure well withou t immediate complication and was transported to the recovery room in stable cond ition. The [facility] IMPRESSION: Successful Tc-99 MAA particle embolization of the ri ght hepatic artery. Signed: Ger Azevedo MDReport Verified Date/Time: 07/20/19 13:55:10 Reading Location: [facility] P048 Angio Body Reading Room Electronicall y signed by: GER AZEVEDO DO on 07/20/2019 01:55 PM COMPREHENSIVE METABOLIC [id number] 10:06:00* Test Item Value Reference Range Interpretation Comments TOTAL PROTEIN (BEAKER) (test code = 770) 8.0 gm/dL 6.0-8.3 ALBUMIN (BEAKER) (test code = 1145) 4.3 g/dL 3.5-5.0 ALKALINE PHOSPHATASE (BEAKER) (test code = 346) 91 U/L 40-150 BILIRUBIN TOTAL (BEAKER) (test code = 377) 0.4 mg/dL 0.2-1.2 SODIUM (BEAKER) (test code = 381) 135 meq/L 136-145 L POTASSIUM (BEAKER) (test code = 379) 4.1 meq/L 3.5-5.1 CHLORIDE (BEAKER) (test code = 382) 104 meq/L 98-107 CO2 (BEAKER) (test code = 355) 24 meq/L 22-29 BLOOD UREA NITROGEN (BEAKER) (test code = 354) 16 mg/dL 7-21 CREATININE (BEAKER) (test code = 358) 1.12 mg/dL 0.57-1.25 GLUCOSE RANDOM (BEAKER) (test code = 652) 178 mg/dL 70-105 H CALCIUM (BEAKER) (test code = 697) 11.1 mg/dL 8.4-10.2 H AST (SGOT) (BEAKER) (test code = 353) 19 U/L 5-34 ALT (SGPT) (BEAKER) (test code = 347) 24 U/L 6-55 EGFR (BEAKER) (test code = 1092) 64 mL/min/1.73 sq m ESTIMATED GFR IS NOT ACCURATE CREATININE CLEARANCE IN PREDICTING GLOMERULAR FILTRATION RATE. ESTIMATED GFR IS NOT APPLICABLE FOR DIALYSIS PATIENTS. Commercial Mortgage Broker ID - AMAYA MPROTHROMBIN TIME/[id number] 09:42:00* Test Item Value Reference Range Interpretation Comments PROTIME (BEAKER) (test code = 759) 12.8 seconds 11.9-14.2 INR (BEAKER) (test code = 370) 1.0 <=5.9 Effective 12/03/2018: PT Reference Range ChangeNew: 11.9-14.2 Previous: 11.7-14. 7RECOMMENDED COUMADIN/WARFARIN INR THERAPY RANGESSTANDARD DOSE: 2.0-3.0 Include s: PROPHYLAXIS for venous thrombosis, systemic embolization; TREATMENT for venou s thrombosis and/or pulmonary embolus.HIGH RISK: Target INR is 2.5-3.5 for patie nts wiht mechanical heart valves.[id number] 09:42:00* Test Item Value Reference Range Interpretation Comments PARTIAL THROMBOPLASTIN TIME (BEAKER) (test code = 760) 26.5 seconds 22.5-36.0 CBC W/PLT COUNT & AUTO [id number] 09:35:00* Test Item Value Reference Range Interpretation Comments WHITE BLOOD CELL COUNT (BEAKER) (test code = 775) 7.7 K/ L 3.5- 10.5 RED BLOOD CELL COUNT (BEAKER) (test code = 761) 4.00 M/ L 4.63-6 .08 L HEMOGLOBIN (BEAKER) (test code = 410) 12.9 GM/DL 13.7-17.5 L HEMATOCRIT (BEAKER) (test code = 411) 38.6 % 40.1-51.0 L MEAN CORPUSCULAR VOLUME (BEAKER) (test code = 753) 96.5 fL 79. 0-92.2 H MEAN CORPUSCULAR HEMOGLOBIN (BEAKER) (test code = 751) 32.3 pg 25.7-32.2 H MEAN CORPUSCULAR HEMOGLOBIN CONC (BEAKER) (test code = 752) 33.4 GM/DL 32.3-36.5 RED CELL DISTRIBUTION WIDTH (BEAKER) (test code = 412) 13.8 % 11.6-14.4 PLATELET COUNT (BEAKER) (test code = 756) 143 K/CU MM 150-450 L MEAN PLATELET VOLUME (BEAKER) (test code = 754) 10.5 fL 9.4-12 .4 NUCLEATED RED BLOOD CELLS (BEAKER) (test code = 413) 0 /100 WBC 0 -0 NEUTROPHILS RELATIVE PERCENT (BEAKER) (test code = 429) 68 % LYMPHOCYTES RELATIVE PERCENT (BEAKER) (test code = 430) 21 % MONOCYTES RELATIVE PERCENT (BEAKER) (test code = 431) 7 % EOSINOPHILS RELATIVE PERCENT (BEAKER) (test code = 432) 3 % BASOPHILS RELATIVE PERCENT (BEAKER) (test code = 437) 0 % NEUTROPHILS ABSOLUTE COUNT (BEAKER) (test code = 670) 5.21 K/ L 1.78-5.38 LYMPHOCYTES ABSOLUTE COUNT (BEAKER) (test code = 414) 1.60 K/ L 1.32-3.57 MONOCYTES ABSOLUTE COUNT (BEAKER) (test code = 415) 0.55 K/ L 0. 30-0.82 EOSINOPHILS ABSOLUTE COUNT (BEAKER) (test code = 416) 0.23 K/ L 0.04-0.54 BASOPHILS ABSOLUTE COUNT (BEAKER) (test code = 417) 0.03 K/ L 0. 01-0.08 IMMATURE GRANULOCYTES-RELATIVE PERCENT (BEAKER) (test code = 2801) 0 % 0-1 - CT ABD PELVIS [id number] 21:39:00 Name: IVONE HARDY [facility] : 1945 Age/S: 74 / M [address] [place] [address] Unit #: [id number] Loc: [place] [address] Phys: George Casper MD Acct: [id number] Dis Date: Status: REG ER PHONE #: [phone] Exam Date: 06/14/20192102 FAX #: [phone] Reason: abd. pain EXAMS: CPT CODE: [id number] CT ABD PELVIS W/CONT 28722 Study: - CT ABD PELVIS W/CONT 06/14/2019 6:43 PM Ordering Physician: George Casper MD Clinical Indication: Abdominal pain. Past medical history is significant for diabetes, cancer of liver, cholecystectomy and coronary arterial bypass surgery. Comparison: None TECHNIQUE: Helical imaging is performed from the diaphragm to the symphysis. Multiplanar reformations are obtained. IV CONTRAST: 100cc Isovue 300 GFR: 83 GI CONTRAST: None CT imaging performed at this location utilizes radiation dose optimization techniques which include one or more of the following: Auto mated exposure control Adjustment of the MAA and/or KUB according to patie nt size Use of iterative reconstruction technique CT Radiation Dose: DLP = 644 mGy-cm FINDINGS: There is mild right ba silar atelectasis or scar. Left lung base is clear. The heart size is nor mal. Median sternotomy wires are present. Heavy coronary arterial vascula r calcification and coronary stents are present. Moderate abdominal aorti c and heavy iliofemoral arterial vascular calcifications are seen. The gallbladder is surgically absent. The liver is normal i n size. An ill-defined low-attenuation mass is present in the posterior ri ght lobe of the liver measuring approximately 4.0 cm AP by 4.0 cm TR by 3. 0 cm CC. It is subcapsular in location and correlates with the patient's history of hepatic malignancy. No intrahepatic or extrahepatic biliary du ctal dilatation is seen. The spleen, pancreas and adrenal glands are unre markable. A pedunculated cyst projects from the posterior mid zone of the right kidney measuring approximately 3.2 x 2.6 x 2.9 cm. A tiny no nobstructing right upper pole renal calculus is present. Renal arterial v ascular calcification noted on the left. The distal esophagus, sto mach and small bowel are normal in appearance. The appendix is normal, wit h no evidence for acute appendicitis. No colonic abnormalities are seen. PAGE 1 Signed Report (RADHA NUCAROLINA) Name: IVONE HARDY [facility] : 1945 Age/S: 74 / M [address] [place] [address] Unit # : [id number] Loc: [place] [address] Phys: George Hernandez MD Acct: [id number] Dis Date: Status: REG ER PHON E #: [phone] Exam Date: 06/14/20192102 FAX #: Reason: abd. pain EXAMS : CPT CODE: [id number] CT ABD PELVIS W/CONT 72490 <Continued> There is no abdominal or pelvic adenopathy. There is no free fluid within the abdomen or pelvis. The prostate is mildly enlarged. Seminal vesicles and urinary bladder are unremarkable. The inguinal regions are unremarkable. A right paraumbilical hernia is present; the neck measures 3.1 cm in diameter; the sac measures 5.1 x 7.2 x 9.3 cm and contains only fat. No lytic or blastic osseous lesions are seen. IMPRESSION: There is a heterogeneous region of decreased attenuation in the posterior subcapsular right lobe of the liver measuring approximately 4 cm, compatible with history of hepatic malignancy. Prior cholecystectomy. 3 cm rig ht-sided renal cyst. Tiny nonobstructing right upper pole renal calculu s. Right-sided paraumbilical hernia noted with neck measuring 3 cm and fat containing sac measuring approximately 5 x 7 x 9 cm. Median sternotomy wires are present, with evidence for coronary arterial bypass graft. Heavy coronary, abdominal aortic and iliofem oral arterial vascular calcifications are seen. SL: LORETTA FOX-P at 2139 Reported and signed by: Susie Costa M.D. CC: Niranjan zambrano MD Technologist:Mikayla Doan, RT(R)(CT) C TDI: DLP: Trnscb Date/Time: 06/14/2019 (2138) t.JYA Orig Print D/T: S: 06/14/2019 (2141) PAGE 2 Signed Report COMPREHENSIVE METABOLIC PANEL 2019-06-14 20:19:00* Test Item Value Reference Range Interpretation Comments SODIUM (test code = NA) 136 mEq/L 134-147 N POTASSIUM (test code = K) 4.5 mEq/L 3.4-5.0 N CHLORIDE (test code = CL) 104 mEq/L 100-108 N CARBON DIOXIDE (test code = CO2) 26 mEq/L 21-33 N ANION GAP (test code = GAP) 11 0-20 N GLUCOSE (test code = GLU) 89 mg/dL 70-110 N BLOOD UREA NITROGEN (test code = BUN) 14 mg/dL 7-18 N GLOMERULAR FILTRATION RATE (test code = GFR) 82.7 70-80 H Units of measure = ml/min/1.73 m2 CREATININE (test code = CREAT) 0.9 mg/dL 0.6-1.3 N TOTAL PROTEIN (test code = PROT) 8.3 g/dL 6.4-8.2 H ALBUMIN (test code = ALB) 4.00 g/dL 3.4-5.0 N CALCIUM (test code = CA) 10.6 mg/dL 8.0-10.5 H BILIRUBIN TOTAL (test code = BILT) 0.4 MG/DL <1.5 N SGOT/AST (test code = AST) 16 IUnit/L 15-37 N SGPT/ALT (test code = ALT) 26 IUnit/L 15-65 N ALKALINE PHOSPHATASE TOTAL (test code = ALKP) 97 IUnit/L 20-125 N [id number] 20:19:00* Test Item Value Reference Range Interpretation Comments LIPASE (test code = LIP) 475 IUnit/L 73-393 H COMPREHENSIVE METABOLIC [id number] 20:14:00* Test Item Value Reference Range Interpretation Comments SODIUM (test code = NA) 136 mEq/L 134-147 N POTASSIUM (test code = K) 4.5 mEq/L 3.4-5.0 N CHLORIDE (test code = CL) 104 mEq/L 100-108 N CARBON DIOXIDE (test code = CO2) 26 mEq/L 21-33 N ANION GAP (test code = GAP) 11 0-20 N GLUCOSE (test code = GLU) 89 mg/dL 70-110 N BLOOD UREA NITROGEN (test code = BUN) 14 mg/dL 7-18 N GLOMERULAR FILTRATION RATE (test code = GFR) 70-80 CREATININE (test code = CREAT) mg/dL 0.6-1.3 TOTAL PROTEIN (test code = PROT) g/dL 6.4-8.2 ALBUMIN (test code = ALB) g/dL 3.4-5.0 CALCIUM (test code = CA) 10.6 mg/dL 8.0-10.5 H BILIRUBIN TOTAL (test code = BILT) MG/DL <1.5 SGOT/AST (test code = AST) IUnit/L 15-37 SGPT/ALT (test code = ALT) IUnit/L 15-65 ALKALINE PHOSPHATASE TOTAL (test code = ALKP) IUnit/L 20-125 [id number] 20:14:00* Test Item Value Reference Range Interpretation Comments LIPASE (test code = LIP) 475 IUnit/L 73-393 H PROTHROMBIN [id number] 20:12:00* Test Item Value Reference Range Interpretation Comments PROTHROMBIN TIME PATIENT (test code = PTP) 11.5 SECONDS 9.3-12.9 N INTERNATIONAL NORMAL RATIO (test code = INR) 1.1 0.8-1.2 N TARGET INR BY INDICATION Indication INR1. Prophylaxis of venous thrombosis 2.0 - 3.0 (orthopedic surgery), Prophylaxis of venous thrombosis (other than high-risk surgery), Treatment of Deep Vein Thrombosis/Pulmonary Embolism, Prevention of systemic embolism - Tissue heart valves, Acute Myocardial Infarction (to prevent systemic embolism), Valvular heart disease, Atrial Fibrillation, Bileaflet mechanical valve in aortic position.2. Mechanical prosthetic valves (high risk), 2.5 - 3.5 Presence of Lupus Anticoagulant or Antiphospholipid Antibodies, Prevention of systemic embolism - Acute Myocardial Infarction (to prevent recurrent infarct). URINALYSIS [id number] 20:12:00* Test Item Value Reference Range Interpretation Comments UA COLOR (test code = COLU) YELLOW YEL/STRAW UA APPEARANCE (test code = APPU) CLEAR CLEAR UA GLUCOSE DIPSTICK (test code = DGLUU) NEGATIVE NEGATIVE UA BILIRUBIN DIPSTICK (test code = BILU) NEGATIVE NEGATIVE UA KETONE DIPSTICK (test code = KETU) NEGATIVE NEGATIVE UA SPECIFIC GRAVITY (test code = SGU) 1.008 1.005-1.030 N UA BLOOD DIPSTICK (test code = RITA) NEGATIVE NEGATIVE UA PH DIPSTICK (test code = ANATOLY) 6.0 5.0-7.0 N UA PROTEIN DIPSTICK (test code = PROU) NEGATIVE NEGATIVE UA UROBILINIOGEN DIPSTICK (test code = URO) 0.2 mg/dL 0.2-1.0 UA NITRITE DIPSTICK (test code = SHARI) NEGATIVE NEGATIVE UA LEUKOCYTE ESTERASE DIPSTICK (test code = LEUU) NEGATIVE NEGA TIVE UA RBC (test code = RBCU) 0-3 RBC/HPF 0-3 UA WBC NO REFLEX (test code = WBCUCL) 0-3 WBC/HPF 0-3 UA BACTERIA (test code = BACU) TRACE /HPF NONE SEEN UA SQUAMOUS CELLS (test code = SQU) 0-5 /HPF NONE SEEN CBC W/AUTO [id number] 20:05:00* Test Item Value Reference Range Interpretation Comments WHITE BLOOD CELL (test code = WBC) 8.09 x10 3/uL 4.5-11.0 N RED BLOOD CELL (test code = RBC) 4.27 x10 6/uL 4.00-5.60 N HEMOGLOBIN (test code = HGB) 13.7 g/dL 12.5-16.9 N HEMATOCRIT (test code = HCT) 41.7 % 37.5-50.7 N MEAN CELL VOLUME (test code = MCV) 97.7 fL 81.0-99.0 N MEAN CELL HGB (test code = MCH) 32.1 pg 27.0-33.0 N MEAN CELL HGB CONCETRATION (test code = MCHC) 32.9 g/dL 33.0-37. 0 L RED CELL DISTRIBUTION WIDTH CV (test code = RDW) 14.3 % 11.5- 14.5 N RED CELL DISTRIBUTION WIDTH SD (test code = RDW-SD) 51.9 fL 37 .0-54.0 N PLATELET COUNT (test code = PLT) 156 x10 3/uL 150-400 N MEAN PLATELET VOLUME (test code = MPV) 10.0 fL 7.0-9.0 H NEUTROPHIL % (test code = NT%) 54.9 % 56.0-77.0 L IMMATURE GRANULOCYTE % (test code = IG%) 0.4 % 0.0-2.0 N LYMPHOCYTE % (test code = LY%) 31.8 % 14.0-32.0 N MONOCYTE % (test code = MO%) 8.7 % 4.8-9.0 N EOSINOPHIL % (test code = EO%) 3.7 % 0.3-3.7 N BASOPHIL % (test code = BA%) 0.5 % 0.0-2.0 N NUCLEATED RBC % (test code = NRBC%) 0.0 % 0-0 N NEUTROPHIL # (test code = NT#) 4.45 x10 3/uL 2.0-7.6 N IMMATURE GRANULOCYTE # (test code = IG#) 0.03 x10 3/uL 0.00-0.03 N LYMPHOCYTE # (test code = LY#) 2.57 x10 3/uL 1.0-3.8 N MONOCYTE # (test code = MO#) 0.70 x10 3/uL 0.1-0.8 N EOSINOPHIL # (test code = EO#) 0.30 x10 3/uL 0.0-0.2 H BASOPHIL # (test code = BA#) 0.04 x10 3/uL 0.0-0.2 N NUCLEATED RBC # (test code = NRBC#) 0.00 x10 3/uL 0.0-0.1 N MANUAL DIFF REQUIRED (test code = MDIFF) NO - NM PARATHYROID [id number] 12:47:00 FAX: Niranjan Foote DO [phone] [place]: St: REG FAX: Kailey Ingram MD [phone] Name: IVONE HARDY [facility] : 1945 Age/S: 74/M [address] [place] [address] Unit #: [id number] [facility] [place] [address] Phys: Kailey Hardy MD Acct: [id number] Dis Date: Status: REG CLI PHONE #: [phone] Exam Date: 06/03/2019 1240 FAX #: [phone] Reason: E21.3 HYPERPARATHYROI DISM EXAMS: CPT CODE: [id number] NM PARATHYROID SCAN 14099 Nuclear medicine parathyroid scan 06/03/2019 HISTO RY: Hyperparathyroidism PROCEDURE: After the intravenous injection of 25 mCi of technetium 99m sestamibi, immediate, 15 minute, and delayed 2 hour imaging of the neck was performed. Triplanar SPECT imaging was per formed at 2 hours with 3-D reconstructions. No prior exams a re available for comparison FINDINGS: There is physiologic uptake within the salivary glands and thyroid gland. There is physiologic uptake within the heart and liver. There is no area of abnormal uptake around t he thyroid gland. IMPRESSION: Negative study for parathy roid adenoma. SL: [id number] Electronic ally Signed by Pablito Da Silva on 06/03/2019 at 1247 Reported and signed by: Dieter Da Silva M.D. CC: Niranjan Foote DO; Kailey Hardy MD Technologist: RT Christiane(R)([facility]) Trnscrd Date/Time/By: 06/03/2019 (6649) : By: [email or web address] Orig Print D/T : S: 06/03/2019 (3172) PAGE 1 Sig ann Report ALPHA FETOPROTEIN (AFP), TUMOR MARKER 2019-05-27 14:55:00* Test Item Value Reference Range Interpretation Comments ALPHA-FETOPROTEIN (BEAKER) (test code = 1094) 9.2 ng/mL <10.0 BASIC METABOLIC [id number] 14:14:00* Test Item Value Reference Range Interpretation Comments SODIUM (BEAKER) (test code = 381) 139 meq/L 136-145 POTASSIUM (BEAKER) (test code = 379) 4.5 meq/L 3.5-5.1 CHLORIDE (BEAKER) (test code = 382) 106 meq/L 98-107 CO2 (BEAKER) (test code = 355) 26 meq/L 22-29 BLOOD UREA NITROGEN (BEAKER) (test code = 354) 18 mg/dL 7-21 CREATININE (BEAKER) (test code = 358) 1.06 mg/dL 0.57-1.25 GLUCOSE RANDOM (BEAKER) (test code = 652) 134 mg/dL 70-105 H CALCIUM (BEAKER) (test code = 697) 11.4 mg/dL 8.4-10.2 H EGFR (BEAKER) (test code = 1092) 68 mL/min/1.73 sq m ESTIMATED GFR IS NOT ACCURATE CREATININE CLEARANCE IN PREDICTING GLOMERULAR FILTRATION RATE. ESTIMATED GFR IS NOT APPLICABLE FOR DIALYSIS PATIENTS. HEPATIC FUNCTION [id number] 14:10:00* Test Item Value Reference Range Interpretation Comments TOTAL PROTEIN (BEAKER) (test code = 770) 8.5 gm/dL 6.0-8.3 H ALBUMIN (BEAKER) (test code = 1145) 4.5 g/dL 3.5-5.0 BILIRUBIN TOTAL (BEAKER) (test code = 377) 0.4 mg/dL 0.2-1.2 BILIRUBIN DIRECT (BEAKER) (test code = 706) 0.3 mg/dL 0.1-0.5 ALKALINE PHOSPHATASE (BEAKER) (test code = 346) 96 U/L 40-150 AST (SGOT) (BEAKER) (test code = 353) 17 U/L 5-34 ALT (SGPT) (BEAKER) (test code = 347) 22 U/L 6-55 PROTHROMBIN TIME/[id number] 14:07:00* Test Item Value Reference Range Interpretation Comments PROTIME (BEAKER) (test code = 759) 12.7 seconds 11.9-14.2 INR (BEAKER) (test code = 370) 1.0 <=5.9 Effective 12/03/2018: PT Reference Range ChangeNew: 11.9-14.2 Previous: 11.7-14. 7RECOMMENDED COUMADIN/WARFARIN INR THERAPY RANGESSTANDARD DOSE: 2.0-3.0 Include s: PROPHYLAXIS for venous thrombosis, systemic embolization; TREATMENT for venou s thrombosis and/or pulmonary embolus.HIGH RISK: Target INR is 2.5-3.5 for patie nts wiht mechanical heart valves.CBC W/PLT COUNT & AUTO [id number] 13:52:00* Test Item Value Reference Range Interpretation Comments WHITE BLOOD CELL COUNT (BEAKER) (test code = 775) 8.0 K/ L 3.5- 10.5 RED BLOOD CELL COUNT (BEAKER) (test code = 761) 4.29 M/ L 4.63-6 .08 L HEMOGLOBIN (BEAKER) (test code = 410) 13.5 GM/DL 13.7-17.5 L HEMATOCRIT (BEAKER) (test code = 411) 41.4 % 40.1-51.0 MEAN CORPUSCULAR VOLUME (BEAKER) (test code = 753) 96.5 fL 79. 0-92.2 H MEAN CORPUSCULAR HEMOGLOBIN (BEAKER) (test code = 751) 31.5 pg 25.7-32.2 MEAN CORPUSCULAR HEMOGLOBIN CONC (BEAKER) (test code = 752) 32.6 GM/DL 32.3-36.5 RED CELL DISTRIBUTION WIDTH (BEAKER) (test code = 412) 14.8 % 11.6-14.4 H PLATELET COUNT (BEAKER) (test code = 756) 170 K/CU MM 150-450 MEAN PLATELET VOLUME (BEAKER) (test code = 754) 9.9 fL 9.4-12 .4 NUCLEATED RED BLOOD CELLS (BEAKER) (test code = 413) 0 /100 WBC 0 -0 NEUTROPHILS RELATIVE PERCENT (BEAKER) (test code = 429) 58 % LYMPHOCYTES RELATIVE PERCENT (BEAKER) (test code = 430) 31 % MONOCYTES RELATIVE PERCENT (BEAKER) (test code = 431) 8 % EOSINOPHILS RELATIVE PERCENT (BEAKER) (test code = 432) 3 % BASOPHILS RELATIVE PERCENT (BEAKER) (test code = 437) 1 % NEUTROPHILS ABSOLUTE COUNT (BEAKER) (test code = 670) 4.62 K/ L 1.78-5.38 LYMPHOCYTES ABSOLUTE COUNT (BEAKER) (test code = 414) 2.45 K/ L 1.32-3.57 MONOCYTES ABSOLUTE COUNT (BEAKER) (test code = 415) 0.60 K/ L 0. 30-0.82 EOSINOPHILS ABSOLUTE COUNT (BEAKER) (test code = 416) 0.26 K/ L 0.04-0.54 BASOPHILS ABSOLUTE COUNT (BEAKER) (test code = 417) 0.04 K/ L 0. 01-0.08 IMMATURE GRANULOCYTES-RELATIVE PERCENT (BEAKER) (test code = 2801) 1 % 0-1 MR, ABDOMEN, [id number] 18:19:00Referring: Dr. Hugo AlarconINAL REPORT MRI of abdomen dated April 16, 2019 COMPARISON: October 20, 2018 Comment: Multiplanar T1 and T2-weighted images of the abdomen, postcontrast axial and coronal T1-weighted images of the abdomen were obtained. Liver and spleen are normal in size. Again noted posttreatment cavity in the segment 7 of the liver. This area measures approximately 3.5 x 4.2 cm, previous ly 3.5 x 4.6 cm. Nodular enhancement is seen within the treatment cavity with de layed washout suggestive of residual disease. No new lesion is seen in the liver . The splenic, spleen mesenteric, portal, and hepatic veins are patent. Main por mildred vein measures approximately 1.4 cm in size. No portal vein thrombosis is pre sent. Gallbladder is not visualized. No biliary dilatation is seen. Pancreas and adrenals are unremarkable. Both kidneys are normal in size and functioning. A 2 .3 x 2.7 cm cyst is seen in the midpole right kidney. No adenopathy or ascites i s seen in the abdomen. The visualized small and large bowel are unremarkable. IM PRESSION:1. 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 Right renal cyst.3. Status post cholecystectomy without biliary dilatat ion. Signed: Kathy Warren MDReport Verified Date/Time: 04/16/2019 18:19:43 Readi Location: [facility] B1 C013Y CT Body Reading Room U/S, [id number] 16:35:00enlarged prostateFINAL REPORT TECHNIQUE: Grayscale ultrasound of the prostate [...] but likely in the transition zone. Signed: Matthew Cespedes MDReport Verified Date/Time: 04/16/2019 16:35:28 Reading Location: [facility] Radiology Reading Room [id number] 16:35:00Interface, External Ris In - 04/18/2019 9:28 AM CDTFINAL REPORT TECHNIQUE: Grayscale ultrasound of the prostate [...] but likely in the transition zone. Signed: Matthew Cespedes MDReport Verified Date/Time: 04/16/2019 16:35:28 Reading Location: [address] [facility]iology [facility] 2019-04-16 16:19:00Referring: Dr. Hugo AlarconINAL REPORT CT Chest without contrast History: Hepatocellular [...] size, and/or use of iterative reconstruction technique. Findings:No mediastinal lymphadenopathy. No definite hilar enlargement. Normal [...] characterized on this study. The patient is s tatus post cholecystectomy. No aggressive osseous lesion. Impression: 1. No ev idence of metastatic disease in the chest.2. 4.6 cm solid mass involving the pos terior superior aspect of the right hepatic lobe. Please see report of MRI abdom en from same date for further details. Signed: Franklin Vega Verified Date/Time: 04/16/2019 16:19:26 Reading Location: [facility] Radiology Reading Room chest without IV [id number] 16:19:00Interface, External Ris In - 04/16/2019 4:[address] Chest without contrast History: Hepatocellular [...] size, and/or use of iterative reconstruction technique. Findings:No mediastinal lymphadenopathy. No definite hilar enlargement. Normal [...] No evidence of metastatic disease in the chest.2. 4.6 cm solid mass involving the posterior superior aspect of the right hepatic lobe. Please see report of MRI abdomen from same date for further details. Signed: Franklin Vega Verified Date/Time: 04/16/2019 16:1 9:26 Reading Location: [facility] Radiology Reading [facility]/OR [facility], WHOLE [id number] 16:07:00Referring: Dr. Hugo Christopher FINAL REPORT PROCEDURE: BONE SCAN, WHOLE BODY CPT CODE: [id number] INDICATION: HCC PROTOCOL: 20.4 mCi of Tc-99m MDP was injected intravenousl y. Whole body and selected spot images were obtained approximately 3 hours later . FINDINGS: There is mildly increased tracer activity within the shoulders, ster num and sternoclavicular joints, mandibular and maxillary dentition, the sacroil iac joints, and a single focus about the right ankle joint. IMPRESSION: 1.No pattern of osseous metastatic disease.2.Degenerative disease in the peripheral j oints.3.Periodontal abnormality. Images for comparison/correlation were MRI abdo men on 10/20/2018. Signed: Harshil Gomezeport Verified Date/Time: 04/16/2019 16:07:34 Reading Location: [address] Reading Room [facility] signed by: HARSHIL GOMEZ MD on 04/16/2019 04:07 PM RAD, CHEST, 2 [id number] 09:40:00Referring: Dr. Hugo Hall for exam:->pacemaker evalShould this be performed at the bedside?->NoFINAL REPORT TECHNIQUE: Frontal and lateral chest radiographs dated 04/16/2019. CLINICAL HISTORY: Pacemaker eval COMPARISON STUDY: Chest radiograph dated 11/14/2017 IMPRESSION: No focal consolidation. No pleural effusion or pneumothorax. Cardiomediastinal silhouette is normal in size. No pulmonary edema. Midline sternotomy wires are intact and well aligned. Bones are osteop enic. Degenerative changes are seen in the spine. Signed: Elizabeth Portillo eport Verified Date/Time: 04/16/2019 09:40:39 Reading Location: [facility] Read [facility] Room 0 9:40 AM [id number] 08:13:00* Test Item Value Reference Range Interpretation Comments POC-CREATININE (ELENA) (test code = 1859) 1.3 mg/dL 0.6-1.3 TESTED AT [facility] [address] [place] [address] POC-EGFR (BEAKER) (test code = 1860) 54 mL/min/1.73M2 [id number] 22:10:00* Test Item Value Reference Range Interpretation Comments GLUBED (test code = GLUBED) 145 MG/DL 70-110 H Performed by certified metal shaping machine operator at [facility] [id number] 22:10:00* Test Item Value Reference Range Interpretation Comments GLUBED (test code = GLUBED) 232 MG/DL 70-110 H Performed by certified metal shaping machine operator at [facility] [id number] 22:10:00* Test Item Value Reference Range Interpretation Comments GLUBED (test code = GLUBED) 203 MG/DL 70-110 H Performed by certified metal shaping machine operator at [facility] [id number] 22:10:00* Test Item Value Reference Range Interpretation Comments GLUBED (test code = GLUBED) 167 MG/DL 70-110 H Performed by certified metal shaping machine operator at [facility] [id number] 22:10:00* Test Item Value Reference Range Interpretation Comments GLUBED (test code = GLUBED) 245 MG/DL 70-110 H Performed by certified metal shaping machine operator at [facility] [id number] 22:09:00* Test Item Value Reference Range Interpretation Comments GLUBED (test code = GLUBED) 262 MG/DL 70-110 H Performed by certified metal shaping machine operator at [facility] [id number] 22:09:00* Test Item Value Reference Range Interpretation Comments GLUBED (test code = GLUBED) 196 MG/DL 70-110 H Performed by certified metal shaping machine operator at [facility] [id number] 22:09:00* Test Item Value Reference Range Interpretation Comments GLUBED (test code = GLUBED) 234 MG/DL 70-110 H Performed by certified metal shaping machine operator at [facility] [id number] 22:09:00* Test Item Value Reference Range Interpretation Comments GLUBED (test code = GLUBED) 209 MG/DL 70-110 H Performed by certified metal shaping machine operator at [facility] [id number] 22:09:00* Test Item Value Reference Range Interpretation Comments GLUBED (test code = GLUBED) 152 MG/DL 70-110 H Performed by certified metal shaping machine operator at [facility] [id number] 22:09:00* Test Item Value Reference Range Interpretation Comments GLUBED (test code = GLUBED) 221 MG/DL 70-110 H Performed by certified metal shaping machine operator at [facility] [id number] 22:09:00* Test Item Value Reference Range Interpretation Comments GLUBED (test code = GLUBED) 190 MG/DL 70-110 H Performed by certified metal shaping machine operator at [facility] [id number] 22:09:00* Test Item Value Reference Range Interpretation Comments GLUBED (test code = GLUBED) 134 MG/DL 70-110 H Performed by certified metal shaping machine operator at [facility] [id number] 22:08:00* Test Item Value Reference Range Interpretation Comments GLUBED (test code = GLUBED) 143 MG/DL 70-110 H Performed by certified metal shaping machine operator at [facility] [id number] 22:08:00* Test Item Value Reference Range Interpretation Comments GLUBED (test code = GLUBED) 179 MG/DL 70-110 H Performed by certified metal shaping machine operator at [facility] [id number] 22:08:00* Test Item Value Reference Range Interpretation Comments GLUBED (test code = GLUBED) 172 MG/DL 70-110 H Performed by certified metal shaping machine operator at [facility] [id number] 22:08:00* Test Item Value Reference Range Interpretation Comments GLUBED (test code = GLUBED) 159 MG/DL 70-110 H Performed by certified metal shaping machine operator at [facility] [id number] 22:08:00* Test Item Value Reference Range Interpretation Comments GLUBED (test code = GLUBED) 144 MG/DL 70-110 H Performed by certified metal shaping machine operator at [facility] [id number] 22:08:00* Test Item Value Reference Range Interpretation Comments GLUBED (test code = GLUBED) 159 MG/DL 70-110 H Performed by certified metal shaping machine operator at [facility] [id number] 22:08:00* Test Item Value Reference Range Interpretation Comments GLUBED (test code = GLUBED) 254 MG/DL 70-110 H Performed by certified metal shaping machine operator at [facility] [id number] 07:44:00* Test Item Value Reference Range Interpretation Comments GLUBED (test code = GLUBED) 166 MG/DL 70-110 H Performed by certified metal shaping machine operator at [facility] [id number] 07:43:00* Test Item Value Reference Range Interpretation Comments GLUBED (test code = GLUBED) 159 MG/DL 70-110 H Performed by certified metal shaping machine operator at [facility] [id number] 07:43:00* Test Item Value Reference Range Interpretation Comments GLUBED (test code = GLUBED) 210 MG/DL 70-110 H Performed by certified metal shaping machine operator at [facility] [id number] 07:43:00* Test Item Value Reference Range Interpretation Comments GLUBED (test code = GLUBED) 206 MG/DL 70-110 H Performed by certified metal shaping machine operator at [facility] [id number] 07:43:00* Test Item Value Reference Range Interpretation Comments GLUBED (test code = GLUBED) 320 MG/DL 70-110 H Performed by certified metal shaping machine operator at [facility] [id number] 07:43:00* Test Item Value Reference Range Interpretation Comments GLUBED (test code = GLUBED) 143 MG/DL 70-110 H Performed by certified metal shaping machine operator at [facility] [id number] 07:43:00* Test Item Value Reference Range Interpretation Comments GLUBED (test code = GLUBED) 152 MG/DL 70-110 H Performed by certified metal shaping machine operator at [facility] [id number] 07:43:00* Test Item Value Reference Range Interpretation Comments GLUBED (test code = GLUBED) 252 MG/DL 70-110 H Performed by certified metal shaping machine operator at [facility] [id number] 07:43:00* Test Item Value Reference Range Interpretation Comments GLUBED (test code = GLUBED) 291 MG/DL 70-110 H Performed by certified metal shaping machine operator at [facility] [id number] 07:42:00* Test Item Value Reference Range Interpretation Comments GLUBED (test code = GLUBED) 235 MG/DL 70-110 H Performed by certified metal shaping machine operator at [facility] B-TYPE NATRIURETIC [id number] 17:37:00* Test Item Value Reference Range Interpretation Comments B-TYPE NATRIURETIC PEPTIDE (test code = BNP) 187.1 PG/ML 0-100 H BASIC METABOLIC [id number] 17:01:00* Test Item Value Reference Range Interpretation Comments SODIUM (test code = NA) 137 mEq/L 134-147 N POTASSIUM (test code = K) 3.8 mEq/L 3.4-5.0 N CHLORIDE (test code = CL) 106 mEq/L 100-108 N CARBON DIOXIDE (test code = CO2) 26 mEq/L 21-33 ANION GAP (test code = GAP) 9 0-20 N GLUCOSE (test code = GLU) 224 mg/dL 70-110 H BLOOD UREA NITROGEN (test code = BUN) 14 mg/dL 7-18 N GLOMERULAR FILTRATION RATE (test code = GFR) 73.5 70-80 N Units of measure = ml/min/1.73 m2 CREATININE (test code = CREAT) 1.0 mg/dL 0.6-1.3 N CALCIUM (test code = CA) 10.6 mg/dL 8.0-10.5 H HEPATIC FUNCTION [id number] 17:01:00* Test Item Value Reference Range Interpretation Comments TOTAL PROTEIN (test code = PROT) 8.4 g/dL 6.4-8.2 H ALBUMIN (test code = ALB) 3.50 g/dL 3.4-5.0 N BILIRUBIN TOTAL (test code = BILT) 0.30 mg/dL 0.0-1.0 N BILIRUBIN DIRECT (test code = BILD) < 0.10 MG/DL 0.0-0.30 N BILIRUBIN INDIRECT (test code = BILIND) 0.20 MG/DL SGOT/AST (test code = AST) 22 IUnit/L 15-37 N SGPT/ALT (test code = ALT) 63 IUnit/L 15-65 N ALKALINE PHOSPHATASE TOTAL (test code = ALKP) 139 IUnit/L 20-125 H [id number] 17:01:00* Test Item Value Reference Range Interpretation Comments TROPONIN-I (test code = TROPI) < 0.015 ng/mL 0.000-0.045 N Negative: <= 0.045 Positive: >= 0.046 Correlation with serial results, other cardiac markers andclinical findings is necessary to determine the clinicalsignificance of this result. Results using different methodologies should not be comparedto one another as quantitative results may vary by method. CBC W/AUTO [id number] 16:56:00* Test Item Value Reference Range Interpretation Comments WHITE BLOOD CELL (test code = WBC) 7.09 x10 3/uL 4.5-11.0 N RED BLOOD CELL (test code = RBC) 4.27 x10 6/uL 4.00-5.60 N HEMOGLOBIN (test code = HGB) 13.3 g/dL 12.5-16.9 N HEMATOCRIT (test code = HCT) 40.9 % 37.5-50.7 N MEAN CELL VOLUME (test code = MCV) 95.8 fL 81.0-99.0 N MEAN CELL HGB (test code = MCH) 31.1 pg 27.0-33.0 N MEAN CELL HGB CONCETRATION (test code = MCHC) 32.5 g/dL 33.0-37. 0 L RED CELL DISTRIBUTION WIDTH CV (test code = RDW) 15.0 % 11.5- 14.5 H RED CELL DISTRIBUTION WIDTH SD (test code = RDW-SD) 52.7 fL 37 .0-54.0 N PLATELET COUNT (test code = PLT) 171 x10 3/uL 150-400 N MEAN PLATELET VOLUME (test code = MPV) 10.2 fL 7.0-9.0 H NEUTROPHIL % (test code = NT%) 66.9 % 56.0-77.0 N IMMATURE GRANULOCYTE % (test code = IG%) 0.1 % 0.0-2.0 N LYMPHOCYTE % (test code = LY%) 23.8 % 14.0-32.0 N MONOCYTE % (test code = MO%) 6.6 % 4.8-9.0 N EOSINOPHIL % (test code = EO%) 2.3 % 0.3-3.7 N BASOPHIL % (test code = BA%) 0.3 % 0.0-2.0 N NUCLEATED RBC % (test code = NRBC%) 0.0 % 0-0 N NEUTROPHIL # (test code = NT#) 4.74 x10 3/uL 2.0-7.6 N IMMATURE GRANULOCYTE # (test code = IG#) 0.01 x10 3/uL 0.00-0.03 N LYMPHOCYTE # (test code = LY#) 1.69 x10 3/uL 1.0-3.8 N MONOCYTE # (test code = MO#) 0.47 x10 3/uL 0.1-0.8 N EOSINOPHIL # (test code = EO#) 0.16 x10 3/uL 0.0-0.2 N BASOPHIL # (test code = BA#) 0.02 x10 3/uL 0.0-0.2 N NUCLEATED RBC # (test code = NRBC#) 0.00 x10 3/uL 0.0-0.1 N MANUAL DIFF REQUIRED (test code = MDIFF) NO URINALYSIS [id number] 16:48:00* Test Item Value Reference Range Interpretation Comments UA COLOR (test code = COLU) YELLOW YEL/STRAW UA APPEARANCE (test code = APPU) SL CLOUDY CLEAR UA GLUCOSE DIPSTICK (test code = DGLUU) 3+ NEGATIVE A UA BILIRUBIN DIPSTICK (test code = BILU) NEGATIVE NEGATIVE UA KETONE DIPSTICK (test code = KETU) NEGATIVE NEGATIVE UA SPECIFIC GRAVITY (test code = SGU) 1.010 1.005-1.030 N UA BLOOD DIPSTICK (test code = RITA) 2+ NEGATIVE A UA PH DIPSTICK (test code = ANATOLY) 5.0 5.0-7.0 N UA PROTEIN DIPSTICK (test code = PROU) NEGATIVE NEGATIVE UA UROBILINIOGEN DIPSTICK (test code = URO) 0.2 mg/dL 0.2-1.0 UA NITRITE DIPSTICK (test code = SHARI) NEGATIVE NEGATIVE UA LEUKOCYTE ESTERASE DIPSTICK (test code = LEUU) 2+ NEGA TIVE A UA WBC (test code = WBCU) >50 WBC/HPF 0-3 A UA RBC (test code = RBCU) 21-50 RBC/HPF 0-3 UA BACTERIA (test code = BACU) 2+ /HPF NONE SEEN A UA SQUAMOUS CELLS (test code = SQU) NONE SEEN /HPF NONE SEEN UA HYALINE CAST (test code = HYALU) 0-2 /LPF NONE SEEN UA MUCUS (test code = MUCU) TRACE /LPF NONE SEEN COMMENTS: Clean Catch- XR L-SPINE 08/10 [id number] 16:00:00 FAX: Jordana Ball DO [phone] [place]: St: DEP Name: IVONE TRAYLOR : [birth year] Age/S: 73/M [address] [place] [address] Unit #: [id number] Loc: [place] [address] Phys: Jordana Shields DO Acct: [id number] Dis Date: Status: DEP ER PHONE #: [phone] Exam Date: 12/19/2018 1550 FAX #: [phone] Reason: left lower back pain EXAMS: CPT CODE: [id number] XR L-SPINE 2/3 VIEWS 41332 Three-view lumbar spine INDICATION: Left lower lumbar back pain radiating down left leg. FINDINGS: No prior for comparison. Lumbar vertebral bodies are normal in height and alignment on the lateral view. Disc spaces are preserved in height. Moderate anterior spurring throughout the lumbar spine identifie d. IMPRESSION: Moderate lumbar spondylosis. SL: SG-H at 1600 Reported and signed by: Sage Alberto M.D. CC: Jordana Shields DO Technologist: Brooklynn Barr, RT(R); Michelle Yu RT(R) Trnutrd Date/Time/By: 9 (1600) : By: [email or web address] Orig Print D/T: S: 12/19/2018 (9898) PAGE 1 Signed Report - XR L-SPINE 2/3 [id number] 16:00:00 FAX: Jordana Ball DO [phone] [place]: St: REG Name: IVONE TRAYLOR : [birth year] Age/S: 73/M [address] [place] [address] Unit #: [id number] Loc: [place] [address] Phys: Casi Shieldscarolina BASSETT Acct: [id number] Dis Date: Status: REG ER PHONE #: [phone] Exam Date: 12/19/2018 1550 FAX #: [phone] Reason: left lower back pain EXAMS: CPT CODE: [id number] XR L-SPINE 2/3 VIEWS 34456 Three-view lumbar spine INDICATION: Left lower lumbar back pain radiating down left leg. FINDINGS: No prior for comparison. Lumbar vertebral bodies are normal in height and alignment on the lateral view. Disc spaces are preserved in height. Moderate anterior spurring throughout the lumbar spine identifie d. IMPRESSION: Moderate lumbar spondylosis. SL: SG-H at 1600 Reported and signed by: Sage Alberto M.D. CC: Jordana Shields DO Technologist: Brooklynn Barr, RT(R); Michelle Yu RT(R) Trnscrd Date/Time/By: 9 (1600) : By: [email or web address] Orig Print D/T: S: 12/19/2018 (7391) PAGE 1 Signed Report - XR CHEST 1 [id number] 15:58:00 FAX: Jordana Ball DO [phone] [place]: St: [facility] Name: IVONE TRAYLOR [facility] [place] : [birth year] Age/S: 73/M [address] [place] [address] Unit #: [id number] Loc: [place] [address] Phys: JonathanmaureenJordana DO Acct: [id number] Dis Date: Status: DEP ER PHONE #: [phone] Exam Date: 12/19/2018 1550 FAX #: [phone] Reason: SOB EXAMS: CPT CODE: [id number] XR CHEST 1 V 81665 Patient: IVONE HARDY. : 1945; Age: 73 years; Gender: Male. MR: [id number]. Orderin rudolph physician: Jordana Shields DO. PORTABLE CHEST AP: HISTORY: Shortness of breath. COMPARISON: None. FINDINGS: Portable frontal view of the chest was obtained. Evide nce of previous CABG. No infiltrate, pleural effusion or pneumothorax. Th e cardiomediastinal silhouette and pulmonary vasculature are unremarkable. The partially visualized upper abdomen is unremarkable. IMPRESSION: No acute disease in the chest. SL: [facility] [id number] at 6457 Reported and signed by: Hong Morrison M.D. CC : Jordana Shields DO Technologist: Brooklynn Nur, RT(R); Michelle Yu, RT(R) Trnscrd Date/Time/By: 12/19/2018 (4158) : By: [email or web address] Orig Print D/T: S: 12/19/2018 (6618) PAGE 1 Signed Report - XR CHEST 1 [id number] 15:58:00 FAX: Jordana Ball DO [phone] [place]: St: REG Name: IVONE TRAYLOR [facility] : [birth year] Age/S: 73/M [address] [place] [address] Unit #: [id number] Loc: [place] [address] Phys: Jordana Shields DO Acct: [id number] Dis Date: Status: REG ER PHONE #: [phone] Exam Date: 12/19/2018 1550 FAX #: [phone] Reason: SOB EXAMS: CPT CODE: [id number] XR CHEST 1 V 45091 Patient: IVONE HARDY. : 1945; Age: 73 years; Gender: Male. MR: [id number]. Johnin rudolph physician: Jordana Shields DO. PORTABLE CHEST AP: HISTORY: Shortness of breath. COMPARISON: None. FINDINGS: Portable frontal view of the chest was obtained. Evide nce of previous CABG. No infiltrate, pleural effusion or pneumothorax. Th e cardiomediastinal silhouette and pulmonary vasculature are unremarkable. The partially visualized upper abdomen is unremarkable. IMPRESSION: No acute disease in the chest. SL: [facility] [id number] at 8320 Reported and signed by: Hong Morrison M.D. CC : Jordana Shields DO Technologist: Brooklynn Nur, RT(R); Michelle Yu RT(R) Trnutrd Date/Time/By: 12/19/2018 (7320) : By: [email or web address] Orig Print D/T: S: 12/19/2018 (0403) PAGE 1 Signed Report [id number] 18:21:00* Test Item Value Reference Range Interpretation Comments GLUBED (test code = GLUBED) 200 MG/DL 70-110 H Performed by certified metal shaping machine operator at [facility] - MRI ABDOMEN W W/O [id number] 16:52:00 FAX: Mariah Sheridan [phone] [place]: St: DIS FAX: Richard Betancourt MD [phone] Name: IVONE HARDY [facility] : 1945 Age/S: 73/M [address] [place] [address] Blvd Unit #: [id number] Loc: G.[address] [place] [address] Phys: Richard Lowe MD Acct: [id number] Dis Date: 20181218 Status: DIS IN PHONE #: [phone] Exam Date: 12/18/2018 1602 FAX #: [phone] Reason: Liver protocol. HCC, s/p TACE. Need comp from S EXAMS: CPT CODE: [id number] MRI ABDOMEN W W/O CONT 13298 PROCEDURE: MRI ABDOMEN WITH AND WITHOUT CONTRAST I NDICATION: 73-year-old male with history of hepatocellular carcinoma post TACE. 5 cm liver lesion on CT. MRI requested for further evaluation. COMPARISON: CT of 12/06/2018. There are no earlier imaging studies available at this time. TECHNIQUE: Pre-and postcontrast dynamic T1-weighted gradient echo and T2-weighted sequences were acquired. IV CONTRAST: 21 mL Dotarem FINDINGS: LIVER: Subdiaphragmati c subcapsular lesion segment 7 right lobe of the liver corresponding to fi ndings at CT best demonstrated on T1-weighted gradient echo dynamic series 11 image 44 measuring 4.5 x 3.3 cm. The lesion demonstrates slight T2 hy perintensity at its periphery otherwise mildly T2 hypointense. Mild diffu se T1 signal loss out of phase. The postcontrast dynamic series is limite d by lack of arterial phase likely due to diminished cardiac output. Stanley y portal venous phase is of good diagnostic quality. The lesion demonstra pattie peripheral heterogeneous enhancement with components demonstrating washout on delayed phases notably along the margins of the lesion. The re is restricted diffusion within the lesion. There are scattered small n onmasslike foci of enhancement during early portal venous phase predominan tly subcapsular in location which fade to isointensity on delayed phases w ithout discrete mass or T2 signal alteration compatible with benign vascul ar etiology. The portal venous system is patent. No biliary dilatation. GALLBLADDER: Surgically absent SPLEEN: Normal. PANCREAS: Normal. ADRENAL GLANDS: Normal. K IDNEYS: Exophytic cyst posterior cortex mid right kidney 2.7 cm diameter. Additional subcentimeter nonenhancing lesions right renal cortex compatib le with benign cysts. RETROPERITONEUM: Normal. PAGE 1 Signed Report (CONTINUED) FAX: Mariah Kapoor [phone] [place]: St: DIS FAX: Richard Betancourt MD [phone] Name: IVONE HARDY [facility] : 1945 Age/S: 73/M [address] [place] [address] Unit #: [id number] Loc: [address] [address] Phys: Richard Lowe MD ct: [id number] Dis Date: 20181218 Status: DIS IN PHONE #: [phone] Exam Date: 12/18/2018 1602 FAX #: [phone] Reason: Liver protocol. HCC, s/p TACE. Need comp from S EXAMS: CPT CODE: [id number] MRI ABDOMEN W W/O CONT 75531 < Continued> LYMPH NODES: No adenopathy. MARROW SIGNAL INTENSITY: Normal. Additional comments: No free intraperitoneal fluid. IMPRESSION: 1. Right lobe liver mass with malignant enhancement characteristics compatible with history of hepatocellular carcinoma. Comparison with prior studies is recommended to assess stability. If prior studies are made available, an addendum report can be issued. SL: [id number] at 1652 Reported and signed by: Marco Key M.D. CC: Breanna Sheridan MD; Richard Lowe Technologist: RT Sal(R)(CT)(MR) Trnscrd Date/Time/By: 12/18/2018 (1651) : By: Jeremie Orig Print D/T: S: 12/18/2018 (3332) PAGE 2 Signed Report - MRI ABDOMEN W W/O [id number] 16:52:00 FAX: Mariah Sheridan [phone] [place]: St: ADM FAX: Richard Betancourt MD [phone] Name: HARDYIVONE RIVERA [facility] : 1945 Age/S: 73/M [address] [place] [address] Unit #: [id number] Loc: G.6635 [facility] [place] [address] Phys: Richard Lowe MD Acct: [id number] Dis Date: Status: ADM IN PHONE #: [phone] Exam Date: 12/18/2018 1602 FAX #: [phone] Reason: Liver protocol. HCC, s/p TACE. Need comp from S EXAMS: CPT CODE: [id number] MRI ABDOMEN W W/O CONT 07032 PROCEDURE: MRI ABDOMEN WITH AND WITHOUT CONTRAST I NDICATION: 73-year-old male with history of hepatocellular carcinoma post TACE. 5 cm liver lesion on CT. MRI requested for further evaluation. COMPARISON: CT of 12/06/2018. There are no earlier imaging studies available at this time. TECHNIQUE: Pre-and postcontrast dynamic T1-weighted gradient echo and T2-weighted sequences were acquired. IV CONTRAST: 21 mL Dotarem FINDINGS: LIVER: Subdiaphragmati c subcapsular lesion segment 7 right lobe of the liver corresponding to fi ndings at CT best demonstrated on T1-weighted gradient echo dynamic series 11 image 44 measuring 4.5 x 3.3 cm. The lesion demonstrates slight T2 hy perintensity at its periphery otherwise mildly T2 hypointense. Mild diffu se T1 signal loss out of phase. The postcontrast dynamic series is limite d by lack of arterial phase likely due to diminished cardiac output. Stanley y portal venous phase is of good diagnostic quality. The lesion demonstra pattie peripheral heterogeneous enhancement with components demonstrating washout on delayed phases notably along the margins of the lesion. The re is restricted diffusion within the lesion. There are scattered small n onmasslike foci of enhancement during early portal venous phase predominan tly subcapsular in location which fade to isointensity on delayed phases w ithout discrete mass or T2 signal alteration compatible with benign vascul ar etiology. The portal venous system is patent. No biliary dilatation. GALLBLADDER: Surgically absent SPLEEN: Normal. PANCREAS: Normal. ADRENAL GLANDS: Normal. K IDNEYS: Exophytic cyst posterior cortex mid right kidney 2.7 cm diameter. Additional subcentimeter nonenhancing lesions right renal cortex compatib le with benign cysts. RETROPERITONEUM: Normal. PAGE 1 Signed Report (CONTINUED) FAX: Mariah Kapoor [phone] [place]: St: ADM FAX: Richard Betancourt MD [phone] Name: IVONE HARDY [facility] : 1945 Age/S: 73/M [address] [place] [address] Unit #: [id number] Loc: G.6635 [place] [address] Phys: Richard Lowe MD ct: [id number] Dis Date: Status: ADM IN PHONE #: [phone] Exam Date: 12/18/2018 1602 FAX #: [phone] Reason: Liver protocol. HCC, s/p TACE. Need comp from S EXAMS: CPT CODE: [id number] MRI ABDOMEN W W/O CONT 94098 < Continued> LYMPH NODES: No adenopathy. MARROW SIGNAL INTENSITY: Normal. Additional comments: No free intraperitoneal fluid. IMPRESSION: 1. Right lobe liver mass with malignant enhancement characteristics compatible with history of hepatocellular carcinoma. Comparison with prior studies is recommended to assess stability. If prior studies are made available, an addendum report can be issued. SL: [id number] at 1652 Reported and signed by: Marco Key M.D. CC: Breanna Sheridan MD; Richard Lowe Technologist: Fausto Pettit RT(R)(CT)(MR) Trnscrd Date/Time/By: 12/18/2018 (6272) : By: AntolinL Orig Print D/T: S: 12/18/2018 (0472) PAGE 2 Signed Report CBC W/AUTO [id number] 08:36:00* Test Item Value Reference Range Interpretation Comments WHITE BLOOD CELL (test code = WBC) 5.31 x10 3/uL 4.5-11.0 N RED BLOOD CELL (test code = RBC) 3.69 x10 6/uL 4.00-5.60 L HEMOGLOBIN (test code = HGB) 11.5 g/dL 12.5-16.9 L HEMATOCRIT (test code = HCT) 35.5 % 37.5-50.7 L MEAN CELL VOLUME (test code = MCV) 96.2 fL 81.0-99.0 N MEAN CELL HGB (test code = MCH) 31.2 pg 27.0-33.0 N MEAN CELL HGB CONCETRATION (test code = MCHC) 32.4 g/dL 33.0-37. 0 L RED CELL DISTRIBUTION WIDTH CV (test code = RDW) 15.0 % 11.5- 14.5 H RED CELL DISTRIBUTION WIDTH SD (test code = RDW-SD) 52.8 fL 37 .0-54.0 N PLATELET COUNT (test code = PLT) 136 x10 3/uL 150-400 L MEAN PLATELET VOLUME (test code = MPV) 10.7 fL 7.0-9.0 H NEUTROPHIL % (test code = NT%) 49.6 % 56.0-77.0 L IMMATURE GRANULOCYTE % (test code = IG%) 0.4 % 0.0-2.0 N LYMPHOCYTE % (test code = LY%) 33.7 % 14.0-32.0 H MONOCYTE % (test code = MO%) 8.5 % 4.8-9.0 N EOSINOPHIL % (test code = EO%) 7.2 % 0.3-3.7 H BASOPHIL % (test code = BA%) 0.6 % 0.0-2.0 N NUCLEATED RBC % (test code = NRBC%) 0.0 % 0-0 N NEUTROPHIL # (test code = NT#) 2.64 x10 3/uL 2.0-7.6 N IMMATURE GRANULOCYTE # (test code = IG#) 0.02 x10 3/uL 0.00-0.03 N LYMPHOCYTE # (test code = LY#) 1.79 x10 3/uL 1.0-3.8 N MONOCYTE # (test code = MO#) 0.45 x10 3/uL 0.1-0.8 N EOSINOPHIL # (test code = EO#) 0.38 x10 3/uL 0.0-0.2 H BASOPHIL # (test code = BA#) 0.03 x10 3/uL 0.0-0.2 N NUCLEATED RBC # (test code = NRBC#) 0.00 x10 3/uL 0.0-0.1 N MANUAL DIFF REQUIRED (test code = MDIFF) NO BASIC METABOLIC [id number] 07:48:00* Test Item Value Reference Range Interpretation Comments SODIUM (test code = NA) 137 mEq/L 134-147 N POTASSIUM (test code = K) 4.0 mEq/L 3.4-5.0 N CHLORIDE (test code = CL) 109 mEq/L 100-108 H CARBON DIOXIDE (test code = CO2) 20 mEq/L 21-33 L ANION GAP (test code = GAP) 12 0-20 N GLUCOSE (test code = GLU) 153 mg/dL 70-110 H BLOOD UREA NITROGEN (test code = BUN) 13 mg/dL 7-18 N GLOMERULAR FILTRATION RATE (test code = GFR) 95.0 70-80 H Units of measure = ml/min/1.73 m2 CREATININE (test code = CREAT) 0.8 mg/dL 0.6-1.3 N CALCIUM (test code = CA) 10.2 mg/dL 8.0-10.5 N BASIC METABOLIC [id number] 08:37:00* Test Item Value Reference Range Interpretation Comments SODIUM (test code = NA) 137 mEq/L 134-147 N POTASSIUM (test code = K) 4.1 mEq/L 3.4-5.0 N CHLORIDE (test code = CL) 108 mEq/L 100-108 N CARBON DIOXIDE (test code = CO2) 22 mEq/L 21-33 N ANION GAP (test code = GAP) 11 0-20 N GLUCOSE (test code = GLU) 193 mg/dL 70-110 H BLOOD UREA NITROGEN (test code = BUN) 16 mg/dL 7-18 N GLOMERULAR FILTRATION RATE (test code = GFR) 110.9 70-80 H Units of measure = ml/min/1.73 m2 CREATININE (test code = CREAT) 0.7 mg/dL 0.6-1.3 N CALCIUM (test code = CA) 10.0 mg/dL 8.0-10.5 N CBC W/AUTO [id number] 08:31:00* Test Item Value Reference Range Interpretation Comments WHITE BLOOD CELL (test code = WBC) 4.96 x10 3/uL 4.5-11.0 N RED BLOOD CELL (test code = RBC) 3.56 x10 6/uL 4.00-5.60 L HEMOGLOBIN (test code = HGB) 11.2 g/dL 12.5-16.9 L HEMATOCRIT (test code = HCT) 34.8 % 37.5-50.7 L MEAN CELL VOLUME (test code = MCV) 97.8 fL 81.0-99.0 N MEAN CELL HGB (test code = MCH) 31.5 pg 27.0-33.0 N MEAN CELL HGB CONCETRATION (test code = MCHC) 32.2 g/dL 33.0-37. 0 L RED CELL DISTRIBUTION WIDTH CV (test code = RDW) 15.2 % 11.5- 14.5 H RED CELL DISTRIBUTION WIDTH SD (test code = RDW-SD) 54.9 fL 37 .0-54.0 H PLATELET COUNT (test code = PLT) 120 x10 3/uL 150-400 L MEAN PLATELET VOLUME (test code = MPV) 10.6 fL 7.0-9.0 H NEUTROPHIL % (test code = NT%) 51.8 % 56.0-77.0 L IMMATURE GRANULOCYTE % (test code = IG%) 0.2 % 0.0-2.0 N LYMPHOCYTE % (test code = LY%) 30.6 % 14.0-32.0 N MONOCYTE % (test code = MO%) 8.9 % 4.8-9.0 N EOSINOPHIL % (test code = EO%) 7.9 % 0.3-3.7 H BASOPHIL % (test code = BA%) 0.6 % 0.0-2.0 N NUCLEATED RBC % (test code = NRBC%) 0.0 % 0-0 N NEUTROPHIL # (test code = NT#) 2.57 x10 3/uL 2.0-7.6 N IMMATURE GRANULOCYTE # (test code = IG#) 0.01 x10 3/uL 0.00-0.03 N LYMPHOCYTE # (test code = LY#) 1.52 x10 3/uL 1.0-3.8 N MONOCYTE # (test code = MO#) 0.44 x10 3/uL 0.1-0.8 N EOSINOPHIL # (test code = EO#) 0.39 x10 3/uL 0.0-0.2 H BASOPHIL # (test code = BA#) 0.03 x10 3/uL 0.0-0.2 N NUCLEATED RBC # (test code = NRBC#) 0.00 x10 3/uL 0.0-0.1 N MANUAL DIFF REQUIRED (test code = MDIFF) NO [id number] 17:01:00* Test Item Value Reference Range Interpretation Comments GLUBED (test code = GLUBED) 202 MG/DL 70-110 H Performed by certified metal shaping machine operator at [facility] [id number] 17:01:00* Test Item Value Reference Range Interpretation Comments GLUBED (test code = GLUBED) 234 MG/DL 70-110 H Performed by certified metal shaping machine operator at [facility] [id number] 13:02:00* Test Item Value Reference Range Interpretation Comments GLUBED (test code = GLUBED) 194 MG/DL 70-110 H Performed by certified metal shaping machine operator at [facility] CBC W/AUTO [id number] 08:30:00* Test Item Value Reference Range Interpretation Comments WHITE BLOOD CELL (test code = WBC) 5.00 x10 3/uL 4.5-11.0 N RED BLOOD CELL (test code = RBC) 3.70 x10 6/uL 4.00-5.60 L HEMOGLOBIN (test code = HGB) 11.5 g/dL 12.5-16.9 L HEMATOCRIT (test code = HCT) 35.6 % 37.5-50.7 L MEAN CELL VOLUME (test code = MCV) 96.2 fL 81.0-99.0 N MEAN CELL HGB (test code = MCH) 31.1 pg 27.0-33.0 N MEAN CELL HGB CONCETRATION (test code = MCHC) 32.3 g/dL 33.0-37. 0 L RED CELL DISTRIBUTION WIDTH CV (test code = RDW) 15.0 % 11.5- 14.5 H RED CELL DISTRIBUTION WIDTH SD (test code = RDW-SD) 53.1 fL 37 .0-54.0 N PLATELET COUNT (test code = PLT) 131 x10 3/uL 150-400 L MEAN PLATELET VOLUME (test code = MPV) 10.8 fL 7.0-9.0 H NEUTROPHIL % (test code = NT%) 51.4 % 56.0-77.0 L IMMATURE GRANULOCYTE % (test code = IG%) 0.4 % 0.0-2.0 N LYMPHOCYTE % (test code = LY%) 29.6 % 14.0-32.0 N MONOCYTE % (test code = MO%) 10.0 % 4.8-9.0 H EOSINOPHIL % (test code = EO%) 8.2 % 0.3-3.7 H BASOPHIL % (test code = BA%) 0.4 % 0.0-2.0 N NUCLEATED RBC % (test code = NRBC%) 0.0 % 0-0 N NEUTROPHIL # (test code = NT#) 2.57 x10 3/uL 2.0-7.6 N IMMATURE GRANULOCYTE # (test code = IG#) 0.02 x10 3/uL 0.00-0.03 N LYMPHOCYTE # (test code = LY#) 1.48 x10 3/uL 1.0-3.8 N MONOCYTE # (test code = MO#) 0.50 x10 3/uL 0.1-0.8 N EOSINOPHIL # (test code = EO#) 0.41 x10 3/uL 0.0-0.2 H BASOPHIL # (test code = BA#) 0.02 x10 3/uL 0.0-0.2 N NUCLEATED RBC # (test code = NRBC#) 0.00 x10 3/uL 0.0-0.1 N MANUAL DIFF REQUIRED (test code = MDIFF) NO BASIC METABOLIC [id number] 07:42:00* Test Item Value Reference Range Interpretation Comments SODIUM (test code = NA) 136 mEq/L 134-147 N POTASSIUM (test code = K) 4.3 mEq/L 3.4-5.0 N CHLORIDE (test code = CL) 109 mEq/L 100-108 H CARBON DIOXIDE (test code = CO2) 22 mEq/L 21-33 N ANION GAP (test code = GAP) 9 0-20 N GLUCOSE (test code = GLU) 175 mg/dL 70-110 H BLOOD UREA NITROGEN (test code = BUN) 19 mg/dL 7-18 H GLOMERULAR FILTRATION RATE (test code = GFR) 82.9 70-80 H Units of measure = ml/min/1.73 m2 CREATININE (test code = CREAT) 0.9 mg/dL 0.6-1.3 N CALCIUM (test code = CA) 10.1 mg/dL 8.0-10.5 N BASIC METABOLIC [id number] 04:08:00* Test Item Value Reference Range Interpretation Comments SODIUM (test code = NA) 138 mEq/L 134-147 N POTASSIUM (test code = K) 4.1 mEq/L 3.4-5.0 N CHLORIDE (test code = CL) 109 mEq/L 100-108 H CARBON DIOXIDE (test code = CO2) 23 mEq/L 21-33 N ANION GAP (test code = GAP) 10 0-20 N GLUCOSE (test code = GLU) 168 mg/dL 70-110 H BLOOD UREA NITROGEN (test code = BUN) 13 mg/dL 7-18 N GLOMERULAR FILTRATION RATE (test code = GFR) 110.9 70-80 H Units of measure = ml/min/1.73 m2 CREATININE (test code = CREAT) 0.7 mg/dL 0.6-1.3 N CALCIUM (test code = CA) 9.8 mg/dL 8.0-10.5 N ALPHA FETOPROTEIN TUMOR [id number] 04:08:00* Test Item Value Reference Range Interpretation Comments ALPHA FETOPROTEIN TUMOR MARKER (test code = AFPTM) 7.3 ng/mL 0.0 -8.3 [facility] Electrochemiluminescence Immunoassay(ECLIA)Values obtained with different assay methods or kits cannotbe used interchangeably. Results cannot be interpreted asabsolute evidence of the presence or absence of malignantdisease.This test is not interpretable in females.Performed At: [facility] [id number] [place], [place] [id number] Saúl Kim MD Ph:[phone] [id number] 20:56:00* Test Item Value Reference Range Interpretation Comments GLUBED (test code = GLUBED) 189 MG/DL 70-110 H Performed by certified metal shaping machine operator at [facility] [id number] 20:16:00* Test Item Value Reference Range Interpretation Comments GLUBED (test code = GLUBED) 129 MG/DL 70-110 H Performed by certified metal shaping machine operator at [facility] BASIC METABOLIC [id number] 08:14:00* Test Item Value Reference Range Interpretation Comments SODIUM (test code = NA) 135 mEq/L 134-147 N POTASSIUM (test code = K) 4.7 mEq/L 3.4-5.0 N CHLORIDE (test code = CL) 105 mEq/L 100-108 N CARBON DIOXIDE (test code = CO2) 23 mEq/L 21-33 N ANION GAP (test code = GAP) 12 0-20 N GLUCOSE (test code = GLU) 158 mg/dL 70-110 H BLOOD UREA NITROGEN (test code = BUN) 19 mg/dL 7-18 H GLOMERULAR FILTRATION RATE (test code = GFR) 82.9 70-80 H Units of measure = ml/min/1.73 m2 CREATININE (test code = CREAT) 0.9 mg/dL 0.6-1.3 CALCIUM (test code = CA) 10.8 mg/dL 8.0-10.5 H CBC W/AUTO [id number] 07:14:00* Test Item Value Reference Range Interpretation Comments WHITE BLOOD CELL (test code = WBC) 5.94 x10 3/uL 4.5-11.0 N RED BLOOD CELL (test code = RBC) 3.75 x10 6/uL 4.00-5.60 L HEMOGLOBIN (test code = HGB) 11.6 g/dL 12.5-16.9 L HEMATOCRIT (test code = HCT) 35.3 % 37.5-50.7 L MEAN CELL VOLUME (test code = MCV) 94.1 fL 81.0-99.0 N MEAN CELL HGB (test code = MCH) 30.9 pg 27.0-33.0 N MEAN CELL HGB CONCETRATION (test code = MCHC) 32.9 g/dL 33.0-37. 0 L RED CELL DISTRIBUTION WIDTH CV (test code = RDW) 14.8 % 11.5- 14.5 H RED CELL DISTRIBUTION WIDTH SD (test code = RDW-SD) 51.4 fL 37 .0-54.0 N PLATELET COUNT (test code = PLT) 124 x10 3/uL 150-400 L MEAN PLATELET VOLUME (test code = MPV) 11.1 fL 7.0-9.0 H NEUTROPHIL % (test code = NT%) 58.3 % 56.0-77.0 N IMMATURE GRANULOCYTE % (test code = IG%) 0.2 % 0.0-2.0 N LYMPHOCYTE % (test code = LY%) 25.9 % 14.0-32.0 N MONOCYTE % (test code = MO%) 8.9 % 4.8-9.0 N EOSINOPHIL % (test code = EO%) 6.4 % 0.3-3.7 H BASOPHIL % (test code = BA%) 0.3 % 0.0-2.0 N NUCLEATED RBC % (test code = NRBC%) 0.0 % 0-0 N NEUTROPHIL # (test code = NT#) 3.46 x10 3/uL 2.0-7.6 N IMMATURE GRANULOCYTE # (test code = IG#) 0.01 x10 3/uL 0.00-0.03 N LYMPHOCYTE # (test code = LY#) 1.54 x10 3/uL 1.0-3.8 N MONOCYTE # (test code = MO#) 0.53 x10 3/uL 0.1-0.8 N EOSINOPHIL # (test code = EO#) 0.38 x10 3/uL 0.0-0.2 H BASOPHIL # (test code = BA#) 0.02 x10 3/uL 0.0-0.2 N NUCLEATED RBC # (test code = NRBC#) 0.00 x10 3/uL 0.0-0.1 N MANUAL DIFF REQUIRED (test code = MDIFF) NO [id number] 21:56:00* Test Item Value Reference Range Interpretation Comments GLUBED (test code = GLUBED) 142 MG/DL 70-110 H Performed by certified metal shaping machine operator at [facility] CBC W/AUTO [id number] 07:43:00* Test Item Value Reference Range Interpretation Comments WHITE BLOOD CELL (test code = WBC) 5.86 x10 3/uL 4.5-11.0 N RED BLOOD CELL (test code = RBC) 3.50 x10 6/uL 4.00-5.60 L HEMOGLOBIN (test code = HGB) 11.0 g/dL 12.5-16.9 L HEMATOCRIT (test code = HCT) 33.4 % 37.5-50.7 L MEAN CELL VOLUME (test code = MCV) 95.4 fL 81.0-99.0 N MEAN CELL HGB (test code = MCH) 31.4 pg 27.0-33.0 N MEAN CELL HGB CONCETRATION (test code = MCHC) 32.9 g/dL 33.0-37. 0 L RED CELL DISTRIBUTION WIDTH CV (test code = RDW) 15.2 % 11.5- 14.5 H RED CELL DISTRIBUTION WIDTH SD (test code = RDW-SD) 52.8 fL 37 .0-54.0 N PLATELET COUNT (test code = PLT) 117 x10 3/uL 150-400 L MEAN PLATELET VOLUME (test code = MPV) 10.8 fL 7.0-9.0 H NEUTROPHIL % (test code = NT%) 52.0 % 56.0-77.0 L IMMATURE GRANULOCYTE % (test code = IG%) 0.3 % 0.0-2.0 N LYMPHOCYTE % (test code = LY%) 30.7 % 14.0-32.0 N MONOCYTE % (test code = MO%) 10.2 % 4.8-9.0 H EOSINOPHIL % (test code = EO%) 6.5 % 0.3-3.7 H BASOPHIL % (test code = BA%) 0.3 % 0.0-2.0 N NUCLEATED RBC % (test code = NRBC%) 0.0 % 0-0 N NEUTROPHIL # (test code = NT#) 3.04 x10 3/uL 2.0-7.6 N IMMATURE GRANULOCYTE # (test code = IG#) 0.02 x10 3/uL 0.00-0.03 N LYMPHOCYTE # (test code = LY#) 1.80 x10 3/uL 1.0-3.8 N MONOCYTE # (test code = MO#) 0.60 x10 3/uL 0.1-0.8 N EOSINOPHIL # (test code = EO#) 0.38 x10 3/uL 0.0-0.2 H BASOPHIL # (test code = BA#) 0.02 x10 3/uL 0.0-0.2 N NUCLEATED RBC # (test code = NRBC#) 0.00 x10 3/uL 0.0-0.1 N MANUAL DIFF REQUIRED (test code = MDIFF) NO BASIC METABOLIC [id number] 07:26:00* Test Item Value Reference Range Interpretation Comments SODIUM (test code = NA) 138 mEq/L 134-147 N POTASSIUM (test code = K) 4.1 mEq/L 3.4-5.0 N CHLORIDE (test code = CL) 109 mEq/L 100-108 H CARBON DIOXIDE (test code = CO2) 23 mEq/L 21-33 N ANION GAP (test code = GAP) 10 0-20 N GLUCOSE (test code = GLU) 168 mg/dL 70-110 H BLOOD UREA NITROGEN (test code = BUN) 13 mg/dL 7-18 N GLOMERULAR FILTRATION RATE (test code = GFR) 110.9 70-80 H Units of measure = ml/min/1.73 m2 CREATININE (test code = CREAT) 0.7 mg/dL 0.6-1.3 N CALCIUM (test code = CA) 9.8 mg/dL 8.0-10.5 N ALPHA FETOPROTEIN TUMOR [id number] 07:26:00* Test Item Value Reference Range Interpretation Comments ALPHA FETOPROTEIN TUMOR MARKER (test code = AFPTM) [id number] 00:18:00* Test Item Value Reference Range Interpretation Comments GLUBED (test code = GLUBED) 282 MG/DL 70-110 H Performed by certified metal shaping machine operator at [facility] CBC W/AUTO [id number] 09:34:00* Test Item Value Reference Range Interpretation Comments WHITE BLOOD CELL (test code = WBC) 9.25 x10 3/uL 4.5-11.0 N RED BLOOD CELL (test code = RBC) 3.74 x10 6/uL 4.00-5.60 L HEMOGLOBIN (test code = HGB) 11.7 g/dL 12.5-16.9 L HEMATOCRIT (test code = HCT) 35.3 % 37.5-50.7 L MEAN CELL VOLUME (test code = MCV) 94.4 fL 81.0-99.0 N MEAN CELL HGB (test code = MCH) 31.3 pg 27.0-33.0 N MEAN CELL HGB CONCETRATION (test code = MCHC) 33.1 g/dL 33.0-37. 0 N RED CELL DISTRIBUTION WIDTH CV (test code = RDW) 15.0 % 11.5- 14.5 H RED CELL DISTRIBUTION WIDTH SD (test code = RDW-SD) 51.1 fL 37 .0-54.0 N PLATELET COUNT (test code = PLT) 127 x10 3/uL 150-400 L MEAN PLATELET VOLUME (test code = MPV) 10.9 fL 7.0-9.0 H NEUTROPHIL % (test code = NT%) 66.5 % 56.0-77.0 N IMMATURE GRANULOCYTE % (test code = IG%) 0.3 % 0.0-2.0 N LYMPHOCYTE % (test code = LY%) 20.2 % 14.0-32.0 N MONOCYTE % (test code = MO%) 9.8 % 4.8-9.0 H EOSINOPHIL % (test code = EO%) 2.8 % 0.3-3.7 N BASOPHIL % (test code = BA%) 0.4 % 0.0-2.0 N NUCLEATED RBC % (test code = NRBC%) 0.0 % 0-0 N NEUTROPHIL # (test code = NT#) 6.14 x10 3/uL 2.0-7.6 N IMMATURE GRANULOCYTE # (test code = IG#) 0.03 x10 3/uL 0.00-0.03 N LYMPHOCYTE # (test code = LY#) 1.87 x10 3/uL 1.0-3.8 N MONOCYTE # (test code = MO#) 0.91 x10 3/uL 0.1-0.8 H EOSINOPHIL # (test code = EO#) 0.26 x10 3/uL 0.0-0.2 H BASOPHIL # (test code = BA#) 0.04 x10 3/uL 0.0-0.2 N NUCLEATED RBC # (test code = NRBC#) 0.00 x10 3/uL 0.0-0.1 N MANUAL DIFF REQUIRED (test code = MDIFF) NO BASIC METABOLIC [id number] 08:22:00* Test Item Value Reference Range Interpretation Comments SODIUM (test code = NA) 136 mEq/L 134-147 N POTASSIUM (test code = K) 4.3 mEq/L 3.4-5.0 N CHLORIDE (test code = CL) 106 mEq/L 100-108 N CARBON DIOXIDE (test code = CO2) 23 mEq/L 21-33 ANION GAP (test code = GAP) 11 0-20 N GLUCOSE (test code = GLU) 230 mg/dL 70-110 H BLOOD UREA NITROGEN (test code = BUN) 13 mg/dL 7-18 N GLOMERULAR FILTRATION RATE (test code = GFR) 95.0 70-80 H Units of measure = ml/min/1.73 m2 CREATININE (test code = CREAT) 0.8 mg/dL 0.6-1.3 N CALCIUM (test code = CA) 10.2 mg/dL 8.0-10.5 N UA CULT [id number] 22:37:00* Test Item Value Reference Range Interpretation Comments UA WBC (test code = WBCU) 4-9 WBC/HPF 0-3 A UA SQUAMOUS CELLS (test code = SQU) NONE SEEN /HPF NONE SEEN UA CULTURE NEEDED? (test code = UACULT) NO, WBC<10 Criteria Culture Chk Criteria not met, Urine Culture cancelled. BASIC METABOLIC [id number] 08:08:00* Test Item Value Reference Range Interpretation Comments SODIUM (test code = NA) 136 mEq/L 134-147 N POTASSIUM (test code = K) 4.1 mEq/L 3.4-5.0 N CHLORIDE (test code = CL) 109 mEq/L 100-108 H CARBON DIOXIDE (test code = CO2) 17 mEq/L 21-33 L ANION GAP (test code = GAP) 14 0-20 N GLUCOSE (test code = GLU) 149 mg/dL 70-110 H BLOOD UREA NITROGEN (test code = BUN) 14 mg/dL 7-18 N GLOMERULAR FILTRATION RATE (test code = GFR) 110.9 70-80 H Units of measure = ml/min/1.73 m2 CREATININE (test code = CREAT) 0.7 mg/dL 0.6-1.3 N CALCIUM (test code = CA) 9.8 mg/dL 8.0-10.5 N CBC W/AUTO [id number] 08:00:00* Test Item Value Reference Range Interpretation Comments WHITE BLOOD CELL (test code = WBC) 8.78 x10 3/uL 4.5-11.0 N RED BLOOD CELL (test code = RBC) 4.18 x10 6/uL 4.00-5.60 N HEMOGLOBIN (test code = HGB) 13.0 g/dL 12.5-16.9 N HEMATOCRIT (test code = HCT) 39.8 % 37.5-50.7 N MEAN CELL VOLUME (test code = MCV) 95.2 fL 81.0-99.0 N MEAN CELL HGB (test code = MCH) 31.1 pg 27.0-33.0 N MEAN CELL HGB CONCETRATION (test code = MCHC) 32.7 g/dL 33.0-37. 0 L RED CELL DISTRIBUTION WIDTH CV (test code = RDW) 14.6 % 11.5- 14.5 H RED CELL DISTRIBUTION WIDTH SD (test code = RDW-SD) 50.2 fL 37 .0-54.0 N PLATELET COUNT (test code = PLT) 126 x10 3/uL 150-400 L MEAN PLATELET VOLUME (test code = MPV) 10.6 fL 7.0-9.0 H NEUTROPHIL % (test code = NT%) 60.9 % 56.0-77.0 N IMMATURE GRANULOCYTE % (test code = IG%) 0.3 % 0.0-2.0 N LYMPHOCYTE % (test code = LY%) 24.6 % 14.0-32.0 N MONOCYTE % (test code = MO%) 9.1 % 4.8-9.0 H EOSINOPHIL % (test code = EO%) 4.6 % 0.3-3.7 H BASOPHIL % (test code = BA%) 0.5 % 0.0-2.0 N NUCLEATED RBC % (test code = NRBC%) 0.0 % 0-0 N NEUTROPHIL # (test code = NT#) 5.35 x10 3/uL 2.0-7.6 N IMMATURE GRANULOCYTE # (test code = IG#) 0.03 x10 3/uL 0.00-0.03 N LYMPHOCYTE # (test code = LY#) 2.16 x10 3/uL 1.0-3.8 N MONOCYTE # (test code = MO#) 0.80 x10 3/uL 0.1-0.8 N EOSINOPHIL # (test code = EO#) 0.40 x10 3/uL 0.0-0.2 H BASOPHIL # (test code = BA#) 0.04 x10 3/uL 0.0-0.2 N NUCLEATED RBC # (test code = NRBC#) 0.00 x10 3/uL 0.0-0.1 N MANUAL DIFF REQUIRED (test code = MDIFF) NO [id number] 07:58:00* Test Item Value Reference Range Interpretation Comments GLUBED (test code = GLUBED) 169 MG/DL 70-110 H Performed by certified metal shaping machine operator at [facility] [id number] 09:32:00* Test Item Value Reference Range Interpretation Comments GLUBED (test code = GLUBED) 165 MG/DL 70-110 H Performed by certified metal shaping machine operator at [facility] BASIC METABOLIC [id number] 08:06:00* Test Item Value Reference Range Interpretation Comments SODIUM (test code = NA) 137 mEq/L 134-147 N POTASSIUM (test code = K) 4.2 mEq/L 3.4-5.0 N CHLORIDE (test code = CL) 110 mEq/L 100-108 H CARBON DIOXIDE (test code = CO2) 20 mEq/L 21-33 L ANION GAP (test code = GAP) 11 0-20 N GLUCOSE (test code = GLU) 152 mg/dL 70-110 H BLOOD UREA NITROGEN (test code = BUN) 15 mg/dL 7-18 N GLOMERULAR FILTRATION RATE (test code = GFR) 110.9 70-80 H Units of measure = ml/min/1.73 m2 CREATININE (test code = CREAT) 0.7 mg/dL 0.6-1.3 N CALCIUM (test code = CA) 10.0 mg/dL 8.0-10.5 N [id number] 07:51:00* Test Item Value Reference Range Interpretation Comments GLUBED (test code = GLUBED) 221 MG/DL 70-110 H Performed by certified metal shaping machine operator at [facility] CBC W/AUTO [id number] 06:41:00* Test Item Value Reference Range Interpretation Comments WHITE BLOOD CELL (test code = WBC) 7.59 x10 3/uL 4.5-11.0 N RED BLOOD CELL (test code = RBC) 4.01 x10 6/uL 4.00-5.60 N HEMOGLOBIN (test code = HGB) 12.6 g/dL 12.5-16.9 N HEMATOCRIT (test code = HCT) 38.0 % 37.5-50.7 N MEAN CELL VOLUME (test code = MCV) 94.8 fL 81.0-99.0 N MEAN CELL HGB (test code = MCH) 31.4 pg 27.0-33.0 N MEAN CELL HGB CONCETRATION (test code = MCHC) 33.2 g/dL 33.0-37. 0 N RED CELL DISTRIBUTION WIDTH CV (test code = RDW) 14.3 % 11.5- 14.5 N RED CELL DISTRIBUTION WIDTH SD (test code = RDW-SD) 49.5 fL 37 .0-54.0 N PLATELET COUNT (test code = PLT) 115 x10 3/uL 150-400 L MEAN PLATELET VOLUME (test code = MPV) 10.4 fL 7.0-9.0 H NEUTROPHIL % (test code = NT%) 63.6 % 56.0-77.0 N IMMATURE GRANULOCYTE % (test code = IG%) 0.3 % 0.0-2.0 N LYMPHOCYTE % (test code = LY%) 24.0 % 14.0-32.0 N MONOCYTE % (test code = MO%) 7.2 % 4.8-9.0 N EOSINOPHIL % (test code = EO%) 4.5 % 0.3-3.7 H BASOPHIL % (test code = BA%) 0.4 % 0.0-2.0 N NUCLEATED RBC % (test code = NRBC%) 0.0 % 0-0 N NEUTROPHIL # (test code = NT#) 4.83 x10 3/uL 2.0-7.6 N IMMATURE GRANULOCYTE # (test code = IG#) 0.02 x10 3/uL 0.00-0.03 N LYMPHOCYTE # (test code = LY#) 1.82 x10 3/uL 1.0-3.8 N MONOCYTE # (test code = MO#) 0.55 x10 3/uL 0.1-0.8 N EOSINOPHIL # (test code = EO#) 0.34 x10 3/uL 0.0-0.2 H BASOPHIL # (test code = BA#) 0.03 x10 3/uL 0.0-0.2 N NUCLEATED RBC # (test code = NRBC#) 0.00 x10 3/uL 0.0-0.1 N MANUAL DIFF REQUIRED (test code = MDIFF) NO [id number] 11:49:00* Test Item Value Reference Range Interpretation Comments GLUBED (test code = GLUBED) 252 MG/DL 70-110 H Performed by certified metal shaping machine operator at [facility] [id number] 07:55:00* Test Item Value Reference Range Interpretation Comments GLUBED (test code = GLUBED) 187 MG/DL 70-110 H Performed by certified metal shaping machine operator at [facility] BASIC METABOLIC [id number] 08:31:00* Test Item Value Reference Range Interpretation Comments SODIUM (test code = NA) 138 mEq/L 134-147 N POTASSIUM (test code = K) 4.2 mEq/L 3.4-5.0 N CHLORIDE (test code = CL) 110 mEq/L 100-108 H CARBON DIOXIDE (test code = CO2) 19 mEq/L 21-33 L ANION GAP (test code = GAP) 13 0-20 N GLUCOSE (test code = GLU) 184 mg/dL 70-110 H BLOOD UREA NITROGEN (test code = BUN) 12 mg/dL 7-18 N GLOMERULAR FILTRATION RATE (test code = GFR) 110.9 70-80 H Units of measure = ml/min/1.73 m2 CREATININE (test code = CREAT) 0.7 mg/dL 0.6-1.3 N CALCIUM (test code = CA) 9.6 mg/dL 8.0-10.5 N CBC W/AUTO [id number] 06:59:00* Test Item Value Reference Range Interpretation Comments WHITE BLOOD CELL (test code = WBC) 7.42 x10 3/uL 4.5-11.0 RED BLOOD CELL (test code = RBC) 3.96 x10 6/uL 4.00-5.60 L HEMOGLOBIN (test code = HGB) 12.2 g/dL 12.5-16.9 L HEMATOCRIT (test code = HCT) 37.2 % 37.5-50.7 L MEAN CELL VOLUME (test code = MCV) 93.9 fL 81.0-99.0 N MEAN CELL HGB (test code = MCH) 30.8 pg 27.0-33.0 N MEAN CELL HGB CONCETRATION (test code = MCHC) 32.8 g/dL 33.0-37. 0 L RED CELL DISTRIBUTION WIDTH CV (test code = RDW) 14.0 % 11.5- 14.5 N RED CELL DISTRIBUTION WIDTH SD (test code = RDW-SD) 47.1 fL 37 .0-54.0 N PLATELET COUNT (test code = PLT) 128 x10 3/uL 150-400 L MEAN PLATELET VOLUME (test code = MPV) 11.0 fL 7.0-9.0 H NEUTROPHIL % (test code = NT%) 57.6 % 56.0-77.0 N IMMATURE GRANULOCYTE % (test code = IG%) 0.3 % 0.0-2.0 N LYMPHOCYTE % (test code = LY%) 29.0 % 14.0-32.0 N MONOCYTE % (test code = MO%) 7.8 % 4.8-9.0 N EOSINOPHIL % (test code = EO%) 4.9 % 0.3-3.7 H BASOPHIL % (test code = BA%) 0.4 % 0.0-2.0 N NUCLEATED RBC % (test code = NRBC%) 0.0 % 0-0 N NEUTROPHIL # (test code = NT#) 4.28 x10 3/uL 2.0-7.6 N IMMATURE GRANULOCYTE # (test code = IG#) 0.02 x10 3/uL 0.00-0.03 N LYMPHOCYTE # (test code = LY#) 2.15 x10 3/uL 1.0-3.8 N MONOCYTE # (test code = MO#) 0.58 x10 3/uL 0.1-0.8 N EOSINOPHIL # (test code = EO#) 0.36 x10 3/uL 0.0-0.2 H BASOPHIL # (test code = BA#) 0.03 x10 3/uL 0.0-0.2 N NUCLEATED RBC # (test code = NRBC#) 0.00 x10 3/uL 0.0-0.1 N MANUAL DIFF REQUIRED (test code = MDIFF) NO - MRI L-SPINE W/O [id number] 10:25:00 FAX: Jasmyn Mccartney [phone] [place]: St: DIS Name: IVONE TRAYLOR [facility] : [birth year] Age/S: 73/M [address] [place] [address] Unit #: [id number] Loc: G.6635 [place] [address] Phys: Jasmyn Mccartney MD Acct: [id number] Dis Date: [id number] Status: DIS IN PHONE #: [phone] Exam Date: 12/08/2018 1014 FAX #: [phone] Reason: left leg numbness EXAMS: CPT CODE: [id number] MRI L-SPINE W/O CONT 11286 Study: - MRI L-SPINE W/O CONT 12/08 7:10 PM Patient Name: IVONE HARDY MR: [id number] : 1945; Age: 73 years y/o Male Ordering Physician: Jasmyn lowry MD Clinical Indication: left leg numbness Compari son: None TECHNIQUE: Multiplanar T1, T2, and STIR weighted noncont rast MRI of the lumbar spine was performed on the 1.5 Leola magnet. FINDINGS: ALIGNMENT AND GENERAL ASSESSMENT: Five lumbar type vertebral bodies are assumed for purpose of this dictation with conus medullaris termination at L1-L2. Mildly degenerated disc throughout the lumbar spine. Small multilevel anterior osteophytes. No spinal cord signal abnormality. DISC SPACES: L1-L2: No significant disc protrusion, spinal canal narrowing, or neural foraminal narrowing. L2-L3: No significant disc protrusion, spina l canal narrowing, or neural foraminal narrowing. L3-L4: Sym metric disc bulge without foraminal or canal stenosis. L4-L5: Asy mmetric disc bulge with mild left foraminal stenosis L5-S1: Symmet geoff disc bulge with annular fissure without foraminal or canal stenosis. IMPRESSION: No significant spinal butch l stenosis. Mild degenerative neural foraminal stenosis at the left L4-L 5 level. Mildly degenerative discs throughout the lumbar spine. PAGE 1 Signed Report (CONTINUED) FAX: Jasmyn Mccartney [phone] [place]: St: DIS Name: FLAVIA HARDY [facility] : 1945 Age/S : 73/M [address] [place] [address] Unit #: [id number] Loc: G. [address] [place] [address] Phys: Jasmyn Mccartney MD Acct: [id number] Dis Date: [id number] Status: DIS IN PHONE #: [phone] Exam Date: 12/08/2018 1014 FAX #: [phone] Reason: left leg numbness EXAMS: CPT CODE: [id number] MRI L-SPINE W/O CONT 93040 <Continued> SL: [id number] at 1025 Reported and signed by: Blake Rodriguez M.D. CC: Jasmyn Mccartney MD Technologist: Elodia Orozco RT(MR)(CT) Trnscrd Date/Time/By: 12/08/2018 (1025) : By: [email or web address] Orig Print D/T: S: 12/08/2018 (1028) PAGE 2 Signed Report - MRI L-SPINE W/O CONT 2018-12-08 10:25:00 FAX: Jasmyn Mccartney [phone] [place]: St: ADM Name: IVONE TRAYLOR : [birth year] Age/S: 73/M [address] [place] [address] Unit #: [id number] Loc: G.6635 [place] [address] Phys: Jasmyn Mccartney MD Acct: [id number] Dis Date: Status: ADM IN PHONE #: [phone] Exam Date: 12/08/2018 1014 FAX #: [phone] Reason: left leg numbness EXAMS: CPT CODE: [id number] MRI L-SPINE W/O CONT 72130 Study: - MRI L-SPINE W/O CONT 12/08 7:10 PM Patient Name: IVONE HARDY MR: [id number] : 1945; Age: 73 years y/o Male Ordering Physician: Jasmyn lowry MD Clinical Indication: left leg numbness Compari son: None TECHNIQUE: Multiplanar T1, T2, and STIR weighted noncont rast MRI of the lumbar spine was performed on the 1.5 [place]ola magnet. FINDINGS: ALIGNMENT AND GENERAL ASSESSMENT: Five lumbar type vertebral bodies are assumed for purpose of this dictation with conus medullaris termination at L1-L2. Mildly degenerated disc throughout the lumbar spine. Small multilevel anterior osteophytes. No spinal cord signal abnormality. DISC SPACES: L1-L2: No significant disc protrusion, spinal canal narrowing, or neural foraminal narrowing. L2-L3: No significant disc protrusion, spina l canal narrowing, or neural foraminal narrowing. L3-L4: Sym metric disc bulge without foraminal or canal stenosis. L4-L5: Asy mmetric disc bulge with mild left foraminal stenosis L5-S1: Symmet geoff disc bulge with annular fissure without foraminal or canal stenosis. IMPRESSION: No significant spinal butch l stenosis. Mild degenerative neural foraminal stenosis at the left L4-L 5 level. Mildly degenerative discs throughout the lumbar spine. PAGE 1 Signed Report (CONTINUED) FAX: Jasmyn Mccartney [phone] [place]: St: ADM Name: FLAVIA HARDY [facility] : 1945 Age/S : 73/M [address] [place] [address] Unit #: [id number] Loc: [address] [address] Phys: Jasmyn Mccartney MD Acct: [id number] Dis Date: Status: ADM IN PHONE #: [phone] Exam Date: 12/08/2018 1014 FAX #: [phone] Reason: left leg numbness EXAMS: CPT CODE: [id number] MRI L-SPINE W/O CONT 95397 <Continued> SL: [id number] at 1025 Reported and signed by: Blake Rodriguez M.D. CC: Jasmyn Mccartney MD Technologist: RT Lindsey(MR)(CT) Trnscrd Date/Time/By: 12/08/2018 (1029) : By: [email or web address] Orig Print D/T: S: 12/08/2018 (3628) PAGE 2 Signed Report [id number] 08:05:00* Test Item Value Reference Range Interpretation Comments GLUBED (test code = GLUBED) 177 MG/DL 70-110 H Performed by certified metal shaping machine operator at [facility] - XR SHOULDER 2 + V [id number] 15:49:00 FAX: Jasmyn Mccartney [phone] [place]: St: DIS Name: Thaddeus VIONE GAMBLE [facility] : [birth year] Age/S: 73/M [address] [place] [address] Unit #: [id number] Loc: G.6635 [place] [address] Phys: Jasmyn Mccartney MD Acct: [id number] Dis Date: [id number] Status: DIS IN PHONE #: [phone] Exam Date: 12/07/2018 1543 FAX #: [phone] Reason: RIGHT SHOULDER PAIN EXAMS: CPT CODE: [id number] XR SHOULDER 2 + [place] [address] RIGHT SHOULDER, 3 VIEWS: HISTORY: Severe right shoulder pain. COMPARISON EXAMS: None available. FINDINGS: 3 views of the right shoulder. The inferior scapular angle was identified on the scapular Y view. No evidence of dis location. Narrowing is identified at the right acromioclavicular joint wi th some spurring on the clavicular side of the joint. No focal bone lesio ns identified. The adjacent right ribs are unremarkable. IMPRESSION: 1. No acute changes identified. 2. 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 SL:01 at 1542 Reported and signed by: Sanjeev Lin M.D. CC: Jasmyn Mccartney MD Tech nologist: Karina Hernandez RT(R) Trnscrd Date/Ti me/By: 12/07/2018 (0480) : By: [email or web address] Orig Print D/T: S: 12/07/2018 (6409) PAGE 1 Signed Report - XR SHOULDER 2 + V [id number] 15:49:00 FAX: Jasmyn Mccartney [phone] [place]: St: ADM Name: IVONE TRAYLOR [facility] : [birth year] Age/S: 73/M [address] [place] [address] Unit #: [id number] Loc: G.6635 [place] [address] Phys: Jasmyn Mccartney MD Acct: [id number] Dis Date: Status: ADM IN PHONE #: [phone] Exam Date: 12/07/2018 1543 FAX #: [phone] Reason: RIGHT SHOULDER PAIN EXAMS: CPT CODE: [id number] XR SHOULDER 2 + [place] [address] RIGHT SHOULDER, 3 VIEWS: HISTORY: Severe right shoulder pain. COMPARISON EXAMS: None available. FINDINGS: 3 views of the right shoulder. The inferior scapular angle was identified on the scapular Y view. No evidence of dis location. Narrowing is identified at the right acromioclavicular joint wi th some spurring on the clavicular side of the joint. No focal bone lesio ns identified. The adjacent right ribs are unremarkable. IMPRESSION: 1. No acute changes identified. 2. 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 SL:01 at 1549 Reported and signed by: Sanjeev Lin M.D. CC: Jasmyn Mccartney MD Tech nologist: Karina Hernandez, RT(R) Trnscrd Date/Ti me/By: 12/07/2018 (5124) : By: DaisyJ Orig Print D/T: S: 12/07/2018 (9925) PAGE 1 Signed Report - XR HIP W/PEL UNI 2+V [id number] 14:27:00 FAX: Jasmyn Mccartney [phone] [place]: St: DIS Name: IVONE TRAYLOR [facility] : [birth year] Age/S: 73/M [address] [place] [address] Unit #: [id number] Loc: W[address]am[address]35 [place] [address] Phys: Jasmyn Mccartney MD Acct: [id number] Dis Date: [id number] Status: DIS IN PHONE #: [phone] Exam Date: 12/07/2018 142 FAX #: [phone] Reason: hip pain EXAMS: CPT CODE: [id number] XR HIP W/PEL UNI 2+V L T [address]276 PELVIS AND LEFT HIP, 2 VIEWS: HISTORY: Acute left hip pain. COMPARISON EXAMS: Abdomin al pelvic CT scan performed 12/06/2018. FINDINGS: 2 views of the pe lvis and left hip were obtained and show preservation of the left hip join t spaces and no evidence of proximal femoral fracture. No pelvic fracture identified. IMPRESSION: Negative examination of the pel vis and left hip. SL:01 at 1427 Reported an d signed by: Sanjeev Lin M.D. CC: Jasmyn lowry MD Technologist: RT Chantell(Luis) Trnscrd Date/Time/By: 12/07/2018 (9140) : By: Yosvany AJJ Orig Print D/T: S: 12/07/2018 (1464) PAGE 1 Signed Report - XR HIP W/PEL UNI 2+V [id number] 14:27:00 FAX: Jasmyn Mccartney [phone] [place]: St: ADM Name: IVONE TRAYLOR [facility] : [birth year] Age/S: 73/M [address] [place] [address] Unit #: [id number] Loc: Rudolph.66[address] [place] [address] Phys: Jasmyn Mccartney MD Acct: [id number] Dis Date: Status: ADM IN PHONE #: [phone] Exam Date: 12/07/2018 142 FAX #: [phone] Reason: hip pain EXAMS: CPT CODE: [id number] XR HIP W/PEL UNI 2+V L T 76527 PELVIS AND LEFT HIP, 2 VIEWS: HISTORY: Acute left hip pain. COMPARISON EXAMS: Abdomin al pelvic CT scan performed 12/06/2018. FINDINGS: 2 views of the pe lvis and left hip were obtained and show preservation of the left hip join t spaces and no evidence of proximal femoral fracture. No pelvic fracture identified. IMPRESSION: Negative examination of the pel vis and left hip. SL:01 at 9008 Reported an d signed by: Sanjeev Lin M.D. CC: Jasmyn lowry MD Technologist: RT Chantell(R) Trnscrd Date/Time/By: 12/07/2018 (2066) : By: Yosvany AJJ Orig Print D/T: S: 12/07/2018 (0668) PAGE 1 Signed Report GLUBED 2018-12-07 11:37:00* Test Item Value Reference Range Interpretation Comments GLUBED (test code = GLUBED) 196 MG/DL 70-110 H Performed by certified metal shaping machine operator at [facility] HGBA1C%2018-12-07 08:41:00* Test Item Value Reference Range Interpretation Comments HGBA1C% (test code = HGBA1C%) 5.5 %A1C 4.8-6.0 N BASIC METABOLIC [id number] 08:28:00* Test Item Value Reference Range Interpretation Comments SODIUM (test code = NA) 135 mEq/L 134-147 N POTASSIUM (test code = K) 4.0 mEq/L 3.4-5.0 N CHLORIDE (test code = CL) 102 mEq/L 100-108 N CARBON DIOXIDE (test code = CO2) 24 mEq/L 21-33 N ANION GAP (test code = GAP) 13 0-20 N GLUCOSE (test code = GLU) 184 mg/dL 70-110 H BLOOD UREA NITROGEN (test code = BUN) 22 mg/dL 7-18 H GLOMERULAR FILTRATION RATE (test code = GFR) 65.8 70-80 L Units of measure = ml/min/1.73 m2 CREATININE (test code = CREAT) 1.1 mg/dL 0.6-1.3 N CALCIUM (test code = CA) 10.0 mg/dL 8.0-10.5 N THYROID STIMULATING [id number] 08:28:00* Test Item Value Reference Range Interpretation Comments THYROID STIMULATING HORMONE (test code = TSH) 4.97 0.42-5.4 7 N Results in danae- International Units/mL [id number] 08:25:00* Test Item Value Reference Range Interpretation Comments GLUBED (test code = GLUBED) 217 MG/DL 70-110 H Performed by certified metal shaping machine operator at [facility] CBC W/AUTO [id number] 08:11:00* Test Item Value Reference Range Interpretation Comments WHITE BLOOD CELL (test code = WBC) 4.93 x10 3/uL 4.5-11.0 N RED BLOOD CELL (test code = RBC) 3.87 x10 6/uL 4.00-5.60 L HEMOGLOBIN (test code = HGB) 11.8 g/dL 12.5-16.9 L HEMATOCRIT (test code = HCT) 36.2 % 37.5-50.7 L MEAN CELL VOLUME (test code = MCV) 93.5 fL 81.0-99.0 N MEAN CELL HGB (test code = MCH) 30.5 pg 27.0-33.0 N MEAN CELL HGB CONCETRATION (test code = MCHC) 32.6 g/dL 33.0-37. 0 L RED CELL DISTRIBUTION WIDTH CV (test code = RDW) 13.7 % 11.5- 14.5 N RED CELL DISTRIBUTION WIDTH SD (test code = RDW-SD) 47.1 fL 37 .0-54.0 N PLATELET COUNT (test code = PLT) 136 x10 3/uL 150-400 L MEAN PLATELET VOLUME (test code = MPV) 11.3 fL 7.0-9.0 H NEUTROPHIL % (test code = NT%) 50.9 % 56.0-77.0 L IMMATURE GRANULOCYTE % (test code = IG%) 0.2 % 0.0-2.0 N LYMPHOCYTE % (test code = LY%) 33.3 % 14.0-32.0 H MONOCYTE % (test code = MO%) 9.9 % 4.8-9.0 H EOSINOPHIL % (test code = EO%) 5.3 % 0.3-3.7 H BASOPHIL % (test code = BA%) 0.4 % 0.0-2.0 N NUCLEATED RBC % (test code = NRBC%) 0.0 % 0-0 N NEUTROPHIL # (test code = NT#) 2.51 x10 3/uL 2.0-7.6 N IMMATURE GRANULOCYTE # (test code = IG#) 0.01 x10 3/uL 0.00-0.03 N LYMPHOCYTE # (test code = LY#) 1.64 x10 3/uL 1.0-3.8 N MONOCYTE # (test code = MO#) 0.49 x10 3/uL 0.1-0.8 N EOSINOPHIL # (test code = EO#) 0.26 x10 3/uL 0.0-0.2 H BASOPHIL # (test code = BA#) 0.02 x10 3/uL 0.0-0.2 N NUCLEATED RBC # (test code = NRBC#) 0.00 x10 3/uL 0.0-0.1 N MANUAL DIFF REQUIRED (test code = MDIFF) NO [id number] 06:10:00* Test Item Value Reference Range Interpretation Comments GLUBED (test code = GLUBED) 171 MG/DL 70-110 H Performed by certified metal shaping machine operator at [facility] - CT ABD PELVIS [id number] 16:43:00 Name: IVONE HARDY [facility] : 1945 Age/S: 73 / M [address] [place] [address] Unit #: [id number] Loc: [facility] [place] [address] Phys: Mark Ventura DO Acct: [id number] Dis Date: 12/18/2018 Status: DIS IN PHONE #: [phone] Exam Date: 12/06/2018 1553 FAX #: [phone] Reason: left flank pain radiating down left hip EXAMS: CPT CODE: [id number] CT ABD PELVIS W/CONT 09187 Procedure: CT Abdomen/Pelvis with IV and Oral Contrast. Clinical Indication: Left flank pain radiating to the left hip for 3 weeks. Comparison: Left lower extremity Doppler venous ultrasound 12/06/2018. TECHNIQUE: Helical imaging was performed diaphragm through the symphysis with multiplanar reformations obtained. IV CONTRAST: 100 mL Isovue 300. GI CONTRAST: Diluted Omnipaque 240. CT imaging performed at this location utilizes radiation dose optimization techniques which include one or more of the following: -Automated exposure control -Adjustment of the mA and/or kV according to patient size -Use of iterative reconstruction technique CT Radiation Dose DLP 777 mGy-cm FINDINGS: LOWER CHEST: The heart is slightly enlarged and extensive coronary artery calcifications are noted. The lung bases are clear. SOLID ORGANS: There is a 5 cm heterogeneous hypodense lesion in the subcapsular posterior segment of the right lobe of the liver. The patient has had previous cholecystectomy. The spleen, pancreas and adrenal glands appear normal. The kidneys demonstrate lobulated contours. There is a 6 mm calculus in the upper pole of the lef t kidney and a 2 mm calculus in the midpole of the right kidney. Va scular calcifications are also noted. There is a partially exophytic 3 cm cyst arising from the posterior midpole of the right kidney. BOWEL: The bowel is within normal limits. The appendix is unremarkable. There is a fat-containing umbilical hernia measuring 6.4 cm in greatest t ransverse diameter, with the orifice measuring 3 cm. PERITON EUM: No free intraperitoneal fluid or air. RETROPERITONEUM : Calcific atherosclerosis involves the abdominal aorta, renal and mesente geoff vessels. No retroperitoneal mass or lymphadenopathy is observed. PELVIS: The prostate gland is enlarged and impinges upon the place of the bladder. The seminal vesicles are unremarkable. The urinary PAGE 1 Signed Report (CONTINUED) Name: IVONE SERRANO [facility] Mce[facility] : [birth year] Age/S: 73 / M [address] [place] [address] Unit #: [id number] Loc: [place] [address] Phys: Mark Ventura Acct: [id number] Dis Date: 12/18/2018 Status: DIS IN PHONE #: [phone] Exam Date: 12/06/2018 6612 FAX #: [phone] R peggy: left flank pain radiating down left hip EXAMS: CPT CODE: [id number] CT ABD PELVIS W/CONT 89843 <Continued> bladder is normal. MUSCULOSKELETAL: Degenerative change involves the thoracolumbar spine. The patient has had prior midline sternotomy. IMPRESSION: 1. Cardiomegaly with coronary artery calcifications and calcific atherosclerosis. 2. Heterogeneous hypodense mass in the right lobe of the liver possibly representing a hemangioma, however benign and malignant neoplasm are considered in the differential diagnosis and further characterization with MR imaging is recommended, if indicated clinically. 3. Previous cholecystectomy. 4. Bilateral nonobstructing nephrolithiasis. 5. Right renal cyst. 6. Fat-containing umbilical hernia. 7. Prostate gland enlargement. 8. Degenerative change. SL: K56- H at 1643 Reported and signed by: Fidencio Ta M.D. CC: Mark Ventura DO Technologist:Mikayla Doan, (R)(CT) CTDI: DLP: Trnscb Date/Time: 12/06/2018 (1643) t.SDR.TDO Orig Print D/T: S: 12/06/2018 (0374) PAGE 2 Signed Report - CT ABD PELVIS W/[id number] 16:43:00 Name: IVONE HARDY [facility] : 1945 Age/S: 73 / M [address] [place] [address] Unit #: [id number] Loc: [place] [address] Phys: Mark Ventura DO Acct: [id number] Dis Date: Status: REG ER PHONE #: [phone] Exam Date: 12/06/2018 1558 FAX #: [phone] Reason: left flank pain radiating down left hip EXAMS: CPT CODE: [id number] CT ABD PELVIS W/CONT 88313 Procedure: CT Abdomen/Pelvis with IV and Oral Contrast. Clinical Indication: Left flank pain radiating to the left hip for 3 weeks. Comparison: Left lower extremity Doppler venous ultrasound 12/06/2018. TECHNIQUE: Helical imaging was performed diaphragm through the symphysis with multiplanar reformations obtained. IV CONTRAST: 100 mL Isovue 300. GI CONTRAST: Diluted Omnipaque 240. CT imaging performed at this location utilizes radiation dose optimization techniques which include one or more of the following: -Automated exposure control -Adjustment of the mA and/or kV according to patient size -Use of iterative reconstruction technique CT Radiation Dose DLP 777 mGy-cm FINDINGS: LOWER CHEST: The heart is slightly enlarged and extensive coronary artery calcifications are noted. The lung bases are clear. SOLID ORGANS: There is a 5 cm heterogeneous hypodense lesion in the subcapsular posterior segment of the right lobe of the liver. The patient has had previous cholecystectomy. The spleen, pancreas and adrenal glands appear normal. The kidneys demonstrate lobulated contours. There is a 6 mm calculus in the upper pole of the lef t kidney and a 2 mm calculus in the midpole of the right kidney. Va scular calcifications are also noted. There is a partially exophytic 3 cm cyst arising from the posterior midpole of the right kidney. BOWEL: The bowel is within normal limits. The appendix is unremarkable. There is a fat-containing umbilical hernia measuring 6.4 cm in greatest t ransverse diameter, with the orifice measuring 3 cm. PERITON EUM: No free intraperitoneal fluid or air. RETROPERITONEUM : Calcific atherosclerosis involves the abdominal aorta, renal and mesente geoff vessels. No retroperitoneal mass or lymphadenopathy is observed. PELVIS: The prostate gland is enlarged and impinges upon the place of the bladder. The seminal vesicles are unremarkable. The urinary PAGE 1 Signed Report (CONTINUED) Name: IVONE SERRANO [facility] : [birth year] Age/S: 73 / M [address] [place] [address] Unit #: [id number] Loc: [place] [address] Phys: Mark Ventura DO Acct: [id number] Dis Date: Status: REG ER PHONE #: [phone] Exam Date: 12/06/2018 1556 FAX #: [phone] R peggy: left flank pain radiating down left hip EXAMS: CPT CODE: [id number] CT ABD PELVIS W/CONT 97481 <Continued> bladder is normal. MUSCULOSKELETAL: Degenerative change involves the thoracolumbar spine. The patient has had prior midline sternotomy. IMPRESSION: 1. Cardiomegaly with coronary artery calcifications and calcific atherosclerosis. 2. Heterogeneous hypodense mass in the right lobe of the liver possibly representing a hemangioma, however benign and malignant neoplasm are considered in the differential diagnosis and further characterization with MR imaging is recommended, if indicated clinically. 3. Previous cholecystectomy. 4. Bilateral nonobstructing nephrolithiasis. 5. Right renal cyst. 6. Fat-containing umbilical hernia. 7. Prostate gland enlargement. 8. Degenerative change. SL: K56- H at 6713 Reported and signed by: Fidencio Ta M.D. CC: Mark Ventura DO Technologist:RT Dany(R)(CT) CTDI: DLP: Trnscb Date/Time: 12/06/2018 (488) tENAO Orig Print D/T: S: 12/06/2018 (4671) PAGE 2 Signed Report - DUP VEIN UNI/[id number] 15:54:00 Name: IVONE HARDY [facility] : 1945 Age/S: 73 / M [address] [place] [address] Blvd Unit #: [id number] Loc: [place] [address] Phys: Mark Ventura DO Acct: [id number] Dis Date: 20181218 Status: DIS IN PHONE #: [phone] Exam Date: 12/06/20183 FAX #: [phone] Reason: LLE pain EXAMS: CPT CODE: [id number] DUP VEIN UNI/LTD 45578 PROCEDURE: LEFT UNILATERAL LOWER EXTREMITY VENOUS ULTRASOUND INDICATION: Acute left lower extremity pain. COMPARISON: None. TECHNIQUE: Sonographic evaluation of the left lower extremity veins was performed using high resolution B-mode, pulse and color Doppler imaging. FINDINGS: The common femoral, femoral, popliteal and visualized calf veins are patent. Normal venous waveforms. The saphenofemoral junction is unremarkable. IMPRESSION: 1. No deep venous thrombosis in the left leg. SL:01 at 4944 Reported and signed by: Sanjeev Lin M.D. CC: Mark Ventura DO Technologist: Sosa Alfred RDMS(AB) Trnscb Date/Time: 12/06/2018 (2056) Luciano Orig Print D/T: S: 12/06/2018 (4452) Probe: PAGE 1 Signed Report - DUP VEIN UNI/[id number] 15:54:00 Name: IVONE HARDY : 1945 Age/S: 73 / M [address] [place] [address] Blvd Unit #: [id number] Loc: [place] [address] Phys: Mark Ventura DO Acct: [id number] Dis Date: Status: REG ER PHONE #: [phone] Exam Date: 12/06/2018 1553 FAX #: [phone] Reason: LLE pain EXAMS: CPT CODE: [id number] DUP VEIN UNI/LTD 46588 PROCEDURE: LEFT UNILATERAL LOWER EXTREMITY VENOUS ULTRASOUND INDICATION: Acute left lower extremity pain. COMPARISON: None. TECHNIQUE: Sonographic evaluation of the left lower extremity veins was performed using high resolution B-mode, pulse and color Doppler imaging. FINDINGS: The common femoral, femoral, popliteal and visualized calf veins are patent. Normal venous waveforms. The saphenofemoral junction is unremarkable. IMPRESSION: 1. No deep venous thrombosis in the left leg. SL:01 at 1554 Reported and signed by: Sanjeev Lin M.D. CC: Mark Ventura DO Technologist: Sosa Alfred RDMS(AB) Trnscb Date/Time: 12/06/2018 (6084) Luciano Orig Print D/T: S: 12/06/2018 (7075) Probe: PAGE 1 Signed Report URINALYSIS [id number] 15:39:00* Test Item Value Reference Range Interpretation Comments UA COLOR (test code = COLU) YELLOW YEL/STRAW UA APPEARANCE (test code = APPU) CLEAR CLEAR UA GLUCOSE DIPSTICK (test code = DGLUU) NEGATIVE NEGATIVE UA BILIRUBIN DIPSTICK (test code = BILU) NEGATIVE NEGATIVE UA KETONE DIPSTICK (test code = KETU) NEGATIVE NEGATIVE UA SPECIFIC GRAVITY (test code = SGU) 1.015 1.005-1.030 N UA BLOOD DIPSTICK (test code = RITA) NEGATIVE NEGATIVE UA PH DIPSTICK (test code = ANATOLY) 5.0 5.0-7.0 N UA PROTEIN DIPSTICK (test code = PROU) NEGATIVE NEGATIVE UA UROBILINIOGEN DIPSTICK (test code = URO) 0.2 mg/dL 0.2-1.0 UA NITRITE DIPSTICK (test code = SHARI) NEGATIVE NEGATIVE UA LEUKOCYTE ESTERASE DIPSTICK (test code = LEUU) NEGATIVE NEGA TIVE UA WBC (test code = WBCU) WBC/HPF 0-3 UA RBC (test code = RBCU) RBC/HPF 0-3 COMMENTS: Clean CatchURINALYSIS [id number] 15:39:00* Test Item Value Reference Range Interpretation Comments UA COLOR (test code = COLU) YELLOW YEL/STRAW UA APPEARANCE (test code = APPU) CLEAR CLEAR UA GLUCOSE DIPSTICK (test code = DGLUU) NEGATIVE NEGATIVE UA BILIRUBIN DIPSTICK (test code = BILU) NEGATIVE NEGATIVE UA KETONE DIPSTICK (test code = KETU) NEGATIVE NEGATIVE UA SPECIFIC GRAVITY (test code = SGU) 1.015 1.005-1.030 N UA BLOOD DIPSTICK (test code = RITA) NEGATIVE NEGATIVE UA PH DIPSTICK (test code = ANATOLY) 5.0 5.0-7.0 N UA PROTEIN DIPSTICK (test code = PROU) NEGATIVE NEGATIVE UA UROBILINIOGEN DIPSTICK (test code = URO) 0.2 mg/dL 0.2-1.0 UA NITRITE DIPSTICK (test code = SHARI) NEGATIVE NEGATIVE UA LEUKOCYTE ESTERASE DIPSTICK (test code = LEUU) NEGATIVE NEGA TIVE UA WBC (test code = WBCU) 0-3 WBC/HPF 0-3 UA RBC (test code = RBCU) 0-3 RBC/HPF 0-3 UA BACTERIA (test code = BACU) TRACE /HPF NONE SEEN UA SQUAMOUS CELLS (test code = SQU) 0-5 /HPF NONE SEEN UA MUCUS (test code = MUCU) TRACE /LPF NONE SEEN COMMENTS: Clean CatchCOMPREHENSIVE METABOLIC [id number] 14:10:00* Test Item Value Reference Range Interpretation Comments SODIUM (test code = NA) 135 mEq/L 134-147 N POTASSIUM (test code = K) 4.3 mEq/L 3.4-5.0 N CHLORIDE (test code = CL) 103 mEq/L 100-108 N CARBON DIOXIDE (test code = CO2) 25 mEq/L 21-33 N ANION GAP (test code = GAP) 11 0-20 N GLUCOSE (test code = GLU) 97 mg/dL 70-110 N BLOOD UREA NITROGEN (test code = BUN) 24 mg/dL 7-18 H GLOMERULAR FILTRATION RATE (test code = GFR) 65.8 70-80 L Units of measure = ml/min/1.73 m2 CREATININE (test code = CREAT) 1.1 mg/dL 0.6-1.3 N TOTAL PROTEIN (test code = PROT) 8.2 g/dL 6.4-8.2 N ALBUMIN (test code = ALB) 3.80 g/dL 3.4-5.0 N CALCIUM (test code = CA) 10.1 mg/dL 8.0-10.5 N BILIRUBIN TOTAL (test code = BILT) 0.30 mg/dL 0.0-1.0 N SGOT/AST (test code = AST) 24 IUnit/L 15-37 N SGPT/ALT (test code = ALT) 23 IUnit/L 15-65 N ALKALINE PHOSPHATASE TOTAL (test code = ALKP) 92 IUnit/L 20-125 N [id number] 14:10:00* Test Item Value Reference Range Interpretation Comments LIPASE (test code = LIP) 267 IUnit/L 73-393 N CBC W/AUTO [id number] 13:57:00* Test Item Value Reference Range Interpretation Comments WHITE BLOOD CELL (test code = WBC) 6.08 x10 3/uL 4.5-11.0 N RED BLOOD CELL (test code = RBC) 4.11 x10 6/uL 4.00-5.60 N HEMOGLOBIN (test code = HGB) 12.7 g/dL 12.5-16.9 N HEMATOCRIT (test code = HCT) 38.0 % 37.5-50.7 N MEAN CELL VOLUME (test code = MCV) 92.5 fL 81.0-99.0 N MEAN CELL HGB (test code = MCH) 30.9 pg 27.0-33.0 N MEAN CELL HGB CONCETRATION (test code = MCHC) 33.4 g/dL 33.0-37. 0 N RED CELL DISTRIBUTION WIDTH CV (test code = RDW) 13.7 % 11.5- 14.5 N RED CELL DISTRIBUTION WIDTH SD (test code = RDW-SD) 46.5 fL 37 .0-54.0 N PLATELET COUNT (test code = PLT) 147 x10 3/uL 150-400 L MEAN PLATELET VOLUME (test code = MPV) 10.1 fL 7.0-9.0 H NEUTROPHIL % (test code = NT%) 54.4 % 56.0-77.0 L IMMATURE GRANULOCYTE % (test code = IG%) 0.3 % 0.0-2.0 N LYMPHOCYTE % (test code = LY%) 30.8 % 14.0-32.0 N MONOCYTE % (test code = MO%) 9.9 % 4.8-9.0 H EOSINOPHIL % (test code = EO%) 4.1 % 0.3-3.7 H BASOPHIL % (test code = BA%) 0.5 % 0.0-2.0 N NUCLEATED RBC % (test code = NRBC%) 0.0 % 0-0 N NEUTROPHIL # (test code = NT#) 3.31 x10 3/uL 2.0-7.6 N IMMATURE GRANULOCYTE # (test code = IG#) 0.02 x10 3/uL 0.00-0.03 N LYMPHOCYTE # (test code = LY#) 1.87 x10 3/uL 1.0-3.8 N MONOCYTE # (test code = MO#) 0.60 x10 3/uL 0.1-0.8 N EOSINOPHIL # (test code = EO#) 0.25 x10 3/uL 0.0-0.2 H BASOPHIL # (test code = BA#) 0.03 x10 3/uL 0.0-0.2 N NUCLEATED RBC # (test code = NRBC#) 0.00 x10 3/uL 0.0-0.1 N MANUAL DIFF REQUIRED (test code = MDIFF) NO ALPHA FETOPROTEIN (AFP), TUMOR [id number] 15:25:00* Test Item Value Reference Range Interpretation Comments ALPHA-FETOPROTEIN (BEAKER) (test code = 1094) 7.5 ng/mL <10.0 BASIC METABOLIC [id number] 13:31:00* Test Item Value Reference Range Interpretation Comments SODIUM (BEAKER) (test code = 381) 135 meq/L 136-145 L POTASSIUM (BEAKER) (test code = 379) 4.9 meq/L 3.5-5.1 CHLORIDE (BEAKER) (test code = 382) 103 meq/L 98-107 CO2 (BEAKER) (test code = 355) 25 meq/L 22-29 BLOOD UREA NITROGEN (BEAKER) (test code = 354) 23 mg/dL 7-21 H CREATININE (BEAKER) (test code = 358) 1.31 mg/dL 0.57-1.25 H GLUCOSE RANDOM (BEAKER) (test code = 652) 91 mg/dL 70-105 CALCIUM (BEAKER) (test code = 697) 11.2 mg/dL 8.4-10.2 H EGFR (BEAKER) (test code = 1092) 54 mL/min/1.73 sq m ESTIMATED GFR IS NOT ACCURATE CREATININE CLEARANCE IN PREDICTING GLOMERULAR FILTRATION RATE. ESTIMATED GFR IS NOT APPLICABLE FOR DIALYSIS PATIENTS. HEPATIC FUNCTION [id number] 13:19:00* Test Item Value Reference Range Interpretation Comments TOTAL PROTEIN (BEAKER) (test code = 770) 8.0 gm/dL 6.0-8.3 ALBUMIN (BEAKER) (test code = 1145) 4.3 g/dL 3.5-5.0 BILIRUBIN TOTAL (BEAKER) (test code = 377) 0.4 mg/dL 0.2-1.2 BILIRUBIN DIRECT (BEAKER) (test code = 706) 0.2 mg/dL 0.1-0.5 ALKALINE PHOSPHATASE (BEAKER) (test code = 346) 107 U/L 40-150 AST (SGOT) (BEAKER) (test code = 353) 21 U/L 5-34 ALT (SGPT) (BEAKER) (test code = 347) 16 U/L 6-55 PROTHROMBIN TIME/[id number] 13:01:00* Test Item Value Reference Range Interpretation Comments PROTIME (BEAKER) (test code = 759) 13.1 seconds 11.7-14.7 INR (BEAKER) (test code = 370) 1.0 <=5.9 RECOMMENDED COUMADIN/WARFARIN INR THERAPY RANGESSTANDARD DOSE: 2.0 - 3.0 Inclu sarina: PROPHYLAXIS for venous thrombosis, systemic embolization; TREATMENT for oliver ous thrombosis and/or pulmonary embolus.HIGH RISK: Target INR is 2.5-3.5 for pat ients with mechanical heart valves.CBC W/PLT COUNT & AUTO [id number] 12:53:00* Test Item Value Reference Range Interpretation Comments WHITE BLOOD CELL COUNT (BEAKER) (test code = 775) 5.8 K/ L 3.5- 10.5 RED BLOOD CELL COUNT (BEAKER) (test code = 761) 3.91 M/ L 4.63-6 .08 L HEMOGLOBIN (BEAKER) (test code = 410) 12.1 GM/DL 13.7-17.5 L HEMATOCRIT (BEAKER) (test code = 411) 38.3 % 40.1-51.0 L MEAN CORPUSCULAR VOLUME (BEAKER) (test code = 753) 98.0 fL 79. 0-92.2 H MEAN CORPUSCULAR HEMOGLOBIN (BEAKER) (test code = 751) 30.9 pg 25.7-32.2 MEAN CORPUSCULAR HEMOGLOBIN CONC (BEAKER) (test code = 752) 31.6 GM/DL 32.3-36.5 L RED CELL DISTRIBUTION WIDTH (BEAKER) (test code = 412) 12.9 % 11.6-14.4 PLATELET COUNT (BEAKER) (test code = 756) 139 K/CU MM 150-450 L MEAN PLATELET VOLUME (BEAKER) (test code = 754) 9.9 fL 9.4-12 .4 NUCLEATED RED BLOOD CELLS (BEAKER) (test code = 413) 0 /100 WBC 0 -0 NEUTROPHILS RELATIVE PERCENT (BEAKER) (test code = 429) 55 % LYMPHOCYTES RELATIVE PERCENT (BEAKER) (test code = 430) 31 % MONOCYTES RELATIVE PERCENT (BEAKER) (test code = 431) 8 % EOSINOPHILS RELATIVE PERCENT (BEAKER) (test code = 432) 6 % BASOPHILS RELATIVE PERCENT (BEAKER) (test code = 437) 1 % NEUTROPHILS ABSOLUTE COUNT (BEAKER) (test code = 670) 3.21 K/ L 1.78-5.38 LYMPHOCYTES ABSOLUTE COUNT (BEAKER) (test code = 414) 1.78 K/ L 1.32-3.57 MONOCYTES ABSOLUTE COUNT (BEAKER) (test code = 415) 0.47 K/ L 0. 30-0.82 EOSINOPHILS ABSOLUTE COUNT (BEAKER) (test code = 416) 0.33 K/ L 0.04-0.54 BASOPHILS ABSOLUTE COUNT (BEAKER) (test code = 417) 0.03 K/ L 0. 01-0.08 IMMATURE GRANULOCYTES-RELATIVE PERCENT (BEAKER) (test code = 2801) 0 % 0-1 MR, ABDOMEN, [id number] 17:32:00Referring: Dr. Hugo AlarconINAL REPORT MRI of the abdomen dated October 20, 2018 Comment: Multiplanar T1 and T2-weighted images of the abdomen, postcontrast axial and coronal T1-weighted images of the abdomen were obtained. Post treatment cavity is seen in the segment 7 of the liver measuring approximately 3.5 x 4.6 cm. The re is heterogeneous enhancement in portion of the post treatment cavity suggesti ng residual disease. No other lesion is seen in the liver. Spleen is normal in s ize. The splenic, superior mesenteric, portal, and hepatic veins are patent. Floresita n portal vein measures 1.5 cm in diameter. No portal vein thrombosis is seen. Ga llbladder is surgically absent. No biliary dilatation is present. Pancreas and a drenals are unremarkable. Both kidneys are normal in size and functioning. A 2.1 x 3.3 cm cyst is seen in the right mid pole kidney posteriorly. No mass, adenop athy, or ascites is seen in the abdomen. IMPRESSION:1. 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 Right renal cyst. Signed: Kathy Warrenepmanolo t Verified Date/Time: 10/20/2018 17:32:45 Reading Location: [facility] C013Y CT Bod y Reading Room 0 5:32 PM [id number] 10:32:00* Test Item Value Reference Range Interpretation Comments POC-CREATININE (ELENA) (test code = 1859) 1.2 mg/dL 0.6-1.3 TESTED AT [facility] [address] [facility] [address] POC-EGFR (ELENA) (test code = 1860) 60 mL/min/1.73M2 ANG, EMBOLIZATION, EXTENSIVE - [id number] 17:30:00Referring: Dr. Hugo Muniz has specifically requested Dr. Mendoza Burger for the procedure. Imaging was reviewed at radiology conference 08/07/18. Seg 7 lesion: 2.9 cm residual disease, was 2.3 cm in April 2018. Seg 6 lesion: 8 mm lesion was 5 mm in April 2018 and c/w HCC.Reason for Exam:->Liver cancerFINAL REPORT Mesenteric angiogram and chemoembolization. History: HCC. Modality: Ultrasound and fluoroscopy. Sedation: Moderate sedation was administered. 1.5 mg of Versed and 75 mcg of fentanyl IV was used for moderate sedation monitored under my direction. Total intra-service time of sedation was 45 minutes. The patient's vital signs were monitored throughout the procedure and recorded in the patient's medical record by the nurse. Anesthesia: Two percent Lidocaine without epinephrine. Approach: Right common femoral artery. Estimated blood loss: < 5 cc. Specimen: None. tanning wheel operator: Mendoza Burger MD.. Commercial Property Manager: MD Krystle (Fellow). Fluoroscopy Time: 15.9 min.Reference Air Kerma (Ka, r): 1434 mGy. Technique:Informed written consent was obtained. Discussion of risks, benefits, and alternatives were made with the patient. The patient expressed understanding and agreed to proceed. A universal timeout was performed prior to starting the procedure. All elements maximal sterile barrier technique was utilized for this procedure, including utilization of sterile scrub solution for skin prep, a large sterile sheet to cover the areas of the patient that were not prepped, and hand hygiene, mask, head covering, and sterile gown for performing radiologist and scrub technologist. Initial ultrasound images demonstrate patent right common femoral artery. 1% lidocaine was used for local anesthesia. Using ultrasound guidance, following acquisition of permanent images, the right common femoral artery was accessed using a 21-gauge micropuncture needle. A 0.018 inch wire was advanced into the abdominal aorta. The needle was exchanged for a 4 Cymraes micropuncture sheath. The micropuncture sheath was exchanged over a 0.035 Bentson wire for a 5 Cymraes x 10 cm vascular sheath. The celiac artery was cannulated using a 5 F rench cobra C2 catheter. A DSA run was performed. Using a 2.8 Cymraes microcathet er and 0.016 inch microwire, the common hepatic artery and subsequently the righ t hepatic artery was cannulated. A DSA run was performed. The microcatheter was then advanced off a branch supplying segment 7 in the territory of the known les ion. From this location, chemoembolization was performed using approximately 25% of a mixture of 100 mg of doxorubicin loaded on Oncozene beads and contrast unt il stagnant flow achieved. Next, the microcatheter was manipulated into an addit ional branch supplying segment seven in the territory of the known lesion. From this location, chemoembolization was performed using an additional 25% of the mi xture of doxorubicin loaded on Oncozene beads until stagnant flow achieved. The microcatheter was retracted into the proximal right hepatic artery. Post emboliz ation angiography was performed. All catheters and wires were removed. Contrast was injected to the right femoral sheath. The arteriotomy was closed and hemosta sis was obtained with a 5 Cymraes Mynx closure device. Vital signs were monitored throughout the procedure by a nurse, and remained stable. The patient tolerate d the procedure well and left the department in the same condition. FINDING S: 1. 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 2. Right hepatic arteriog maricarmen demonstrates multifocal areas of abnormal hyperenhancement within the righ t hepatic lobe, more than appreciated on the prior MRI examination. Subtle abnor mal hypervascularity noted within the superior right hepatic lobe likely represe nting the patient's known lesion.3. Successful chemoembolization of the right he patic lesion via two branches arising off the right hepatic artery until stagnan t flow achieved.4. Right femoral sheath injection demonstrates patent right comm on femoral artery puncture amenable for closure device. IMP RESSION: Successful, uncomplicated mesenteric angiogram and right hepatic chemo -embolization, performed with conscious sedation. If recurrent/residual disease is noted on follow-up imaging, recommend consideration for right hepatic radio- embolization given multifocal areas of abnormal hyperenhancement as discussed ab ove. Signed: Mendoza Burger MDReport Verified Date/Time: 09/11/2018 17:30:15 Cynthia dsouza Location: [place] [address] Angio Body Reading Room REHENSIVE METABOLIC PANEL 2018-09-11 09:03:00* Test Item Value Reference Range Interpretation Comments TOTAL PROTEIN (BEAKER) (test code = 770) 7.9 gm/dL 6.0-8.3 ALBUMIN (BEAKER) (test code = 1145) 4.2 g/dL 3.5-5.0 ALKALINE PHOSPHATASE (BEAKER) (test code = 346) 85 U/L 40-150 BILIRUBIN TOTAL (BEAKER) (test code = 377) 0.3 mg/dL 0.2-1.2 SODIUM (BEAKER) (test code = 381) 137 meq/L 136-145 POTASSIUM (BEAKER) (test code = 379) 4.3 meq/L 3.5-5.1 CHLORIDE (BEAKER) (test code = 382) 107 meq/L 98-107 CO2 (BEAKER) (test code = 355) 22 meq/L 22-29 BLOOD UREA NITROGEN (BEAKER) (test code = 354) 18 mg/dL 7-21 CREATININE (BEAKER) (test code = 358) 1.15 mg/dL 0.57-1.25 GLUCOSE RANDOM (BEAKER) (test code = 652) 110 mg/dL 70-105 H CALCIUM (BEAKER) (test code = 697) 11.1 mg/dL 8.4-10.2 H AST (SGOT) (BEAKER) (test code = 353) 27 U/L 5-34 ALT (SGPT) (BEAKER) (test code = 347) 23 U/L 6-55 EGFR (BEAKER) (test code = 1092) 63 mL/min/1.73 sq m ESTIMATED GFR IS NOT ACCURATE CREATININE CLEARANCE IN PREDICTING GLOMERULAR FILTRATION RATE. ESTIMATED GFR IS NOT APPLICABLE FOR DIALYSIS PATIENTS. PROTHROMBIN TIME/[id number] 08:44:00* Test Item Value Reference Range Interpretation Comments PROTIME (BEAKER) (test code = 759) 13.0 seconds 11.7-14.7 INR (BEAKER) (test code = 370) 1.0 <=5.9 RECOMMENDED COUMADIN/WARFARIN INR THERAPY RANGESSTANDARD DOSE: 2.0 - 3.0 Inclu sarina: PROPHYLAXIS for venous thrombosis, systemic embolization; TREATMENT for oliver ous thrombosis and/or pulmonary embolus.HIGH RISK: Target INR is 2.5-3.5 for pat ients with mechanical heart valves.CBC W/PLT COUNT & AUTO [id number] 08:32:00* Test Item Value Reference Range Interpretation Comments WHITE BLOOD CELL COUNT (BEAKER) (test code = 775) 5.1 K/ L 3.5- 10.5 RED BLOOD CELL COUNT (BEAKER) (test code = 761) 3.91 M/ L 4.63-6 .08 L HEMOGLOBIN (BEAKER) (test code = 410) 12.8 GM/DL 13.7-17.5 L HEMATOCRIT (BEAKER) (test code = 411) 38.6 % 40.1-51.0 L MEAN CORPUSCULAR VOLUME (BEAKER) (test code = 753) 98.7 fL 79. 0-92.2 H MEAN CORPUSCULAR HEMOGLOBIN (BEAKER) (test code = 751) 32.7 pg 25.7-32.2 H MEAN CORPUSCULAR HEMOGLOBIN CONC (BEAKER) (test code = 752) 33.2 GM/DL 32.3-36.5 RED CELL DISTRIBUTION WIDTH (BEAKER) (test code = 412) 15.0 % 11.6-14.4 H PLATELET COUNT (BEAKER) (test code = 756) 129 K/CU MM 150-450 L MEAN PLATELET VOLUME (BEAKER) (test code = 754) 10.0 fL 9.4-12 .4 NUCLEATED RED BLOOD CELLS (BEAKER) (test code = 413) 0 /100 WBC 0 -0 NEUTROPHILS RELATIVE PERCENT (BEAKER) (test code = 429) 56 % LYMPHOCYTES RELATIVE PERCENT (BEAKER) (test code = 430) 28 % MONOCYTES RELATIVE PERCENT (BEAKER) (test code = 431) 9 % EOSINOPHILS RELATIVE PERCENT (BEAKER) (test code = 432) 7 % BASOPHILS RELATIVE PERCENT (BEAKER) (test code = 437) 0 % NEUTROPHILS ABSOLUTE COUNT (BEAKER) (test code = 670) 2.86 K/ L 1.78-5.38 LYMPHOCYTES ABSOLUTE COUNT (BEAKER) (test code = 414) 1.41 K/ L 1.32-3.57 MONOCYTES ABSOLUTE COUNT (BEAKER) (test code = 415) 0.45 K/ L 0. 30-0.82 EOSINOPHILS ABSOLUTE COUNT (BEAKER) (test code = 416) 0.34 K/ L 0.04-0.54 BASOPHILS ABSOLUTE COUNT (BEAKER) (test code = 417) 0.02 K/ L 0. 01-0.08 IMMATURE GRANULOCYTES-RELATIVE PERCENT (BEAKER) (test code = 2801) 0 % 0-1 ALPHA FETOPROTEIN (AFP), TUMOR [id number] 19:39:00* Test Item Value Reference Range Interpretation Comments ALPHA-FETOPROTEIN (BEAKER) (test code = 1094) 9.0 ng/mL <10.0 HEPATIC FUNCTION [id number] 18:32:00* Test Item Value Reference Range Interpretation Comments TOTAL PROTEIN (BEAKER) (test code = 770) 8.3 gm/dL 6.0-8.3 ALBUMIN (BEAKER) (test code = 1145) 4.4 g/dL 3.5-5.0 BILIRUBIN TOTAL (BEAKER) (test code = 377) 0.4 mg/dL 0.2-1.2 BILIRUBIN DIRECT (BEAKER) (test code = 706) 0.2 mg/dL 0.1-0.5 ALKALINE PHOSPHATASE (BEAKER) (test code = 346) 89 U/L 40-150 AST (SGOT) (BEAKER) (test code = 353) 23 U/L 5-34 ALT (SGPT) (BEAKER) (test code = 347) 24 U/L 6-55 BASIC METABOLIC [id number] 18:32:00* Test Item Value Reference Range Interpretation Comments SODIUM (BEAKER) (test code = 381) 139 meq/L 136-145 POTASSIUM (BEAKER) (test code = 379) 4.4 meq/L 3.5-5.1 CHLORIDE (BEAKER) (test code = 382) 104 meq/L 98-107 CO2 (BEAKER) (test code = 355) 25 meq/L 22-29 BLOOD UREA NITROGEN (BEAKER) (test code = 354) 24 mg/dL 7-21 H CREATININE (BEAKER) (test code = 358) 1.20 mg/dL 0.57-1.25 GLUCOSE RANDOM (BEAKER) (test code = 652) 93 mg/dL 70-105 CALCIUM (BEAKER) (test code = 697) 11.6 mg/dL 8.4-10.2 H EGFR (BEAKER) (test code = 1092) 60 mL/min/1.73 sq m ESTIMATED GFR IS NOT ACCURATE CREATININE CLEARANCE IN PREDICTING GLOMERULAR FILTRATION RATE. ESTIMATED GFR IS NOT APPLICABLE FOR DIALYSIS PATIENTS. PROTHROMBIN TIME/[id number] 18:16:00* Test Item Value Reference Range Interpretation Comments PROTIME (BEAKER) (test code = 759) 12.7 seconds 11.7-14.7 INR (BEAKER) (test code = 370) 0.9 <=5.9 RECOMMENDED COUMADIN/WARFARIN INR THERAPY RANGESSTANDARD DOSE: 2.0 - 3.0 Inclu sarina: PROPHYLAXIS for venous thrombosis, systemic embolization; TREATMENT for oliver ous thrombosis and/or pulmonary embolus.HIGH RISK: Target INR is 2.5-3.5 for pat ients with mechanical heart valves.CBC W/PLT COUNT & AUTO [id number] 18:02:00* Test Item Value Reference Range Interpretation Comments WHITE BLOOD CELL COUNT (BEAKER) (test code = 775) 5.4 K/ L 3.5- 10.5 RED BLOOD CELL COUNT (BEAKER) (test code = 761) 4.03 M/ L 4.63-6 .08 L HEMOGLOBIN (BEAKER) (test code = 410) 12.4 GM/DL 13.7-17.5 L HEMATOCRIT (BEAKER) (test code = 411) 39.1 % 40.1-51.0 L MEAN CORPUSCULAR VOLUME (BEAKER) (test code = 753) 97.0 fL 79. 0-92.2 H MEAN CORPUSCULAR HEMOGLOBIN (BEAKER) (test code = 751) 30.8 pg 25.7-32.2 MEAN CORPUSCULAR HEMOGLOBIN CONC (BEAKER) (test code = 752) 31.7 GM/DL 32.3-36.5 L RED CELL DISTRIBUTION WIDTH (BEAKER) (test code = 412) 16.6 % 11.6-14.4 H PLATELET COUNT (BEAKER) (test code = 756) 156 K/CU MM 150-450 MEAN PLATELET VOLUME (BEAKER) (test code = 754) 10.7 fL 9.4-12 .4 NUCLEATED RED BLOOD CELLS (BEAKER) (test code = 413) 0 /100 WBC 0 -0 NEUTROPHILS RELATIVE PERCENT (BEAKER) (test code = 429) 57 % LYMPHOCYTES RELATIVE PERCENT (BEAKER) (test code = 430) 28 % MONOCYTES RELATIVE PERCENT (BEAKER) (test code = 431) 9 % EOSINOPHILS RELATIVE PERCENT (BEAKER) (test code = 432) 5 % BASOPHILS RELATIVE PERCENT (BEAKER) (test code = 437) 1 % NEUTROPHILS ABSOLUTE COUNT (BEAKER) (test code = 670) 3.08 K/ L 1.78-5.38 LYMPHOCYTES ABSOLUTE COUNT (BEAKER) (test code = 414) 1.51 K/ L 1.32-3.57 MONOCYTES ABSOLUTE COUNT (BEAKER) (test code = 415) 0.50 K/ L 0. 30-0.82 EOSINOPHILS ABSOLUTE COUNT (BEAKER) (test code = 416) 0.28 K/ L 0.04-0.54 BASOPHILS ABSOLUTE COUNT (BEAKER) (test code = 417) 0.03 K/ L 0. 01-0.08 IMMATURE GRANULOCYTES-RELATIVE PERCENT (BEAKER) (test code = 2801) 0 % 0-1 MR, ABDOMEN, [id number] 11:04:00Referring: Dr. Hugo Bazan REPORT MRI abdomen without and with contrast. INDICATION: hcc COMPARISON: 05/02/2018, 01/29/2018, and 09/12/2017 TECHNIQUE: Multiplanar multisequence MRI examination of the abdomen was performed before and after the administration of intravenous contrast in a dynamic fashion. FINDINGS: The l iver demonstrates cirrhotic morphology. In segment VII of the liver, there is a posttreatment cavity measuring approximately 4.0 x 3.4 cm. In the periphery of t he posttreatment cavity, there are persistent foci of arterial enhancement measu ring up to 2.3 x 1.5 cm with large amount of contrast on subsequent phases, susp icious for residual/recurrent hepatocellular carcinoma, slightly increased from 05/02/2018. More anteriorly, there is a vague area of decreased enhancement and on the portal venous phase in the right hepatic lobe measuring 1.8 x 1.7 cm with out arterial enhancement or corresponding T1 or T2 signal abnormality of unclear clinical significance, new since prior and amenable to follow-up examination. A dditional foci of arterial enhancement are seen in the periphery of the liver, s uggestive of vascular shunting. The gallbladder is not visualized. There is no biliary dilatation. The spleen, and adrenal glands are unremarkable. The stomach and duodenum are unremarkable. Again seen is a right renal cyst measuring 3.1 x 2.1 cm. Again seen is a subcentimeter cystic lesion in the tail of the pancreas , suggestive of an IPMN. The hepatic veins, portal vein, SMV and splenic vein ar e patent. The main portal vein measures 13 mm in maximum diameter. There is no a scites. There is no fluid collection or hematoma. There is no bowel obstruction. There is no lymphadenopathy. The osseous structures demonstrate degenerative ch sridhar. IMPRESSION:1. Slight interval increase in arterially enhancing lesions in the posttreatment cavity in segment VII of the liver, suspicious for residual he patocellular carcinoma.2. New vague area of hypoenhancement in the right hepatic lobe as above, amenable to follow-up. Additional foci of arterial enhancement i n the periphery of the liver, likely representing vascular shunting.3. Right amarjit al cyst.4. Subcentimeter cystic lesion in the pancreas suggestive of an IPMN. Si gned: Jose Engle MDReport Verified Date/Time: 07/28/2018 11:04:55 Reading Locat ion: [facility] B1 C013X Ortho Consult Reading Room -[id number] 09:39:00* Test Item Value Reference Range Interpretation Comments POC-CREATININE (ELENA) (test code = 1859) 1.3 mg/dL 0.6-1.3 TESTED AT [facility] [address] [place] [address] POC-EGFR (CRISPINAKER) (test code = 1860) 54 mL/min/1.73M2 MR, ABDOMEN, [id number] 17:51:00Referring: Dr. Hugo Christopher [facility] of abdomen dated to April 26, 2016, 1018 4 comparison: January 29, 2018 Comment: Multiplanar T1 T2-weighted images of the abdomen, postcontrast axial and coronal T1-weighted images of the abdomen were obtained. Liver is normal in size. The margin of the liver is minimally irregular. Again noted to posttreatment cavity in the segment 7 of the liver measuring approximately 3.2 x 3.2 cm. A 1.6 cm early enhancing focus is noted in the superior aspect of the treatment cavity with deviated washout suspicious for residual disease. The enhancing focus has decreased in size since prior examination. No other enhancing mass is seen in the liver. Spleen is enlarged measuring approximately 12.5 x 5.8 x 11 cm. Gallbladder is not visualized. No biliary dilatation is seen. Pancreas and adrenals are unremarkable. Both kidneys are normal in size and functioning. A 2.5 x 3.5 cm cyst is seen in the midpole right kidney. No hydronephrosis is noted. No mass, adenopathy, or ascites is noted. IMPRESSION:1. Cirrhosis with splenomegaly.2. Post treatment cavity in the segment 7 of the liver with enhancing focus in the superior aspect of the treatment cavity suspicious for residual disease.3. Right renal cyst. Signed: Kathy Warren MDReport Verified Date/Time: 05/02/2018 17:51:34 Reading Location: [facility] C013Y CT Body Reading Room -[id number] 10:30:00* Test Item Value Reference Range Interpretation Comments POC-CREATININE (BEAKER) (test code = 1859) 1.3 mg/dL 0.6-1.3 TESTED AT [place] [id number] [facility] [address] POC-EGFR (BEAKER) (test code = 1860) 54 mL/min/1.73M2 PET, CARDIAC PERFUSION MULTIPLE STUDIES, REST AND [id number] 17:47:00 Referring: Dr. Hugo Hall for Exam:->i25.10, i10, e78.5FINAL REPORT PROCEDURE: Rest/Stress MYOCARDIAL PERFUSION PET with regadenoson\\XA9\\ CPT CODE: 01165 INDICATION: CAD, essential hypertension, dyslipidemia HISTORY: Cardiac risk factors: CAD/[place] PCI x5, ACB, diabetes, hypertension, dyslipidemia, family history CAD. PROTOCOL: Limited low-dose CT imaging was performed for attenuation correction. 40.1 mCi of Rb-82 chloride was injected iv at rest, and gated PET (positron emission tomography) images were obtained. Subsequently, 40.1 mCi of Rb-82 chloride was injected iv at expected peak pharmacologic effect, and gated PET images were obtained. PRELIMINARY STRESS TEST DATA FROM NONINVASIVE CARDIOLOGY: Pharmacolo [facility] stress was by 10-second iv infusion of 0.4 mg of regadenoson. Radiotracer wa s injected 30 seconds after start of stress. Heart rate was 64 beats/min at rest and 80 beats/min (54% of MPHR) at tracer injection. BP was 108/57 mmHg at rest and 119/64 mmHg at tracer injection. Stress was stopped for predetermined endpoi nt. The patient experienced no symptoms; treatment was not required. Preliminary ECG evaluation revealed sinus rhythm at rest and no ischemic changes with stres s. (Final ECG interpretation and other stress and monitoring data are reported s eparately by Cardiology.) IMAGING FINDINGS: Study quality is good. Image s obtained after stress injection show moderate to marked decrease in radiotrace r uptake at the basal to apical inferior barajas and basal to apical anterior wall s, as well as mild decrease in the basal septum. Resting images show substantial improvement. LV volume is increased. RV volume appears normal. Gated images obt ained immediately after stress show moderately to markedly hypokinetic LV wall m otion. LVEF at rest and with stress is less than 30%. IMPRESSION: 1. Abnormal study. 2. Appropriate pharmacologic stress. 3. Abnormal myocardial perfusion. There is a moderate to marked, large size, moderately reversible, perfusion de fect in the anterior, septal, and inferior LV. 4. Markedly decreased resting LV function. No deterioration of function is noted with pharmacologic stress. 5. E xtracardiac tracer distribution is normal. 6. Compared to previous [facility] study on 10/14/2017 the extent of perfusion defect during stress appears more increased in the anterior wall.. NONINVASIVE RISK STRATIFICATION: The above findings are considered high risk (>3% annual mortality rate) based on the following criteria: - Severe resting left ventricular dysfunction (LVEF 35%)- Stress- induced large perfusion defect (particularly if anterior)- Stress-induced multiple perfusion defects of moderate size(JACC. 2012;59(9):857-81.) Signed: Mook Cox MDReport Verified Date/Time: 04/03/2018 17:47:21 Reading Location: [id number] Reading Room -GLUCOSE [id number] 15:18:00* Test Item Value Reference Range Interpretation Comments POC-GLUCOSE METER (BEAKER) (test code = 1538) 121 mg/dL 70-110 H TESTED AT [facility] [address] [facility] [address] POCT-GLUCOSE [id number] 08:45:00* Test Item Value Reference Range Interpretation Comments POC-GLUCOSE METER (ELENA) (test code = 1538) 130 mg/dL 70-110 H TESTED AT [facility] [address] [facility] [address] ANG, EMBOLIZATION, EXTENSIVE - [id number] 16:33:00Referring: Dr. Hugo Mas procedureReason for Exam:->HCC, residual disease in 2.1 cm mass.Location->[facility] HospitalFINAL REPORT Mesenteric Arteriography and Transarterial Chemoembolization of the Liver (TACE) Clinical History: Hypervascular Liver Mass(es) presumed Hepatocellular Carcinoma(s) Comparison: And MR dated January 29, 2018Images presented: 91Conscious Sedation: Versed 2 mg and fentanyl 75 mcg intravenously Cardiopulmonary monitoring was performed by the attending radiologist and the radiology nurse. Monitoring was performed with pulse oximetry, blood pressure measurements and ECG tracings.Physician Patient Time: 60 minutesModality: F luoroscopy.Anesthesia: 2% lidocaine without epinephrineApproach: Right common fe moral arteryCatheter positioned: Celiac axis with superselective catheterization of the right hepatic arteryContrast: Visipaque 270 100 ccEstimated Blood Loss: less than 10 ccFluoro time (in minutes): 5.5 minutes. 91 images. Technique:After informed consent was obtained, the patient was prepped and draped in a sterile manner. Access was obtained via a percutaneous right common femoral arterial ap proach. An 18 gauge needle was placed into the artery and a .035 inch guide wir e was advanced. A 5 Cymraes sheath was utilized. A 5 bahamian Barajas catheter was placed selectively into the celiac axis. A 3 Cymraes microcatheter was super joana ectively advanced coaxially into the right hepatic artery. Five DSA runs were pe rformed. Celiac Arteriography:This vessel supplies the splenic artery the left p hrenic artery the common hepatic artery and the left gastric artery. Right Hepa tic Artery:There is no evidence of a visualized blush following superselective c atheterization of the right hepatic artery supplying the dome of the liver. The chemoembolization was therefore canceled. The arteriogram failed to document a feeding vessel. Imaging through the hepatic arterial circulation right and le ft as well as an attempted phrenic artery injection was performed. The right phr enic artery is presumed occluded at the aorta. The left phrenic artery was visua lized. The patient tolerated the procedure well and left the department in the s kirby condition. Hemostasis was achieved by a vascular closure device. Impre ssion:Unsuccessful attempted visualization of the previously described bone lesi on. No complications from the celiac axis and hepatic arteriogram. The patient, the patient's son and referring stock broker supervisor were all notified. Signed: Nicci Olson MDReport Verified Date/Time: 03/24/2018 16:33:41 Reading Location: [place] [address] Angio Body Reading Room REHENSIVE METABOLIC [id number] 08:01:00* Test Item Value Reference Range Interpretation Comments TOTAL PROTEIN (BEAKER) (test code = 770) 7.9 gm/dL 6.0-8.3 ALBUMIN (BEAKER) (test code = 1145) 3.9 g/dL 3.5-5.0 ALKALINE PHOSPHATASE (BEAKER) (test code = 346) 102 U/L 40-150 BILIRUBIN TOTAL (BEAKER) (test code = 377) 0.4 mg/dL 0.2-1.2 SODIUM (BEAKER) (test code = 381) 137 meq/L 136-145 POTASSIUM (BEAKER) (test code = 379) 4.0 meq/L 3.5-5.1 CHLORIDE (BEAKER) (test code = 382) 103 meq/L 98-107 CO2 (BEAKER) (test code = 355) 24 meq/L 22-29 BLOOD UREA NITROGEN (BEAKER) (test code = 354) 18 mg/dL 7-21 CREATININE (BEAKER) (test code = 358) 1.09 mg/dL 0.57-1.25 GLUCOSE RANDOM (BEAKER) (test code = 652) 118 mg/dL 70-105 H CALCIUM (BEAKER) (test code = 697) 11.1 mg/dL 8.4-10.2 H AST (SGOT) (BEAKER) (test code = 353) 55 U/L 5-34 H ALT (SGPT) (BEAKER) (test code = 347) 80 U/L 6-55 H EGFR (BEAKER) (test code = 1092) 66 mL/min/1.73 sq m ESTIMATED GFR IS NOT ACCURATE CREATININE CLEARANCE IN PREDICTING GLOMERULAR FILTRATION RATE. ESTIMATED GFR IS NOT APPLICABLE FOR DIALYSIS PATIENTS. BILIRUBIN, [id number] 07:53:00* Test Item Value Reference Range Interpretation Comments BILIRUBIN DIRECT (BEAKER) (test code = 706) 0.2 mg/dL 0.1-0.5 PROTHROMBIN TIME/[id number] 07:44:00* Test Item Value Reference Range Interpretation Comments PROTIME (BEAKER) (test code = 759) 13.4 seconds 11.7-14.7 INR (BEAKER) (test code = 370) 1.0 <=5.9 RECOMMENDED COUMADIN/WARFARIN INR THERAPY RANGESSTANDARD DOSE: 2.0 - 3.0 Inclu sarina: PROPHYLAXIS for venous thrombosis, systemic embolization; TREATMENT for oliver ous thrombosis and/or pulmonary embolus.HIGH RISK: Target INR is 2.5-3.5 for pat ients with mechanical heart valves.On Plavix and AspirinOn Plavix and Aspirin [id number] 07:44:00* Test Item Value Reference Range Interpretation Comments PARTIAL THROMBOPLASTIN TIME (BEAKER) (test code = 760) 25.4 seconds 22.5-36.0 On Plavix and AspirinOn Plavix and AspirinCBC W/PLT COUNT & AUTO DIFFERENTIAL 2018-03-24 07:33:00* Test Item Value Reference Range Interpretation Comments WHITE BLOOD CELL COUNT (BEAKER) (test code = 775) 5.5 K/ L 3.5- 10.5 RED BLOOD CELL COUNT (BEAKER) (test code = 761) 3.77 M/ L 4.63-6 .08 L HEMOGLOBIN (BEAKER) (test code = 410) 10.9 GM/DL 13.7-17.5 L HEMATOCRIT (BEAKER) (test code = 411) 33.9 % 40.1-51.0 L MEAN CORPUSCULAR VOLUME (BEAKER) (test code = 753) 89.9 fL 79. 0-92.2 MEAN CORPUSCULAR HEMOGLOBIN (BEAKER) (test code = 751) 28.9 pg 25.7-32.2 MEAN CORPUSCULAR HEMOGLOBIN CONC (BEAKER) (test code = 752) 32.2 GM/DL 32.3-36.5 L RED CELL DISTRIBUTION WIDTH (BEAKER) (test code = 412) 15.5 % 11.6-14.4 H PLATELET COUNT (BEAKER) (test code = 756) 116 K/CU MM 150-450 L MEAN PLATELET VOLUME (BEAKER) (test code = 754) 10.0 fL 9.4-12 .4 NUCLEATED RED BLOOD CELLS (BEAKER) (test code = 413) 0 /100 WBC 0 -0 NEUTROPHILS RELATIVE PERCENT (BEAKER) (test code = 429) 50 % LYMPHOCYTES RELATIVE PERCENT (BEAKER) (test code = 430) 32 % MONOCYTES RELATIVE PERCENT (BEAKER) (test code = 431) 10 % EOSINOPHILS RELATIVE PERCENT (BEAKER) (test code = 432) 7 % BASOPHILS RELATIVE PERCENT (BEAKER) (test code = 437) 1 % NEUTROPHILS ABSOLUTE COUNT (BEAKER) (test code = 670) 2.75 K/ L 1.78-5.38 LYMPHOCYTES ABSOLUTE COUNT (BEAKER) (test code = 414) 1.78 K/ L 1.32-3.57 MONOCYTES ABSOLUTE COUNT (BEAKER) (test code = 415) 0.55 K/ L 0. 30-0.82 EOSINOPHILS ABSOLUTE COUNT (BEAKER) (test code = 416) 0.40 K/ L 0.04-0.54 BASOPHILS ABSOLUTE COUNT (BEAKER) (test code = 417) 0.03 K/ L 0. 01-0.08 IMMATURE GRANULOCYTES-RELATIVE PERCENT (BEAKER) (test code = 2801) 0 % 0-1 ALPHA FETOPROTEIN (AFP), TUMOR [id number] 16:15:00* Test Item Value Reference Range Interpretation Comments ALPHA-FETOPROTEIN (BEAKER) (test code = 1094) 7.5 ng/mL <10.0 HEPATIC FUNCTION [id number] 15:50:00* Test Item Value Reference Range Interpretation Comments TOTAL PROTEIN (BEAKER) (test code = 770) 8.4 gm/dL 6.0-8.3 H ALBUMIN (BEAKER) (test code = 1145) 4.1 g/dL 3.5-5.0 BILIRUBIN TOTAL (BEAKER) (test code = 377) 0.3 mg/dL 0.2-1.2 BILIRUBIN DIRECT (BEAKER) (test code = 706) 0.2 mg/dL 0.1-0.5 ALKALINE PHOSPHATASE (BEAKER) (test code = 346) 102 U/L 40-150 AST (SGOT) (BEAKER) (test code = 353) 24 U/L 5-34 ALT (SGPT) (BEAKER) (test code = 347) 30 U/L 6-55 BASIC METABOLIC [id number] 15:50:00* Test Item Value Reference Range Interpretation Comments SODIUM (BEAKER) (test code = 381) 135 meq/L 136-145 L POTASSIUM (BEAKER) (test code = 379) 3.7 meq/L 3.5-5.1 CHLORIDE (BEAKER) (test code = 382) 101 meq/L 98-107 CO2 (BEAKER) (test code = 355) 24 meq/L 22-29 BLOOD UREA NITROGEN (BEAKER) (test code = 354) 17 mg/dL 7-21 CREATININE (BEAKER) (test code = 358) 1.15 mg/dL 0.57-1.25 GLUCOSE RANDOM (BEAKER) (test code = 652) 302 mg/dL 70-105 H CALCIUM (BEAKER) (test code = 697) 10.9 mg/dL 8.4-10.2 H EGFR (BEAKER) (test code = 1092) 63 mL/min/1.73 sq m ESTIMATED GFR IS NOT ACCURATE CREATININE CLEARANCE IN PREDICTING GLOMERULAR FILTRATION RATE. ESTIMATED GFR IS NOT APPLICABLE FOR DIALYSIS PATIENTS. PROTHROMBIN TIME/[id number] 15:39:00* Test Item Value Reference Range Interpretation Comments PROTIME (BEAKER) (test code = 759) 13.8 seconds 11.7-14.7 INR (BEAKER) (test code = 370) 1.1 <=5.9 RECOMMENDED COUMADIN/WARFARIN INR THERAPY RANGESSTANDARD DOSE: 2.0 - 3.0 Inclu sarina: PROPHYLAXIS for venous thrombosis, systemic embolization; TREATMENT for oliver ous thrombosis and/or pulmonary embolus.HIGH RISK: Target INR is 2.5-3.5 for pat ients with mechanical heart valves.CBC W/PLT COUNT & AUTO [id number] 15:34:00* Test Item Value Reference Range Interpretation Comments WHITE BLOOD CELL COUNT (BEAKER) (test code = 775) 5.7 K/ L 3.5- 10.5 RED BLOOD CELL COUNT (BEAKER) (test code = 761) 3.95 M/ L 4.63-6 .08 L HEMOGLOBIN (BEAKER) (test code = 410) 11.7 GM/DL 13.7-17.5 L HEMATOCRIT (BEAKER) (test code = 411) 36.4 % 40.1-51.0 L MEAN CORPUSCULAR VOLUME (BEAKER) (test code = 753) 92.2 fL 79. 0-92.2 MEAN CORPUSCULAR HEMOGLOBIN (BEAKER) (test code = 751) 29.6 pg 25.7-32.2 MEAN CORPUSCULAR HEMOGLOBIN CONC (BEAKER) (test code = 752) 32.1 GM/DL 32.3-36.5 L RED CELL DISTRIBUTION WIDTH (BEAKER) (test code = 412) 14.5 % 11.6-14.4 H PLATELET COUNT (BEAKER) (test code = 756) 127 K/CU MM 150-450 L MEAN PLATELET VOLUME (BEAKER) (test code = 754) 10.6 fL 9.4-12 .4 NUCLEATED RED BLOOD CELLS (BEAKER) (test code = 413) 0 /100 WBC 0 -0 NEUTROPHILS RELATIVE PERCENT (BEAKER) (test code = 429) 60 % LYMPHOCYTES RELATIVE PERCENT (BEAKER) (test code = 430) 24 % MONOCYTES RELATIVE PERCENT (BEAKER) (test code = 431) 9 % EOSINOPHILS RELATIVE PERCENT (BEAKER) (test code = 432) 7 % BASOPHILS RELATIVE PERCENT (BEAKER) (test code = 437) 1 % NEUTROPHILS ABSOLUTE COUNT (BEAKER) (test code = 670) 3.42 K/ L 1.78-5.38 LYMPHOCYTES ABSOLUTE COUNT (BEAKER) (test code = 414) 1.35 K/ L 1.32-3.57 MONOCYTES ABSOLUTE COUNT (BEAKER) (test code = 415) 0.51 K/ L 0. 30-0.82 EOSINOPHILS ABSOLUTE COUNT (BEAKER) (test code = 416) 0.42 K/ L 0.04-0.54 BASOPHILS ABSOLUTE COUNT (BEAKER) (test code = 417) 0.03 K/ L 0. 01-0.08 IMMATURE GRANULOCYTES-RELATIVE PERCENT (BEAKER) (test code = 2801) 0 % 0-1 MR, ABDOMEN, [id number] 13:51:00Referring: Dr. Hugo FrazierSarahINAL REPORT TECHNIQUE: MRI of the abdomen WITHOUT and WITH intravenous contrast. INDICATION: 72-year-old man with hepatocellular carcinoma. COMPARISON: Abdomen MRI 09/12/2017. FINDINGS: LOWER THORAX: Unremarkable. LIVER: Somewhat nodular contour of the liver, suggestive of cirrhosis. Interval mayela moembolization of the hepatocellular carcinoma in segment VII. Persistent 2.3 cm nodular area of arterial hyperenhancement in the superior aspect of the lesion with washout and capsule, consistent with residual disease (axial postcontrast a rterial series image 70). No new suspicious hepatic lesions.BILIARY: Gallbladder is unremarkable. No biliary ductal dilatation or filling defect.SPLEEN: Mild en largement of the spleen, which measures 13.3 cm in the craniocaudal dimension.PA NCREAS: Annular pancreas. Unchanged 0.9 cm cystic lesion in the pancreatic tail without suspicious features. No solid masses or ductal dilatation. ADRENALS: No adrenal nodules.KIDNEYS/URETERS: No hydronephrosis or solid mass lesions. Unchan ged right renal cysts measure up to 3.2 cm. PERITONEUM/RETROPERITONEUM: No free fluid.LYMPH NODES: No lymphadenopathy.VESSELS: Portal system and hepatic veins a re patent. Main portal vein measures approximately 1.4 cm in diameter. Abdominal aorta is within normal limits in caliber. GI TRACT: No distention or wall thick ening. BONES AND SOFT TISSUES: Unremarkable. IMPRESSION:Suspected cirrhosis wit h evidence of portal hypertension. Residual disease in the recently treated hepa tocellular carcinoma. No new hepatic lesions. 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 Signed: Alban Grewal MDReport Verified Date/Time: 01/29/2018 13:51:49 Reading Location: [address] Body Reading Room -CREATININE 2018-01-29 08:51:00* Test Item Value Reference Range Interpretation Comments POC-CREATININE (BEAKER) (test code = 1859) 1.2 mg/dL 0.6-1.3 [address]ED AT [address] [address] POC-EGFR (BEAKER) (test code = 1860) 60 mL/min/1.73M2 POCT-GLUCOSE [id number] 11:57:00* Test Item Value Reference Range Interpretation Comments POC-GLUCOSE METER (BEAKER) (test code = 1538) 219 mg/dL 70-110 H TESTED AT [facility] [address] [facility] [address] TISSUE [id number] 09:10:00Surgical Pathology Report Case: [id number] Authorizing Provider: Marc Jimenez MD Collected: 12/27/2017 1154 Ordering Location: [facility] Received: 12/27/2017 1616 Pathologist: Holly Selby MD Specimens: A) - Duodenum, DUODENUM BX B) - Antrum, ANTRUM BX C) - Polyp, Colon - Sigmoid, SIGMOID COLON POLYPS X2 - CBX D) - Polyp, Colon - Rectum, RECTUM POLYP - CBX A. DUODENUM, BIOPSY- NO DIAGNOSTIC ALTERATIONB. 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 COLON, SIGMOID, POLYPECTOMY- HYPERPLASTIC POLYPD. RECTUM, POLYPECTOMY- HYPERPLASTIC POLYP Signing Pathologist Direct Phone Line: [phone] signed by Holly Selby MD on 12/30/2017 at 9:10 [id number] X 4; [id number] cirrhosis, pretransplant evaluation for liver transplantA. Duodenum biopsy: B. Antrum biopsy; C. Sigmoid colon polyp x2; D. Rectum colon polypThe specimen is received in four containers of formalin all labeled with the patient's information. Part A labeled "duodenum biopsy" consists of two fragments of saavedra tissue measuring 0.1 and 0.2 cm, submitted A1. Part B labeled "antrum biopsy" consists of three fragments of saavedra tissue ranging from 0.1 to 0.3 cm, submitted B1. Part C labeled "sigmoid colon polyp" consists of four fragments of saavedra tissue ranging from 0.1 to 0.2 cm, submitted C1. Part D labeled "rectum colon polyp" consists of three fragments of saavedra tissue ranging from 0.1 to 0.2 cm, submitted D1. CG/pl Performed.POCT-GLUCOSE [id number] 13:56:00* Test Item Value Reference Range Interpretation Comments POC-GLUCOSE METER (BEAKER) (test code = 1538) 184 mg/dL 70-110 H TESTED AT [facility] [address] [facility] [address] POCT-GLUCOSE [id number] 12:59:00* Test Item Value Reference Range Interpretation Comments POC-GLUCOSE METER (BEAKER) (test code = 1538) 190 mg/dL 70-110 H TESTED AT [facility] [address] [facility] [address] POCT-GLUCOSE [id number] 08:44:00* Test Item Value Reference Range Interpretation Comments POC-GLUCOSE METER (BEAKER) (test code = 1538) 243 mg/dL 70-110 H TESTED AT [facility] [address] [facility] [address] ALPHA FETOPROTEIN (AFP), TUMOR [id number] 15:44:00* Test Item Value Reference Range Interpretation Comments ALPHA-FETOPROTEIN (BEAKER) (test code = 1094) 6.5 ng/mL <10.0 HEPATIC FUNCTION [id number] 15:09:00* Test Item Value Reference Range Interpretation Comments TOTAL PROTEIN (BEAKER) (test code = 770) 8.9 gm/dL 6.0-8.3 H ALBUMIN (BEAKER) (test code = 1145) 4.2 g/dL 3.5-5.0 BILIRUBIN TOTAL (BEAKER) (test code = 377) 0.5 mg/dL 0.2-1.2 BILIRUBIN DIRECT (BEAKER) (test code = 706) 0.3 mg/dL 0.1-0.5 ALKALINE PHOSPHATASE (BEAKER) (test code = 346) 192 U/L 40-150 H AST (SGOT) (BEAKER) (test code = 353) 127 U/L 5-34 H ALT (SGPT) (BEAKER) (test code = 347) 201 U/L 6-55 H BASIC METABOLIC [id number] 15:09:00* Test Item Value Reference Range Interpretation Comments SODIUM (BEAKER) (test code = 381) 136 meq/L 136-145 POTASSIUM (BEAKER) (test code = 379) 4.7 meq/L 3.5-5.1 CHLORIDE (BEAKER) (test code = 382) 102 meq/L 98-107 CO2 (BEAKER) (test code = 355) 24 meq/L 22-29 BLOOD UREA NITROGEN (BEAKER) (test code = 354) 21 mg/dL 7-21 CREATININE (BEAKER) (test code = 358) 1.04 mg/dL 0.57-1.25 GLUCOSE RANDOM (BEAKER) (test code = 652) 200 mg/dL 70-105 H CALCIUM (BEAKER) (test code = 697) 12.0 mg/dL 8.4-10.2 H EGFR (BEAKER) (test code = 1092) 70 mL/min/1.73 sq m ESTIMATED GFR IS NOT ACCURATE CREATININE CLEARANCE IN PREDICTING GLOMERULAR FILTRATION RATE. ESTIMATED GFR IS NOT APPLICABLE FOR DIALYSIS PATIENTS. PROTHROMBIN TIME/[id number] 14:58:00* Test Item Value Reference Range Interpretation Comments PROTIME (BEAKER) (test code = 759) 13.3 seconds 11.7-14.7 INR (BEAKER) (test code = 370) 1.0 <=5.9 RECOMMENDED COUMADIN/WARFARIN INR THERAPY RANGESSTANDARD DOSE: 2.0 - 3.0 Inclu sarina: PROPHYLAXIS for venous thrombosis, systemic embolization; TREATMENT for oliver ous thrombosis and/or pulmonary embolus.HIGH RISK: Target INR is 2.5-3.5 for pat ients with mechanical heart valves.CBC W/PLT COUNT & AUTO [id number] 14:51:00* Test Item Value Reference Range Interpretation Comments WHITE BLOOD CELL COUNT (BEAKER) (test code = 775) 7.5 K/ L 3.5- 10.5 RED BLOOD CELL COUNT (BEAKER) (test code = 761) 4.14 M/ L 4.63-6 .08 L HEMOGLOBIN (BEAKER) (test code = 410) 12.7 GM/DL 13.7-17.5 L HEMATOCRIT (BEAKER) (test code = 411) 39.2 % 40.1-51.0 L MEAN CORPUSCULAR VOLUME (BEAKER) (test code = 753) 94.7 fL 79. 0-92.2 H MEAN CORPUSCULAR HEMOGLOBIN (BEAKER) (test code = 751) 30.7 pg 25.7-32.2 MEAN CORPUSCULAR HEMOGLOBIN CONC (BEAKER) (test code = 752) 32.4 GM/DL 32.3-36.5 RED CELL DISTRIBUTION WIDTH (BEAKER) (test code = 412) 13.2 % 11.6-14.4 PLATELET COUNT (BEAKER) (test code = 756) 155 K/CU MM 150-450 MEAN PLATELET VOLUME (BEAKER) (test code = 754) 10.8 fL 9.4-12 .4 NUCLEATED RED BLOOD CELLS (BEAKER) (test code = 413) 0 /100 WBC 0 -0 NEUTROPHILS RELATIVE PERCENT (BEAKER) (test code = 429) 61 % LYMPHOCYTES RELATIVE PERCENT (BEAKER) (test code = 430) 24 % MONOCYTES RELATIVE PERCENT (BEAKER) (test code = 431) 9 % EOSINOPHILS RELATIVE PERCENT (BEAKER) (test code = 432) 5 % BASOPHILS RELATIVE PERCENT (BEAKER) (test code = 437) 0 % NEUTROPHILS ABSOLUTE COUNT (BEAKER) (test code = 670) 4.53 K/ L 1.78-5.38 LYMPHOCYTES ABSOLUTE COUNT (BEAKER) (test code = 414) 1.83 K/ L 1.32-3.57 MONOCYTES ABSOLUTE COUNT (BEAKER) (test code = 415) 0.70 K/ L 0. 30-0.82 EOSINOPHILS ABSOLUTE COUNT (BEAKER) (test code = 416) 0.36 K/ L 0.04-0.54 BASOPHILS ABSOLUTE COUNT (BEAKER) (test code = 417) 0.03 K/ L 0. 01-0.08 IMMATURE GRANULOCYTES-RELATIVE PERCENT (BEAKER) (test code = 2801) 1 % 0-1 ANG, EMBOLIZATION, EXTENSIVE - [id number] 18:14:00Referring: Dr. Hugo Mas of right lobe liver lesion.Patient on ASA and plavix- discussed with Dr. Rito Post, radiologist and Saira goetz to continue ASA and plavix prior to procedureReason for Exam:->Cirrhosis, HCCFINAL REPORT Mesenteric angiogram and chemoembolization. 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 Modality: Ultrasound and fluoroscopy. Sedation: Moderate sedation was administered. 1 mg of Versed and 50 mcg of fentanyl IV was used for moderate sedation monitored under my direction. Total intra-service time of sedation was 45 minutes. The patient's vital signs were monitored throughout the procedure and recorded in the patient's medical record by the nurse. Anesthesia: Two percent Lidocaine without epinephrine. Approach: Right common femoral artery. Estimated blood loss: < 5 cc. Specimen: None. tanning wheel operator: Mendoza Burger MD.. Commercial Property Manager: None.. Fluoroscopy Time: 7.3 min.Reference Air Kerma (Ka, r): 1452 mGy. Technique: Informed written consent was obtained. Discussion of risks, benefits, and alternatives were made with the patient. The patient expressed understanding and agreed to proceed. A universal timeout was performed prior to starting the procedure. All elements maximal sterile barrier technique was utilized for this procedure, including utilization of sterile scrub solution for skin prep, a large sterile sheet to cover the areas of the patient that were not prepped, and hand hygiene, mask, head covering, and sterile gown for performing radiologist and scrub techno logist. Initial ultrasound images demonstrate patent right common femoral artery . Using ultrasound guidance, following acquisition of permanent images, the [facility] common femoral artery was accessed using a 21-gauge micropuncture needle. A 0. 018 wire was advanced into the aorta. The needle was removed and a 4 Cymraes micr opuncture sheath was placed. A 0.035 [employer] wire was advanced into the abdomina l aorta. The micropuncture sheath was exchanged over wire for a 5 Cymraes by 10 c m vascular sheath. Using a 5 Cymraes Barajas catheter, the celiac artery was cannul ated and a DSA run was performed. Next, using a 2.8 Cymraes microcatheter and 0.0 16 microwire the common hepatic artery and subsequently the right hepatic artery was cannulated. Repeat DSA was performed. The microcatheter was then advanced i nto the branch supplying the segment 7 lesion arising off the right hepatic rodolfo ry. Repeat DSA was performed to confirm position. From this location, chemoembol ization was performed using 75 mg of doxorubicin loaded on LC beads. Approximate ly 80% of the mixture was given until stagnant flow achieved. The microcatheter was retracted into the proximal right hepatic artery and post embolization DSA w as performed. All catheters and wires were removed. Contrast injection was perf ormed through the right femoral sheath. The arteriotomy was closed and hemostasi s was obtained with a Mynx closure device. Vital signs were monitored throughout the procedure by a nurse, and remained stable. The patient tolerated the proc edure well and left the department in the same condition. FINDINGS: 1. Yu iac arteriography demonstrates patent conventional hepatic arterial anatomy. The splenic artery, GDA, and left gastric artery are patent. Delayed imaging demons trates patent portal venous system. Hypervascular lesion noted within the superi or right hepatic lobe compatible with the patient's known HCC.2. Successful chem oembolization of the segment 7 lesion the feeding branch arising off the right h epatic artery until stagnant flow achieved.3. Postembolization arteriography per formed from the proximal right hepatic artery demonstrates no further abnormal t umor hypervascularity.4. Right femoral sheath injection demonstrates patent righ t common femoral artery and puncture amenable for closure device. IMPRESSION: 1. Successful transarterial chemoembolization of the right h epatic lesion via a feeding branch arising off the right hepatic artery.2. Succe ssful hemostasis using closure device. Signed: Mendoza Burger Verified D ate/Time: 12/12/2017 18:14:24 Reading Location: [place] [address] Angio Body Reading Room -GLUCOSE [id number] 15:38:00* Test Item Value Reference Range Interpretation Comments POC-GLUCOSE METER (BEAKER) (test code = 1538) 210 mg/dL 70-110 H TESTED AT [address] [address] COMPREHENSIVE METABOLIC [id number] 08:49:00* Test Item Value Reference Range Interpretation Comments TOTAL PROTEIN (BEAKER) (test code = 770) 8.0 gm/dL 6.0-8.3 ALBUMIN (BEAKER) (test code = 1145) 4.2 g/dL 3.5-5.0 ALKALINE PHOSPHATASE (BEAKER) (test code = 346) 98 U/L 40-150 BILIRUBIN TOTAL (BEAKER) (test code = 377) 0.4 mg/dL 0.2-1.2 SODIUM (BEAKER) (test code = 381) 139 meq/L 136-145 POTASSIUM (BEAKER) (test code = 379) 4.4 meq/L 3.5-5.1 CHLORIDE (BEAKER) (test code = 382) 110 meq/L 98-107 H CO2 (BEAKER) (test code = 355) 22 meq/L 22-29 BLOOD UREA NITROGEN (BEAKER) (test code = 354) 22 mg/dL 7-21 H CREATININE (BEAKER) (test code = 358) 1.06 mg/dL 0.57-1.25 GLUCOSE RANDOM (BEAKER) (test code = 652) 91 mg/dL 70-105 CALCIUM (BEAKER) (test code = 697) 10.9 mg/dL 8.4-10.2 H AST (SGOT) (BEAKER) (test code = 353) 19 U/L 5-34 ALT (SGPT) (BEAKER) (test code = 347) 18 U/L 6-55 EGFR (BEAKER) (test code = 1092) 69 mL/min/1.73 sq m ESTIMATED GFR IS NOT ACCURATE CREATININE CLEARANCE IN PREDICTING GLOMERULAR FILTRATION RATE. ESTIMATED GFR IS NOT APPLICABLE FOR DIALYSIS PATIENTS. PT/[id number] 08:40:00* Test Item Value Reference Range Interpretation Comments PROTIME (BEAKER) (test code = 759) 13.6 seconds 11.7-14.7 INR (BEAKER) (test code = 370) 1.0 <=5.9 PARTIAL THROMBOPLASTIN TIME (BEAKER) (test code = 760) 26.2 seconds 22.5-36.0 RECOMMENDED COUMADIN/WARFARIN INR THERAPY RANGESSTANDARD DOSE: 2.0 - 3.0 Inclu sarina: PROPHYLAXIS for venous thrombosis, systemic embolization; TREATMENT for oliver ous thrombosis and/or pulmonary embolus.HIGH RISK: Target INR is 2.5-3.5 for pat ients with mechanical heart valves.CBC W/PLT COUNT & AUTO [id number] 08:32:00* Test Item Value Reference Range Interpretation Comments WHITE BLOOD CELL COUNT (BEAKER) (test code = 775) 6.2 K/ L 3.5- 10.5 RED BLOOD CELL COUNT (BEAKER) (test code = 761) 3.79 M/ L 4.63-6 .08 L HEMOGLOBIN (BEAKER) (test code = 410) 12.0 GM/DL 13.7-17.5 L HEMATOCRIT (BEAKER) (test code = 411) 37.3 % 40.1-51.0 L MEAN CORPUSCULAR VOLUME (BEAKER) (test code = 753) 98.4 fL 79. 0-92.2 H MEAN CORPUSCULAR HEMOGLOBIN (BEAKER) (test code = 751) 31.7 pg 25.7-32.2 MEAN CORPUSCULAR HEMOGLOBIN CONC (BEAKER) (test code = 752) 32.2 GM/DL 32.3-36.5 L RED CELL DISTRIBUTION WIDTH (BEAKER) (test code = 412) 13.7 % 11.6-14.4 PLATELET COUNT (BEAKER) (test code = 756) 106 K/CU MM 150-450 L MEAN PLATELET VOLUME (BEAKER) (test code = 754) 9.9 fL 9.4-12 .4 NUCLEATED RED BLOOD CELLS (BEAKER) (test code = 413) 0 /100 WBC 0 -0 NEUTROPHILS RELATIVE PERCENT (BEAKER) (test code = 429) 58 % LYMPHOCYTES RELATIVE PERCENT (BEAKER) (test code = 430) 26 % MONOCYTES RELATIVE PERCENT (BEAKER) (test code = 431) 8 % EOSINOPHILS RELATIVE PERCENT (BEAKER) (test code = 432) 6 % BASOPHILS RELATIVE PERCENT (BEAKER) (test code = 437) 1 % NEUTROPHILS ABSOLUTE COUNT (BEAKER) (test code = 670) 3.60 K/ L 1.78-5.38 LYMPHOCYTES ABSOLUTE COUNT (BEAKER) (test code = 414) 1.63 K/ L 1.32-3.57 MONOCYTES ABSOLUTE COUNT (BEAKER) (test code = 415) 0.51 K/ L 0. 30-0.82 EOSINOPHILS ABSOLUTE COUNT (BEAKER) (test code = 416) 0.39 K/ L 0.04-0.54 BASOPHILS ABSOLUTE COUNT (BEAKER) (test code = 417) 0.04 K/ L 0. 01-0.08 IMMATURE GRANULOCYTES-RELATIVE PERCENT (BEAKER) (test code = 2801) 0 % 0-1 PROTHROMBIN TIME/[id number] 14:46:00* Test Item Value Reference Range Interpretation Comments PROTIME (BEAKER) (test code = 759) 14.2 seconds 11.7-14.7 INR (BEAKER) (test code = 370) 1.1 <=5.9 RECOMMENDED COUMADIN/WARFARIN INR THERAPY RANGESSTANDARD DOSE: 2.0 - 3.0 Inclu sarina: PROPHYLAXIS for venous thrombosis, systemic embolization; TREATMENT for oliver ous thrombosis and/or pulmonary embolus.HIGH RISK: Target INR is 2.5-3.5 for pat ients with mechanical heart valves.PT/[id number] 14:46:00* Test Item Value Reference Range Interpretation Comments PROTIME (BEAKER) (test code = 759) 14.2 seconds 11.7-14.7 INR (BEAKER) (test code = 370) 1.1 <=5.9 PARTIAL THROMBOPLASTIN TIME (BEAKER) (test code = 760) 26.5 seconds 22.5-36.0 RECOMMENDED COUMADIN/WARFARIN INR THERAPY RANGESSTANDARD DOSE: 2.0 - 3.0 Inclu sarina: PROPHYLAXIS for venous thrombosis, systemic embolization; TREATMENT for oliver ous thrombosis and/or pulmonary embolus.HIGH RISK: Target INR is 2.5-3.5 for pat ients with mechanical heart valves.[id number] 14:25:00* Test Item Value Reference Range Interpretation Comments HEMOGLOBIN (BEAKER) (test code = 410) 12.4 GM/DL 13.7-17.5 L PLATELET [id number] 14:25:00* Test Item Value Reference Range Interpretation Comments PLATELET COUNT (BEAKER) (test code = 756) 108 K/CU MM 150-450 L BASIC METABOLIC [id number] 13:28:00* Test Item Value Reference Range Interpretation Comments SODIUM (BEAKER) (test code = 381) 140 meq/L 136-145 POTASSIUM (BEAKER) (test code = 379) 4.6 meq/L 3.5-5.1 CHLORIDE (BEAKER) (test code = 382) 108 meq/L 98-107 H CO2 (BEAKER) (test code = 355) 26 meq/L 22-29 BLOOD UREA NITROGEN (BEAKER) (test code = 354) 22 mg/dL 7-21 H CREATININE (BEAKER) (test code = 358) 0.94 mg/dL 0.57-1.25 GLUCOSE RANDOM (BEAKER) (test code = 652) 86 mg/dL 70-105 CALCIUM (BEAKER) (test code = 697) 11.3 mg/dL 8.4-10.2 H EGFR (BEAKER) (test code = 1092) 79 mL/min/1.73 sq m ESTIMATED GFR IS NOT ACCURATE CREATININE CLEARANCE IN PREDICTING GLOMERULAR FILTRATION RATE. ESTIMATED GFR IS NOT APPLICABLE FOR DIALYSIS PATIENTS. B-TYPE NATRIURETIC FACTOR (BNP)2017-12-06 13:07:00* Test Item Value Reference Range Interpretation Comments B-TYPE NATRIURETIC PEPTIDE (BEAKER) (test code = 700) 781 pg/mL 0-100 H [id number] 13:02:00* Test Item Value Reference Range Interpretation Comments MAGNESIUM (BEAKER) (test code = 627) 2.2 mg/dL 1.6-2.6 [id number] 12:57:00* Test Item Value Reference Range Interpretation Comments AMMONIA (BEAKER) (test code = 348) 25 mol/L 18-72 POCT-GLUCOSE [id number] 16:49:00* Test Item Value Reference Range Interpretation Comments POC-GLUCOSE METER (BEAKER) (test code = 1538) 362 mg/dL 70-110 H TESTED AT [address] [address] POCT-GLUCOSE [id number] 13:19:00* Test Item Value Reference Range Interpretation Comments POC-GLUCOSE METER (BEAKER) (test code = 1538) 279 mg/dL 70-110 H TESTED AT [address] [address] POCT-GLUCOSE [id number] 13:19:00* Test Item Value Reference Range Interpretation Comments POC-GLUCOSE METER (BEAKER) (test code = 1538) 268 mg/dL 70-110 H TESTED AT [address] [address] URINE [id number] 11:54:00* Test Item Value Reference Range Interpretation Comments CULTURE (BEAKER) (test code = 1095) No growth GRAM STAIN RESULT (BEAKER) (test code = 1123) No WBCs GRAM STAIN RESULT (BEAKER) (test code = 04634) No organisms seen TROPONIN [id number] 11:48:00* Test Item Value Reference Range Interpretation Comments TROPONIN I (BEAKER) (test code = 397) 0.47 ng/mL 0.00-0.03 HH Troponin I (TnI) levels must be interpreted in the context of the presenting sym ptoms and the clinical findings. Elevated TnI levels indicate myocardial damage, but are not specific for ischemic heart disease. Elevated TnI levels are seen i n patients with other cardiac conditions (including myocarditis and congestive h eart failure), and slight TnI elevations occur in patients with other conditions , including sepsis, renal failure, acidosis, acute neurological disease, and per sistent tachyarrhythmia.TROPONIN [id number] 03:39:00* Test Item Value Reference Range Interpretation Comments TROPONIN I (BEAKER) (test code = 397) 0.56 ng/mL 0.00-0.03 HH Troponin I (TnI) levels must be interpreted in the context of the presenting sym ptoms and the clinical findings. Elevated TnI levels indicate myocardial damage, but are not specific for ischemic heart disease. Elevated TnI levels are seen i n patients with other cardiac conditions (including myocarditis and congestive h eart failure), and slight TnI elevations occur in patients with other conditions , including sepsis, renal failure, acidosis, acute neurological disease, and per sistent tachyarrhythmia.BASIC METABOLIC [id number] 03:29:00* Test Item Value Reference Range Interpretation Comments SODIUM (BEAKER) (test code = 381) 138 meq/L 136-145 POTASSIUM (BEAKER) (test code = 379) 3.6 meq/L 3.5-5.1 CHLORIDE (BEAKER) (test code = 382) 108 meq/L 98-107 H CO2 (BEAKER) (test code = 355) 22 meq/L 22-29 BLOOD UREA NITROGEN (BEAKER) (test code = 354) 16 mg/dL 7-21 CREATININE (BEAKER) (test code = 358) 0.81 mg/dL 0.57-1.25 GLUCOSE RANDOM (BEAKER) (test code = 652) 162 mg/dL 70-105 H CALCIUM (BEAKER) (test code = 697) 9.9 mg/dL 8.4-10.2 EGFR (BEAKER) (test code = 1092) 94 mL/min/1.73 sq m ESTIMATED GFR IS NOT ACCURATE CREATININE CLEARANCE IN PREDICTING GLOMERULAR FILTRATION RATE. ESTIMATED GFR IS NOT APPLICABLE FOR DIALYSIS PATIENTS. CBC W/PLT COUNT & AUTO [id number] 03:04:00* Test Item Value Reference Range Interpretation Comments WHITE BLOOD CELL COUNT (BEAKER) (test code = 775) 6.1 K/ L 3.5- 10.5 RED BLOOD CELL COUNT (BEAKER) (test code = 761) 3.60 M/ L 4.63-6 .08 L HEMOGLOBIN (BEAKER) (test code = 410) 11.6 GM/DL 13.7-17.5 L HEMATOCRIT (BEAKER) (test code = 411) 34.5 % 40.1-51.0 L MEAN CORPUSCULAR VOLUME (BEAKER) (test code = 753) 95.8 fL 79. 0-92.2 H MEAN CORPUSCULAR HEMOGLOBIN (BEAKER) (test code = 751) 32.2 pg 25.7-32.2 MEAN CORPUSCULAR HEMOGLOBIN CONC (BEAKER) (test code = 752) 33.6 GM/DL 32.3-36.5 RED CELL DISTRIBUTION WIDTH (BEAKER) (test code = 412) 12.8 % 11.6-14.4 PLATELET COUNT (BEAKER) (test code = 756) 121 K/CU MM 150-450 L MEAN PLATELET VOLUME (BEAKER) (test code = 754) 10.0 fL 9.4-12 .4 NUCLEATED RED BLOOD CELLS (BEAKER) (test code = 413) 0 /100 WBC 0 -0 NEUTROPHILS RELATIVE PERCENT (BEAKER) (test code = 429) 50 % LYMPHOCYTES RELATIVE PERCENT (BEAKER) (test code = 430) 34 % MONOCYTES RELATIVE PERCENT (BEAKER) (test code = 431) 8 % EOSINOPHILS RELATIVE PERCENT (BEAKER) (test code = 432) 7 % BASOPHILS RELATIVE PERCENT (BEAKER) (test code = 437) 1 % NEUTROPHILS ABSOLUTE COUNT (BEAKER) (test code = 670) 3.06 K/ L 1.78-5.38 LYMPHOCYTES ABSOLUTE COUNT (BEAKER) (test code = 414) 2.05 K/ L 1.32-3.57 MONOCYTES ABSOLUTE COUNT (BEAKER) (test code = 415) 0.49 K/ L 0. 30-0.82 EOSINOPHILS ABSOLUTE COUNT (BEAKER) (test code = 416) 0.44 K/ L 0.04-0.54 BASOPHILS ABSOLUTE COUNT (BEAKER) (test code = 417) 0.03 K/ L 0. 01-0.08 IMMATURE GRANULOCYTES-RELATIVE PERCENT (BEAKER) (test code = 2801) 0 % 0-1 TROPONIN [id number] 22:23:00* Test Item Value Reference Range Interpretation Comments TROPONIN I (BEAKER) (test code = 397) 0.73 ng/mL 0.00-0.03 HH Troponin I (TnI) levels must be interpreted in the context of the presenting sym ptoms and the clinical findings. Elevated TnI levels indicate myocardial damage, but are not specific for ischemic heart disease. Elevated TnI levels are seen i n patients with other cardiac conditions (including myocarditis and congestive h eart failure), and slight TnI elevations occur in patients with other conditions , including sepsis, renal failure, acidosis, acute neurological disease, and per sistent tachyarrhythmia.POCT-GLUCOSE [id number] 20:43:00* Test Item Value Reference Range Interpretation Comments POC-GLUCOSE METER (ELENA) (test code = 1538) 126 mg/dL 70-110 H TESTED AT [facility] [address] [facility] [address] [address], BRAIN, WITHOUT [id number] 16:55:00Referring: Dr. Hugo Hall for exam:->DIZZINESSWhat is the patient's sedation requirement?->No Sedation FINAL REPORT CT head without contrast. Comparisons: No Reason for exam: DIZZINESSconfusion. Discussion: Multiple axial CT imag es of the head are provided without contrast evaluated in brain and bone windows . Dose modulation, iterative reconstruction, and/or weight based adjustment of t he mA/kV was utilized to reduce the radiation dose to as low as reasonably achie vable. There is no CT evidence of intracranial hemorrhage, mass-effect, hydroce phalus, shift, or extra-axial collections. The visualized dural sinus regio ns, orbital contents, paranasal sinuses, bones and surrounding soft tissues are unremarkable. Impressions: 1. No specific evidence of acute intracranial a bnormality. Signed: [facility] Verified Date/Time: 11/14/2017 16:55 :27 ONIN [id number] 16:14:00* Test Item Value Reference Range Interpretation Comments TROPONIN I (ELENA) (test code = 397) 0.76 ng/mL 0.00-0.03 HH Troponin I (TnI) levels must be interpreted in the context of the presenting sym ptoms and the clinical findings. Elevated TnI levels indicate myocardial damage, but are not specific for ischemic heart disease. Elevated TnI levels are seen i n patients with other cardiac conditions (including myocarditis and congestive h eart failure), and slight TnI elevations occur in patients with other conditions , including sepsis, renal failure, acidosis, acute neurological disease, and per sistent tachyarrhythmia.CREATINE KINASE (CK), TOTAL AND [id number] 16:11:00* Test Item Value Reference Range Interpretation Comments CREATINE KINASE TOTAL (BEAKER) (test code = 380) 74 U/L 29-20 0 CREATINE KINASE-MB (BEAKER) (test code = 750) 3.5 ng/mL 0.0-6.6 CREATINE KINASE-MB INDEX (BEAKER) (test code = 395) 4.7 % CK-MB Reference Range:<6.7 Normal6.7-10.0 Borderline>10.0 Abnormal BASIC METABOLIC [id number] 16:05:00* Test Item Value Reference Range Interpretation Comments SODIUM (BEAKER) (test code = 381) 135 meq/L 136-145 L POTASSIUM (BEAKER) (test code = 379) 4.1 meq/L 3.5-5.1 CHLORIDE (BEAKER) (test code = 382) 102 meq/L 98-107 CO2 (BEAKER) (test code = 355) 22 meq/L 22-29 BLOOD UREA NITROGEN (BEAKER) (test code = 354) 15 mg/dL 7-21 CREATININE (BEAKER) (test code = 358) 0.87 mg/dL 0.57-1.25 GLUCOSE RANDOM (BEAKER) (test code = 652) 186 mg/dL 70-105 H CALCIUM (BEAKER) (test code = 697) 10.9 mg/dL 8.4-10.2 H EGFR (BEAKER) (test code = 1092) 87 mL/min/1.73 sq m ESTIMATED GFR IS NOT ACCURATE CREATININE CLEARANCE IN PREDICTING GLOMERULAR FILTRATION RATE. ESTIMATED GFR IS NOT APPLICABLE FOR DIALYSIS PATIENTS. CBC W/PLT COUNT & AUTO [id number] 15:41:00* Test Item Value Reference Range Interpretation Comments WHITE BLOOD CELL COUNT (BEAKER) (test code = 775) 8.3 K/ L 3.5- 10.5 RED BLOOD CELL COUNT (BEAKER) (test code = 761) 4.05 M/ L 4.63-6 .08 L HEMOGLOBIN (BEAKER) (test code = 410) 12.9 GM/DL 13.7-17.5 L HEMATOCRIT (BEAKER) (test code = 411) 39.3 % 40.1-51.0 L MEAN CORPUSCULAR VOLUME (BEAKER) (test code = 753) 97.0 fL 79. 0-92.2 H MEAN CORPUSCULAR HEMOGLOBIN (BEAKER) (test code = 751) 31.9 pg 25.7-32.2 MEAN CORPUSCULAR HEMOGLOBIN CONC (BEAKER) (test code = 752) 32.8 GM/DL 32.3-36.5 RED CELL DISTRIBUTION WIDTH (BEAKER) (test code = 412) 13.2 % 11.6-14.4 PLATELET COUNT (BEAKER) (test code = 756) 147 K/CU MM 150-450 L MEAN PLATELET VOLUME (BEAKER) (test code = 754) 10.1 fL 9.4-12 .4 NUCLEATED RED BLOOD CELLS (BEAKER) (test code = 413) 0 /100 WBC 0 -0 NEUTROPHILS RELATIVE PERCENT (BEAKER) (test code = 429) 68 % LYMPHOCYTES RELATIVE PERCENT (BEAKER) (test code = 430) 21 % MONOCYTES RELATIVE PERCENT (BEAKER) (test code = 431) 6 % EOSINOPHILS RELATIVE PERCENT (BEAKER) (test code = 432) 5 % BASOPHILS RELATIVE PERCENT (BEAKER) (test code = 437) 0 % NEUTROPHILS ABSOLUTE COUNT (BEAKER) (test code = 670) 5.62 K/ L 1.78-5.38 H LYMPHOCYTES ABSOLUTE COUNT (BEAKER) (test code = 414) 1.77 K/ L 1.32-3.57 MONOCYTES ABSOLUTE COUNT (BEAKER) (test code = 415) 0.49 K/ L 0. 30-0.82 EOSINOPHILS ABSOLUTE COUNT (BEAKER) (test code = 416) 0.38 K/ L 0.04-0.54 BASOPHILS ABSOLUTE COUNT (BEAKER) (test code = 417) 0.03 K/ L 0. 01-0.08 IMMATURE GRANULOCYTES-RELATIVE PERCENT (BEAKER) (test code = 2801) 0 % 0-1 RAD, CHEST, PA OR AP, 1 [id number] 15:20:00Referring: Dr. Hugo Hall for exam:->DIZZINESSFINAL REPORT Chest one view AP 11/14/2017 3:19 PM CLINICAL HISTORY: DIZZINESS COMPARISON: 11/09/2017 FINDINGS: The lungs are clear. Cardiomediastinal contours are within normal limits. The central pulmonary vasculature is not engorged. Support hardware is unchanged in position. IMPRESSION: Unremarkable frontal chest radiograph. Signed: Adele Zavalaeport Verified Date/Time: 11/14/2017 15:20:00 Reading Location: [address] Consult Reading Room E [id number] 12:26:00* Test Item Value Reference Range Interpretation Comments CULTURE (BEAKER) (test code = 1095) No growth POCT-GLUCOSE [id number] 07:46:00* Test Item Value Reference Range Interpretation Comments POC-GLUCOSE METER (BEAKER) (test code = 1538) 140 mg/dL 70-110 H TESTED AT [facility] [address] [facility] [address] [id number] 06:55:00* Test Item Value Reference Range Interpretation Comments MAGNESIUM (BEAKER) (test code = 627) 1.7 mg/dL 1.6-2.6 BASIC METABOLIC [id number] 06:55:00* Test Item Value Reference Range Interpretation Comments SODIUM (BEAKER) (test code = 381) 137 meq/L 136-145 POTASSIUM (BEAKER) (test code = 379) 3.9 meq/L 3.5-5.1 CHLORIDE (BEAKER) (test code = 382) 106 meq/L 98-107 CO2 (BEAKER) (test code = 355) 21 meq/L 22-29 L BLOOD UREA NITROGEN (BEAKER) (test code = 354) 15 mg/dL 7-21 CREATININE (BEAKER) (test code = 358) 0.76 mg/dL 0.57-1.25 GLUCOSE RANDOM (BEAKER) (test code = 652) 114 mg/dL 70-105 H CALCIUM (BEAKER) (test code = 697) 10.5 mg/dL 8.4-10.2 H EGFR (BEAKER) (test code = 1092) 101 mL/min/1.73 sq m ESTIMATED GFR IS NOT ACCURATE CREATININE CLEARANCE IN PREDICTING GLOMERULAR FILTRATION RATE. ESTIMATED GFR IS NOT APPLICABLE FOR DIALYSIS PATIENTS. POCT-GLUCOSE [id number] 21:20:00* Test Item Value Reference Range Interpretation Comments POC-GLUCOSE METER (BEAKER) (test code = 1538) 251 mg/dL 70-110 H TESTED AT [address] [address] POCT-GLUCOSE [id number] 17:05:00* Test Item Value Reference Range Interpretation Comments POC-GLUCOSE METER (BEAKER) (test code = 1538) 291 mg/dL 70-110 H TESTED AT [address] [address] POCT-GLUCOSE [id number] 12:19:00* Test Item Value Reference Range Interpretation Comments POC-GLUCOSE METER (BEAKER) (test code = 1538) 221 mg/dL 70-110 H TESTED AT [address] [address] POCT-GLUCOSE [id number] 07:28:00* Test Item Value Reference Range Interpretation Comments POC-GLUCOSE METER (BEAKER) (test code = 1538) 213 mg/dL 70-110 H TESTED AT [address] [address] POCT-GLUCOSE [id number] 06:46:00* Test Item Value Reference Range Interpretation Comments POC-GLUCOSE METER (BEAKER) (test code = 1538) 183 mg/dL 70-110 H TESTED AT [address] [address] POCT-GLUCOSE [id number] 06:44:00* Test Item Value Reference Range Interpretation Comments POC-GLUCOSE METER (BEAKER) (test code = 1538) 261 mg/dL 70-110 H TESTED AT [address] [address] [id number] 05:52:00* Test Item Value Reference Range Interpretation Comments MAGNESIUM (BEAKER) (test code = 627) 1.6 mg/dL 1.6-2.6 BASIC METABOLIC [id number] 05:52:00* Test Item Value Reference Range Interpretation Comments SODIUM (BEAKER) (test code = 381) 137 meq/L 136-145 POTASSIUM (BEAKER) (test code = 379) 4.0 meq/L 3.5-5.1 CHLORIDE (BEAKER) (test code = 382) 105 meq/L 98-107 CO2 (BEAKER) (test code = 355) 24 meq/L 22-29 BLOOD UREA NITROGEN (BEAKER) (test code = 354) 14 mg/dL 7-21 CREATININE (BEAKER) (test code = 358) 0.82 mg/dL 0.57-1.25 GLUCOSE RANDOM (BEAKER) (test code = 652) 197 mg/dL 70-105 H CALCIUM (BEAKER) (test code = 697) 10.3 mg/dL 8.4-10.2 H EGFR (BEAKER) (test code = 1092) 93 mL/min/1.73 sq m ESTIMATED GFR IS NOT ACCURATE CREATININE CLEARANCE IN PREDICTING GLOMERULAR FILTRATION RATE. ESTIMATED GFR IS NOT APPLICABLE FOR DIALYSIS PATIENTS. CBC (HEMOGRAM ONLY)2017-11-13 05:35:00* Test Item Value Reference Range Interpretation Comments WHITE BLOOD CELL COUNT (BEAKER) (test code = 775) 5.2 K/ L 3.5- 10.5 RED BLOOD CELL COUNT (BEAKER) (test code = 761) 3.73 M/ L 4.63-6 .08 L HEMOGLOBIN (BEAKER) (test code = 410) 11.9 GM/DL 13.7-17.5 L HEMATOCRIT (BEAKER) (test code = 411) 35.7 % 40.1-51.0 L MEAN CORPUSCULAR VOLUME (BEAKER) (test code = 753) 95.7 fL 79. 0-92.2 H MEAN CORPUSCULAR HEMOGLOBIN (BEAKER) (test code = 751) 31.9 pg 25.7-32.2 MEAN CORPUSCULAR HEMOGLOBIN CONC (BEAKER) (test code = 752) 33.3 GM/DL 32.3-36.5 RED CELL DISTRIBUTION WIDTH (BEAKER) (test code = 412) 13.0 % 11.6-14.4 PLATELET COUNT (BEAKER) (test code = 756) 129 K/CU MM 150-450 L MEAN PLATELET VOLUME (BEAKER) (test code = 754) 9.9 fL 9.4-12 .4 NUCLEATED RED BLOOD CELLS (BEAKER) (test code = 413) 0 /100 WBC 0 -0 URINALYSIS W/ [id number] 00:53:00* Test Item Value Reference Range Interpretation Comments COLOR (BEAKER) (test code = 470) Light Yellow CLARITY (BEAKER) (test code = 469) Clear SPECIFIC GRAVITY UA (BEAKER) (test code = 468) 1.012 1.001-1 .035 PH UA (BEAKER) (test code = 467) 6.5 5.0-8.0 PROTEIN UA (BEAKER) (test code = 464) Negative Negative GLUCOSE UA (BEAKER) (test code = 365) 300 mg/dL Negative A KETONES UA (BEAKER) (test code = 371) Negative Negative BILIRUBIN UA (BEAKER) (test code = 462) Negative Negative BLOOD UA (BEAKER) (test code = 461) Negative Negative NITRITE UA (BEAKER) (test code = 465) Negative Negative LEUKOCYTE ESTERASE UA (BEAKER) (test code = 466) Negative Negat danny UROBILINOGEN UA (BEAKER) (test code = 463) 0.2 mg/dL 0.2-1.0 RBC UA (BEAKER) (test code = 519) 1 /HPF WBC UA (BEAKER) (test code = 520) 2 /HPF SOURCE(BEAKER) (test code = 2795) Urine, Clean Catch U/S, [id number] 23:10:00Referring: Dr. Hugo Hall for exam:->assess thyroid noduleFINAL REPORT INDICATION: 72-year-old male with thyroid nodule. TECHNIQUE: Ultrasound thyroid with levine-scale and color flow. COMPARISON: Outside facility thyroid ultrasound exam October 09, 2016 (only images of a left thyroid lobe lower pole nodule provided). FINDINGS:Thyroid gland is normal in echotexture and vascularity. The right lobe measures 3.3 x 2.0 x 1.8 cm, and the left lobe measures 3.0 x 1.9 x 1.7 cm. The isthmus is 0.2 cm thick. Right lobe: Lower pole circumscribed isoechoic nodule without central flow or definite calcifications. It measures 1.3 x 1.0 x 1.0 cm. Left lobe: Lower pole circumscribed cystic nodule. It measures 1.9 x 1.8 x 1.5 cm, having decreased in size from 2.1 x 1.8 x 1.6 cm since October 2016. Isthmus:No nodules. IMPRESSION: 1.9 cm cystic nodule of the left thyroid lobe, slightly decreased in size since October 2016. 1.3 cm circumscribed isoechoic nodule of the right thyroid lobe. While both nodules are likely benign, follow-up thyroid ultrasound in one year may be beneficial for further evaluation. Signed: Regino Crandall MDReport Verified Date/Time: 11/12/2017 23:10:55 Reading Location: [facility] [id number] Consult Reading Room -GLUCOSE [id number] 22:26:00* Test Item Value Reference Range Interpretation Comments POC-GLUCOSE METER (BEAKER) (test code = 1538) 248 mg/dL 70-110 H TESTED AT [facility] [address] [facility] [address] POCT-GLUCOSE [id number] 17:20:00* Test Item Value Reference Range Interpretation Comments POC-GLUCOSE METER (BEAKER) (test code = 1538) 335 mg/dL 70-110 H TESTED AT [address] [address] POCT-GLUCOSE [id number] 08:59:00* Test Item Value Reference Range Interpretation Comments POC-GLUCOSE METER (BEAKER) (test code = 1538) 200 mg/dL 70-110 H TESTED AT [address] [address] [id number] 05:03:00* Test Item Value Reference Range Interpretation Comments MAGNESIUM (BEAKER) (test code = 627) 1.8 mg/dL 1.6-2.6 BASIC METABOLIC [id number] 05:03:00* Test Item Value Reference Range Interpretation Comments SODIUM (BEAKER) (test code = 381) 137 meq/L 136-145 POTASSIUM (BEAKER) (test code = 379) 4.0 meq/L 3.5-5.1 CHLORIDE (BEAKER) (test code = 382) 105 meq/L 98-107 CO2 (BEAKER) (test code = 355) 25 meq/L 22-29 BLOOD UREA NITROGEN (BEAKER) (test code = 354) 17 mg/dL 7-21 CREATININE (BEAKER) (test code = 358) 0.84 mg/dL 0.57-1.25 GLUCOSE RANDOM (BEAKER) (test code = 652) 132 mg/dL 70-105 H CALCIUM (BEAKER) (test code = 697) 10.7 mg/dL 8.4-10.2 H EGFR (BEAKER) (test code = 1092) 90 mL/min/1.73 sq m ESTIMATED GFR IS NOT ACCURATE CREATININE CLEARANCE IN PREDICTING GLOMERULAR FILTRATION RATE. ESTIMATED GFR IS NOT APPLICABLE FOR DIALYSIS PATIENTS. CBC W/PLT COUNT & AUTO [id number] 04:48:00* Test Item Value Reference Range Interpretation Comments WHITE BLOOD CELL COUNT (BEAKER) (test code = 775) 6.2 K/ L 3.5- 10.5 RED BLOOD CELL COUNT (BEAKER) (test code = 761) 3.62 M/ L 4.63-6 .08 L HEMOGLOBIN (BEAKER) (test code = 410) 11.8 GM/DL 13.7-17.5 L HEMATOCRIT (BEAKER) (test code = 411) 35.0 % 40.1-51.0 L MEAN CORPUSCULAR VOLUME (BEAKER) (test code = 753) 96.7 fL 79. 0-92.2 H MEAN CORPUSCULAR HEMOGLOBIN (BEAKER) (test code = 751) 32.6 pg 25.7-32.2 H MEAN CORPUSCULAR HEMOGLOBIN CONC (BEAKER) (test code = 752) 33.7 GM/DL 32.3-36.5 RED CELL DISTRIBUTION WIDTH (BEAKER) (test code = 412) 13.1 % 11.6-14.4 PLATELET COUNT (BEAKER) (test code = 756) 122 K/CU MM 150-450 L MEAN PLATELET VOLUME (BEAKER) (test code = 754) 10.3 fL 9.4-12 .4 NUCLEATED RED BLOOD CELLS (BEAKER) (test code = 413) 0 /100 WBC 0 -0 NEUTROPHILS RELATIVE PERCENT (BEAKER) (test code = 429) 50 % LYMPHOCYTES RELATIVE PERCENT (BEAKER) (test code = 430) 30 % MONOCYTES RELATIVE PERCENT (BEAKER) (test code = 431) 10 % EOSINOPHILS RELATIVE PERCENT (BEAKER) (test code = 432) 10 % BASOPHILS RELATIVE PERCENT (BEAKER) (test code = 437) 1 % NEUTROPHILS ABSOLUTE COUNT (BEAKER) (test code = 670) 3.05 K/ L 1.78-5.38 LYMPHOCYTES ABSOLUTE COUNT (BEAKER) (test code = 414) 1.86 K/ L 1.32-3.57 MONOCYTES ABSOLUTE COUNT (BEAKER) (test code = 415) 0.59 K/ L 0. 30-0.82 EOSINOPHILS ABSOLUTE COUNT (BEAKER) (test code = 416) 0.60 K/ L 0.04-0.54 H BASOPHILS ABSOLUTE COUNT (BEAKER) (test code = 417) 0.04 K/ L 0. 01-0.08 IMMATURE GRANULOCYTES-RELATIVE PERCENT (BEAKER) (test code = 2801) 0 % 0-1 POCT-GLUCOSE [id number] 17:28:00* Test Item Value Reference Range Interpretation Comments POC-GLUCOSE METER (BEAKER) (test code = 1538) 346 mg/dL 70-110 H Notified LULI GARCIA/TESTED AT [address] [address] POCT-GLUCOSE [id number] 11:47:00* Test Item Value Reference Range Interpretation Comments POC-GLUCOSE METER (BEAKER) (test code = 1538) 272 mg/dL 70-110 H TESTED AT [address] [address] POCT-GLUCOSE [id number] 07:32:00* Test Item Value Reference Range Interpretation Comments POC-GLUCOSE METER (BEAKER) (test code = 1538) 236 mg/dL 70-110 H TESTED AT [address] [address] [id number] 06:44:00* Test Item Value Reference Range Interpretation Comments MAGNESIUM (BEAKER) (test code = 627) 1.7 mg/dL 1.6-2.6 BASIC METABOLIC [id number] 06:44:00* Test Item Value Reference Range Interpretation Comments SODIUM (BEAKER) (test code = 381) 136 meq/L 136-145 POTASSIUM (BEAKER) (test code = 379) 4.1 meq/L 3.5-5.1 CHLORIDE (BEAKER) (test code = 382) 103 meq/L 98-107 CO2 (BEAKER) (test code = 355) 25 meq/L 22-29 BLOOD UREA NITROGEN (BEAKER) (test code = 354) 15 mg/dL 7-21 CREATININE (BEAKER) (test code = 358) 0.83 mg/dL 0.57-1.25 GLUCOSE RANDOM (BEAKER) (test code = 652) 216 mg/dL 70-105 H CALCIUM (BEAKER) (test code = 697) 10.6 mg/dL 8.4-10.2 H EGFR (BEAKER) (test code = 1092) 91 mL/min/1.73 sq m ESTIMATED GFR IS NOT ACCURATE CREATININE CLEARANCE IN PREDICTING GLOMERULAR FILTRATION RATE. ESTIMATED GFR IS NOT APPLICABLE FOR DIALYSIS PATIENTS. CBC W/PLT COUNT & AUTO [id number] 06:11:00* Test Item Value Reference Range Interpretation Comments WHITE BLOOD CELL COUNT (BEAKER) (test code = 775) 5.8 K/ L 3.5- 10.5 RED BLOOD CELL COUNT (BEAKER) (test code = 761) 3.71 M/ L 4.63-6 .08 L HEMOGLOBIN (BEAKER) (test code = 410) 12.0 GM/DL 13.7-17.5 L HEMATOCRIT (BEAKER) (test code = 411) 35.7 % 40.1-51.0 L MEAN CORPUSCULAR VOLUME (BEAKER) (test code = 753) 96.2 fL 79. 0-92.2 H MEAN CORPUSCULAR HEMOGLOBIN (BEAKER) (test code = 751) 32.3 pg 25.7-32.2 H MEAN CORPUSCULAR HEMOGLOBIN CONC (BEAKER) (test code = 752) 33.6 GM/DL 32.3-36.5 RED CELL DISTRIBUTION WIDTH (BEAKER) (test code = 412) 13.3 % 11.6-14.4 PLATELET COUNT (BEAKER) (test code = 756) 118 K/CU MM 150-450 L MEAN PLATELET VOLUME (BEAKER) (test code = 754) 10.4 fL 9.4-12 .4 NUCLEATED RED BLOOD CELLS (BEAKER) (test code = 413) 0 /100 WBC 0 -0 NEUTROPHILS RELATIVE PERCENT (BEAKER) (test code = 429) 58 % LYMPHOCYTES RELATIVE PERCENT (BEAKER) (test code = 430) 25 % MONOCYTES RELATIVE PERCENT (BEAKER) (test code = 431) 9 % EOSINOPHILS RELATIVE PERCENT (BEAKER) (test code = 432) 7 % BASOPHILS RELATIVE PERCENT (BEAKER) (test code = 437) 1 % NEUTROPHILS ABSOLUTE COUNT (BEAKER) (test code = 670) 3.37 K/ L 1.78-5.38 LYMPHOCYTES ABSOLUTE COUNT (BEAKER) (test code = 414) 1.43 K/ L 1.32-3.57 MONOCYTES ABSOLUTE COUNT (BEAKER) (test code = 415) 0.52 K/ L 0. 30-0.82 EOSINOPHILS ABSOLUTE COUNT (BEAKER) (test code = 416) 0.41 K/ L 0.04-0.54 BASOPHILS ABSOLUTE COUNT (BEAKER) (test code = 417) 0.03 K/ L 0. 01-0.08 IMMATURE GRANULOCYTES-RELATIVE PERCENT (BEAKER) (test code = 2801) 0 % 0-1 POCT-GLUCOSE [id number] 22:16:00* Test Item Value Reference Range Interpretation Comments POC-GLUCOSE METER (BEAKER) (test code = 1538) 342 mg/dL 70-110 H TESTED AT [address] [address] POCT-GLUCOSE [id number] 18:57:00* Test Item Value Reference Range Interpretation Comments POC-GLUCOSE METER (BEAKER) (test code = 1538) 289 mg/dL 70-110 H TESTED AT [address] [address] POCT-GLUCOSE [id number] 16:46:00* Test Item Value Reference Range Interpretation Comments POC-GLUCOSE METER (BEAKER) (test code = 1538) 289 mg/dL 70-110 H TESTED AT [address] [address] POCT-GLUCOSE [id number] 16:46:00* Test Item Value Reference Range Interpretation Comments POC-GLUCOSE METER (BEAKER) (test code = 1538) 164 mg/dL 70-110 H TESTED AT [address] [address] POCT-GLUCOSE [id number] 13:11:00* Test Item Value Reference Range Interpretation Comments POC-GLUCOSE METER (BEAKER) (test code = 1538) 169 mg/dL 70-110 H TESTED AT [address] [address] POCT-GLUCOSE [id number] 12:15:00* Test Item Value Reference Range Interpretation Comments POC-GLUCOSE METER (BEAKER) (test code = 1538) 169 mg/dL 70-110 H TESTED AT [address] [address] POCT-GLUCOSE [id number] 11:17:00* Test Item Value Reference Range Interpretation Comments POC-GLUCOSE METER (BEAKER) (test code = 1538) 193 mg/dL 70-110 H TESTED AT [place] [id number] [facility] [address] POCT-GLUCOSE [id number] 10:13:00* Test Item Value Reference Range Interpretation Comments POC-GLUCOSE METER (BEAKER) (test code = 1538) 220 mg/dL 70-110 H TESTED AT [address] [address] POCT-GLUCOSE [id number] 10:13:00* Test Item Value Reference Range Interpretation Comments POC-GLUCOSE METER (BEAKER) (test code = 1538) 305 mg/dL 70-110 H TESTED AT [address] [address] POCT-GLUCOSE [id number] 06:30:00* Test Item Value Reference Range Interpretation Comments POC-GLUCOSE METER (BEAKER) (test code = 1538) 377 mg/dL 70-110 H Notified LULI GARCIA/TESTED AT [address] [address] [id number] 04:15:00* Test Item Value Reference Range Interpretation Comments MAGNESIUM (BEAKER) (test code = 627) 1.8 mg/dL 1.6-2.6 BASIC METABOLIC [id number] 04:15:00* Test Item Value Reference Range Interpretation Comments SODIUM (BEAKER) (test code = 381) 135 meq/L 136-145 L POTASSIUM (BEAKER) (test code = 379) 4.7 meq/L 3.5-5.1 CHLORIDE (BEAKER) (test code = 382) 107 meq/L 98-107 CO2 (BEAKER) (test code = 355) 20 meq/L 22-29 L BLOOD UREA NITROGEN (BEAKER) (test code = 354) 14 mg/dL 7-21 CREATININE (BEAKER) (test code = 358) 1.10 mg/dL 0.57-1.25 GLUCOSE RANDOM (BEAKER) (test code = 652) 364 mg/dL 70-105 H CALCIUM (BEAKER) (test code = 697) 9.9 mg/dL 8.4-10.2 EGFR (BEAKER) (test code = 1092) 66 mL/min/1.73 sq m ESTIMATED GFR IS NOT ACCURATE CREATININE CLEARANCE IN PREDICTING GLOMERULAR FILTRATION RATE. ESTIMATED GFR IS NOT APPLICABLE FOR DIALYSIS PATIENTS. CBC W/PLT COUNT & AUTO [id number] 04:01:00* Test Item Value Reference Range Interpretation Comments WHITE BLOOD CELL COUNT (BEAKER) (test code = 775) 6.4 K/ L 3.5- 10.5 RED BLOOD CELL COUNT (BEAKER) (test code = 761) 3.71 M/ L 4.63-6 .08 L HEMOGLOBIN (BEAKER) (test code = 410) 11.8 GM/DL 13.7-17.5 L HEMATOCRIT (BEAKER) (test code = 411) 35.6 % 40.1-51.0 L MEAN CORPUSCULAR VOLUME (BEAKER) (test code = 753) 96.0 fL 79. 0-92.2 H MEAN CORPUSCULAR HEMOGLOBIN (BEAKER) (test code = 751) 31.8 pg 25.7-32.2 MEAN CORPUSCULAR HEMOGLOBIN CONC (BEAKER) (test code = 752) 33.1 GM/DL 32.3-36.5 RED CELL DISTRIBUTION WIDTH (BEAKER) (test code = 412) 13.2 % 11.6-14.4 PLATELET COUNT (BEAKER) (test code = 756) 112 K/CU MM 150-450 L MEAN PLATELET VOLUME (BEAKER) (test code = 754) 9.9 fL 9.4-12 .4 NUCLEATED RED BLOOD CELLS (BEAKER) (test code = 413) 0 /100 WBC 0 -0 NEUTROPHILS RELATIVE PERCENT (BEAKER) (test code = 429) 68 % LYMPHOCYTES RELATIVE PERCENT (BEAKER) (test code = 430) 23 % MONOCYTES RELATIVE PERCENT (BEAKER) (test code = 431) 6 % EOSINOPHILS RELATIVE PERCENT (BEAKER) (test code = 432) 3 % BASOPHILS RELATIVE PERCENT (BEAKER) (test code = 437) 0 % NEUTROPHILS ABSOLUTE COUNT (BEAKER) (test code = 670) 4.30 K/ L 1.78-5.38 LYMPHOCYTES ABSOLUTE COUNT (BEAKER) (test code = 414) 1.45 K/ L 1.32-3.57 MONOCYTES ABSOLUTE COUNT (BEAKER) (test code = 415) 0.41 K/ L 0. 30-0.82 EOSINOPHILS ABSOLUTE COUNT (BEAKER) (test code = 416) 0.16 K/ L 0.04-0.54 BASOPHILS ABSOLUTE COUNT (BEAKER) (test code = 417) 0.02 K/ L 0. 01-0.08 IMMATURE GRANULOCYTES-RELATIVE PERCENT (BEAKER) (test code = 2801) 0 % 0-1 POCT-GLUCOSE [id number] 23:39:00* Test Item Value Reference Range Interpretation Comments POC-GLUCOSE METER (BEAKER) (test code = 1538) 206 mg/dL 70-110 H TESTED AT [facility] [address] [facility] [address] B-TYPE NATRIURETIC FACTOR (BNP)2017-11-09 18:40:00* Test Item Value Reference Range Interpretation Comments B-TYPE NATRIURETIC PEPTIDE (BEAKER) (test code = 700) 482 pg/mL 0-100 H TROPONIN [id number] 18:34:00* Test Item Value Reference Range Interpretation Comments TROPONIN I (BEAKER) (test code = 397) 2.13 ng/mL 0.00-0.03 HH Troponin I (TnI) levels must be interpreted in the context of the presenting sym ptoms and the clinical findings. Elevated TnI levels indicate myocardial damage, but are not specific for ischemic heart disease. Elevated TnI levels are seen i n patients with other cardiac conditions (including myocarditis and congestive h eart failure), and slight TnI elevations occur in patients with other conditions , including sepsis, renal failure, acidosis, acute neurological disease, and per sistent tachyarrhythmia.BASIC METABOLIC [id number] 18:26:00* Test Item Value Reference Range Interpretation Comments SODIUM (BEAKER) (test code = 381) 138 meq/L 136-145 POTASSIUM (BEAKER) (test code = 379) 4.7 meq/L 3.5-5.1 Specimen slightly hemolyzed CHLORIDE (BEAKER) (test code = 382) 111 meq/L 98-107 H CO2 (BEAKER) (test code = 355) 22 meq/L 22-29 BLOOD UREA NITROGEN (BEAKER) (test code = 354) 12 mg/dL 7-21 CREATININE (BEAKER) (test code = 358) 0.81 mg/dL 0.57-1.25 Specimen slightly hemolyzed GLUCOSE RANDOM (BEAKER) (test code = 652) 220 mg/dL 70-105 H CALCIUM (BEAKER) (test code = 697) 10.0 mg/dL 8.4-10.2 EGFR (BEAKER) (test code = 1092) 94 mL/min/1.73 sq m ESTIMATED GFR IS NOT ACCURATE CREATININE CLEARANCE IN PREDICTING GLOMERULAR FILTRATION RATE. ESTIMATED GFR IS NOT APPLICABLE FOR DIALYSIS PATIENTS. HEPATIC FUNCTION [id number] 18:26:00* Test Item Value Reference Range Interpretation Comments TOTAL PROTEIN (BEAKER) (test code = 770) 7.5 gm/dL 6.0-8.3 Specimen slightly hemolyzed ALBUMIN (BEAKER) (test code = 1145) 3.6 g/dL 3.5-5.0 Specimen slightly hemolyzed BILIRUBIN TOTAL (BEAKER) (test code = 377) 0.4 mg/dL 0.2-1.2 Specimen slightly hemolyzed BILIRUBIN DIRECT (BEAKER) (test code = 706) 0.2 mg/dL 0.1-0.5 Specimen slightly hemolyzed ALKALINE PHOSPHATASE (BEAKER) (test code = 346) 79 U/L 40-150 AST (SGOT) (BEAKER) (test code = 353) 45 U/L 5-34 H Specimen slightly hemolyzed ALT (SGPT) (BEAKER) (test code = 347) 32 U/L 6-55 Specimen slightly hemolyzed RAD, CHEST, 1 VIEW, NON [id number] 18:22:00Referring: Dr. Hugo Hall for exam:->SOB, ? pulm edema, pneumoniaShould this be performed at the bedside?- >YesFINAL REPORT TECHNIQUE: Frontal view of the chest. INDICATION: 72-year-old man with shortness of breath. COMPARISON: Chest radiograph 11/08/2017, chest CT 11/09/2017. FINDINGS: LINES/TUBES: New electronic device, possible event recorder, projects over the medial left hemithorax. LUNGS: Unchanged mild prominence of interstitial markings bilaterally. No consolidation or pulmonary edema. PLEURA: No pneumothorax or significant pleural effusion. HEART AND MEDIASTINUM: The cardiomediastinal silhouette is prominent, but unchanged. SOFT TISSUES AND BONES: Unchanged median sternotomy wires. IMPRESSION:No significant change since chest radiograph dated 11/08/2017. Signed: Alban Grewal MDReport Verified Date/Time: 11/09/2017 18:22:59 Reading Location: [address] Body Reading Room HROMBIN TIME/[id number] 18:20:00 * Test Item Value Reference Range Interpretation Comments PROTIME (BEAKER) (test code = 759) 13.9 seconds 11.7-14.7 INR (BEAKER) (test code = 370) 1.1 <=5.9 RECOMMENDED COUMADIN/WARFARIN INR THERAPY RANGESSTANDARD DOSE: 2.0 - 3.0 Inclu sarina: PROPHYLAXIS for venous thrombosis, systemic embolization; TREATMENT for oliver ous thrombosis and/or pulmonary embolus.HIGH RISK: Target INR is 2.5-3.5 for pat ients with mechanical heart valves.CBC W/PLT COUNT & AUTO [id number] 18:13:00* Test Item Value Reference Range Interpretation Comments WHITE BLOOD CELL COUNT (BEAKER) (test code = 775) 6.3 K/ L 3.5- 10.5 RED BLOOD CELL COUNT (BEAKER) (test code = 761) 3.63 M/ L 4.63-6 .08 L HEMOGLOBIN (BEAKER) (test code = 410) 11.9 GM/DL 13.7-17.5 L HEMATOCRIT (BEAKER) (test code = 411) 35.7 % 40.1-51.0 L MEAN CORPUSCULAR VOLUME (BEAKER) (test code = 753) 98.3 fL 79. 0-92.2 H MEAN CORPUSCULAR HEMOGLOBIN (BEAKER) (test code = 751) 32.8 pg 25.7-32.2 H MEAN CORPUSCULAR HEMOGLOBIN CONC (BEAKER) (test code = 752) 33.3 GM/DL 32.3-36.5 RED CELL DISTRIBUTION WIDTH (BEAKER) (test code = 412) 13.8 % 11.6-14.4 PLATELET COUNT (BEAKER) (test code = 756) 110 K/CU MM 150-450 L MEAN PLATELET VOLUME (BEAKER) (test code = 754) 10.7 fL 9.4-12 .4 NUCLEATED RED BLOOD CELLS (BEAKER) (test code = 413) 0 /100 WBC 0 -0 NEUTROPHILS RELATIVE PERCENT (BEAKER) (test code = 429) 57 % LYMPHOCYTES RELATIVE PERCENT (BEAKER) (test code = 430) 31 % MONOCYTES RELATIVE PERCENT (BEAKER) (test code = 431) 7 % EOSINOPHILS RELATIVE PERCENT (BEAKER) (test code = 432) 4 % BASOPHILS RELATIVE PERCENT (BEAKER) (test code = 437) 1 % NEUTROPHILS ABSOLUTE COUNT (BEAKER) (test code = 670) 3.61 K/ L 1.78-5.38 LYMPHOCYTES ABSOLUTE COUNT (BEAKER) (test code = 414) 1.92 K/ L 1.32-3.57 MONOCYTES ABSOLUTE COUNT (BEAKER) (test code = 415) 0.46 K/ L 0. 30-0.82 EOSINOPHILS ABSOLUTE COUNT (BEAKER) (test code = 416) 0.26 K/ L 0.04-0.54 BASOPHILS ABSOLUTE COUNT (BEAKER) (test code = 417) 0.03 K/ L 0. 01-0.08 IMMATURE GRANULOCYTES-RELATIVE PERCENT (BEAKER) (test code = 2801) 0 % 0-1 [id number] 18:02:00* Test Item Value Reference Range Interpretation Comments ACTIVATED CLOTTING TIME (BEAKER) (test code = 441) 98 sec TESTED AT [facility] [address] [facility] [address] POCT-GLUCOSE [id number] 17:57:00* Test Item Value Reference Range Interpretation Comments POC-GLUCOSE METER (BEAKER) (test code = 1538) 215 mg/dL 70-110 H TESTED AT [address] [address] TROPONIN [id number] 12:39:00* Test Item Value Reference Range Interpretation Comments TROPONIN I (BEAKER) (test code = 397) 2.79 ng/mL 0.00-0.03 HH Troponin I (TnI) levels must be interpreted in the context of the presenting sym ptoms and the clinical findings. Elevated TnI levels indicate myocardial damage, but are not specific for ischemic heart disease. Elevated TnI levels are seen i n patients with other cardiac conditions (including myocarditis and congestive h eart failure), and slight TnI elevations occur in patients with other conditions , including sepsis, renal failure, acidosis, acute neurological disease, and per sistent tachyarrhythmia.[id number] 12:22:00* Test Item Value Reference Range Interpretation Comments POTASSIUM (BEAKER) (test code = 379) 4.3 meq/L 3.5-5.1 [id number] 12:22:00* Test Item Value Reference Range Interpretation Comments MAGNESIUM (BEAKER) (test code = 627) 2.0 mg/dL 1.6-2.6 POCT-GLUCOSE [id number] 11:39:00* Test Item Value Reference Range Interpretation Comments POC-GLUCOSE METER (BEAKER) (test code = 1538) 253 mg/dL 70-110 H TESTED AT [facility] [address] [facility] [address] [id number] 07:07:00* Test Item Value Reference Range Interpretation Comments PARTIAL THROMBOPLASTIN TIME (BEAKER) (test code = 760) 47.1 seconds 22.5-36.0 H BASIC METABOLIC [id number] 04:15:00* Test Item Value Reference Range Interpretation Comments SODIUM (BEAKER) (test code = 381) 139 meq/L 136-145 POTASSIUM (BEAKER) (test code = 379) 3.2 meq/L 3.5-5.1 L CHLORIDE (BEAKER) (test code = 382) 112 meq/L 98-107 H CO2 (BEAKER) (test code = 355) 20 meq/L 22-29 L BLOOD UREA NITROGEN (BEAKER) (test code = 354) 12 mg/dL 7-21 CREATININE (BEAKER) (test code = 358) 0.80 mg/dL 0.57-1.25 GLUCOSE RANDOM (BEAKER) (test code = 652) 130 mg/dL 70-105 H CALCIUM (BEAKER) (test code = 697) 8.8 mg/dL 8.4-10.2 EGFR (BEAKER) (test code = 1092) 95 mL/min/1.73 sq m ESTIMATED GFR IS NOT ACCURATE CREATININE CLEARANCE IN PREDICTING GLOMERULAR FILTRATION RATE. ESTIMATED GFR IS NOT APPLICABLE FOR DIALYSIS PATIENTS. TROPONIN [id number] 04:14:00* Test Item Value Reference Range Interpretation Comments TROPONIN I (BEAKER) (test code = 397) 3.70 ng/mL 0.00-0.03 HH Troponin I (TnI) levels must be interpreted in the context of the presenting sym ptoms and the clinical findings. Elevated TnI levels indicate myocardial damage, but are not specific for ischemic heart disease. Elevated TnI levels are seen i n patients with other cardiac conditions (including myocarditis and congestive h eart failure), and slight TnI elevations occur in patients with other conditions , including sepsis, renal failure, acidosis, acute neurological disease, and per sistent tachyarrhythmia.[id number] 03:09:00* Test Item Value Reference Range Interpretation Comments MAGNESIUM (ELENA) (test code = 627) 1.6 mg/dL 1.6-2.6 CT, CHEST WITH IV CONTRAST- PE TEST [id number] 00:24:00Referring: Dr. Hugo Hall for exam:->CHEST PAINReason for exam:->SHORTNESS OF BREATHReason for exam:->HEADACHEWhat is the patient's sedation requirement?->No SedationFINAL REPORT CT, CHEST WITH IV CONTRAST- PE TEST DESIGN I NDICATION: Shortness of breathCHEST PAINSHORTNESS OF BREATHHEADACHE COMPARISON: Correlation to noncontrast chest CT September 12, 2017 TECHNIQUE: Contrast enhanced C T examination of the chest in the pulmonary arterial phase from the bases to the apices. Orthogonal reformatted images as well as coronal maximum intensity proj ection images were obtained. DOSE REDUCTION: Dose modulation, iterative reconst ruction, and/or weight-based adjustment of the mA/kV was utilized to reduce the radiation dose to as low as reasonably achievable. FINDINGS: Lungs and pleura: N o consolidation. No effusion or pneumothorax.Central airways: Patent.Mediastinum : No adenopathy.Heart and pericardium: Unremarkable. Great vessels: Normal calib ers.Pulmonary embolism: None. Regional skeletal structures: No fracture. Flowing osteophytosis and calcification of the anterior longitudinal ligament compatibl e with DISH. Included upper abdomen: No acute abnormalities. Additional findings : None. IMPRESSION: No pulmonary embolism. No acute intrathoracic abnormality. Signed: JR Mancini Robert MDReport Verified Date/Time: 11/09/2017 00:24: 51 Reading Location: [address] Body Reading Room [id number] 23:35:00* Test Item Value Reference Range Interpretation Comments PARTIAL THROMBOPLASTIN TIME (ELENA) (test code = 760) 26.6 seconds 22.5-36.0 Prior to initiating heparinURINALYSIS W/ REFLEX URINE [id number] 23:09:00 * Test Item Value Reference Range Interpretation Comments COLOR (BEAKER) (test code = 470) Light Yellow CLARITY (BEAKER) (test code = 469) Hazy SPECIFIC GRAVITY UA (BEAKER) (test code = 468) 1.007 1.001-1 .035 PH UA (BEAKER) (test code = 467) 6.0 5.0-8.0 PROTEIN UA (BEAKER) (test code = 464) 20 mg/dL Negative A GLUCOSE UA (BEAKER) (test code = 365) Negative Negative KETONES UA (BEAKER) (test code = 371) Negative Negative BILIRUBIN UA (BEAKER) (test code = 462) Negative Negative BLOOD UA (BEAKER) (test code = 461) Small Negative A NITRITE UA (BEAKER) (test code = 465) Negative Negative LEUKOCYTE ESTERASE UA (BEAKER) (test code = 466) Large Negat danny A UROBILINOGEN UA (BEAKER) (test code = 463) 0.2 mg/dL 0.2-1.0 RBC UA (BEAKER) (test code = 519) 3 /HPF WBC UA (BEAKER) (test code = 520) > /HPF BACTERIA (BEAKER) (test code = 517) Rare SQUAMOUS EPITHELIAL (BEAKER) (test code = 516) < /HPF SOURCE(BEAKER) (test code = 2795) TROPONIN [id number] 22:52:00* Test Item Value Reference Range Interpretation Comments TROPONIN I (BEAKER) (test code = 397) 5.04 ng/mL 0.00-0.03 HH Troponin I (TnI) levels must be interpreted in the context of the presenting sym ptoms and the clinical findings. Elevated TnI levels indicate myocardial damage, but are not specific for ischemic heart disease. Elevated TnI levels are seen i n patients with other cardiac conditions (including myocarditis and congestive h eart failure), and slight TnI elevations occur in patients with other conditions , including sepsis, renal failure, acidosis, acute neurological disease, and per sistent tachyarrhythmia.RAD, CHEST, 1 VIEW, NON [id number] 22:48:00 Referring: Dr. Hugo Hall for exam:->CHEST PAINReason for exam:->SHORTNESS OF BREATHReason for exam:->HEADACHEFINAL REPORT History: Chest pain, shortness of breath. FINDINGS: Compared with November 07, 2017, the heart and mediastinum are stable. As before, there are multiple sternal wires indicating prior median sternotomy. Lungs are clear, free of edema, focal consolidation or visible effusions. No pneumothorax. Bones are unremarkable. IMPRESSION: 1. Negative for acute cardiopulmonary disease. Signed: J Luis Mcfadden Verified Date/Time: 11/08/2017 22:48:59 Reading Location: [facility] Diagnostic Imaging Reading Room - [place] [address] TINE KINASE (CK), TOTAL AND MB 2017-11-08 22:46:00* Test Item Value Reference Range Interpretation Comments CREATINE KINASE TOTAL (BEAKER) (test code = 380) 177 U/L 29-20 0 CREATINE KINASE-MB (BEAKER) (test code = 750) 5.7 ng/mL 0.0-6.6 CREATINE KINASE-MB INDEX (BEAKER) (test code = 395) 3.2 % CK-MB Reference Range:<6.7 Normal6.7-10.0 Borderline>10.0 AbnormalB- TYPE NATRIURETIC FACTOR (BNP)2017-11-08 22:46:00* Test Item Value Reference Range Interpretation Comments B-TYPE NATRIURETIC PEPTIDE (BEAKER) (test code = 700) 465 pg/mL 0-100 H HEPATIC FUNCTION [id number] 22:39:00* Test Item Value Reference Range Interpretation Comments TOTAL PROTEIN (BEAKER) (test code = 770) 7.6 gm/dL 6.0-8.3 ALBUMIN (BEAKER) (test code = 1145) 3.8 g/dL 3.5-5.0 BILIRUBIN TOTAL (BEAKER) (test code = 377) 0.4 mg/dL 0.2-1.2 BILIRUBIN DIRECT (BEAKER) (test code = 706) 0.2 mg/dL 0.1-0.5 ALKALINE PHOSPHATASE (BEAKER) (test code = 346) 84 U/L 40-150 AST (SGOT) (BEAKER) (test code = 353) 29 U/L 5-34 ALT (SGPT) (BEAKER) (test code = 347) 22 U/L 6-55 BASIC METABOLIC [id number] 22:39:00* Test Item Value Reference Range Interpretation Comments SODIUM (BEAKER) (test code = 381) 137 meq/L 136-145 POTASSIUM (BEAKER) (test code = 379) 4.0 meq/L 3.5-5.1 CHLORIDE (BEAKER) (test code = 382) 106 meq/L 98-107 CO2 (BEAKER) (test code = 355) 24 meq/L 22-29 BLOOD UREA NITROGEN (BEAKER) (test code = 354) 14 mg/dL 7-21 CREATININE (BEAKER) (test code = 358) 1.21 mg/dL 0.57-1.25 GLUCOSE RANDOM (BEAKER) (test code = 652) 169 mg/dL 70-105 H CALCIUM (BEAKER) (test code = 697) 10.4 mg/dL 8.4-10.2 H EGFR (BEAKER) (test code = 1092) 59 mL/min/1.73 sq m ESTIMATED GFR IS NOT ACCURATE CREATININE CLEARANCE IN PREDICTING GLOMERULAR FILTRATION RATE. ESTIMATED GFR IS NOT APPLICABLE FOR DIALYSIS PATIENTS. CBC W/PLT COUNT & AUTO [id number] 22:16:00* Test Item Value Reference Range Interpretation Comments WHITE BLOOD CELL COUNT (BEAKER) (test code = 775) 7.7 K/ L 3.5- 10.5 RED BLOOD CELL COUNT (BEAKER) (test code = 761) 3.56 M/ L 4.63-6 .08 L HEMOGLOBIN (BEAKER) (test code = 410) 11.3 GM/DL 13.7-17.5 L HEMATOCRIT (BEAKER) (test code = 411) 34.6 % 40.1-51.0 L MEAN CORPUSCULAR VOLUME (BEAKER) (test code = 753) 97.2 fL 79. 0-92.2 H MEAN CORPUSCULAR HEMOGLOBIN (BEAKER) (test code = 751) 31.7 pg 25.7-32.2 MEAN CORPUSCULAR HEMOGLOBIN CONC (BEAKER) (test code = 752) 32.7 GM/DL 32.3-36.5 RED CELL DISTRIBUTION WIDTH (BEAKER) (test code = 412) 13.4 % 11.6-14.4 PLATELET COUNT (BEAKER) (test code = 756) 112 K/CU MM 150-450 L MEAN PLATELET VOLUME (BEAKER) (test code = 754) 9.9 fL 9.4-12 .4 NUCLEATED RED BLOOD CELLS (BEAKER) (test code = 413) 0 /100 WBC 0 -0 NEUTROPHILS RELATIVE PERCENT (BEAKER) (test code = 429) 61 % LYMPHOCYTES RELATIVE PERCENT (BEAKER) (test code = 430) 26 % MONOCYTES RELATIVE PERCENT (BEAKER) (test code = 431) 8 % EOSINOPHILS RELATIVE PERCENT (BEAKER) (test code = 432) 5 % BASOPHILS RELATIVE PERCENT (BEAKER) (test code = 437) 0 % NEUTROPHILS ABSOLUTE COUNT (BEAKER) (test code = 670) 4.66 K/ L 1.78-5.38 LYMPHOCYTES ABSOLUTE COUNT (BEAKER) (test code = 414) 2.00 K/ L 1.32-3.57 MONOCYTES ABSOLUTE COUNT (BEAKER) (test code = 415) 0.62 K/ L 0. 30-0.82 EOSINOPHILS ABSOLUTE COUNT (BEAKER) (test code = 416) 0.35 K/ L 0.04-0.54 BASOPHILS ABSOLUTE COUNT (BEAKER) (test code = 417) 0.02 K/ L 0. 01-0.08 IMMATURE GRANULOCYTES-RELATIVE PERCENT (BEAKER) (test code = 2801) 0 % 0-1 RAD, CHEST, 1 VIEW, NON [id number] 13:47:00Referring: Dr. Hugo Hall for exam:->liver transplant evaluationShould this be performed at the bedside?-> YesFINAL REPORT TECHNIQUE: Frontal chest radiograph dated 11/07/2017. CLINICAL HISTORY: Liver transplant COMPARISON STUDY: Chest radiograph dated 11/08/2017 IMPRESSION: No focal consolidation. No pleural effusion or pneumothorax. Cardiomediastinal silhouette is normal in size. No pulmonary edema. Midline sternotomy wires are intact and well aligned. Degenerative changes are seen in the spine. No fracture. Signed: Elizabeth Portilloeport Verified Date/Time: 11/07/2017 13:47:36 Reading Location: [facility] Radiology Reading Room -GLUCOSE [id number] 12:50:00* Test Item Value Reference Range Interpretation Comments POC-GLUCOSE METER (BEAKER) (test code = 1538) 239 mg/dL 70-110 H TESTED AT [facility] [address] [facility] [address] POCT-GLUCOSE [id number] 07:58:00* Test Item Value Reference Range Interpretation Comments POC-GLUCOSE METER (BEAKER) (test code = 1538) 177 mg/dL 70-110 H TESTED AT [facility] [address] [facility] [address] BASIC METABOLIC [id number] 05:41:00* Test Item Value Reference Range Interpretation Comments SODIUM (BEAKER) (test code = 381) 136 meq/L 136-145 POTASSIUM (BEAKER) (test code = 379) 3.9 meq/L 3.5-5.1 CHLORIDE (BEAKER) (test code = 382) 106 meq/L 98-107 CO2 (BEAKER) (test code = 355) 22 meq/L 22-29 BLOOD UREA NITROGEN (BEAKER) (test code = 354) 13 mg/dL 7-21 CREATININE (BEAKER) (test code = 358) 0.79 mg/dL 0.57-1.25 GLUCOSE RANDOM (BEAKER) (test code = 652) 172 mg/dL 70-105 H CALCIUM (BEAKER) (test code = 697) 9.9 mg/dL 8.4-10.2 EGFR (BEAKER) (test code = 1092) 97 mL/min/1.73 sq m ESTIMATED GFR IS NOT ACCURATE CREATININE CLEARANCE IN PREDICTING GLOMERULAR FILTRATION RATE. ESTIMATED GFR IS NOT APPLICABLE FOR DIALYSIS PATIENTS. CBC (HEMOGRAM ONLY)2017-11-07 05:20:00* Test Item Value Reference Range Interpretation Comments WHITE BLOOD CELL COUNT (BEAKER) (test code = 775) 6.7 K/ L 3.5- 10.5 RED BLOOD CELL COUNT (BEAKER) (test code = 761) 3.44 M/ L 4.63-6 .08 L HEMOGLOBIN (BEAKER) (test code = 410) 10.9 GM/DL 13.7-17.5 L HEMATOCRIT (BEAKER) (test code = 411) 33.6 % 40.1-51.0 L MEAN CORPUSCULAR VOLUME (BEAKER) (test code = 753) 97.7 fL 79. 0-92.2 H MEAN CORPUSCULAR HEMOGLOBIN (BEAKER) (test code = 751) 31.7 pg 25.7-32.2 MEAN CORPUSCULAR HEMOGLOBIN CONC (BEAKER) (test code = 752) 32.4 GM/DL 32.3-36.5 RED CELL DISTRIBUTION WIDTH (BEAKER) (test code = 412) 13.6 % 11.6-14.4 PLATELET COUNT (BEAKER) (test code = 756) 108 K/CU MM 150-450 L MEAN PLATELET VOLUME (BEAKER) (test code = 754) 10.3 fL 9.4-12 .4 NUCLEATED RED BLOOD CELLS (BEAKER) (test code = 413) 0 /100 WBC 0 -0 POCT-GLUCOSE [id number] 22:13:00* Test Item Value Reference Range Interpretation Comments POC-GLUCOSE METER (BEAKER) (test code = 1538) 141 mg/dL 70-110 H TESTED AT [place] [address] [id number] 17:44:00* Test Item Value Reference Range Interpretation Comments ACTIVATED CLOTTING TIME (BEAKER) (test code = 441) 114 sec TESTED AT [place] [id number] POCT-GLUCOSE [id number] 16:41:00* Test Item Value Reference Range Interpretation Comments POC-GLUCOSE METER (BEAKER) (test code = 1538) 87 mg/dL 70-110 TESTED AT [place] [id number] 14:05:00* Test Item Value Reference Range Interpretation Comments ACTIVATED CLOTTING TIME (BEAKER) (test code = 441) 268 sec TESTED AT [place] [id number] BASIC METABOLIC [id number] 11:57:00* Test Item Value Reference Range Interpretation Comments SODIUM (BEAKER) (test code = 381) 136 meq/L 136-145 POTASSIUM (BEAKER) (test code = 379) 4.0 meq/L 3.5-5.1 CHLORIDE (BEAKER) (test code = 382) 107 meq/L 98-107 CO2 (BEAKER) (test code = 355) 21 meq/L 22-29 L BLOOD UREA NITROGEN (BEAKER) (test code = 354) 15 mg/dL 7-21 CREATININE (BEAKER) (test code = 358) 0.77 mg/dL 0.57-1.25 GLUCOSE RANDOM (BEAKER) (test code = 652) 66 mg/dL 70-105 L CALCIUM (BEAKER) (test code = 697) 10.4 mg/dL 8.4-10.2 H EGFR (BEAKER) (test code = 1092) 100 mL/min/1.73 sq m ESTIMATED GFR IS NOT ACCURATE CREATININE CLEARANCE IN PREDICTING GLOMERULAR FILTRATION RATE. ESTIMATED GFR IS NOT APPLICABLE FOR DIALYSIS PATIENTS. PT/[id number] 11:46:00* Test Item Value Reference Range Interpretation Comments PROTIME (BEAKER) (test code = 759) 13.7 seconds 11.7-14.7 INR (BEAKER) (test code = 370) 1.1 <=5.9 PARTIAL THROMBOPLASTIN TIME (BEAKER) (test code = 760) 25.6 seconds 22.5-36.0 RECOMMENDED COUMADIN/WARFARIN INR THERAPY RANGESSTANDARD DOSE: 2.0 - 3.0 Inclu sarina: PROPHYLAXIS for venous thrombosis, systemic embolization; TREATMENT for oliver ous thrombosis and/or pulmonary embolus.HIGH RISK: Target INR is 2.5-3.5 for pat ients with mechanical heart valves.CBC (HEMOGRAM ONLY)2017-11-06 11:35:00* Test Item Value Reference Range Interpretation Comments WHITE BLOOD CELL COUNT (BEAKER) (test code = 775) 6.4 K/ L 3.5- 10.5 RED BLOOD CELL COUNT (BEAKER) (test code = 761) 3.47 M/ L 4.63-6 .08 L HEMOGLOBIN (BEAKER) (test code = 410) 11.2 GM/DL 13.7-17.5 L HEMATOCRIT (BEAKER) (test code = 411) 34.3 % 40.1-51.0 L MEAN CORPUSCULAR VOLUME (BEAKER) (test code = 753) 98.8 fL 79. 0-92.2 H MEAN CORPUSCULAR HEMOGLOBIN (BEAKER) (test code = 751) 32.3 pg 25.7-32.2 H MEAN CORPUSCULAR HEMOGLOBIN CONC (BEAKER) (test code = 752) 32.7 GM/DL 32.3-36.5 RED CELL DISTRIBUTION WIDTH (BEAKER) (test code = 412) 13.6 % 11.6-14.4 PLATELET COUNT (BEAKER) (test code = 756) 113 K/CU MM 150-450 L MEAN PLATELET VOLUME (BEAKER) (test code = 754) 9.5 fL 9.4-12 .4 NUCLEATED RED BLOOD CELLS (BEAKER) (test code = 413) 0 /100 WBC 0 -0 [id number] QUANTITATION & [id number] 07:29:00* Test Item Value Reference Range Interpretation Comments [id number] (QUEST) (test code = 5176241) 127 A-1 ANTITRYP PHENOTYP (QUEST) (test code = 2831874) see below MYOCARD IMAGING, MULTI, PHARM, [id number] 18:12:00Referring: Dr. 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 PROT OCOL: 10.8 mCi of Tc-99m sestamibi was injected iv at rest, and SPECT (ZenMate) images were obtained. Also, 31.4 mCi of Tc-99m sestamibi was injected i v at expected peak pharmacologic effect, and gated SPECT images were obtained. PRELIMINARY STRESS TEST DATA FROM NONINVASIVE CARDIOLOGY: Pharmacologic stress was by 10-second iv infusion of 0.4 mg of regadenoson. Radiotracer was injected 30 seconds after start of stress. Heart rate was 56 beats/min at rest and 74 eitan ts/min (49 % of MPHR) at tracer injection. BP was 154/78 mmHg at rest and 115/66 mmHg at tracer injection. Stress was stopped for predetermined endpoint. The reji suero experienced dyspnea; treatment was not required. Preliminary ECG evaluatio n revealed sinus bradycardia at rest and no ischemic changes with stress. (Final ECG interpretation and other stress and monitoring data are reported separately by Cardiology.) IMAGING FINDINGS: Study quality is good. Post-stress images s how decreased activity in the anteroapical and inferior LV. Resting images show improved perfusion. LV volume appears borderline. RV volume appears normal. [place] d images obtained at rest after stress injection show diffuse LV hypokinesis. QG S LVEF is 39%. IMPRESSION: 1. Abnormal study. 2. Appropriate pharmacologic stress. 3. Abnormal myocardial perfusion. There is a moderate severity, medium sized, partially reversible, perfusion defect in the apical anterior, apical lat eral, and mid and apical inferior LV. 4. Overall resting LV function is moderat margaret decreased with diffuse decrease in wall motion. 5. Extracardiac tracer dist ribution is normal. 6. No prior study. Signed: Mook Cox MDReport Verifie yordan Date/Time: 10/14/2017 18:12:19 Reading Location: [address] Room MEGALOVIRUS ANTIBODY, [id number] 08:24:00* Test Item Value Reference Range Interpretation Comments CYTOMEGALOVIRUS IGG ANTIBODY (BEAKER) (test code = 790) Positive CYTOMEGALOVIRUS ANTIBODY, [id number] 08:24:00* Test Item Value Reference Range Interpretation Comments CYTOMEGALOVIRUS IGM ANTIBODY (BEAKER) (test code = 816) Negative EBV-VCA ANTIBODY, [id number] 08:24:00* Test Item Value Reference Range Interpretation Comments URSZULA-VILLA VCA IGG (BEAKER) (test code = 983) Positive EBV-VCA ANTIBODY, [id number] 08:24:00* Test Item Value Reference Range Interpretation Comments URSZULA-VILLA VCA IGM (BEAKER) (test code = 984) Negative RAD, BONE DENSITY [id number] 16:01:00Referring: Dr. Hugo Hall for Exam:->HCV,CIRRHOSIS,HCC,NAFLD, PRE TRANSPLANT EVALFINAL REPORT Bone density study, 10/10/2017 Clinical History: Screening Bone mineral density measurementLumbar spine1.243 gm/hf6Gzlxppj neck0.984 gm/cm2 Standard deviation from young adult population (T-score)Lumbar spine0.2Femoral neck-0.7 Standard deviation for age adjusted population (Z-score)Lumbar nkhyx7Bfdannb neck0.1 According to medical literature, this corresponds to no increased risk of an osteoporotic fracture of the lumbar spine as compared to the young adult population. The femoral neck bone mineral density corresponds to no increased risk of an osteoporotic fracture as compared to the young adult population. Impression: Within normal range. Complete computer analysis will be sent shortly. Diagnostic criteria for osteoporosisBMD: Bone mineral density Normal: BMD measurement less than one standard deviation from young adult p opulationOsteopenia: BMD measurement between 1 and 2.5 standard deviationsOsteop orosis: BMD measurement greater than 2.5 standard deviationsSevere osteoporosis: Osteoporosis and one or more fragility fractures Signed: Daron Wilde V erified Date/Time: 10/10/2017 16:01:15 Reading Location: [address] Mammo Re ading Room TITIS B PCR, [id number] 15:54:00* Test Item Value Reference Range Interpretation Comments HBV RESULT COMPONENT (CRISPINAKER) (test code = 2701) HBV DNA not detected HBV DNA not detected This test uses a Real-Time Polymerase Chain Reaction (RT-PCR) methodology and wa s performed using PANCHO AmpliPrep/PANCHO TaqMan HBV Test, v2.0 ([employer]Reportable range for this assay is 20 - 170,000,000 IU per mL ( 1.30 - 8.23 Log IU/mL).RAD, MANDIBLE, MIN 4 [id number] 14:34:00Referring: Dr. Hugo Hall for Exam:->HCV,CIRRHOSIS,HCC,NAFLD, PRE TRANSPLANT EVAL FINAL REPORT Mandible dated 10/10/2017 Comment: 5 views of the mandible were submitted for interpretation. Body, angle, and coronoid proc ess of the mandible are intact without fracture. TMJs were obtained bilaterally. No osteolytic lesion or periodontal abscess noted. Impression: No osteolytic le tory in the mandible. Signed: Kathy Warren Verified Date/Time: 10/11/19 18 14:34:24 Reading Location: [address] Radiology Reading Room [facility] signed by: KATHY WARREN M.D. on 10/10/2017 02:34 PM RAD, CHEST, 2 VIEWS 2017-10-10 13:13:00Referring: Dr. Hugo Hall for Exam:-> HCV,CIRRHOSIS,HCC,NAFLD, PRE TRANSPLANT EVALFINAL REPORT PA and Lateral views of the chest dated 10/10/2017 COMPARISON: February 09, 2017 Clinical information: HCV,CIRRHOSIS,HCC,NAFLD, PRE TRANSPLANT EVAL Comment: Heart is normal in size. There is prior sternotomy and bypass surgery. Pulmonary vasculature is unremarkable. Lungs are clear. No pulmonary infiltrate or pleural effusion is present. Impression: No active cardiopulmonary disease or interval change. Signed: Kathy Warreneport Verified Date/Time: 10/10/2017 13:13:06 Reading Location: [address] Radiology Reading Room TITIS C PCR, [id number] 10:17:00* Test Item Value Reference Range Interpretation Comments HCV RESULT COMPONENT (BEAKER) (test code = 2699) HCV RNA not detected HCV RNA not detected This test uses a Real-Time Polymerase Chain Reaction (RT-PCR) methodology and wa s performed using PANCHO Ampliprep/PANCHO TaqMan HCV test kit version 2.0 ([employer]).Reportable range for this assay is 15 - 100,000,000 IU per mL (1.18 - 8.00 Log IU/mL).CRYPTOCOCCAL [id number] 04:42:00* Test Item Value Reference Range Interpretation Comments CRYPTOCOCCAL ANTIGEN, SERUM (BEAKER) (test code = 1828) Nega tive Negative, Interference [id number] 03:03:00* Test Item Value Reference Range Interpretation Comments RPR SCREEN (BEAKER) (test code = 420) Nonreactive Nonreactive HEPATITIS C [id number] 13:32:00* Test Item Value Reference Range Interpretation Comments HEPATITIS C ANTIBODY (BEAKER) (test code = 367) Reactive Nonrea ctive A [id number] 12:08:00* Test Item Value Reference Range Interpretation Comments T3 TOTAL (BEAKER) (test code = 656) 74 ng/dL 48-159 HEMOGLOBIN [id number] 11:49:00* Test Item Value Reference Range Interpretation Comments HEMOGLOBIN A1C (BEAKER) (test code = 368) 6.2 % 4.3-6.1 H CALCIUM, [id number] 10:38:00* Test Item Value Reference Range Interpretation Comments CALCIUM IONIZED (BEAKER) (test code = 698) 1.35 mmol/L 1.12-1.27 H PH, BLOOD (BEAKER) (test code = 1810) 7.28 HEPATITIS A ANTIBODY, [id number] 10:21:00* Test Item Value Reference Range Interpretation Comments HEPATITIS A IGG ANTIBODY (BEAKER) (test code = 2797) Reactive N onreactive A URINALYSIS W/ [id number] 10:07:00* Test Item Value Reference Range Interpretation Comments COLOR (BEAKER) (test code = 470) Yellow CLARITY (BEAKER) (test code = 469) Clear SPECIFIC GRAVITY UA (BEAKER) (test code = 468) 1.014 1.001-1 .035 PH UA (BEAKER) (test code = 467) 5.0 5.0-8.0 PROTEIN UA (BEAKER) (test code = 464) 10 mg/dL Negative A GLUCOSE UA (BEAKER) (test code = 365) Negative Negative KETONES UA (BEAKER) (test code = 371) Negative Negative BILIRUBIN UA (BEAKER) (test code = 462) Negative Negative BLOOD UA (BEAKER) (test code = 461) Negative Negative NITRITE UA (BEAKER) (test code = 465) Negative Negative LEUKOCYTE ESTERASE UA (BEAKER) (test code = 466) Negative Negat danny UROBILINOGEN UA (BEAKER) (test code = 463) 0.2 mg/dL 0.2-1.0 RBC UA (BEAKER) (test code = 519) < /HPF WBC UA (BEAKER) (test code = 520) 5 /HPF MUCUS (BEAKER) (test code = 1574) Rare SQUAMOUS EPITHELIAL (BEAKER) (test code = 516) 1 /HPF HYALINE CASTS (BEAKER) (test code = 514) 5 /LPF SOURCE(BEAKER) (test code = 2795) HEPATITIS B SURFACE [id number] 09:59:00* Test Item Value Reference Range Interpretation Comments HEPATITIS B SURFACE ANTIBODY (BEAKER) (test code = 647) 115.0 mIU/m L <8.0 H HEPATITIS B CORE ANTIBODY, [id number] 09:59:00* Test Item Value Reference Range Interpretation Comments HEPATITIS B CORE IGM ANTIBODY (BEAKER) (test code = 645) Non reactive Nonreactive HEPATITIS A ANTIBODY, [id number] 09:59:00* Test Item Value Reference Range Interpretation Comments HEPATITIS A IGM ANTIBODY (BEAKER) (test code = 498) Nonreactive No nreactive HEPATITIS B CORE ANTIBODY, [id number] 09:59:00* Test Item Value Reference Range Interpretation Comments HEPATITIS B CORE TOTAL ANTIBODY (BEAKER) (test code = 497) N onreactive Nonreactive [id number] 09:56:00* Test Item Value Reference Range Interpretation Comments PROSTATE SPECIFIC ANTIGEN (BEAKER) (test code = 844) 1.5 ng/mL 0 .0-4.0 HEPATITIS B SURFACE [id number] 09:56:00* Test Item Value Reference Range Interpretation Comments HEPATITIS B SURFACE ANTIGEN (2) (BEAKER) (test code = 2585) Nonreactive Nonreactive HIV-1 ANTIGEN WITH HIV-1/2 [id number] 09:56:00* Test Item Value Reference Range Interpretation Comments HIV-1 ANTIGEN WITH HIV 1\\T\\2 ANTIBODY (2) (BEAKER) (te st code = 2586) Nonreactive Nonreactive [id number] 09:52:00* Test Item Value Reference Range Interpretation Comments T4 TOTAL (BEAKER) (test code = 895) 5.4 ug/dL 4.9-11.7 [id number] 09:52:00* Test Item Value Reference Range Interpretation Comments THYROID STIMULATING HORMONE (BEAKER) (test code = 772) 4.00 uIU/mL 0.35-4.94 VITAMIN D, [id number] 09:52:00* Test Item Value Reference Range Interpretation Comments VITAMIN D 25-OH (BEAKER) (test code = 2764) 18.3 ng/mL 6.6-49.9 Effective 04/17/2017: Reference Range ChangeNew: 6.6-49.9 ng/mL Previous: 13.0 -47.8 ng/mLRecommended Vitamin D Target Range: 30.0-40.0 ng/mLURIC ACID 2017-10-09 09:38:00* Test Item Value Reference Range Interpretation Comments URIC ACID (BEAKER) (test code = 773) 8.7 mg/dL 2.6-7.2 H [id number] 09:38:00* Test Item Value Reference Range Interpretation Comments MAGNESIUM (BEAKER) (test code = 627) 1.9 mg/dL 1.6-2.6 [id number] 09:38:00* Test Item Value Reference Range Interpretation Comments PHOSPHORUS (BEAKER) (test code = 604) 2.7 mg/dL 2.3-4.7 COMPREHENSIVE METABOLIC [id number] 09:38:00* Test Item Value Reference Range Interpretation Comments TOTAL PROTEIN (BEAKER) (test code = 770) 8.2 gm/dL 6.0-8.3 ALBUMIN (BEAKER) (test code = 1145) 4.2 g/dL 3.5-5.0 ALKALINE PHOSPHATASE (BEAKER) (test code = 346) 111 U/L 40-150 BILIRUBIN TOTAL (BEAKER) (test code = 377) 0.3 mg/dL 0.2-1.2 SODIUM (BEAKER) (test code = 381) 138 meq/L 136-145 POTASSIUM (BEAKER) (test code = 379) 4.7 meq/L 3.5-5.1 CHLORIDE (BEAKER) (test code = 382) 108 meq/L 98-107 H CO2 (BEAKER) (test code = 355) 23 meq/L 22-29 BLOOD UREA NITROGEN (BEAKER) (test code = 354) 16 mg/dL 7-21 CREATININE (BEAKER) (test code = 358) 0.95 mg/dL 0.57-1.25 GLUCOSE RANDOM (BEAKER) (test code = 652) 120 mg/dL 70-105 H CALCIUM (BEAKER) (test code = 697) 10.6 mg/dL 8.4-10.2 H AST (SGOT) (BEAKER) (test code = 353) 51 U/L 5-34 H ALT (SGPT) (BEAKER) (test code = 347) 67 U/L 6-55 H EGFR (BEAKER) (test code = 1092) 78 mL/min/1.73 sq m ESTIMATED GFR IS NOT ACCURATE CREATININE CLEARANCE IN PREDICTING GLOMERULAR FILTRATION RATE. ESTIMATED GFR IS NOT APPLICABLE FOR DIALYSIS PATIENTS. LIPID [id number] 09:38:00* Test Item Value Reference Range Interpretation Comments TRIGLYCERIDES (BEAKER) (test code = 540) 223 mg/dL CHOLESTEROL (BEAKER) (test code = 631) 183 mg/dL HDL CHOLESTEROL (BEAKER) (test code = 976) 44 mg/dL LDL CHOLESTEROL CALCULATED (BEAKER) (test code = 633) 94 mg/dL Triglyceride Reference Range: Low Risk <150 Borderline 150-199 High Risk 200-499 Very High Risk >=500Cholesterol Reference Range: Low Risk <200 Borderline 200-239 High Risk >240HDL Cholesterol Reference Range: Low Risk >=60 High Risk <40LDL Cholesterol Reference Range: Optimal <100 Near Optimal 100-129 Borderline 130-159 High 160-189 Very High >=190 BILIRUBIN, [id number] 09:38:00* Test Item Value Reference Range Interpretation Comments BILIRUBIN DIRECT (BEAKER) (test code = 706) 0.2 mg/dL 0.1-0.5 GAMMA GLUTAMYL TRANSFERASE (GGT)2017-10-09 09:38:00* Test Item Value Reference Range Interpretation Comments GAMMA GLUTAMYL TRANSFERASE (BEAKER) (test code = 364) 129 U/L 9-64 H BLOOD GAS, [id number] 09:36:00* Test Item Value Reference Range Interpretation Comments PH ARTERIAL (BEAKER) (test code = 383) 7.33 7.35-7.45 L PCO2 ARTERIAL (BEAKER) (test code = 384) 38 mmHg 35-45 PO2 ARTERIAL (BEAKER) (test code = 385) 87 mmHg 80-90 O2 SATURATION ARTERIAL (BEAKER) (test code = 386) 96.1 % 96.0 -97.0 HCO3 ARTERIAL (BEAKER) (test code = 388) 20 mmol/L 21-29 L BASE EXCESS ARTERIAL (BEAKER) (test code = 387) -5.6 mmol/L -2.0-3 .0 L PATIENT TEMPERATURE (BEAKER) (test code = 1818) 37.0 C FIO2 (BEAKER) (test code = 1819) 21.0 % [id number] 09:31:00* Test Item Value Reference Range Interpretation Comments TRANSFERRIN (BEAKER) (test code = 541) 329 mg/dL 174-382 [id number] 09:31:00* Test Item Value Reference Range Interpretation Comments ETHANOL (BEAKER) (test code = 400) < mg/dL <=10 [id number] 09:13:00* Test Item Value Reference Range Interpretation Comments FIBRINOGEN LEVEL (BEAKER) (test code = 658) 324 mg/dl 225-434 [id number] 09:13:00* Test Item Value Reference Range Interpretation Comments PARTIAL THROMBOPLASTIN TIME (BEAKER) (test code = 760) 25.1 seconds 22.5-36.0 PROTHROMBIN TIME/[id number] 09:12:00* Test Item Value Reference Range Interpretation Comments PROTIME (BEAKER) (test code = 759) 13.3 seconds 11.7-14.7 INR (BEAKER) (test code = 370) 1.0 <=5.9 RECOMMENDED COUMADIN/WARFARIN INR THERAPY RANGESSTANDARD DOSE: 2.0 - 3.0 Inclu sarina: PROPHYLAXIS for venous thrombosis, systemic embolization; TREATMENT for oliver ous thrombosis and/or pulmonary embolus.HIGH RISK: Target INR is 2.5-3.5 for pat ients with mechanical heart valves.CBC W/PLT COUNT & AUTO [id number] 09:07:00* Test Item Value Reference Range Interpretation Comments WHITE BLOOD CELL COUNT (BEAKER) (test code = 775) 7.2 K/ L 3.5- 10.5 RED BLOOD CELL COUNT (BEAKER) (test code = 761) 4.18 M/ L 4.63-6 .08 L HEMOGLOBIN (BEAKER) (test code = 410) 13.4 GM/DL 13.7-17.5 L HEMATOCRIT (BEAKER) (test code = 411) 40.8 % 40.1-51.0 MEAN CORPUSCULAR VOLUME (BEAKER) (test code = 753) 97.6 fL 79. 0-92.2 H MEAN CORPUSCULAR HEMOGLOBIN (BEAKER) (test code = 751) 32.1 pg 25.7-32.2 MEAN CORPUSCULAR HEMOGLOBIN CONC (BEAKER) (test code = 752) 32.8 GM/DL 32.3-36.5 RED CELL DISTRIBUTION WIDTH (BEAKER) (test code = 412) 13.5 % 11.6-14.4 PLATELET COUNT (BEAKER) (test code = 756) 118 K/CU MM 150-450 L MEAN PLATELET VOLUME (BEAKER) (test code = 754) 10.4 fL 9.4-12 .4 NUCLEATED RED BLOOD CELLS (BEAKER) (test code = 413) 0 /100 WBC 0 -0 NEUTROPHILS RELATIVE PERCENT (BEAKER) (test code = 429) 58 % LYMPHOCYTES RELATIVE PERCENT (BEAKER) (test code = 430) 27 % MONOCYTES RELATIVE PERCENT (BEAKER) (test code = 431) 7 % EOSINOPHILS RELATIVE PERCENT (BEAKER) (test code = 432) 7 % BASOPHILS RELATIVE PERCENT (BEAKER) (test code = 437) 1 % NEUTROPHILS ABSOLUTE COUNT (BEAKER) (test code = 670) 4.16 K/ L 1.78-5.38 LYMPHOCYTES ABSOLUTE COUNT (BEAKER) (test code = 414) 1.93 K/ L 1.32-3.57 MONOCYTES ABSOLUTE COUNT (BEAKER) (test code = 415) 0.52 K/ L 0. 30-0.82 EOSINOPHILS ABSOLUTE COUNT (BEAKER) (test code = 416) 0.53 K/ L 0.04-0.54 BASOPHILS ABSOLUTE COUNT (BEAKER) (test code = 417) 0.05 K/ L 0. 01-0.08 IMMATURE GRANULOCYTES-RELATIVE PERCENT (BEAKER) (test code = 2801) 0 % 0-1 MR, ABDOMEN, [id number] 17:01:00Referring: Dr. Hugo Knox MRIFINAL REPORT MRI OF THE ABDOMEN CLINICAL HISTORY: Liver lesion TECHNIQUE: Multiplanar and multisequence MR images of the abdomen are obtained before and after intravenous contrast administration. Contrast is administered to evaluate solid organs. COMPARISON: Outside MRI of the abdomen from DISCUSSION: LIVER: There is a 3.7 cm enhancing mass in segment VII with washout and capsule. Focal fatty infiltration adjacent to the falciform ligament . No other focal hepatic lesion is identified. Main portal vein is patent measur ing 1.6 cm. Mildly nodular contour of the liver.BILIARY: Gallbladder is absent. No biliary ductal dilation.PANCREAS: Annular pancreas. No pancreatic ductal dila tion. No solid pancreatic lesion.SPLEEN: No splenomegaly. ADRENALS: No nodule.KI DNEYS: No hydronephrosis or hydroureter. Proteinaceous or hemorrhagic cyst measu ring 2.5 cm the right kidney. No solid renal lesion. PERITONEUM/RETROPERITONEUM: No ascites.LYMPH NODES: No upper abdominal lymphadenopathy. VESSELS: Abdominal aorta is normal in caliber. BONES AND SOFT TISSUES: No destructive osseous lesio n. 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 Proteinaceous or hemorrhagic 2.5 cm cyst in the right kidney. Sign ed: Rito Post MDReport Verified Date/Time: 09/12/2017 17:01:37 Reading Locat ion: [address] Radiology Reading Room , CHEST, WITHOUT [id number] 14:49:00Referring: Dr. Hugo Bazan REPORT CT OF THE CHEST CLINICAL HISTORY: HCC TECHNIQUE: CT of the chest is performed without intravenous contrast administration. This exam was performed according to our departmental dose-optimization program which includes automated exposure control, adjustment of the mA and/or kV according to patient size and/or use of iterative reconstruction technique. COMPARISON FILM: None DISCUSSION: LINES/TUBES: None. LUNGS/AIRWAYS: Trachea and major airways are clear. Incidental azygos lobe and fissure. No discrete nodule measuring greater than 4 mm.PLEURA: No effusion or pneumothorax.HEART AND MEDIASTINUM: There is a 1.7 cm hypodense left thyroid nodule. Coronary artery calcifications. Findings of prior CABG. No pericardial effusion. No mediastinal or hilar lymphadenopathy. BONES AND SOFT TISSUES: Mild degenerative changes in the thoracic spine. UPPER ABDOMEN: Please refer to contemporaneous MRI of the abdomen for details. IMPRESSION: No specific findings of metastatic disease in the chest. Incidental 1.7 cm hypodense left thyroid nodule. Recommend thyroid ultrasound for further evaluation. Signed: Rito Post MDReport Verified Date/Time: 09/12/2017 14:49: 24 Reading Location: [address] Radiology Reading Room Electronically sign ed by: RITO POST MD on 09/12/2017 02:49 PM [id number] 13:20:00* Test Item Value Reference Range Interpretation Comments POC-CREATININE (BEAKER) (test code = 1859) 0.8 mg/dL 0.6-1.3 TESTED AT [address] [address] POC-EGFR (BEAKER) (test code = 1860) 95 mL/min/1.73M2 OUTSIDE [id number] 11:42:00Surgical Pathology Report Case: [id number] Authorizing Provider: Marc Jimenez MD Collected: 08/22/2017 1212 Ordering Location: [facility] Laboratory Received: 08/22/2017 1216 Pathologist: Keyonna Alvarez MD Specimens: A) - Biopsy, Liver, Received 8 slides from [facility] label [id number] B) - Biopsy, Liver, Received 5 slides from [facility] label [id number]. OUTSIDE SLIDES, [id number], NEEDLE BIOPSIES OF LIVER MASS, (DATE OF PROCEDURE 06/19/2017)- BIOPSY LIMITED FOR HISTOLOGICAL EVALUATION, see comment- FEATURES SUGGESTIVE OF CIRRHOSIS- FEATURES SUSPICIOUS FOR HEPATOCELLULAR CARCINOMAB. OUTSIDE SLIDES, LABELED [id number], LIVER, FNA (DATE OF PROCEDURE 06/19/2017):- ATYPICAL HEPATOCELLULAR PROLIFERATION, see comment A. The biopsy comprises of few small pieces of liver parenchyma and is therefore limited for a definitive diagnosis. There are expanded foci of fibrosis with some nodularity suggestive of cirrhosis. Correlation with clinical and imaging parameters is recommended. A couple of foci shows hepatocytes with thickened trabeculae and mild nuclear atypia, suspicious for hepatocellular carcinoma. A rebiopsy of the liver mass is recommended for a definitive tissue diagnosis of hepatocellular carcinoma, if clinicall indicated. The case was discussed at the weekly liver biopsy co nference held in the [facility] at [facility] on August 23, 2017. One HE stained slide is retained for our records.B. Sm ears show clusters of hepatocytes with traversing endothelial cells and focal th ickened trabeculae. Those findings raise the suspicion of well differentiated he patocellular carcinoma. However, the limited diagnostic material preclude a more definitive diagnosis.IDC: Dr. Kahn (for the cytology component of this case)[id number] Chronic Hepatitis C and liver massA. Outside slides, [id number], liver needle co re biopsy of mass, date of procedure 07/07/2017, received from The Department o f Pathology, [facility], [facility], [place] [address].B. Outside slides, [id number], liver needle FNA of mass, date of pro cedure 07/07/2017, received from The Department of Pathology, [facility], [address], [address], [facility] [address].Received eight gl ass slides (4 HE, 1 trichrome, 1 reticulin, 1 iron, 1 PAS (D)), each labeled [id number], along with the pathology report.Received five glass slides, each labele d, CBA [id number] (A1,A2,A3,A5 and A6), along with the pathology report.A. Section s hows few small pieces of liver parenchyma. There are expanded areas of fibrosis with mild to moderate chronic lymphoplasmacytic inflammation. There is mild chol angiolar proliferation. An occasional small unremarkable bile duct is present. N o interface hepatitis is noted. The hepatocytes show mild steatosis. No ballooni ng degeneration is seen. No significant lobular inflammation is noted. A couple of foci show hepatocytes with mild nuclear atypia, with thickened trabeculae and rare pseudogland formation. B. Smears show clusters of hepatocytes with sebastián ing endothelial cells and focal thickened trabeculaeANTI-MITOCHONDRIAL AB, REFLEX TO [id number] 11:58:00* Test Item Value Reference Range Interpretation Comments SCAN RESULT (test code = 8545185) ANTI-NUCLEAR ANTIBODY (HANSEL)2017-08-02 10:06:00* Test Item Value Reference Range Interpretation Comments ANTI-NUCLEAR ANTIBODY (HANSEL) (BEAKER) (test code = 418) Positive Negative A HANSEL TITER AND [id number] 10:06:00* Test Item Value Reference Range Interpretation Comments HANSEL TITER (BEAKER) (test code = 1541) :160 HANSEL PATTERN (BEAKER) (test code = 1781) Homogeneous HEPATITIS A ANTIBODY, [id number] 18:26:00* Test Item Value Reference Range Interpretation Comments HEPATITIS A IGG ANTIBODY (BEAKER) (test code = 2797) Reactive N onreactive A HEPATITIS B CORE ANTIBODY, [id number] 18:19:00* Test Item Value Reference Range Interpretation Comments HEPATITIS B CORE TOTAL ANTIBODY (BEAKER) (test code = 497) N onreactive Nonreactive HEPATITIS B SURFACE [id number] 17:45:00* Test Item Value Reference Range Interpretation Comments HEPATITIS B SURFACE ANTIGEN (2) (BEAKER) (test code = 2585) Nonreactive Nonreactive HEPATITIS B SURFACE [id number] 17:45:00* Test Item Value Reference Range Interpretation Comments HEPATITIS B SURFACE ANTIBODY (BEAKER) (test code = 647) 152.6 mIU/m L <8.0 H CARCINOEMBRYONIC ANTIGEN (CEA)2017-08-01 17:33:00* Test Item Value Reference Range Interpretation Comments CARCINOEMBRYONIC ANTIGEN (BEAKER) (test code = 685) 1.3 ng/mL 0. 0-5.0 [id number] 17:33:00* Test Item Value Reference Range Interpretation Comments FERRITIN (BEAKER) (test code = 361) 21 ng/mL 5-275 ALPHA FETOPROTEIN (AFP), TUMOR [id number] 17:33:00* Test Item Value Reference Range Interpretation Comments ALPHA-FETOPROTEIN (BEAKER) (test code = 1094) 7.4 ng/mL <10.0 IRON, TIBC, % SAT. (WITHOUT FERRITIN)2017-08-01 17:24:00* Test Item Value Reference Range Interpretation Comments IRON (BEAKER) (test code = 547) 112 ug/dL 40-160 TOTAL IRON BINDING CAPACITY (BEAKER) (test code = 769) 453 ug/dL 250-450 H IRON % SATURATION (2) (BEAKER) (test code = 2590) 25 % 20-5 5 [id number] 17:12:00* Test Item Value Reference Range Interpretation Comments ALPHA-1 ANTITRYPSIN (BEAKER) (test code = 502) 142.90 mg/dL 90.00-2 00.00 BASIC METABOLIC [id number] 17:11:00* Test Item Value Reference Range Interpretation Comments SODIUM (BEAKER) (test code = 381) 140 meq/L 136-145 POTASSIUM (BEAKER) (test code = 379) 4.2 meq/L 3.5-5.1 Specimen slightly hemolyzed CHLORIDE (BEAKER) (test code = 382) 109 meq/L 98-107 H CO2 (BEAKER) (test code = 355) 21 meq/L 22-29 L BLOOD UREA NITROGEN (BEAKER) (test code = 354) 17 mg/dL 7-21 CREATININE (BEAKER) (test code = 358) 0.81 mg/dL 0.57-1.25 Specimen slightly hemolyzed GLUCOSE RANDOM (BEAKER) (test code = 652) 63 mg/dL 70-105 L CALCIUM (BEAKER) (test code = 697) 10.7 mg/dL 8.4-10.2 H EGFR (BEAKER) (test code = 1092) 94 mL/min/1.73 sq m ESTIMATED GFR IS NOT ACCURATE CREATININE CLEARANCE IN PREDICTING GLOMERULAR FILTRATION RATE. ESTIMATED GFR IS NOT APPLICABLE FOR DIALYSIS PATIENTS. HEPATIC FUNCTION [id number] 17:11:00* Test Item Value Reference Range Interpretation Comments TOTAL PROTEIN (BEAKER) (test code = 770) 8.7 gm/dL 6.0-8.3 H Specimen slightly hemolyzed ALBUMIN (BEAKER) (test code = 1145) 4.1 g/dL 3.5-5.0 Specimen slightly hemolyzed BILIRUBIN TOTAL (BEAKER) (test code = 377) < mg/dL 0.2-1.2 Specimen slightly hemolyzed BILIRUBIN DIRECT (BEAKER) (test code = 706) 0.1 mg/dL 0.1-0.5 Specimen slightly hemolyzed ALKALINE PHOSPHATASE (BEAKER) (test code = 346) 129 U/L 40-150 AST (SGOT) (BEAKER) (test code = 353) 27 U/L 5-34 Specimen slightly hemolyzed ALT (SGPT) (BEAKER) (test code = 347) 43 U/L 6-55 Specimen slightly hemolyzed PROTHROMBIN [id number] 17:09:00* Test Item Value Reference Range Interpretation Comments PROTIME (BEAKER) (test code = 759) 12.8 seconds 11.7-14.7 INR (BEAKER) (test code = 370) 1.0 <=5.9 RECOMMENDED COUMADIN/WARFARIN INR THERAPY RANGESSTANDARD DOSE: 2.0 - 3.0 Inclu sarina: PROPHYLAXIS for venous thrombosis, systemic embolization; TREATMENT for oliver ous thrombosis and/or pulmonary embolus.HIGH RISK: Target INR is 2.5-3.5 for pat ients with mechanical heart valves.CBC W/PLT COUNT & AUTO [id number] 16:53:00* Test Item Value Reference Range Interpretation Comments WHITE BLOOD CELL COUNT (BEAKER) (test code = 775) 7.6 K/ L 3.5- 10.5 RED BLOOD CELL COUNT (BEAKER) (test code = 761) 4.00 M/ L 4.63-6 .08 L HEMOGLOBIN (BEAKER) (test code = 410) 12.4 GM/DL 13.7-17.5 L HEMATOCRIT (BEAKER) (test code = 411) 38.2 % 40.1-51.0 L MEAN CORPUSCULAR VOLUME (BEAKER) (test code = 753) 95.5 fL 79. 0-92.2 H MEAN CORPUSCULAR HEMOGLOBIN (BEAKER) (test code = 751) 31.0 pg 25.7-32.2 MEAN CORPUSCULAR HEMOGLOBIN CONC (BEAKER) (test code = 752) 32.5 GM/DL 32.3-36.5 RED CELL DISTRIBUTION WIDTH (BEAKER) (test code = 412) 15.8 % 11.6-14.4 H PLATELET COUNT (BEAKER) (test code = 756) 128 K/CU MM 150-450 L MEAN PLATELET VOLUME (BEAKER) (test code = 754) 10.7 fL 9.4-12 .4 NUCLEATED RED BLOOD CELLS (BEAKER) (test code = 413) 0 /100 WBC 0 -0 NEUTROPHILS RELATIVE PERCENT (BEAKER) (test code = 429) 61 % LYMPHOCYTES RELATIVE PERCENT (BEAKER) (test code = 430) 26 % MONOCYTES RELATIVE PERCENT (BEAKER) (test code = 431) 8 % EOSINOPHILS RELATIVE PERCENT (BEAKER) (test code = 432) 5 % BASOPHILS RELATIVE PERCENT (BEAKER) (test code = 437) 0 % NEUTROPHILS ABSOLUTE COUNT (BEAKER) (test code = 670) 4.67 K/ L 1.78-5.38 LYMPHOCYTES ABSOLUTE COUNT (BEAKER) (test code = 414) 1.95 K/ L 1.32-3.57 MONOCYTES ABSOLUTE COUNT (BEAKER) (test code = 415) 0.62 K/ L 0. 30-0.82 EOSINOPHILS ABSOLUTE COUNT (BEAKER) (test code = 416) 0.36 K/ L 0.04-0.54 BASOPHILS ABSOLUTE COUNT (BEAKER) (test code = 417) 0.03 K/ L 0. 01-0.08 IMMATURE GRANULOCYTES-RELATIVE PERCENT (BEAKER) (test code = 2801) 0 % 0-1 POCT-GLUCOSE [id number] 18:13:00* Test Item Value Reference Range Interpretation Comments POC-GLUCOSE METER (BEAKER) (test code = 1538) 274 mg/dL 70-110 H TESTED AT [address] [address] POCT-GLUCOSE [id number] 11:25:00* Test Item Value Reference Range Interpretation Comments POC-GLUCOSE METER (BEAKER) (test code = 1538) 321 mg/dL 70-110 H Notified LULI GARCIA/TESTED AT [address] [address] HEMOGLOBIN [id number] 10:44:00* Test Item Value Reference Range Interpretation Comments HEMOGLOBIN A1C (BEAKER) (test code = 368) 6.1 % 4.3-6.1 POCT-GLUCOSE [id number] 08:09:00* Test Item Value Reference Range Interpretation Comments POC-GLUCOSE METER (BEAKER) (test code = 1538) 257 mg/dL 70-110 H TESTED AT [place] [id number] BASIC METABOLIC [id number] 07:33:00* Test Item Value Reference Range Interpretation Comments SODIUM (BEAKER) (test code = 381) 133 meq/L 136-145 L POTASSIUM (BEAKER) (test code = 379) 3.8 meq/L 3.5-5.1 CHLORIDE (BEAKER) (test code = 382) 100 meq/L 98-107 CO2 (BEAKER) (test code = 355) 24 meq/L 22-29 BLOOD UREA NITROGEN (BEAKER) (test code = 354) 11 mg/dL 7-21 CREATININE (BEAKER) (test code = 358) 0.79 mg/dL 0.57-1.25 GLUCOSE RANDOM (BEAKER) (test code = 652) 220 mg/dL 70-105 H CALCIUM (BEAKER) (test code = 697) 9.8 mg/dL 8.4-10.2 EGFR (BEAKER) (test code = 1092) 97 mL/min/1.73 sq m ESTIMATED GFR IS NOT ACCURATE CREATININE CLEARANCE IN PREDICTING GLOMERULAR FILTRATION RATE. ESTIMATED GFR IS NOT APPLICABLE FOR DIALYSIS PATIENTS. [id number] 07:30:00* Test Item Value Reference Range Interpretation Comments PHOSPHORUS (BEAKER) (test code = 604) 2.1 mg/dL 2.3-4.7 L [id number] 07:30:00* Test Item Value Reference Range Interpretation Comments MAGNESIUM (BEAKER) (test code = 627) 1.4 mg/dL 1.6-2.6 L POCT-GLUCOSE [id number] 03:12:00* Test Item Value Reference Range Interpretation Comments POC-GLUCOSE METER (BEAKER) (test code = 1538) 266 mg/dL 70-110 H TESTED AT [address] [address] POCT-GLUCOSE [id number] 21:29:00* Test Item Value Reference Range Interpretation Comments POC-GLUCOSE METER (BEAKER) (test code = 1538) 307 mg/dL 70-110 H Notified LULI GARCIA/TESTED AT [address] [address] POCT-GLUCOSE [id number] 11:58:00* Test Item Value Reference Range Interpretation Comments POC-GLUCOSE METER (BEAKER) (test code = 1538) 350 mg/dL 70-110 H Baby tested Mother ID used/TESTED AT [address] [address] POCT-GLUCOSE [id number] 08:21:00* Test Item Value Reference Range Interpretation Comments POC-GLUCOSE METER (BEAKER) (test code = 1538) 259 mg/dL 70-110 H TESTED AT [address] [address] [id number] 04:21:00* Test Item Value Reference Range Interpretation Comments PHOSPHORUS (BEAKER) (test code = 604) 1.7 mg/dL 2.3-4.7 L [id number] 04:21:00* Test Item Value Reference Range Interpretation Comments MAGNESIUM (BEAKER) (test code = 627) 1.6 mg/dL 1.6-2.6 BASIC METABOLIC [id number] 04:21:00* Test Item Value Reference Range Interpretation Comments SODIUM (BEAKER) (test code = 381) 133 meq/L 136-145 L POTASSIUM (BEAKER) (test code = 379) 4.4 meq/L 3.5-5.1 CHLORIDE (BEAKER) (test code = 382) 102 meq/L 98-107 CO2 (BEAKER) (test code = 355) 25 meq/L 22-29 BLOOD UREA NITROGEN (BEAKER) (test code = 354) 14 mg/dL 7-21 CREATININE (BEAKER) (test code = 358) 0.92 mg/dL 0.57-1.25 GLUCOSE RANDOM (BEAKER) (test code = 652) 260 mg/dL 70-105 H CALCIUM (BEAKER) (test code = 697) 10.6 mg/dL 8.4-10.2 H EGFR (BEAKER) (test code = 1092) 81 mL/min/1.73 sq m ESTIMATED GFR IS NOT ACCURATE CREATININE CLEARANCE IN PREDICTING GLOMERULAR FILTRATION RATE. ESTIMATED GFR IS NOT APPLICABLE FOR DIALYSIS PATIENTS. IRON, TIBC, % SAT. (WITHOUT FERRITIN)2017-02-11 04:21:00* Test Item Value Reference Range Interpretation Comments IRON (BEAKER) (test code = 547) 24 ug/dL 40-160 L TOTAL IRON BINDING CAPACITY (BEAKER) (test code = 769) 315 ug/dL 250-450 IRON % SATURATION (2) (BEAKER) (test code = 2590) 8 % 20-5 5 L CBC (HEMOGRAM ONLY)2017-02-11 04:07:00* Test Item Value Reference Range Interpretation Comments WHITE BLOOD CELL COUNT (BEAKER) (test code = 775) 7.4 K/ L 3.5- 10.5 RED BLOOD CELL COUNT (BEAKER) (test code = 761) 3.66 M/ L 4.63-6 .08 L HEMOGLOBIN (BEAKER) (test code = 410) 9.4 GM/DL 13.7-17.5 L HEMATOCRIT (BEAKER) (test code = 411) 31.0 % 40.1-51.0 L MEAN CORPUSCULAR VOLUME (BEAKER) (test code = 753) 84.7 fL 79. 0-92.2 MEAN CORPUSCULAR HEMOGLOBIN (BEAKER) (test code = 751) 25.7 pg 25.7-32.2 MEAN CORPUSCULAR HEMOGLOBIN CONC (BEAKER) (test code = 752) 30.3 GM/DL 32.3-36.5 L RED CELL DISTRIBUTION WIDTH (BEAKER) (test code = 412) 25.4 % 11.6-14.4 H PLATELET COUNT (BEAKER) (test code = 756) 97 K/CU MM 150-450 L MEAN PLATELET VOLUME (BEAKER) (test code = 754) 10.8 fL 9.4-12 .4 NUCLEATED RED BLOOD CELLS (BEAKER) (test code = 413) 0 /100 WBC 0 -0 POCT-GLUCOSE [id number] 22:54:00* Test Item Value Reference Range Interpretation Comments POC-GLUCOSE METER (BEAKER) (test code = 1538) 314 mg/dL 70-110 H Notified LULI GARCIA/TESTED AT [address] [address] [id number] 19:48:00* Test Item Value Reference Range Interpretation Comments POTASSIUM (BEAKER) (test code = 379) 4.3 meq/L 3.5-5.1 POCT-GLUCOSE [id number] 17:59:00* Test Item Value Reference Range Interpretation Comments POC-GLUCOSE METER (BEAKER) (test code = 1538) 255 mg/dL 70-110 H TESTED AT [address] [address] CBC W/PLT COUNT & AUTO [id number] 08:57:00* Test Item Value Reference Range Interpretation Comments WHITE BLOOD CELL COUNT (BEAKER) (test code = 775) 7.3 K/ L 3.5- 10.5 RED BLOOD CELL COUNT (BEAKER) (test code = 761) 3.50 M/ L 4.63-6 .08 L HEMOGLOBIN (BEAKER) (test code = 410) 9.2 GM/DL 13.7-17.5 L HEMATOCRIT (BEAKER) (test code = 411) 29.6 % 40.1-51.0 L MEAN CORPUSCULAR VOLUME (BEAKER) (test code = 753) 84.6 fL 79. 0-92.2 MEAN CORPUSCULAR HEMOGLOBIN (BEAKER) (test code = 751) 26.3 pg 25.7-32.2 MEAN CORPUSCULAR HEMOGLOBIN CONC (BEAKER) (test code = 752) 31.1 GM/DL 32.3-36.5 L RED CELL DISTRIBUTION WIDTH (BEAKER) (test code = 412) 25.8 % 11.6-14.4 H PLATELET COUNT (BEAKER) (test code = 756) 102 K/CU MM 150-450 L MEAN PLATELET VOLUME (BEAKER) (test code = 754) 10.7 fL 9.4-12 .4 NUCLEATED RED BLOOD CELLS (BEAKER) (test code = 413) 0 /100 WBC 0 -0 IMMATURE GRANULOCYTES-RELATIVE PERCENT (BEAKER) (test code = 2801) 0 % 0-1 (MANUAL DIFFERENTIAL)2017-02-10 08:57:00* Test Item Value Reference Range Interpretation Comments NEUTROPHILS - REL (DIFF) (BEAKER) (test code = 1359) 73 % LYMPHOCYTES - REL (DIFF) (BEAKER) (test code = 1360) 5 % MONOCYTES - REL (DIFF) (BEAKER) (test code = 1361) 4 % MYELOCYTES-REL (DIFF) (BEAKER) (test code = 1594) 1 % 0-0 H BANDS - REL (DIFF) (BEAKER) (test code = 1348) 17 % 0-10 H NEUTROPHILS - ABS (DIFF) (BEAKER) (test code = 1365) 5.33 K/ L 1 .80-8.00 LYMPHOCYTES - ABS (DIFF) (BEAKER) (test code = 1366) 0.37 K/ L 1 .48-4.50 L MONOCYTES - ABS (DIFF) (BEAKER) (test code = 1367) 0.29 K/ L 0.0 0-1.30 BANDS-ABS (DIFF) (BEAKER) (test code = 1349) 1.2 K/ L 0.0-0.8 H MYELOCYTES-ABS (DIFF) (BEAKER) (test code = 1593) 0.07 K/ L 0.00 -0.00 H TOTAL COUNTED (BEAKER) (test code = 1351) 100 BANDS + SEGMENTED NEUTROPHILS (BEAKER) (test code = 1352) 6.57 WBC MORPHOLOGY (BEAKER) (test code = 487) Normal PLT MORPHOLOGY (BEAKER) (test code = 486) Normal RBC MORPHOLOGY (BEAKER) (test code = 762) Normal HEMOGLOBIN [id number] 08:54:00* Test Item Value Reference Range Interpretation Comments HEMOGLOBIN A1C (BEAKER) (test code = 368) 6.6 % 4.3-6.1 H [id number] 06:36:00* Test Item Value Reference Range Interpretation Comments PHOSPHORUS (BEAKER) (test code = 604) 0.9 mg/dL 2.3-4.7 LL CREATINE KINASE (CK), TOTAL AND [id number] 05:45:00* Test Item Value Reference Range Interpretation Comments CREATINE KINASE TOTAL (CRISPINAKER) (test code = 380) 50 U/L 29-20 0 CREATINE KINASE-MB (BEAKER) (test code = 750) 0.6 ng/mL 0.0-6.6 CREATINE KINASE-MB INDEX (BEAKER) (test code = 395) 1.2 % Effective 05/25/2014: CK-MB Reference Range ChangeNew: 0.0-6.6 Previous: 0.0- 4.9CK-MB Reference Range:<6.7 Normal6.7-10.0 Borderline>10.0 Abnormal TROPONIN [id number] 05:45:00* Test Item Value Reference Range Interpretation Comments TROPONIN I (ELENA) (test code = 397) 0.02 ng/mL 0.00-0.03 Effective 05/25/2014: Reference Range ChangeNew: 0.00-0.03 Previous 0.00-0.15T roponin I (TnI) levels must be interpreted in the context of the presenting symp toms and the clinical findings. Elevated TnI levels indicate myocardial damage, but are not specific for ischemic heart disease. Elevated TnI levels are seen in patients with other cardiac conditions (including myocarditis and congestive he art failure), and slight TnI elevations occur in patients with other conditions, including sepsis, renal failure, acidosis, acute neurological disease, and pers istent tachyarrhythmia.[id number] 05:38:00* Test Item Value Reference Range Interpretation Comments MAGNESIUM (ELENA) (test code = 627) 1.4 mg/dL 1.6-2.6 L LIPID [id number] 05:38:00* Test Item Value Reference Range Interpretation Comments TRIGLYCERIDES (BEAKER) (test code = 540) 151 mg/dL CHOLESTEROL (BEAKER) (test code = 631) 140 mg/dL HDL CHOLESTEROL (BEAKER) (test code = 976) 38 mg/dL LDL CHOLESTEROL CALCULATED (CRISPINAKER) (test code = 633) 72 mg/dL Triglyceride Reference Range: Low Risk <150 Borderline 150-199 High Risk 200-499 Very High Risk >=500Cholesterol Reference Range: Low Risk <200 Borderline 200-239 High Risk >240HDL Cholesterol Reference Range: Low Risk >=60 High Risk <40LDL Cholesterol Reference Range: Optimal <100 Near Optimal 100-129 Borderline 130-159 High 160-189 Very High >=190 COMPREHENSIVE METABOLIC [id number] 05:38:00* Test Item Value Reference Range Interpretation Comments TOTAL PROTEIN (BEAKER) (test code = 770) 7.3 gm/dL 6.0-8.3 ALBUMIN (BEAKER) (test code = 1145) 3.4 g/dL 3.5-5.0 L ALKALINE PHOSPHATASE (BEAKER) (test code = 346) 116 U/L 40-150 BILIRUBIN TOTAL (BEAKER) (test code = 377) 0.4 mg/dL 0.2-1.2 SODIUM (BEAKER) (test code = 381) 134 meq/L 136-145 L POTASSIUM (BEAKER) (test code = 379) 3.2 meq/L 3.5-5.1 L CHLORIDE (BEAKER) (test code = 382) 104 meq/L 98-107 CO2 (BEAKER) (test code = 355) 22 meq/L 22-29 BLOOD UREA NITROGEN (BEAKER) (test code = 354) 17 mg/dL 7-21 CREATININE (BEAKER) (test code = 358) 0.99 mg/dL 0.57-1.25 GLUCOSE RANDOM (BEAKER) (test code = 652) 274 mg/dL 70-105 H CALCIUM (BEAKER) (test code = 697) 9.6 mg/dL 8.4-10.2 AST (SGOT) (BEAKER) (test code = 353) 32 U/L 5-34 ALT (SGPT) (BEAKER) (test code = 347) 32 U/L 6-55 EGFR (BEAKER) (test code = 1092) mL/min/1.73 sq m INSUFFICIENT CLINICAL DATA TO CALCULATE ESTIMATED GFR. B-TYPE NATRIURETIC FACTOR (BNP)2017-02-10 05:35:00* Test Item Value Reference Range Interpretation Comments B-TYPE NATRIURETIC PEPTIDE (BEAKER) (test code = 700) 252 pg/mL 0-100 H [id number] 05:23:00* Test Item Value Reference Range Interpretation Comments PARTIAL THROMBOPLASTIN TIME (BEAKER) (test code = 760) 26.1 seconds 22.5-36.0 PROTHROMBIN TIME/[id number] 05:22:00* Test Item Value Reference Range Interpretation Comments PROTIME (BEAKER) (test code = 759) 14.1 seconds 11.7-14.7 INR (BEAKER) (test code = 370) 1.1 <=5.9 RECOMMENDED COUMADIN/WARFARIN INR THERAPY RANGESSTANDARD DOSE: 2.0 - 3.0 Inclu sarina: PROPHYLAXIS for venous thrombosis, systemic embolization; TREATMENT for oliver ous thrombosis and/or pulmonary embolus.HIGH RISK: Target INR is 2.5-3.5 for pat ients with mechanical heart valves.POCT-GLUCOSE [id number] 22:38:00* Test Item Value Reference Range Interpretation Comments POC-GLUCOSE METER (BEAKER) (test code = 1538) 133 mg/dL 70-110 H TESTED AT [facility] [address] [facility] [address] URINALYSIS W/ REFLEX URINE [id number] 18:09:00* Test Item Value Reference Range Interpretation Comments COLOR (BEAKER) (test code = 470) Yellow CLARITY (BEAKER) (test code = 469) Hazy SPECIFIC GRAVITY UA (BEAKER) (test code = 468) 1.011 1.001-1 .035 PH UA (BEAKER) (test code = 467) 5.5 5.0-8.0 PROTEIN UA (BEAKER) (test code = 464) 50 mg/dL Negative A GLUCOSE UA (BEAKER) (test code = 365) Negative Negative KETONES UA (BEAKER) (test code = 371) Negative Negative BILIRUBIN UA (BEAKER) (test code = 462) Negative Negative BLOOD UA (BEAKER) (test code = 461) Small Negative A NITRITE UA (BEAKER) (test code = 465) Negative Negative LEUKOCYTE ESTERASE UA (BEAKER) (test code = 466) Large Negat danny A UROBILINOGEN UA (BEAKER) (test code = 463) 0.2 mg/dL 0.2-1.0 RBC UA (BEAKER) (test code = 519) 9 /HPF WBC UA (BEAKER) (test code = 520) 234 /HPF BACTERIA (BEAKER) (test code = 517) Few SQUAMOUS EPITHELIAL (BEAKER) (test code = 516) < /HPF SOURCE(BEAKER) (test code = 3445) CREATINE KINASE (CK), TOTAL AND [id number] 18:07:00* Test Item Value Reference Range Interpretation Comments CREATINE KINASE TOTAL (BEAKER) (test code = 380) 74 U/L 29-20 0 CREATINE KINASE-MB (BEAKER) (test code = 750) 2.1 ng/mL 0.0-6.6 CREATINE KINASE-MB INDEX (BEAKER) (test code = 395) 2.8 % Effective 05/25/2014: CK-MB Reference Range ChangeNew: 0.0-6.6 Previous: 0.0- 4.9CK-MB Reference Range:<6.7 Normal6.7-10.0 Borderline>10.0 Abnormal TROPONIN [id number] 18:07:00* Test Item Value Reference Range Interpretation Comments TROPONIN I (BEAKER) (test code = 397) < ng/mL 0.00-0.03 Effective 05/25/2014: Reference Range ChangeNew: 0.00-0.03 Previous 0.00-0.15T roponin I (TnI) levels must be interpreted in the context of the presenting symp toms and the clinical findings. Elevated TnI levels indicate myocardial damage, but are not specific for ischemic heart disease. Elevated TnI levels are seen in patients with other cardiac conditions (including myocarditis and congestive he art failure), and slight TnI elevations occur in patients with other conditions, including sepsis, renal failure, acidosis, acute neurological disease, and pers istent tachyarrhythmia.BASIC METABOLIC [id number] 18:02:00* Test Item Value Reference Range Interpretation Comments SODIUM (BEAKER) (test code = 381) 138 meq/L 136-145 POTASSIUM (BEAKER) (test code = 379) 3.9 meq/L 3.5-5.1 CHLORIDE (BEAKER) (test code = 382) 107 meq/L 98-107 CO2 (BEAKER) (test code = 355) 23 meq/L 22-29 BLOOD UREA NITROGEN (BEAKER) (test code = 354) 14 mg/dL 7-21 CREATININE (BEAKER) (test code = 358) 0.83 mg/dL 0.57-1.25 GLUCOSE RANDOM (BEAKER) (test code = 652) 139 mg/dL 70-105 H CALCIUM (BEAKER) (test code = 697) 10.6 mg/dL 8.4-10.2 H EGFR (BEAKER) (test code = 1092) mL/min/1.73 sq m INSUFFICIENT CLINICAL DATA TO CALCULATE ESTIMATED GFR. [id number] 18:01:00* Test Item Value Reference Range Interpretation Comments MAGNESIUM (BEAKER) (test code = 627) 1.4 mg/dL 1.6-2.6 L CBC W/PLT COUNT & AUTO [id number] 17:47:00* Test Item Value Reference Range Interpretation Comments WHITE BLOOD CELL COUNT (BEAKER) (test code = 775) 7.4 K/ L 3.5- 10.5 RED BLOOD CELL COUNT (BEAKER) (test code = 761) 3.93 M/ L 4.63-6 .08 L HEMOGLOBIN (BEAKER) (test code = 410) 10.2 GM/DL 13.7-17.5 L HEMATOCRIT (BEAKER) (test code = 411) 33.3 % 40.1-51.0 L MEAN CORPUSCULAR VOLUME (BEAKER) (test code = 753) 84.7 fL 79. 0-92.2 MEAN CORPUSCULAR HEMOGLOBIN (BEAKER) (test code = 751) 26.0 pg 25.7-32.2 MEAN CORPUSCULAR HEMOGLOBIN CONC (BEAKER) (test code = 752) 30.6 GM/DL 32.3-36.5 L RED CELL DISTRIBUTION WIDTH (BEAKER) (test code = 412) 25.1 % 11.6-14.4 H PLATELET COUNT (BEAKER) (test code = 756) 118 K/CU MM 150-450 L MEAN PLATELET VOLUME (BEAKER) (test code = 754) 10.3 fL 9.4-12 .4 NUCLEATED RED BLOOD CELLS (BEAKER) (test code = 413) 0 /100 WBC 0 -0 NEUTROPHILS RELATIVE PERCENT (BEAKER) (test code = 429) 78 % LYMPHOCYTES RELATIVE PERCENT (BEAKER) (test code = 430) 13 % MONOCYTES RELATIVE PERCENT (BEAKER) (test code = 431) 5 % EOSINOPHILS RELATIVE PERCENT (BEAKER) (test code = 432) 4 % BASOPHILS RELATIVE PERCENT (BEAKER) (test code = 437) 0 % NEUTROPHILS ABSOLUTE COUNT (BEAKER) (test code = 670) 5.75 K/ L 1.78-5.38 H LYMPHOCYTES ABSOLUTE COUNT (BEAKER) (test code = 414) 0.92 K/ L 1.32-3.57 L MONOCYTES ABSOLUTE COUNT (BEAKER) (test code = 415) 0.38 K/ L 0. 30-0.82 EOSINOPHILS ABSOLUTE COUNT (BEAKER) (test code = 416) 0.27 K/ L 0.04-0.54 BASOPHILS ABSOLUTE COUNT (BEAKER) (test code = 417) 0.03 K/ L 0. 01-0.08 IMMATURE GRANULOCYTES-RELATIVE PERCENT (BEAKER) (test code = 2801) 0 % 0-1
--- NOTE | 2020-03-22 08:07 | Diagnostic Imaging Report ---
EXAMINATION: CHEST SINGLE (PORTABLE) INDICATION: cp, abd pain COMPARISON: None FINDINGS: The heart is nonenlarged. Shallow inspiration. Mild interstitial and hazy lung densities bilaterally. No pleural effusion. No pneumothorax. Electronic device projects over the left shoulder. Sternotomy wires and surgical clips are present. IMPRESSION: Mild interstitial and hazy lung densities favored to represent atelectasis given shallow inspiration, but mild pulmonary vascular congestion or viral pneumonia could be considered. Signed by: Doug Brownlee MD on 03/22/2020 8:04 AM
--- NOTE | 2020-03-22 08:08 | NUR ---
CALLED [facility] FOR TRANSPORT
--- NOTE | 2020-03-22 08:20 | Diagnostic Imaging Report ---
EXAM: CT Abdomen and Pelvis WITH contrast INDICATION: H/O LIVER CA, RUQ ABD PAIN COMPARISON: None. TECHNIQUE: Abdomen and pelvis were scanned utilizing a multidetector helical scanner from the lung base to the pubic symphysis after administration of IV contrast. Coronal and sagittal reformations were obtained. Routine protocol was performed. Scan was performed when during portal venous phase. IV CONTRAST: 100 mL of Isovue 370 ORAL CONTRAST: None COMPLICATIONS: None RADIATION DOSE: Total DLP: 781.53 mGy*cm Estimated effective dose: (DLP x 0.015 x size factor) mSv CTDIvol has been reviewed. It is below the limits set by the Radiation Protocol Committee (RPC). Dose modulation, iterative reconstruction, and/or weight based adjustment of the mA/kV was utilized to reduce the radiation dose to as low as reasonably achievable. FINDINGS: LINES and TUBES: None. LOWER THORAX: Unremarkable HEPATOBILIARY: 4.5 cm hypoattenuating lesion in hepatic segment 6. Ill-defined hypoattenuation at the hepatic dome which is suboptimally assessed due to streak artifact from contrast bolus in the right heart. GALLBLADDER: There are cholecystectomy clips. SPLEEN: No splenomegaly. PANCREAS: No focal masses or ductal dilatation. ADRENALS: No adrenal nodules KIDNEYS/URETERS: Kidneys enhance symmetrically. No hydronephrosis. Indeterminate 2.9 cm hyperdense cystic lesion in the midpole the right kidney. GI TRACT: No abnormal distention, wall thickening, or evidence of bowel obstruction. PELVIC ORGANS/BLADDER: Enlarged prostate. LYMPH NODES: No lymphadenopathy. VESSELS: Atherosclerosis without aneurysmal dilatation of the abdominal aorta. PERITONEUM / RETROPERITONEUM: No free air or fluid. BONES: Unremarkable. SOFT TISSUES: Gynecomastia. Fat-containing infraumbilical hernia without evidence of strangulation. The hernia neck measures 2.4 cm. The hernia sac measures 4.8 x 6.6 cm. IMPRESSION: 1. 4.5 cm hypoattenuating lesion in hepatic segment 6 is incompletely characterized on single phase study. Given known history of liver cancer, consider correlation with prior imaging or nonemergent outpatient liver protocol CT for further evaluation. Ill-defined hypodensity at the hepatic dome is suboptimally assessed due to streak artifact from contrast bolus in the right heart and single phase study. 2. 2.9 cm indeterminate hyperdense cystic right renal lesion. If not already characterized, consider renal mass protocol CT or MR for further characterization. 3. Large fat-containing infraumbilical hernia without evidence of strangulation. 4. Enlarged prostate. Signed by: Doug Brownlee MD on 03/22/2020 8:17 AM
--- NOTE | 2020-03-22 09:01 | NUR ---
CALLING TO UPDATE TRANSFER [facility] COVID NEG
--- NOTE | 2020-03-22 09:15 | NUR ---
DISC TO EMS WITH BOTH FOLDERS OF INFO
--- NOTE | 2020-03-22 09:24 | NUR ---
admin approval by AYLIN Longo @ [phone] Dr[address] Libia Pacheco @ [phone] going to [address] [place] [address] room [id number] [facility] [id number] report fax [phone]
== END 2020-03-22 09:31 | disposition other institution (70) ==
LOC: ER 07:53
DX: R07.89 Other chest pain (principal); R10.11 Right upper quadrant pain; R94.31 Abnormal electrocardiogram [ECG] [EKG]; I10 Essential (primary) hypertension; I50.9 Heart failure, unspecified; E11.9 Type 2 diabetes mellitus without complications; Z85.05 Personal history of malignant neoplasm of liver; I25.2 Old myocardial infarction; Z95.1 Presence of aortocoronary bypass graft; Z95.810 Presence of automatic (implantable) cardiac defibrillator; Z11.59 Encounter for screening for other viral diseases
CPT/HCPCS: 36415; 71045; 74177; 80053; 82150; 82550; 82553; 83690; 83735; 83880; 84484; 85025; 85610; 85730; 87040; 93005; 99285; J1170; J2405; Q9967; U0002; J2270